=== PATIENT | female | born 1975 | race Caucasian/White ===

== ENCOUNTER → 2023-07-08 11:15 | Outpatient (BNV) | payer MEDICARE, MEDICAID, SELFPAY | PROVIDERS: Visit Provider Psychiatry & Neurology Psychiatry | DX: F25.1 Schizoaffective disorder, depressive type (principal) | CPT/HCPCS: 90792; 99213 ==

== ENCOUNTER 2023-07-15 11:30 | Outpatient (RCR) | payer MEDICARE, MEDICAID, SELFPAY ==
--- NOTE | 2023-07-05 10:05 | PC.NURSE ---
Jose Armando did not show up to the program this morning. I called and left her a message x2. I called her emergency contact lens assistant Bora Lopez and left him a message to call me back.
--- NOTE | 2023-07-05 10:39 | PC.NURSE ---
Unable to get a hold of Jose Armando or her emergency contact center specialist Bora Lopez. I called the [place] [employer] and requested a wellness check per [facility] protocol. I then cancelled the wellness check as Jose Armando called me back. She reports she was having transportation issues and could not make it to the program this morning. She plans on coming to the program on Saturday. No safety issues. [facility] staff are aware.
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
[2023-07-08 13:21] VITALS: BP 100/54; PULSE 96; TEMP 36.8
[2023-07-08 13:37] VITALS: BMI 33.6
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
[2023-07-08 14:48] LABS: Amphetamine Screen Urine Not Detected (Not Detect); Barbiturates, Urine Not Detected (Not Detect); Benzodiazepines Screen Urine Not Detected (Not Detect); Cannabinoid Screen Urine Not Detected (Not Detect); Cocaine Screen Urine Not Detected (Not Detect); Fentanyl, urine Not Detected (Not Detect); Opiate Screen Urine Not Detected (Not Detect); Phencyclidine Screen Urine Not Detected (Not Detect)
--- NOTE | 2023-07-11 09:29 | HO.PHP ---
I called and left a message for the client to call re did not come in today.
--- NOTE | 2023-07-11 15:49 | HO.PHP ---
Pt did not show up for groups today, 07/11/2023. Pt's number was called, by short story writer twice, both times no answer and voicemail-box is full. Pt's emergency contact was called, a voicemail was left for him or Ceciley to contact us and a number provided. Neither have replied yet.
--- NOTE | 2023-07-11 15:59 | HO.PHP ---
The clients case was reviewed and opened in treatment team
--- NOTE | 2023-07-15 11:11 | P.PNPSP_ITS ---
Subjective Subjective Date of Service: 07/15/23 Reason For Visit: bipolar,PTSD,anxiety,JULITO,AUD Healthcare Proxy: No Guardianship: No Medical Problems Affecting Mental Status: No Interim History: Reviewed documentation from evaluation on 07/08/2023. Sleep was very problematic. We increased Trileptal to 900 mg and added trazodone 50 mg. On Cymbalta for fibromyalgia and clonidine as needed for anxiety. Noted complex psychosocial circumstances. Had been sober for 7 months. Reviewed recent group notes Today reports overall things are going okay. Regarding trazodone has been taking a quarter of a tablet as she felt extremely groggy the next day. Reports this has been helpful in getting around 7 to 8 hours sleep. We will try an increased dose to 1/2 tablet i.e. 25 mg by the end of the week. Reports mood is getting a little bit better. Intermittent irritability. Motivation is still low however for things such as doing the laundry, cooking i.e. things she normally has no difficulty with. No side effects from higher dose of Trileptal. We also discussed significant changes i.e. he has just returned home 2 weeks ago after not being there for 6 months. Regarding current supports getting medications through [facility] primary care services. Has a therapist through [facility] in [place]. Treatment zayas we discussed getting to 25 mg of trazodone by the end of the week and following up next week. If mood remains low primarily with irritability and motivation may consider trying to titrate trazodone to a full pill i.e. 50 mg. We also discussed potentially getting psychiatry services through [facility] as part of discharge planning. Medication Compliance: Yes Side effects from medications: Yes (some grogginess) Attending Groups: Yes Review of Systems Acute medical concerns: No Medical Review of Systems: unchanged Review of Systems Review of Systems Yes all other systems are reviewed and are negative Mental Status Exam Mental Status Exam Narrative: In today's visit she is alert, oriented and pleasant. Normal speech. Good eye contact. Affect is appropriate and varied. No signs of psychosis. She denies any auditory or visual hallucinations. No delusions. She does have history of auditory and visual hallucinations which could be command in nature. She denies any current suicidal or homicidal ideations. Cognitively she is intact and judgment is intact Diagnostics Vital Signs (24Hr): BMI result Body Mass Index 33.6 Assessment & Plan Assessment & Plan (1) Schizoaffective disorder, depressive type: Status: Acute Code(s): F25.1 - Schizoaffective disorder, depressive type Assessment and Plan: Treatment zayas we discussed maintain trileptal 900 and cymbalta 80mg (fibromyalgia) and getting to 25 mg of trazodone by the end of the week and following up next week. If mood remains low primarily with irritability and mot ivation may consider trying to titrate trazodone to a full pill i.e. 50 mg. We also discussed potentially getting psychiatry services through [facility] as part of discharge planning. Patient educated on: medication risk/benefits and therapeutic strategies Informed Consent: understands Reason for contiued partial hosp. stay Substantial Risk for: med/psych decompensation Certification I certify that partial hospital treatment is medically necessary due to the symptoms and problems resulting from the patient's mental illness and the failure to treat the patient at the partial hospital level of care would likely result in the patient requiring inpatient psychiatric care which could not be prevented at a less intensive level of care. Total time managing care of this patient today __25__ minutes. Discharge Plan Discharge Attending provider: Abel Perez Medications: New oxcarbazepine [Trileptal] 300 mg tablet 900 mg PO BEDTIME 30 Days Qty: 90 0RF trazodone 100 mg tablet 100 mg PO BEDTIME Qty: 30 0RF No Action multivitamin Tablet 1 tab PO DAILY clonidine HCl 0.1 mg Tablet 0.1 mg PO BEDTIME pantoprazole [Protonix] 40 mg Tablet,Delayed Release (Dr/Ec) 40 mg PO BID folic acid 1 mg Tablet 1 mg PO DAILY ibuprofen [Motrin] 600 mg Tablet 600 mg PO TID PRN (Reason: Pain) albuterol sulfate 90 mcg/actuation HFA aerosol inhaler 2 puff INHALATION Q4H PRN (Reason: Shortness Of Breath) topiramate 100 mg Tablet 100 mg PO BID metformin 500 mg tablet extended release 24 hr 500 mg PO DAILY buspirone 15 mg Tablet 15 mg PO TID duloxetine 20 mg Capsule,Delayed Release(Dr/Ec) 20 mg PO DAILY duloxetine 60 mg Capsule,Delayed Release(Dr/Ec) 60 mg PO DAILY buprenorphine-naloxone [Suboxone] 8-2 mg Film 1 film BUCCAL TID Combivent Respimat 20-100 mcg/actuation mist 1 puff INHALATION QID Stand Alone Forms: Patient Portal Discharge page Telehealth Telehealth Location of provider rendering services: other ([place]) Location of patient: other ([facility]) Patient Identification confirmed using: Name, : Yes Telehealth method: video Patient verbally consented to treatment: Yes Minutes spent on Phone/Video with Pt.: 10
--- NOTE | 2023-07-16 09:43 | HO.PHP ---
I called Eri when she wasn't in this morning . she explained that she didn't have a ride in . She plans to be in tomorrow.
--- NOTE | 2023-07-17 11:10 | HO.PHP ---
Addendum entered by Nicole Wray [facility] 07/17/23 11:18: She has an outpatient therapist and is seeing her PCP on Thursday 07/19. I will call to make a referral for an outpatient psychiatrist at [facility] where she has her prescriber. Original Note: I called and spoke with Eri about her inability to attend due to transportation issues. She agreed to be discharged today as she feels that she is doing better and will call for an intake if she secures transportation and feels she needs treatment.
--- NOTE | 2023-07-17 14:18 | PC.NURSE ---
Jose Armando did not show up to the program this morning. I spoke to Jose Armando this morning and she stated she could not get a ride to the program. She stated she is awaiting PT1. PHP staff is aware. PHP staff Acacia Miller to f/u with patient.
== END 2023-07-17 23:59 | disposition home or self-care (01) ==
LOC: HO.PHPA 11:30
PROVIDERS: Psychiatry & Neurology Psychiatry; Visit Provider Psychiatry & Neurology Psychiatry
DX: F25.1 Schizoaffective disorder, depressive type (principal); F06.1 Catatonic disorder due to known physiological condition; F19.20 Other psychoactive substance dependence, uncomplicated; Z79.899 Other long term (current) drug therapy
CPT/HCPCS: 80307; 90791; 90853

== ENCOUNTER 2024-05-17 17:47 | Inpatient (IN) | payer OTHER, SELFPAY ==
--- NOTE | ~2024-05-17 | XR_ITS ---
EXAMINATION: XR CHEST CLINICAL INFORMATION: Cough, history of pneumonia COMPARISON: None available. TECHNIQUE: 2 views of the chest were obtained. FINDINGS: Lung volumes are symmetric. There are relatively streaky opacities at the left greater than right lung bases. No evidence of pneumothorax or pleural effusion. The cardiomediastinal contour is unremarkable. No acute osseous findings are seen. XR/XR chest 2V IMPRESSION: Relatively streaky bibasilar opacities, left greater than right. While appearance is suggestive of atelectasis, developing pneumonia at the left base cannot be excluded in the proper clinical setting.
[2024-05-17 18:02] VITALS: BP 114/68; PULSE 84; O2SAT 96
--- NOTE | 2024-05-17 18:29 | PC.NURSE ---
spoke with [facility] staff and informed them that we need a 21 form filled out and fax'd back to us for transport
[2024-05-17 18:34] VITALS: BP 120/65; PULSE 98; RESP 14; TEMP 36.9; O2SAT 93; BMI 31.9
--- NOTE | 2024-05-17 18:56 | ED_ITS ---
HPI - General Adult General Chief complaint: General Medical Stated complaint: YANELIS STARKS Time Seen by Provider: 05/17/24 18:04 Source: patient Mode of arrival: EMS Limitations: no limitations History of Present Illness ED Provider: sonia BAIRD narrative: Patient has schizoaffective disorder with history of COPD using inhaler comes here for increased cough for last 5 days was seen at [facility] 5 days ago diagnosed with pneumonia prescribed doxycycline patient is still coughing and wheezing no fever no chills saturating 93% on room air Related Data Home Medications ?Medication ?Instructions ?Recorded ?Confirmed albuterol sulfate 90 mcg/actuation 2 puff inhalation Q4H PRN 07/08/23 07/08/23 aerosol inhaler Shortness Of Breath buprenorphine 8 mg-naloxone 2 mg 1 film buccal TID 07/08/23 07/08/23 sublingual film (Suboxone) buspirone 15 mg tablet 15 mg PO TID 07/08/23 07/08/23 clonidine HCl 0.1 mg tablet 0.1 mg PO BEDTIME 07/08/23 07/08/23 duloxetine 20 mg capsule,delayed 20 mg PO DAILY 07/08/23 07/08/23 release duloxetine 60 mg capsule,delayed 60 mg PO DAILY 07/08/23 07/08/23 release folic acid 1 mg tablet 1 mg PO DAILY 07/08/23 07/08/23 ibuprofen 600 mg tablet 600 mg PO TID PRN Pain 07/08/23 07/08/23 ipratropium 20 mcg-albuterol 100 1 puff inhalation QID 07/08/23 07/08/23 mcg/actuation mist for inhalation (Combivent Respimat) metformin 500 mg tablet,extended 500 mg PO DAILY 07/08/23 07/08/23 release 24 hr multivitamin 1 tab PO DAILY 07/08/23 07/08/23 pantoprazole 40 mg tablet,delayed 40 mg PO BID 07/08/23 07/08/23 release (Protonix) topiramate 100 mg tablet 100 mg PO BID 07/08/23 07/08/23 Previous Rx's ?Medication ?Instructions ?Recorded oxcarbazepine 300 mg tablet 900 mg (3 x 300 mg) PO BEDTIME 30 07/08/23 (Trileptal) days #90 tabs trazodone 100 mg tablet 100 mg PO BEDTIME #30 tabs 07/08/23 Allergies Allergy/AdvReac Type Severity Reaction Status Date / Time Sulfa (Sulfonamide Allergy Severe Difficulty Verified 05/17/24 18:35 Antibiotics) Breathing Review of Systems 2 Review of Systems: Yes all other systems are reviewed and are negative [facility] Past Medical History Medical History (Updated 05/18/24 @ 01:24 by Jamil Zaldivar MD) Hepatitis C delivery delivered Bunion History of COVID-19 Pneumonia Hx of respiratory failure Sleep apnea Type II diabetes mellitus Thyroid nodule Fibromyalgia Ulcerative colitis COPD (chronic obstructive pulmonary disease) Surgical History Hx of cholecystectomy History of tubal ligation Social History Social History Household Members: Spouse and Children Household Members Other:: Bora Lopez, and son Gabe (10 y.o.) Alcohol intake: current Alcohol intake frequency: a few times a week Patient Tobacco Use Status: Former Tobacco user Smoked in Last 30 Days: Yes Use of substances other than those prescribed or required for medical reasons: Yes Substance Use Type: Crack/Cocaine Substance Use Frequency: Occasionally Last Used Substance: Days (ago) Advance Directives: No Advance Directives Information Provided: No Do you have a plan to hurt others: No Plan Physical Exam ED Vital Signs: Vital Signs - 24 hr 05/17/24 18:34 05/17/24 19:46 05/17/24 20:05 Temperature 98.4 F 98.1 F Pulse Rate 98 89 103 H Respiratory Rate 14 16 18 Blood Pressure 120/65 101/52 L Pulse Oximetry 93 94 Oxygen Delivery Method Room Air Room Air Oxygen Flow Rate 05/17/24 21:30 05/17/24 21:35 Temperature 98.4 F Pulse Rate 94 Respiratory Rate 18 Blood Pressure 108/64 Pulse Oximetry 84 L 93 Oxygen Delivery Method Room Air Nasal Cannula Oxygen Flow Rate 2 BMI result Body Mass Index 31.9 Appearance: Alert. Oriented X3. No acute distress. Eyes: No pallor or icterus ENT: Pharynx normal. Oral Mucosa moist Neck: Normal inspection. Neck supple. CVS: Normal heart rate and rhythm. Pulses normal. Respiratory: No respiratory distress. Equal air entry bilateral, bilateral wheezing occasional crackles Abdomen: Soft and nontender. Bowel sounds are present, no mass palpable, no CVA tenderness Skin: Skin warm and dry. Normal skin color. Normal skin turgor. Extremities: No lower extremity edema. No calf tenderness Neuro: Oriented X 3. No motor deficit. Medications Administered Discontinued Medications Generic Name Dose Route Start Last Admin Trade Name Freq PRN Reason Stop Dose Admin Benzonatate 200 mg 05/17/24 19:02 05/17/24 20:28 Benzonatate 100 Mg Capsule PO 05/17/24 19:03 200 mg ONCE ONE Administration Albuterol Sulfate 5 mg/ 0 mg 05/17/24 19:02 05/17/24 19:44 Albuterol/Ipratropium 3 ml INHALE 05/17/24 19:03 2.5 each ONCE ONE Administration Sodium Chloride 1,000 mls @ 999 mls/hr 05/17/24 21:45 05/17/24 22:15 Ns IV 05/17/24 22:45 999 mls/hr .Q1H1M ONE Administration Ceftriaxone Sodium 1 gm/ 50 mls @ 100 mls/hr 05/17/24 21:46 05/17/24 22:54 Sodium Chloride IV 05/17/24 22:15 Infused ONCE ONE Infusion Prednisone 60 mg 05/17/24 19:02 05/17/24 20:28 Prednisone 20 Mg Tablet PO 05/17/24 19:03 60 mg ONCE ONE Administration Medical Decision Making Medical Decision Making [facility] Narrative: Patient's COPD/asthma/questionable sleep apnea not on any nebulizer or CPAP machine comes here for increased cough and shortness of breath for last 5 days seen at [facility] started on doxycycline patient is still wheezing while asleep patient pulse ox dropped to 85% chest x-ray with basilar atelectasis questionable infiltrate will admit patient for further evaluation Differential Diagnosis Differential Diagnoses: The differential diagnosis associated with the presentation includes Pneumonia/mucus plugging/COPD/acute on chronic respiratory failure/sleep apnea/bronchitis Admission/Observation Consideration of admission/observation: Escalation of care including admission/observation considered Consult Healthcare Provider Management of the patient was discussed with: Hospitalist Lab Data [facility] Lab Attestation statement: I reviewed the patient's lab results. 05/17/24 22:01 05/17/24 22:01 Labs: Lab Results 06/23/24 06/23/24 06/23/24 Range/Units 22:01 22:02 22:09 WBC 7.3 (4.8-10.8) X10*3/uL RBC 3.85 L (4.20-5.50) X10*6/uL Hgb 11.6 L (12.0-16.0) g/dl Hct 32.7 L (37.0-47.0) % MCV 84.9 (80.0-98.0) fL MCH 30.1 (27.0-33.0) pg MCHC 35.5 H (31.0-35.0) g/dl RDW 12.5 (11.0-16.0) % Plt Count 218 (160-400) X10*3/uL MPV 9.0 L (9.4-12.3) fL Immature Gran % (Auto) 0.7 H (0.0-0.4) % Neut % (Auto) 69.3 (45-73) % Lymph % (Auto) 20.7 (20-40) % [place] % (Auto) 6.7 (2-11) % Eos % (Auto) 2.1 (0-4) % Baso % (Auto) 0.5 (0-2) % Lymph # (Auto) 1.5 (1.2-4.9) X10*3/uL [place] # (Auto) 0.5 (0.1-1.2) X10*3/uL Eos # (Auto) 0.2 (0.0-0.4) X10*3/uL Baso # (Auto) 0.0 (0.0-0.2) X10*3/uL Abs Immat Gran (auto) 0.05 H (0.00-0.03) X10*3/uL Absolute Neuts (auto) 5.1 (2.0-8.3) x10*3/uL Absolute Nucleated RBC 0.000 (0.0-0.012) X10*3/uL Nucleated RBC % (auto) 0.0 (0.0-0.2) /100WBC VBG pH 7.36 (7.32-7.43) VBG pCO2 58 mmHg VBG pO2 46 mmHg VBG HCO3 33 H (22-26) mmol/L VBG O2 Saturation 70.0 % VBG Base Excess 6.5 mmol/L Sodium 126 L (135-145) mmol/L Potassium 4.5 (3.3-5.1) mmol/L Chloride 87 L (96-108) mmol/L Carbon Dioxide 30 H (22-29) mmol/L Anion Gap 14 (12-20) BUN 13 (9-16) mg/dL Creatinine 0.74 (0.5-1.4) mg/dL Estim Creat Clear Calc 96.1 Estimated GFR > 60 Random Glucose 114 (60-115) mg/dL Lactic Acid 1.4 (0.5-2.0) mmol/L Calcium 9.2 (8.4-10.2) mg/dL Total Bilirubin 0.2 (0.0-1.0) mg/dL AST 11 (5-31) U/L ALT 8 (0-31) U/L Alkaline Phosphatase 75 (39-117) U/L Total Protein 6.2 L (6.5-8.0) g/dL Albumin 3.5 (3.5-5.0) g/dL COVID-19 (JUS) Negative (Negative) COVID-19 Clin Com See Note Independent Interpretation I performed an independent interpretation of an: Plain X-Ray Radiology Impression Discussion of test interpretation with radiology: I have reviewed the radiologist's reading. Discharge Plan Discharge Clinical Impression: Acute exacerbation of COPD with asthma, Acute and chronic respiratory failure ([id number]) Pneumonia Qualifiers: Pneumonia type: due to unspecified organism Laterality: left Lung location: l ower lobe of lung Qualified Code(s): J18.9 - Pneumonia, unspecified organism Patient Disposition: Admitted As Inpatient
--- NOTE | 2024-05-17 19:12 | MHC.EDTECH ---
This tech took over care/sitting for this patient at 1900,patient ambulated to the bathroom with a steady gait, The tech prior to my shift locked all belongings in the LAUNDR[facility] ROOM in the POD bottom shelf.
[2024-05-17] MEDS: Albuterol Sulfate 5 MG, Albuterol/Iprat 2.5/0.5MG 3 ML 3 ML INHALE (19:44)
[2024-05-17 19:46] VITALS: PULSE 89; RESP 16; O2SAT 95
[2024-05-17 20:05] VITALS: BP 101/52; PULSE 103; RESP 18; TEMP 36.7; O2SAT 94
[2024-05-17] MEDS: predniSONE 20 MG TABLET 60 MG PO (20:28)
[2024-05-17] MEDS: Benzonatate 100 MG CAPSULE 200 MG PO (20:28)
[2024-05-17 21:30] VITALS: O2SAT 84
[2024-05-17 21:35] VITALS: BP 108/64; PULSE 94; RESP 18; TEMP 36.9; O2SAT 93
--- NOTE | 2024-05-17 21:36 | MHC.EDTECH ---
Patient sats dropped to 84% on room air while asleep,patient was placed on 2L VIA NC,per providers request,patient is 93% at this time
--- NOTE | 2024-05-17 22:04 | PC.NURSE ---
Patient is alert and oriented x3, pleasant and cooperative, denies SI/HI at present. Patient is afebrile, placed on O2 at 2 LPM NC d/t desat to 85-86% on RA while sleeping. Patient has been maintaining O2 Sat 95-95% on supplemental O2. 20 G IV line established in R AC, labs drawn and sent to lab. Plan for admission d/t need for supplemental O2 and treatment with IV antibiotics.
[2024-05-17 22:06] LABS: MANUAL DIFF FLAG NO
[2024-05-17 22:10] LABS: Basophils Percent Auto 0.5 % (0-2); Eosinophils Absolute Auto 0.2 X10*3/uL (0.0-0.4); Eosinophils Percent Auto 2.1 % (0-4); Hematocrit 32.7 % (37.0-47.0); Hemoglobin 11.6 g/dl (12.0-16.0); Imm Gran Abs Auto 0.05 X10*3/uL (0.00-0.03); Imm Gran Pct Auto 0.7 % (0.0-0.4); Lymphocytes Absolute Auto 1.5 X10*3/uL (1.2-4.9); Lymphocytes Percent Auto 20.7 % (20-40); Mean Corpuscular HGB Conc 35.5 g/dl (31.0-35.0); Mean Corpuscular Hemoglobin 30.1 pg (27.0-33.0); Mean Corpuscular Volume 84.9 fL (80.0-98.0); Monocytes Absolute Auto 0.5 X10*3/uL (0.1-1.2); Monocytes Percent Auto 6.7 % (2-11); Neutrophils Absolute Auto 5.1 x10*3/uL (2.0-8.3); Neutrophils Percent Auto 69.3 % (45-73); Platelet Count 218 X10*3/uL (160-400); Red Blood Count 3.85 X10*6/uL (4.20-5.50); Red Cell Distribution Width 12.5 % (11.0-16.0); White Blood Count 7.3 X10*3/uL (4.8-10.8)
[2024-05-17 22:12] LABS: VBG Base Excess 6.5 mmol/L; VBG HCO3 33 mmol/L (22-26); VBG pCO2 58 mmHg; VBG pH 7.36 (7.32-7.43); VBG pO2 46 mmHg
--- NOTE | 2024-05-17 22:12 | MHC.EDTECH ---
labs,covid,and blood cultures drawn and sent to lab.
[2024-05-17] MEDS: cefTRIAXone sodium 1 GM in 0.9 % Sodium Chloride 50 ML IV (22:15)
[2024-05-17] MEDS: 0.9 % Sodium Chloride 1,000 ML 999 ML IV (22:15)
[2024-05-17 22:16] LABS: Venous Blood Gas Refer to POC result
[2024-05-17 22:21] LABS: COVID-19 Test Negative (Negative); IDNOW Serial# 08D9AD1C
[2024-05-17 22:23] LABS: Alanine Aminotransferase 8 U/L (0-31); Albumin Level 3.5 g/dL (3.5-5.0); Alkaline Phosphatase 75 U/L (39-117); Anion Gap 14 (12-20); Aspartate Amino Transferase 11 U/L (5-31); Bilirubin Total 0.2 mg/dL (0.0-1.0); Blood Urea Nitrogen 13 mg/dL (9-16); Calcium 9.2 mg/dL (8.4-10.2); Carbon Dioxide 30 mmol/L (22-29); Chloride 87 mmol/L (96-108); Creatinine Clr Calc Pharmacy 96.1; Estimated Glomerular Filt Rate > 60; Glucose Random 114 mg/dL (60-115); Potassium 4.5 mmol/L (3.3-5.1); Sodium 126 mmol/L (135-145); Total Protein 6.2 g/dL (6.5-8.0)
[2024-05-17 22:27] LABS: Lactic Acid 1.4 mmol/L (0.5-2.0)
--- NOTE | 2024-05-17 22:28 | MHC.EDTECH ---
Patient was given a chicken salad sandwich per request and a cup of alina axel
[2024-05-18] VITALS (12 sets, daily range): BP systolic 114–160; BP diastolic 67–84; PULSE 79–140; RESP 12–20; TEMP 36.1–36.8; O2SAT 93–99; BMI 32.4
--- NOTE | 2024-05-18 | ECG_ITS ---
Test Reason : rhythm change Blood Pressure : / mmHG Vent. Rate : 105 BPM Atrial Rate : 105 BPM P-R Int : 172 ms QRS Dur : 080 ms QT Int : 338 ms P-R-T Axes : 063 057 058 degrees QTc Int : 446 ms Sinus tachycardia Otherwise normal ECG No previous ECGs available Referred By: Afia Kothari Electronically Signed By:NYDIA DELEON MD
--- NOTE | 2024-05-18 00:13 | P.HPHOSP_ITS ---
History of Present Illness Date of Service: 05/18/24 Attending physician on admission: Angelo Tinajero Chief Complaint: Shortness of breath Jose Armando Ochoa is a 48 years old woman with past medical history significant for COPD -on home O2 (2L/min), ongoing tobacco smoking, type 2 diabetes mellitus on metformin and alcohol abuse was brought to the ED from [facility] via ambulance due to worsening shortness on breath, wheezing and cough. She was recently diagnosed with pneumonia and was treated for this at [facility] 5 days ago. Has been using doxycycline. She has been patient [facility] for SI, HI, AH and VH. Patient did not report any dizziness, headache, fevers chills. She did not report any acute gastrointestinal symptoms (she stated that she has chronic diarrhea because she has history of UC). Did not report any acute urinary symptoms. As mentioned before she has an ongoing tobacco smoker and cocaine user. Last use of alcohol was several days prior to admission to [facility]. In the ED, she was found to have stable vital signs. Her oxygen saturation was 84% on RA (but she uses home O2) and currently requiring 2 liters/minute supplemental oxygen which is her baseline. Blood workup showed no leukocytosis. Hemoglobin is 11.6 and platelets are normal. Venous blood gas shows no acute respiratory acidosis. Sodium is 126, CO2 slightly elevated at 30. There are no other significant electrolyte imbalances. Glucose is 114. Renal function and LFTs are normal. CXR showed relatively streaky bibasilar opacities left greater than right (pneumonia at the left base can not be excluded). ED tx: Albuterol/ipratropium 3 mL inhaled x1, prednisone 60 mg p.o., trazodone 20 mg p.o., NS 1 L bolus, ceftriaxone 1 g IV. Review of Systems 2 Review of Systems: All 12 systems were reviewed and normal except as noted in HPI. [facility] Medical History (Updated 05/18/24 @ 01:05 by Angelo Tinajero MD) Hepatitis C delivery delivered Bunion History of COVID-19 Pneumonia Hx of respiratory failure Sleep apnea Type II diabetes mellitus Thyroid nodule Fibromyalgia Ulcerative colitis COPD (chronic obstructive pulmonary disease) Surgical History Hx of cholecystectomy History of tubal ligation Social History Household Members: Spouse and Children Household Members Other:: Bora Lopez, and son Gabe (10 y.o.) Alcohol intake: current Alcohol intake frequency: a few times a week Patient Tobacco Use Status: Former Tobacco user Smoked in Last 30 Days: Yes Use of substances other than those prescribed or required for medical reasons: Yes Substance Use Type: Crack/Cocaine Substance Use Frequency: Occasionally Last Used Substance: Days (ago) Advance Directives: No Advance Directives Information Provided: No Do you have a plan to hurt others: No Plan Meds Allergies Allergy/AdvReac Type Severity Reaction Status Date / Time Sulfa (Sulfonamide Allergy Severe Difficulty Verified 05/17/24 18:35 Antibiotics) Breathing Active Medications: Current Medications Acetaminophen (Acetaminophen 325 Mg Tablet) 650 mg PO Q6H PRN PRN Reason: Pain, Mild (Pain Scale 1-3), fever or headache Albuterol Sulfate (Albuterol Sulfate 90 Mcg 8 Gm Inhaler) 4 puff INHALE RQ4H WHILE AWAKE [facility] Albuterol Sulfate (Albuterol Sulfate (0.083%) 2.5 Mg/3 Ml Vial.Neb) 2.5 mg INHALE Q2H PRN PRN Reason: Shortness of Breath/Wheezing Calcium Carbonate (Calcium Carbonate 750 Mg Tab.Chew) 750 mg PO Q4H PRN PRN Reason: Heartburn Enoxaparin Sodium (Enoxaparin Sodium 40 Mg/0.4 Ml Syringe) 40 mg SUBCUT Q24H [facility] Sodium Chloride (Ns) 1,000 mls @ 80 mls/hr IVCONT .[id number] DULCE Stop: 05/18/24 10:14 Ceftriaxone Sodium 1 gm/ (Sodium Chloride) 100 mls @ 200 mls/hr IV Q24H DULCE Azithromycin 500 mg/ Sodium (Chloride) 250 mls @ 125 mls/hr IV Q24H [facility] Magnesium Hydroxide (Milk Of Magnesia 30 Ml Oral.Susp) 30 ml PO DAILY PRN PRN Reason: Constipation Melatonin (Melatonin 3 Mg Tablet) 6 mg PO BEDTIME PRN PRN Reason: Insomnia Methylprednisolone Sodium Succinate (Methylprednisolone Sod Succ 40 Mg/Ml Vial) 40 mg IVPUSH BID [facility] Sodium Chloride (0.9 % Sodium Chloride Flush 3 Ml Syringe) 3 ml IVFLUSH QSHIFT [facility] Home Medications ?Medication ?Instructions ?Recorded ?Confirmed ?Last Taken ?Type albuterol sulfate 90 mcg/actuation 2 puff inhalation Q4H PRN 07/08/23 07/08/23 07/08/23 08:00 History aerosol inhaler Shortness Of Breath buprenorphine 8 mg-naloxone 2 mg 1 film buccal TID 07/08/23 07/08/23 07/08/23 08:00 History sublingual film (Suboxone) buspirone 15 mg tablet 15 mg PO TID 07/08/23 07/08/23 07/08/23 08:00 History clonidine HCl 0.1 mg tablet 0.1 mg PO BEDTIME 07/08/23 07/08/23 07/07/23 20:00 History duloxetine 20 mg capsule,delayed 20 mg PO DAILY 07/08/23 07/08/23 07/08/23 08:00 History release duloxetine 60 mg capsule,delayed 60 mg PO DAILY 07/08/23 07/08/23 07/08/23 08:00 History release folic acid 1 mg tablet 1 mg PO DAILY 07/08/23 07/08/23 07/08/23 08:00 History ibuprofen 600 mg tablet 600 mg PO TID PRN Pain 07/08/23 07/08/23 07/07/23 15:00 History ipratropium 20 mcg-albuterol 100 1 puff inhalation QID 07/08/23 07/08/23 07/08/23 08:00 History mcg/actuation mist for inhalation (Combivent Respimat) metformin 500 mg tablet,extended 500 mg PO DAILY 07/08/23 07/08/23 07/08/23 08:00 History release 24 hr multivitamin 1 tab PO DAILY 07/08/23 07/08/23 07/08/23 08:00 History pantoprazole 40 mg tablet,delayed 40 mg PO BID 07/08/23 07/08/23 07/08/23 08:00 History release (Protonix) topiramate 100 mg tablet 100 mg PO BID 07/08/23 07/08/23 07/08/23 08:00 History Physical Exam 2 Vital Signs and Narrative: Vital Signs: Last Vital Signs Temp 98.4 F 05/17/24 21:35 Pulse 94 05/17/24 21:35 Resp 18 05/17/24 21:35 BP 108/64 05/17/24 21:35 Pulse Ox 93 05/17/24 21:35 O2 Del Method Nasal Cannula 05/17/24 21:35 O2 Flow Rate 2 05/17/24 21:35 BMI result Body Mass Index 31.9 Const: Other: Constitutional - Awake and Alert, No apparent distress. Nasal cannula in place. HEENT - PERRL, EOMI. Normal sclerae. Heart - RRR, (+) murmur. Lungs - Normal lung expansion, Normal respiratory effort, No respiratory distress. Tachypnea. Bilateral rhonchi, scattered wheezing. No crackles. Abdomen - NT / ND; +BS; No rebound or guarding - No CVA tenderness Extremities - no calf tenderness bilaterally, no swelling Musculoskeletal - Normal inspection, normal ROM Skin - Warm/Dry Neurological - Alert & oriented x3. No focal weakness grossly noted. Normal speech. Psychological - Depressed affect Results Labs 05/17/24 22:01 05/17/24 22:01 Labs: Laboratory Results - last 24 hr 05/17/24 05/17/24 05/17/24 22:01 22:02 22:09 MCV 84.9 MCH 30.1 MCHC 35.5 H RDW 12.5 Plt Count 218 MPV 9.0 L Immature Gran % (Auto) 0.7 H Neut % (Auto) 69.3 Lymph % (Auto) 20.7 [place] % (Auto) 6.7 Eos % (Auto) 2.1 Baso % (Auto) 0.5 Lymph # (Auto) 1.5 [place] # (Auto) 0.5 Eos # (Auto) 0.2 Baso # (Auto) 0.0 Abs Immat Gran (auto) 0.05 H Absolute Neuts (auto) 5.1 Absolute Nucleated RBC 0.000 Nucleated RBC % (auto) 0.0 VBG pH 7.36 VBG pCO2 58 VBG pO2 46 VBG HCO3 33 H VBG O2 Saturation 70.0 VBG Base Excess 6.5 Anion Gap 14 Estim Creat Clear Calc 96.1 Estimated GFR > 60 Random Glucose 114 Lactic Acid 1.4 Calcium 9.2 Total Bilirubin 0.2 AST 11 ALT 8 Alkaline Phosphatase 75 Total Protein 6.2 L Albumin 3.5 COVID-19 (JUS) Negative COVID-19 Clin Com See Note Imaging Radiologist's Impressions: Impressions Chest X-Ray 05/17/24 19:27 IMPRESSION: Relatively streaky bibasilar opacities, left greater than right. While appearance is suggestive of atelectasis, developing pneumonia at the left base cannot be excluded in the proper clinical setting. Assessment and Plan (1) Acute exacerbation of COPD with asthma: Status: Acute (2) Pneumonia: Qualifiers: Pneumonia type: due to unspecified organism Laterality: left Lung location: lower lobe of lung Qualified Code(s): J18.9 - Pneumonia, unspecified organism Status: Acute Plan Jose Armando Ochoa is a 48 y/o woman admitted with: * Acute chronic obstructive pulmonary disease exacerbation with possible associated pneumonia. Admit to hospitalist service. Telemetry. Continuous pulse oximetry. Continue supplemental oxygen to keep O2 sats > 90%. Continue bronchodilator therapy and IV steroids. Continue empiric IV antibiotic therapy with ceftriaxone and azithromycin. * Hyponatremia. Check urine sodium and osmolality as well as serum osmolality. NS bolus given in ED. Continue to monitor sodium level. * Type 2 diabetes mellitus. Metformin on hold. Blood glucose monitoring before meals and bedtime. Insulin sliding scale. Diabetic diet. * Mood disorder. Continue home medications after med rec verification by pharmacy. * GERD. Continue Protonix. * Hx of UC. No acute symptoms. * History of alcohol abuse. No CIWA as needed (last drink was several days ago). No symptoms of withdrawal noted. Start treatment with thiamine, multivitamins and folic acid. * Tobacco dependence. Nicotine patch as needed. Tobacco cessation education. * Chronic anemia. Continue to monitor. DVT prophylaxis: Lovenox Code status: Full Patient will need hospitalization for at least 2 midnights for acute COPD exacerbation and possible pneumonia treatment with bronchodilator therapy, IV antibiotics and supplemental oxygen. She also will need close monitoring of Na+ level. Quality Stroke Does the patient have a stroke diagnosis?: No VTE Prior VTE?: No VTE Risk Level:: Medical - moderate - high VTE Device Contraindication: Treatment Not Indicated VTE Drug Contraindication: N/A - Med Ordered
[2024-05-18] MEDS: Azithromycin 500 MG in 0.9 % Sodium Chloride 250 ML 125 MG IV ×2 (01:27→23:32)
[2024-05-18] MEDS: Albuterol Sulfate 90 MCG 8 GM INHALER 4 PUFF INHALE ×5 (01:27→20:49)
[2024-05-18] MEDS: 0.9 % Sodium Chloride 1,000 ML 80 ML IVCONT (01:28)
[2024-05-18 02:03] LABS: Glucose, Whole Blood 133 mg/dL (60-115)
[2024-05-18 02:15] LABS: Sodium 124 mmol/L (135-145)
[2024-05-18] MEDS: Nicotine 7 MG PATCH.TD24 TRANSDERMA (02:16)
[2024-05-18] MEDS: Acetaminophen 325 MG TABLET 650 MG PO ×2 (02:17→14:00)
[2024-05-18 03:38] LABS: Osmolality, Serum 263 mosm/kg (281-305)
[2024-05-18 04:43] LABS: Basophils Percent Auto 0.3 % (0-2); Eosinophils Percent Auto 0.5 % (0-4); Hematocrit 32.6 % (37.0-47.0); Hemoglobin 11.4 g/dl (12.0-16.0); Imm Gran Abs Auto 0.03 X10*3/uL (0.00-0.03); Imm Gran Pct Auto 0.5 % (0.0-0.4); Lymphocytes Absolute Auto 0.5 X10*3/uL (1.2-4.9); Lymphocytes Percent Auto 6.8 % (20-40); MANUAL DIFF FLAG SCAN; Mean Corpuscular Hemoglobin 30.2 pg (27.0-33.0); Mean Corpuscular Volume 86.2 fL (80.0-98.0); Mean Platelet Volume 9.7 fL (9.4-12.3); Monocytes Absolute Auto 0.1 X10*3/uL (0.1-1.2); Monocytes Percent Auto 1.4 % (2-11); Neutrophils Percent Auto 90.5 % (45-73); Platelet Count 228 X10*3/uL (160-400); Red Blood Count 3.78 X10*6/uL (4.20-5.50); Red Cell Distribution Width 12.5 % (11.0-16.0); SCAN SMEAR FLAG 1; White Blood Count 6.6 X10*3/uL (4.8-10.8)
[2024-05-18 04:58] LABS: Anion Gap 17 (12-20); Blood Urea Nitrogen 13 mg/dL (9-16); Calcium 8.5 mg/dL (8.4-10.2); Carbon Dioxide 26 mmol/L (22-29); Chloride 87 mmol/L (96-108); Creatinine Clr Calc Pharmacy 100.1; Estimated Glomerular Filt Rate > 60; Glucose Random 159 mg/dL (60-115); Potassium 4.7 mmol/L (3.3-5.1); Sodium 125 mmol/L (135-145)
[2024-05-18 05:08] LABS: SLIDE REVIEW VERIFIED
[2024-05-18] MEDS: Nicotine 14 MG PATCH.TD24 TRANSDERMA (06:06)
[2024-05-18 07:08] LABS: Glucose, Whole Blood 143 mg/dL (60-115)
--- NOTE | 2024-05-18 08:02 | PM.EVENT ---
Event Note Date of Service: 05/18/24 Event Note: Jose Armando Ochoa is a 48 y/o woman admitted with resp failure secondary to pneumonia Acute chronic obstructive pulmonary disease exacerbation with possible associated pneumonia. Telemetry. Continuous pulse oximetry. Continue supplemental oxygen to keep O2 sats > 90%. bronchodilator therapy and IV steroids. Continue ceftriaxone and azithromycin. Hyponatremia. urine sodium pending, serum osmolality 263, urine osmolality 198 NS bolus given in ED. Continue to monitor sodium level. nephrology consultation Type 2 diabetes mellitus. Metformin on hold. Blood glucose monitoring before meals and bedtime. Insulin sliding scale. Diabetic diet. Mood disorder. Continue home medications after med rec verification by pharmacy. GERD. Continue Protonix. Hx of UC. No acute symptoms. History of alcohol abuse. No CIWA as needed (last drink was several days ago). No symptoms of withdrawal noted. Start treatment with thiamine, multivitamins and folic acid. Tobacco dependence. Nicotine patch as needed. Tobacco cessation education. Chronic anemia. Continue to monitor. DVT prophylaxis: Lovemelisa attending Dr. Cuellar Code status: Full Patient will need hospitalization for at least 2 midnights for acute COPD exacerbation and possible pneumonia treatment with bronchodilator therapy, IV antibiotics and supplemental oxygen. She also will need close monitoring of Na+ level. Time Spent With Patient Time: Total time managing care of this patient today ____ minutes.
[2024-05-18] MEDS: Thiamine HCL 100 MG TABLET PO (09:21)
[2024-05-18] MEDS: Multivitamin TABLET 1 TAB PO (09:21)
[2024-05-18] MEDS: Enoxaparin Sodium 40 MG/0.4 ML SYRINGE SUBCUT (09:21)
[2024-05-18] MEDS: methylPREDNISolone Sod Succ 40 MG/ML VIAL IVPUSH ×2 (09:21→21:37)
[2024-05-18] MEDS: Folic Acid 1 MG TABLET PO (09:21)
[2024-05-18 09:59] LABS: Osmolality Urine 198 mosm/kg (373-1093)
[2024-05-18 11:49] LABS: Glucose, Whole Blood 114 mg/dL (60-115)
[2024-05-18] MEDS: Topiramate 100 MG TABLET PO ×2 (12:38→21:37)
[2024-05-18] MEDS: Buprenorphine/Naloxone 8/2 mg FILM 1 FILM BUCCAL ×3 (12:40→21:37)
[2024-05-18] MEDS: Nicotine Polacrilex 2 MG GUM BUCCAL ×5 (12:40→23:52)
--- NOTE | 2024-05-18 12:41 | MHC.CM.PN ---
IMM 05/18/24 Female 48 DX COPD EXAC, Asthma PNA She lives with her spouse and family. She uses a cane prn. She states that she is independent with ADLs. She uses 2L O2 PRN/ Ru is he O2 provider. DARRELL Yan see ER note. [facility] community resource info. She is interested in [facility] Partial Hospitalization program. Patients spouse will provide transport home.
--- NOTE | 2024-05-18 12:56 | PHA.MEDREC ---
Pharmacy Consult ? Medication Reconciliation Pharmacy has completed the medication reconciliation. Spoke to Moriah at [facility] (4th floor capay [phone]) to confirm medication list. Verified with her twice that patient takes carbamazepine 300 mg daily. She also confirmed pt takes trileptal 900 mg at bedtime, pantoprazole 40 mg bid, suboxone 8/2 mg tid and duloxetine 80 mg daily. Patient is also taking doxycycline 100 mg bid.
--- NOTE | 2024-05-18 13:17 | P.CONNP_ITS ---
History of Present Illness Reason for Consult Consult date: 05/18/24 Chief Complaint Chief complaint: Acute COPD exacerbation History of Present Illness Narrative: 48 years old woman with past medical history significant for COPD -on home O2 (2L/min), ongoing tobacco smoking, type 2 diabetes mellitus on metformin and alcohol abuse was brought to the ED from [facility] via ambulance due to worsening shortness on breath, wheezing and cough. She was recently diagnosed with pneumonia and was treated for this at [facility] 5 days ago. Has been using doxycycline. She has been patient [facility] for SI, HI, AH and VH. Patient did not report any dizziness, headache, fevers chills. She did not report any acute gastrointestinal symptoms (she stated that she has chronic diarrhea because she has history of UC). Did not report any acute urinary symptoms. As mentioned before she has an ongoing tobacco smoker and cocaine user. Consulted for hyponatremia. Review of Systems Constitutional: Denies fever(s) and Denies weight loss Cardiovascular: Denies chest pain Respiratory: Denies cough and Denies hemoptysis Gastrointestinal: Denies abdominal pain, Denies diarrhea and Denies nausea Musculoskeletal: Denies back pain Denies focal weakness PMFSH Past Medical History Medical History (Updated 05/18/24 @ 13:18 by Michael Morris MD) Hepatitis C delivery delivered Bunion History of COVID-19 Pneumonia Hx of respiratory failure Sleep apnea Type II diabetes mellitus Thyroid nodule Fibromyalgia Ulcerative colitis COPD (chronic obstructive pulmonary disease) Surgical History Surgical History Hx of cholecystectomy History of tubal ligation Social History Social History Household Members: Spouse and Children Household Members Other:: Bora Lopez, and son Gabe (10 y.o.) Alcohol intake: current Alcohol intake frequency: a few times a week Patient Tobacco Use Status: Former Tobacco user Substance Use Type: Crack/Cocaine service: No Meds Allergies Allergy/AdvReac Type Severity Reaction Status Date / Time Sulfa (Sulfonamide Allergy Severe Difficulty Verified 05/17/24 18:35 Antibiotics) Breathing Active Medications: Current Medications Acetaminophen (Acetaminophen 325 Mg Tablet) 650 mg PO Q6H PRN PRN Reason: Pain, Mild (Pain Scale 1-3), fever or headache Last Admin: 05/18/24 02:17 Dose: 650 mg Albuterol Sulfate (Albuterol Sulfate 90 Mcg 8 Gm Inhaler) 4 puff INHALE RQ4H WHILE AWAKE [facility] Last Admin: 05/18/24 11:23 Dose: 4 puff Albuterol Sulfate (Albuterol Sulfate (0.083%) 2.5 Mg/3 Ml Vial.Neb) 2.5 mg INHALE Q2H PRN PRN Reason: Shortness of Breath/Wheezing Albuterol Sulfate (Albuterol Sulfate 90 Mcg 8 Gm Inhaler) 2 puff INHALE Q6H PRN PRN Reason: Shortness Of Breath Buprenorphine/Naloxone (Buprenorphine/Naloxone 8/2 Mg Film) 1 film BUCCAL TID [facility] Last Admin: 05/18/24 12:40 Dose: 1 film Buspirone HCl (Buspirone Hcl 5 Mg Tablet) 15 mg PO TID [facility] Calcium Carbonate (Calcium Carbonate 750 Mg Tab.Chew) 750 mg PO Q4H PRN PRN Reason: Heartburn Clonidine HCl (Clonidine Hcl 0.1 Mg Tablet) 0.1 mg PO BEDTIME [facility]; Protocol Cyclobenzaprine HCl (Cyclobenzaprine Hcl 5 Mg Tablet) 5 mg PO TID PRN PRN Reason: Muscle Spasm Duloxetine HCl (Duloxetine Hcl 20 Mg Capsule.Dr) 80 mg PO DAILY [facility] Enoxaparin Sodium (Enoxaparin Sodium 40 Mg/0.4 Ml Syringe) 40 mg SUBCUT Q24H [facility] Last Admin: 05/18/24 09:21 Dose: 40 mg Folic Acid (Folic Acid 1 Mg Tablet) 1 mg PO DAILY [facility] Last Admin: 05/18/24 09:21 Dose: 1 mg Glucose (Glucose Gel 15 Gm Gel..Gram.) 15 gm PO Q15M PRN; Protocol PRN Reason: per Hypoglycemia Standing Ord. Ceftriaxone Sodium 1 gm/ (Sodium Chloride) 100 mls @ 200 mls/hr IV Q24H [facility] Azithromycin 500 mg/ Sodium (Chloride) 250 mls @ 125 mls/hr IV 2200 [facility] Last Infusion: 05/18/24 03:38 Dose: Infused Dextrose (D10) 250 mls @ 750 mls/hr IV Q15M PRN; Protocol PRN Reason: per Hypoglycemia Standing Ord. Insulin Human Lispro (Insulin Lispro 100 Unit/Ml 3 Ml Vial) 0 unit SUBCUT QIDACHS [facility]; Protocol Last Admin: 05/18/24 11:51 Dose: Not Given Magnesium Hydroxide (Milk Of Magnesia 30 Ml Oral.Susp) 30 ml PO DAILY PRN PRN Reason: Constipation Melatonin (Melatonin 3 Mg Tablet) 6 mg PO BEDTIME PRN PRN Reason: Insomnia Melatonin (Melatonin 3 Mg Tablet) 9 mg PO BEDTIME [facility] Methylprednisolone Sodium Succinate (Methylprednisolone Sod Succ 40 Mg/Ml Vial) 40 mg IVPUSH BID [facility] Last Admin: 05/18/24 09:21 Dose: 40 mg Multivitamins/Vitamin C (Multivitamin Tablet) 1 tab PO DAILY [facility] Last Admin: 05/18/24 09:21 Dose: 1 tab Nicotine (Nicotine 14 Mg Patch.Td24) 14 mg TRANSDERMA DAILY [facility] Last Admin: 05/18/24 06:06 Dose: 14 mg Nicotine Polacrilex (Nicotine Polacrilex 2 Mg Gum) 2 mg BUCCAL Q2H PRN PRN Reason: withdrawal Last Admin: 05/18/24 12:40 Dose: 2 mg Non-Formulary Medication (Pantoprazole [Protonix]) 40 mg PO DAILY@30 [facility] Oxcarbazepine (Oxcarbazepine 300 Mg Tablet) 900 mg PO BEDTIME [facility] Sodium Chloride (0.9 % Sodium Chloride Flush 3 Ml Syringe) 3 ml IVFLUSH QSHIFT [facility] Last Admin: 05/18/24 09:24 Dose: Not Given Thiamine HCl (Thiamine Hcl 100 Mg Tablet) 100 mg PO DAILY [facility] Last Admin: 05/18/24 09:21 Dose: 100 mg Topiramate (Topiramate 100 Mg Tablet) 100 mg PO BID [facility] Last Admin: 05/18/24 12:38 Dose: 100 mg Trazodone HCl (Trazodone Hcl 100 Mg Tablet) 100 mg PO BEDTIME [facility] Home Medications ?Medication ?Instructions ?Recorded ?Confirmed ?Last Taken ?Type albuterol sulfate 90 mcg/actuation 2 puff inhalation Q6H PRN 07/08/23 05/18/24 07/08/23 08:00 History aerosol inhaler Shortness Of Breath buprenorphine 8 mg-naloxone 2 mg 1 film buccal TID 07/08/23 05/18/24 07/08/23 08:00 History sublingual film (Suboxone) buspirone 15 mg tablet 15 mg PO TID 08/05/18/24 07/08/23 08:00 History clonidine HCl 0.1 mg tablet 0.1 mg PO BEDTIME 07/08/23 05/18/24 07/07/23 20:00 History duloxetine 20 mg capsule,delayed 80 mg PO DAILY 07/08/23 05/18/24 07/08/23 08:00 History release folic acid 1 mg tablet 1 mg PO DAILY 07/08/23 05/18/24 07/08/23 08:00 History ipratropium 20 mcg-albuterol 100 1 puff inhalation Q4H PRN 07/08/23 05/18/24 07/08/23 08:00 History mcg/actuation mist for inhalation Shortness Of Breath Or Wheezing (Combivent Respimat) metformin 500 mg tablet,extended 500 mg PO DAILY 07/08/23 05/18/24 07/08/23 08:00 History release 24 hr multivitamin 1 tab PO DAILY 07/08/23 05/18/24 07/08/23 08:00 History pantoprazole 40 mg tablet,delayed 40 mg PO BID 07/08/23 05/18/24 07/08/23 08:00 History release (Protonix) topiramate 100 mg tablet 100 mg PO BID 07/08/23 05/18/24 07/08/23 08:00 History carbamazepine 200 mg tablet 300 mg PO DAILY 05/18/24 05/18/24 Unknown History cyclobenzaprine 5 mg tablet 5 mg PO TID PRN Muscle Spasm 05/18/24 05/18/24 Unknown History doxycycline hyclate 100 mg capsule 100 mg PO BID 05/18/24 05/18/24 Unknown History fluticasone 500 mcg-salmeterol 50 1 inh inhalation BID 05/18/24 05/18/24 Unknown History mcg/dose blistr powdr for inhalation (Advair Diskus) melatonin 5 mg tablet 10 mg PO BEDTIME insomnia 05/18/24 05/18/24 Unknown History Physical Exam Vital Signs: Last Vital Signs Temp 98.3 F 05/18/24 12:00 Pulse 90 05/18/24 12:00 Resp 16 05/18/24 12:00 BP 156/73 H 05/18/24 12:00 Pulse Ox 93 05/18/24 12:00 O2 Del Method Nasal Cannula 05/18/24 12:00 O2 Flow Rate 2 05/18/24 12:00 BMI result Body Mass Index 31.9 Awake. Comfortable. Neck is supple. Mucosa moist. Lungs bilateral scattered rhonchi. Heart S1-S2 heard no gallop. Abdomen soft. Extremities no edema. No involuntary movements. No myoclonus. Results Lab Results 05/18/24 04:05 05/18/24 21:45 Lab results: Chemistry 05/17/24 05/18/24 05/18/24 22:01 02:00 04:05 Sodium 126 L 124 L 125 L Potassium 4.5 4.7 Carbon Dioxide 30 H 26 BUN 13 13 Creatinine 0.74 0.71 Calcium 9.2 8.5 D Hematology 05/17/24 05/18/24 22:01 04:05 WBC 7.3 6.6 Hgb 11.6 L 11.4 L Plt Count 218 228 Urine Studies 05/18/24 08:55 Urine Osmolality 198 L Assessment and Plan (1) Hyponatremia: Status: Acute Plan 48-year-old man with a history of diabetes mellitus COPD and alcohol abuse with hyponatremia. Urine showed DM is pending Urine osmolality was relatively low. She has hypotonic hyponatremia. Dilute urine could be due to excessive free water/alcohol intake. However she is on medications including oxcarbazepine which could impair renal free water excretion contributing to hyponatremia. Goal is to correct serum sodium rate of 0.5-1 millimole per L/hr and not more than 10 mmoland seen a 24 hour. Restrict oral free water intake. Check serum sodium every 4 hours. Avoid rapid correction. If serum sodium does not improve more than 125 millimoles I will add urea powder 15 g p.o. b.i.d. for 4 doses to increase osmotic load. Procedures Date of Service Date of Service: 05/19/24
--- NOTE | 2024-05-18 13:22 | P.CDIM_ITS ---
PROVIDER RESPONSE TEXT: To clarify, the appropriate diagnosis supported by the clinical indicators: Acute on Chronic Respiratory failure with hypoxia QUERY TEXT: PHYSICIAN'S DOCUMENTATION REQUEST Date of Query: 05/18/2024 12:55 PM EDT Patient Name: Jose Armando Ochoa Admit Date: 05/18/2024 Dear Afia Kothari, A review of the medical record indicates additional documentation may be needed. Please review below and update the documentation accordingly. Respiratory failure was documented on 05/18/24. Clinical Indicators: admitted with resp failure secondary to pneumonia pulse oximetry 84% on room air 05/17/24 per H&P 05/17/24: on home O2 (2L/min) If possible, please further clarify the type and acuity of respiratory failure: Acute on Chronic Respiratory failure with hypoxia Acute Respiratory failure with hypoxia Chronic Respiratory failure with hypoxia Other (explain) Clinically unable to determine (explain) Thank you, Stephanie Beth RN Use of terms such as suspected, likely, concern for, or probable (associated with a specific diagnosi s that is being evaluated, monitored, or treated as if it exists) are acceptable and can be coded in the inpatient se tting, when documented at the time of discharge. Please use your independent medical judgment in providing your response. THIS QUERY IS PART OF THE PERMANENT MEDICAL RECORD
[2024-05-18] MEDS: DULoxetine HCl 20 MG CAPSULE.DR 80 MG PO (13:42)
[2024-05-18] MEDS: busPIRone HCl 5 MG TABLET 15 MG PO ×2 (14:00→21:36)
[2024-05-18] MEDS: LORazepam 2 MG/ML VIAL 0.5 MG IVPUSH (14:25)
[2024-05-18 15:04] LABS: Sodium 131 mmol/L (135-145)
--- NOTE | 2024-05-18 15:27 | PC.NURSE ---
~13:20 pt HR 120s-140. RN to pt room, pt was crying upset, talking to visitor about home situation. Tried to calm pt down, no cardiac s/s at this time. Therapeutic communication. Provider notified. HR to 110s - EKG ordered showing ST. Provider aware. Pt visitor left to help pt calm down. New PRN ativan ordered pt thankful and accepting for dose. At 1500 pt HT 120s again, RN to room on the phone with and upset stating she did feel her heart racing a bit- instructed to try to calm down as heart was racing again. Pt taking deep breaths seems to be calming a bit and HR low 100s at ths time.
[2024-05-18 16:10] LABS: Glucose, Whole Blood 121 mg/dL (60-115)
[2024-05-18] MEDS: 0.9 % Sodium Chloride Flush 3 ML SYRINGE IVFLUSH ×2 (16:23→23:33)
[2024-05-18] MEDS: Cyclobenzaprine HCl 5 MG TABLET PO (17:52)
[2024-05-18 18:22] LABS: Sodium 136 mmol/L (135-145)
[2024-05-18 21:17] LABS: Glucose, Whole Blood 98 mg/dL (60-115)
[2024-05-18] MEDS: OXcarbazepine 300 MG TABLET 900 MG PO (21:36)
[2024-05-18] MEDS: Melatonin 3 MG TABLET 9 MG PO (21:36)
[2024-05-18] MEDS: cloNIDine HCL 0.1 MG TABLET PO (21:37)
[2024-05-18] MEDS: traZODone HCL 100 MG TABLET PO (21:37)
[2024-05-18] MEDS: cefTRIAXone sodium 1 GM in 0.9 % Sodium Chloride 100 ML IV (21:38)
[2024-05-18 21:59] LABS: Sodium 138 mmol/L (135-145)
[2024-05-19] VITALS (12 sets, daily range): BP systolic 108–122; BP diastolic 56–73; PULSE 85–100; RESP 16–20; TEMP 36–36.7; O2SAT 86–98
[2024-05-19] MEDS: Nicotine Polacrilex 2 MG GUM BUCCAL ×4 (05:14→21:39)
[2024-05-19 07:28] LABS: Glucose, Whole Blood 105 mg/dL (60-115)
[2024-05-19] MEDS: Albuterol Sulfate 90 MCG 8 GM INHALER 4 PUFF INHALE ×4 (07:39→20:12)
--- NOTE | 2024-05-19 09:05 | P.PNIM_ITS ---
Subjective Subjective Date of Service: 05/19/24 Review of Systems Follow-up COPD Still having expiratory wheezing But overall feels better Physical Exam 2 Vital Signs: Vital Signs: Last Vital Signs Temp 97.1 F 05/19/24 08:00 Pulse 91 05/19/24 08:00 Resp 20 05/19/24 08:00 BP 111/61 05/19/24 08:00 Pulse Ox 97 05/19/24 08:00 O2 Del Method Nasal Cannula 05/19/24 08:00 O2 Flow Rate 2 05/19/24 08:00 BMI result Body Mass Index 32.4 Appearing in no acute distress lung sounds expiratory wheezes heart regular rate rhythm, clear S1, S2 positive bowel sounds, abdomen is soft, nontender neuro patient is alert x3, no focal deficits Objective Data Active Medications Acetaminophen (Acetaminophen 325 Mg Tablet) 650 mg PO Q6H PRN PRN Reason: Pain, Mild (Pain Scale 1-3), fever or headache Last Admin: 05/18/24 14:00 Dose: 650 mg Documented By: BONNY Albuterol Sulfate (Albuterol Sulfate 90 Mcg 8 Gm Inhaler) 4 puff INHALE RQ4H WHILE AWAKE [facility] Last Admin: 05/19/24 07:39 Dose: 4 puff Documented By: KEYLA Albuterol Sulfate (Albuterol Sulfate (0.083%) 2.5 Mg/3 Ml Vial.Neb) 2.5 mg INHALE Q2H PRN PRN Reason: Shortness of Breath/Wheezing Albuterol Sulfate (Albuterol Sulfate 90 Mcg 8 Gm Inhaler) 2 puff INHALE Q6H PRN PRN Reason: Shortness Of Breath Buprenorphine/Naloxone (Buprenorphine/Naloxone 8/2 Mg Film) 1 film BUCCAL TID [facility] Last Admin: 05/18/24 21:37 Dose: 1 film Documented By: KYREE Buspirone HCl (Buspirone Hcl 5 Mg Tablet) 15 mg PO TID [facility] Last Admin: 05/18/24 21:36 Dose: 15 mg Documented By: KYREE Calcium Carbonate (Calcium Carbonate 750 Mg Tab.Chew) 750 mg PO Q4H PRN PRN Reason: Heartburn Clonidine HCl (Clonidine Hcl 0.1 Mg Tablet) 0.1 mg PO BEDTIME [facility]; Protocol Last Admin: 05/18/24 21:37 Dose: 0.1 mg Documented By: KYREE Cyclobenzaprine HCl (Cyclobenzaprine Hcl 5 Mg Tablet) 5 mg PO TID PRN PRN Reason: Muscle Spasm Last Admin: 05/18/24 17:52 Dose: 5 mg Documented By: BONNY Duloxetine HCl (Duloxetine Hcl 20 Mg Capsule.Dr) 80 mg PO DAILY [facility] Last Admin: 05/18/24 13:42 Dose: 80 mg Documented By: BONNY Enoxaparin Sodium (Enoxaparin Sodium 40 Mg/0.4 Ml Syringe) 40 mg SUBCUT Q24H [facility] Last Admin: 05/18/24 09:21 Dose: 40 mg Documented By: BONNY Folic Acid (Folic Acid 1 Mg Tablet) 1 mg PO DAILY [facility] Last Admin: 05/18/24 09:21 Dose: 1 mg Documented By: BONNY Glucose (Glucose Gel 15 Gm Gel..Gram.) 15 gm PO Q15M PRN; Protocol PRN Reason: per Hypoglycemia Standing Ord. Ceftriaxone Sodium 1 gm/ (Sodium Chloride) 100 mls @ 200 mls/hr IV Q24H [facility] Last Infusion: 05/19/24 01:14 Dose: Infused Documented By: KYREE Azithromycin 500 mg/ Sodium (Chloride) 250 mls @ 125 mls/hr IV 2200 [facility] Last Infusion: 05/19/24 03:50 Dose: Infused Documented By: KYREE Dextrose (D10) 250 mls @ 750 mls/hr IV Q15M PRN; Protocol PRN Reason: per Hypoglycemia Standing Ord. Insulin Human Lispro (Insulin Lispro 100 Unit/Ml 3 Ml Vial) 0 unit SUBCUT QIDACHS [facility]; Protocol Last Admin: 05/19/24 08:10 Dose: Not Given Documented By: BONNY Non-Admin Reason: No Insulin Coverage Lorazepam (Lorazepam 2 Mg/Ml Vial) 0.5 mg IVPUSH Q6H PRN PRN Reason: Anxiety Last Admin: 05/18/24 14:25 Dose: 0.5 mg Documented By: BONNY Magnesium Hydroxide (Milk Of Magnesia 30 Ml Oral.Susp) 30 ml PO DAILY PRN PRN Reason: Constipation Melatonin (Melatonin 3 Mg Tablet) 6 mg PO BEDTIME PRN PRN Reason: Insomnia Melatonin (Melatonin 3 Mg Tablet) 9 mg PO BEDTIME [facility] Last Admin: 05/18/24 21:36 Dose: 9 mg Documented By: KYREE Methylprednisolone Sodium Succinate (Methylprednisolone Sod Succ 40 Mg/Ml Vial) 40 mg IVPUSH BID [facility] Last Admin: 05/18/24 21:37 Dose: 40 mg Documented By: KYREE Multivitamins/Vitamin C (Multivitamin Tablet) 1 tab PO DAILY [facility] Last Admin: 05/18/24 09:21 Dose: 1 tab Documented By: BONNY Nicotine (Nicotine 14 Mg Patch.Td24) 14 mg TRANSDERMA DAILY [facility] Last Admin: 05/18/24 06:06 Dose: 14 mg Documented By: CIRO Nicotine Polacrilex (Nicotine Polacrilex 2 Mg Gum) 2 mg BUCCAL Q2H PRN PRN Reason: withdrawal Last Admin: 05/19/24 05:14 Dose: 2 mg Documented By: KYREE Non-Formulary Medication (Pantoprazole [Protonix]) 40 mg PO DAILY@0630 [facility] Oxcarbazepine (Oxcarbazepine 300 Mg Tablet) 900 mg PO BEDTIME [facility] Last Admin: 05/18/24 21:36 Dose: 900 mg Documented By: KYREE Sodium Chloride (0.9 % Sodium Chloride Flush 3 Ml Syringe) 3 ml IVFLUSH QSHIFT [facility] Last Admin: 05/18/24 23:33 Dose: 3 ml Documented By: KYREE Thiamine HCl (Thiamine Hcl 100 Mg Tablet) 100 mg PO DAILY [facility] Last Admin: 05/18/24 09:21 Dose: 100 mg Documented By: BONNY Topiramate (Topiramate 100 Mg Tablet) 100 mg PO BID [facility] Last Admin: 05/18/24 21:37 Dose: 100 mg Documented By: KYREE Trazodone HCl (Trazodone Hcl 100 Mg Tablet) 100 mg PO BEDTIME [facility] Last Admin: 05/18/24 21:37 Dose: 100 mg Documented By: KYREE Labs 05/18/24 04:05 05/18/24 21:45 Labs: Laboratory Results - last 24 hr 05/18/24 05/18/24 05/18/24 08:55 11:09 16:07 POC Glucose 114 121 H Urine Osmolality 198 L Ur Random Sodium 53.0 05/18/24 05/19/24 21:14 07:21 POC Glucose 98 105 Urine Osmolality Ur Random Sodium Microbiology Microbiology Results: Microbiology 05/17/24 22:09 Blood Culture - Preliminary Blood - Venous No growth after 24 hours. 05/17/24 22:09 Blood Culture - Preliminary Blood - Venous No growth after 24 hours. Assessment and Plan (1) Hyponatremia: Status: Acute (2) Acute and chronic respiratory failure ([id number]): Status: Acute Plan Jose Armando Ochoa is a 48 y/o woman admitted with resp failure secondary to pneumonia Acute chronic obstructive pulmonary disease exacerbation with possible associated pneumonia. Continue supplemental oxygen to keep O2 sats > 90%. bronchodilator therapy and IV steroids. Continue ceftriaxone and azithromycin. Hypotonic hyponatremia. Resolved. urine sodium 53, serum osmolality 263, urine osmolality 198 NS bolus given in ED. Continue to monitor sodium level. Fluid restriction nephrology following Type 2 diabetes mellitus. Metformin on hold. Blood glucose monitoring before meals and bedtime. Insulin sliding scale. Diabetic diet. Mood disorder. Continue home medications Lorazepam for severe anxiety p.r.n. GERD. Continue Protonix. Hx of UC. No acute symptoms. History of alcohol abuse. No CIWA as needed (last drink was several days prior to admission). No symptoms of withdrawal noted. Start treatment with thiamine, multivitamins and folic acid. Tobacco dependence. Nicotine patch as needed. Tobacco cessation education. Chronic anemia. Continue to monitor. DVT prophylaxis: Loveannx attending Dr. Cuellar Code status: Full Disposition home when medically stable Continue hospital stay for acute COPD exacerbation and possible pneumonia treatment with bronchodilator therapy, IV antibiotics and supplemental oxygen. She also will need close monitoring of Na+ level. Quality Stroke Does the patient have a stroke diagnosis?: No VTE Prior VTE?: No VTE Risk Level:: Medical - moderate - high VTE Device Contraindication: Treatment Not Indicated VTE Drug Contraindication: N/A - Med Ordered
--- NOTE | 2024-05-19 09:25 | MHC.CM.PN ---
CM met with Patient at bedside and addressed IMM with her (original was given to Patient and a copy has been placed on the chart). Patient was recently @ [facility] for PNA and from there, she was dc'd to [facility] for Mental Health reasons. Patient states that she does not feel that she can go home(Lives with /HCP & 11 year old Son, who DCF has taken custody away from her) but also cannot return to [facility] on O2 (O2 at home was supplied by [facility] [place]). Patient will need a Care Team Consult to assist with disposition. 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
[2024-05-19] MEDS: methylPREDNISolone Sod Succ 40 MG/ML VIAL IVPUSH ×2 (09:32→21:40)
[2024-05-19] MEDS: Enoxaparin Sodium 40 MG/0.4 ML SYRINGE SUBCUT (09:32)
[2024-05-19] MEDS: Buprenorphine/Naloxone 8/2 mg FILM 1 FILM BUCCAL ×3 (09:32→21:39)
[2024-05-19] MEDS: Nicotine 14 MG PATCH.TD24 TRANSDERMA (09:32)
[2024-05-19] MEDS: Thiamine HCL 100 MG TABLET PO (09:33)
[2024-05-19] MEDS: busPIRone HCl 5 MG TABLET 15 MG PO ×3 (09:33→22:16)
[2024-05-19] MEDS: Folic Acid 1 MG TABLET PO (09:33)
[2024-05-19] MEDS: Topiramate 100 MG TABLET PO ×2 (09:33→21:38)
[2024-05-19] MEDS: DULoxetine HCl 20 MG CAPSULE.DR 80 MG PO (09:33)
[2024-05-19] MEDS: Multivitamin TABLET 1 TAB PO (09:33)
[2024-05-19] MEDS: carBAMazepine 200 MG TABLET 300 MG PO (10:34)
[2024-05-19] MEDS: 0.9 % Sodium Chloride Flush 3 ML SYRINGE IVFLUSH ×3 (10:36→21:38)
[2024-05-19] MEDS: LORazepam 2 MG/ML VIAL 0.5 MG IVPUSH ×2 (11:18→21:40)
[2024-05-19 11:29] LABS: Glucose, Whole Blood 129 mg/dL (60-115)
--- NOTE | 2024-05-19 14:51 | P.PNNP_ITS ---
Subjective Subjective Date of Service: 05/19/24 Interval history: Events noted Physical Exam 2 Vital Signs: Vital Signs: Last Vital Signs Temp 96.8 F 05/19/24 12:00 Pulse 100 05/19/24 12:00 Resp 18 05/19/24 12:00 BP 115/56 L 05/19/24 12:00 Pulse Ox 92 05/19/24 12:30 O2 Del Method Nasal Cannula 05/19/24 12:30 O2 Flow Rate 2 05/19/24 12:30 BMI result Body Mass Index 32.4 Const: Other: Constitutional - Awake and Alert, No apparent distress. Nasal cannula in place. HEENT - PERRL, EOMI. Normal sclerae. Heart - RRR, (+) murmur. Lungs - Normal lung expansion, Normal respiratory effort, No respiratory distress. Tachypnea. Bilateral rhonchi, scattered wheezing. No crackles. Abdomen - NT / ND; +BS; No rebound or guarding - No CVA tenderness Extremities - no calf tenderness bilaterally, no swelling Musculoskeletal - Normal inspection, normal ROM Skin - Warm/Dry Neurological - Alert & oriented x3. No focal weakness grossly noted. Normal speech. Psychological - Depressed affect Objective Data Labs 05/18/24 04:05 05/18/24 21:45 Labs: Laboratory Results - last 24 hr 05/18/24 05/18/24 05/18/24 08:55 14:35 16:07 Sodium 131 L POC Glucose 121 H Ur Random Sodium 53.0 05/18/24 05/18/24 05/18/24 18:00 21:14 21:45 Sodium 136 138 POC Glucose 98 Ur Random Sodium 05/19/24 05/19/24 07:21 11:13 Sodium POC Glucose 105 129 H Ur Random Sodium Microbiology Microbiology Results: Microbiology 05/17/24 22:09 Blood - Venous Blood Culture - Preliminary No growth after 24 hours. 05/17/24 22:09 Blood - Venous Blood Culture - Preliminary No growth after 24 hours. Procedures Date of Service Date of Service: 05/19/24 Assessment & Plan Assessment and plan (1) Hyponatremia: Status: Acute Plan 48-year-old man with a history of diabetes mellitus COPD and alcohol abuse with hyponatremia. Urine osmolality was relatively low. She has hypotonic hyponatremia. Dilute urine could be due to excessive free water/alcohol intake. However she is on medications including oxcarbazepine which could impair renal free water excretion contributing to hyponatremia. Serum sodium is normalizing. Rate of correction acceptable Restrict oral free water intake. Check serum sodium tomorrow Time Spent With Patient Time: Total time managing care of this patient today ____ minutes. Progress Note: Quality Stroke Does the patient have a stroke diagnosis?: No
[2024-05-19] MEDS: Omeprazole 20 MG CAPSULE.DR PO (15:23)
[2024-05-19 16:27] LABS: Glucose, Whole Blood 110 mg/dL (60-115)
[2024-05-19 20:37] LABS: Glucose, Whole Blood 121 mg/dL (60-115)
[2024-05-19] MEDS: cefTRIAXone sodium 1 GM in 0.9 % Sodium Chloride 100 ML IV (21:32)
[2024-05-19] MEDS: OXcarbazepine 300 MG TABLET 900 MG PO (21:38)
[2024-05-19] MEDS: Acetaminophen 325 MG TABLET 650 MG PO (21:38)
[2024-05-19] MEDS: risperiDONE 2 MG TABLET PO (21:39)
[2024-05-19] MEDS: Melatonin 3 MG TABLET 9 MG PO (21:39)
[2024-05-19] MEDS: cloNIDine HCL 0.1 MG TABLET PO (21:39)
[2024-05-19] MEDS: traZODone HCL 100 MG TABLET PO (21:39)
[2024-05-19] MEDS: Cyclobenzaprine HCl 5 MG TABLET PO (21:39)
[2024-05-19] MEDS: Calcium Carbonate 750 MG TAB.CHEW PO (22:16)
[2024-05-19] MEDS: Azithromycin 500 MG in 0.9 % Sodium Chloride 250 ML 125 MG IV (22:17)
[2024-05-20] VITALS (12 sets, daily range): BP systolic 99–126; BP diastolic 54–81; PULSE 74–106; RESP 16–22; TEMP 36–37.1; O2SAT 90–98
[2024-05-20] MEDS: Omeprazole 20 MG CAPSULE.DR PO ×2 (05:31→15:58)
[2024-05-20] MEDS: Cyclobenzaprine HCl 5 MG TABLET PO (05:34)
[2024-05-20] MEDS: Acetaminophen 325 MG TABLET 650 MG PO (05:34)
[2024-05-20 07:15] LABS: Anion Gap 14 (12-20); Blood Urea Nitrogen 22 mg/dL (9-16); Calcium 9.1 mg/dL (8.4-10.2); Carbon Dioxide 29 mmol/L (22-29); Chloride 97 mmol/L (96-108); Creatinine Clr Calc Pharmacy 98.3; Estimated Glomerular Filt Rate > 60; Glucose Random 110 mg/dL (60-115); Potassium 4.7 mmol/L (3.3-5.1); Sodium 135 mmol/L (135-145)
[2024-05-20 07:48] LABS: Glucose, Whole Blood 109 mg/dL (60-115)
[2024-05-20] MEDS: Albuterol Sulfate 90 MCG 8 GM INHALER 4 PUFF INHALE ×4 (07:48→19:49)
[2024-05-20] MEDS: Buprenorphine/Naloxone 8/2 mg FILM 1 FILM BUCCAL ×3 (08:07→20:38)
[2024-05-20] MEDS: carBAMazepine 200 MG TABLET 300 MG PO (08:07)
[2024-05-20] MEDS: Nicotine 14 MG PATCH.TD24 TRANSDERMA (08:07)
[2024-05-20] MEDS: busPIRone HCl 5 MG TABLET 15 MG PO (08:08)
[2024-05-20] MEDS: Enoxaparin Sodium 40 MG/0.4 ML SYRINGE SUBCUT (08:08)
[2024-05-20] MEDS: Topiramate 100 MG TABLET PO ×2 (08:08→20:38)
[2024-05-20] MEDS: methylPREDNISolone Sod Succ 40 MG/ML VIAL IVPUSH (08:08)
[2024-05-20] MEDS: Thiamine HCL 100 MG TABLET PO (08:08)
[2024-05-20] MEDS: risperiDONE 2 MG TABLET PO ×2 (08:09→20:38)
[2024-05-20] MEDS: Multivitamin TABLET 1 TAB PO (08:09)
[2024-05-20] MEDS: DULoxetine HCl 20 MG CAPSULE.DR 80 MG PO (08:09)
[2024-05-20] MEDS: Folic Acid 1 MG TABLET PO ×2 (08:09)
[2024-05-20] MEDS: 0.9 % Sodium Chloride Flush 3 ML SYRINGE IVFLUSH ×3 (08:12→20:39)
[2024-05-20] MEDS: Docusate Sodium 100 MG CAPSULE PO (10:34)
[2024-05-20] MEDS: guaiFENesin LA 600 MG TAB.ER.12H PO ×2 (10:34→20:38)
--- NOTE | 2024-05-20 10:37 | MHC.CM.PN ---
Per ROUNDS discussion, Patient is not yet medically cleared for dc (still SOB); Patient would benefit from a Care Team Consult to assist with disposition. CM will follow.
[2024-05-20 10:58] LABS: Glucose, Whole Blood 127 mg/dL (60-115)
[2024-05-20] MEDS: Nicotine Polacrilex 2 MG GUM BUCCAL ×3 (11:35→20:38)
--- NOTE | 2024-05-20 11:47 | HO.PM.IMPN ---
Subjective Subjective Date of Service: 05/20/24 Interval History: Seen and examined this morning Follow-up for COPD exacerbation/pneumonia Still reporting shortness of breath although on room air currently No significant cough Review of Systems Review of Systems: Yes all other systems are reviewed and are negative Constitutional Constitutional: Denies chills and Denies fever(s) Cardiovascular Cardiovascular: Denies chest pain, Denies palpitations and Reports dyspnea Respiratory Respiratory: Denies cough and Reports dyspnea Endocrine Endocrine: Denies palpitations Physical Exam Vital Signs: Vital Signs: Last Vital Signs Temp 96.8 F 05/20/24 11:13 Pulse 80 05/20/24 11:31 Resp 18 05/20/24 11:31 BP 104/57 L 05/20/24 11:13 Pulse Ox 92 05/20/24 11:13 O2 Del Method Room Air 05/20/24 11:13 O2 Flow Rate 1 05/20/24 04:00 BMI result Body Mass Index 32.4 Const: Other: Constitutional-cooperative, comfortable, no acute distress, awake, alert Oriented to person place and time Cardiovascular-regular rate and rhythm Pulmonary-coarse breath sounds bilaterally, no significant wheezing, no respiratory distress GI abdomen soft, nontender, nondistended Neuro-cranial nerves 2-12 are grossly intact no focal deficits Musculoskeletal able to move all 4 extremities spontaneously Objective Data Active Medications Acetaminophen (Acetaminophen 325 Mg Tablet) 650 mg PO Q6H PRN PRN Reason: Pain, Mild (Pain Scale 1-3), fever or headache Last Admin: 05/20/24 05:34 Dose: 650 mg Documented By: MATTHEW Albuterol Sulfate (Albuterol Sulfate 90 Mcg 8 Gm Inhaler) 4 puff INHALE RQ4H WHILE AWAKE [facility] Last Admin: 05/20/24 11:29 Dose: 4 puff Documented By: JAMES Albuterol Sulfate (Albuterol Sulfate (0.083%) 2.5 Mg/3 Ml Vial.Neb) 2.5 mg INHALE Q2H PRN PRN Reason: Shortness of Breath/Wheezing Albuterol Sulfate (Albuterol Sulfate 90 Mcg 8 Gm Inhaler) 2 puff INHALE Q6H PRN PRN Reason: Shortness Of Breath Bisacodyl (Bisacodyl 10 Mg Supp.Rect) 10 mg WI ONCE PRN PRN Reason: Constipation Buprenorphine/Naloxone (Buprenorphine/Naloxone /2 Mg Film) 1 film BUCCAL TID [facility] Last Admin: 05/20/24 08:07 Dose: 1 film Documented By: CLAUDETTE Buspirone HCl (Buspirone Hcl 5 Mg Tablet) 15 mg PO TID [facility] Last Admin: 05/20/24 08:08 Dose: 15 mg Documented By: CLAUDETTE Calcium Carbonate (Calcium Carbonate 750 Mg Tab.Chew) 750 mg PO Q4H PRN PRN Reason: Heartburn Last Admin: 05/19/24 22:16 Dose: 750 mg Documented By: MATTHEW Carbamazepine (Carbamazepine 200 Mg Tablet) 300 mg PO DAILY [facility] Last Admin: 05/20/24 08:07 Dose: 300 mg Documented By: CLAUDETTE Clonidine HCl (Clonidine Hcl 0.1 Mg Tablet) 0.1 mg PO BEDTIME [facility]; Protocol Last Admin: 05/19/24 21:39 Dose: 0.1 mg Documented By: MATTHEW Cyclobenzaprine HCl (Cyclobenzaprine Hcl 5 Mg Tablet) 5 mg PO TID PRN PRN Reason: Muscle Spasm Last Admin: 05/20/24 05:34 Dose: 5 mg Documented By: MATTHEW Docusate Sodium (Docusate Sodium 100 Mg Capsule) 100 mg PO DAILY [facility] Last Admin: 05/20/24 10:34 Dose: 100 mg Documented By: CLAUDETTE Duloxetine HCl (Duloxetine Hcl 20 Mg Capsule.Dr) 80 mg PO DAILY [facility] Last Admin: 05/20/24 08:09 Dose: 80 mg Documented By: CLAUDETTE Enoxaparin Sodium (Enoxaparin Sodium 40 Mg/0.4 Ml Syringe) 40 mg SUBCUT Q24H [facility] Last Admin: 05/20/24 08:08 Dose: 40 mg Documented By: CLAUDETTE Folic Acid (Folic Acid 1 Mg Tablet) 1 mg PO DAILY [facility] Last Admin: 05/20/24 08:09 Dose: 1 mg Documented By: CLAUDETTE Glucose (Glucose Gel 15 Gm Gel..Gram.) 15 gm PO Q15M PRN; Protocol PRN Reason: per Hypoglycemia Standing Ord. Guaifenesin (Guaifenesin La 600 Mg Tab.Er.12h) 600 mg PO BID [facility] Last Admin: 05/20/24 10:34 Dose: 600 mg Documented By: CLAUDETTE Ceftriaxone Sodium 1 gm/ (Sodium Chloride) 100 mls @ 200 mls/hr IV Q24H [facility] Last Infusion: 05/19/24 22:20 Dose: Infused Documented By: MATTHEW Azithromycin 500 mg/ Sodium (Chloride) 250 mls @ 125 mls/hr IV 2200 [facility] Last Infusion: 05/20/24 00:25 Dose: Infused Documented By: MATTHEW Dextrose (D10) 250 mls @ 750 mls/hr IV Q15M PRN; Protocol PRN Reason: per Hypoglycemia Standing Ord. Insulin Human Lispro (Insulin Lispro 100 Unit/Ml 3 Ml Vial) 0 unit SUBCUT QIDACHS [facility]; Protocol Last Admin: 05/20/24 07:26 Dose: Not Given Documented By: CLAUDETTE Non-Admin Reason: No Insulin Coverage Magnesium Hydroxide (Milk Of Magnesia 30 Ml Oral.Susp) 30 ml PO DAILY PRN PRN Reason: Constipation Melatonin (Melatonin 3 Mg Tablet) 6 mg PO BEDTIME PRN PRN Reason: Insomnia Melatonin (Melatonin 3 Mg Tablet) 9 mg PO BEDTIME [facility] Last Admin: 05/19/24 21:39 Dose: 9 mg Documented By: MATTHEW Methylprednisolone Sodium Succinate (Methylprednisolone Sod Succ 40 Mg/Ml Vial) 40 mg IVPUSH BID [facility] Last Admin: 05/20/24 08:08 Dose: 40 mg Documented By: CLAUDETTE Multivitamins/Vitamin C (Multivitamin Tablet) 1 tab PO DAILY [facility] Last Admin: 05/20/24 08:09 Dose: 1 tab Documented By: CLAUDETTE Nicotine (Nicotine 14 Mg Patch.Td24) 14 mg TRANSDERMA DAILY [facility] Last Admin: 05/20/24 08:07 Dose: 14 mg Documented By: CLAUDETTE Nicotine Polacrilex (Nicotine Polacrilex 2 Mg Gum) 2 mg BUCCAL Q2H PRN PRN Reason: withdrawal Last Admin: 05/20/24 11:35 Dose: 2 mg Documented By: CLAUDETTE Omeprazole (Omeprazole 20 Mg Capsule.) 20 mg PO BID@0630,1630 [facility] Last Admin: 05/20/24 05:31 Dose: 20 mg Documented By: MATTHEW Oxcarbazepine (Oxcarbazepine 300 Mg Tablet) 900 mg PO BEDTIME [facility] Last Admin: 05/19/24 21:38 Dose: 900 mg Documented By: MATTHEW Risperidone (Risperidone 2 Mg Tablet) 2 mg PO BID [facility] Last Admin: 05/20/24 08:09 Dose: 2 mg Documented By: CLAUDETTE Sodium Chloride (0.9 % Sodium Chloride Flush 3 Ml Syringe) 3 ml IVFLUSH QSHIFT [facility] Last Admin: 05/20/24 08:12 Dose: 3 ml Documented By: CLAUDETTE Thiamine HCl (Thiamine Hcl 100 Mg Tablet) 100 mg PO DAILY [facility] Last Admin: 05/20/24 08:08 Dose: 100 mg Documented By: CLAUDETTE Topiramate (Topiramate 100 Mg Tablet) 100 mg PO BID [facility] Last Admin: 05/20/24 08:08 Dose: 100 mg Documented By: CLAUDETTE Trazodone HCl (Trazodone Hcl 100 Mg Tablet) 100 mg PO BEDTIME [facility] Last Admin: 05/19/24 21:39 Dose: 100 mg Documented By: MATTHEW Labs 05/18/24 04:05 05/20/24 06:17 Labs: Laboratory Results - last 24 hr 05/19/24 05/19/24 05/20/24 16:13 20:34 06:17 Hold Purple Top SEE NOTE Anion Gap 14 Estim Creat Clear Calc 98.3 Estimated GFR > 60 POC Glucose 110 121 H Random Glucose 110 Calcium 9.1 D 05/20/24 05/20/24 07:02 10:48 Hold Purple Top Anion Gap Estim Creat Clear Calc Estimated GFR POC Glucose 109 127 H Random Glucose Calcium Microbiology Microbiology Results: Microbiology 05/17/24 22:09 Blood Culture - Preliminary Blood - Venous No growth after 48 hours. 05/17/24 22:09 Blood Culture - Preliminary Blood - Venous No growth after 48 hours. Assessment and Plan (1) Hyponatremia: Status: Acute (2) Acute and chronic respiratory failure ([id number]): Status: Acute (3) Pneumonia: Status: Acute (4) Acute exacerbation of COPD with asthma: Status: Acute Plan Jose Armando Ochoa is a 48 y/o woman admitted with resp failure secondary to pneumonia Acute chronic obstructive pulmonary disease exacerbation with possible associated pneumonia. Improving Continue supplemental oxygen to keep O2 sats > 90%. bronchodilator therapy and wean IV steroids. Continue ceftriaxone and azithromycin. Hypotonic hyponatremia. Resolved. urine sodium 53, serum osmolality 263, urine osmolality 198 NS bolus given in ED. Continue to monitor sodium level. Fluid restriction nephrology following Type 2 diabetes mellitus. Metformin on hold. Blood glucose monitoring before meals and bedtime. Insulin sliding scale. Diabetic diet. Mood disorder. Transferred from [facility]. Reported sedation this afternoon. On numerous psychiatric medications will hold sedating medications will check ABG - no co2 retention Will obtain psych consult for ?medication adjustment GERD. Continue Protonix. Hx of UC. No acute symptoms. History of alcohol abuse. No CIWA as needed (last drink was several days prior to admission). No symptoms of withdrawal noted. Start treatment with thiamine, multivitamins and folic acid. Tobacco dependence. Nicotine patch as needed. Tobacco cessation education. Chronic anemia. Continue to monitor. DVT prophylaxis: Lovenox Code status: Full Disposition home when medically stable Continue hospital stay for acute COPD exacerbation and possible pneumonia treatment with bronchodilator therapy, IV antibiotics and supplemental oxygen. She also will need close monitoring of Na+ level. Quality Stroke Does the patient have a stroke diagnosis?: No VTE Prior VTE?: No VTE Risk Level:: Medical - moderate - high VTE Device Contraindication: Treatment Not Indicated VTE Drug Contraindication: N/A - Med Ordered
[2024-05-20 12:06] LABS: ABG Base Excess 5.4 mmol/L; ABG HCO3 30 mmol/L (22-26); ABG pCO2 46 mmHg (32-45); ABG pH 7.42 (7.35-7.45); ABG pO2 77 mmHg (83-108)
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
[2024-05-20 15:42] LABS: ABG Refer to POC result
[2024-05-20 15:49] LABS: Glucose, Whole Blood 124 mg/dL (60-115)
[2024-05-20 19:58] LABS: Glucose, Whole Blood 120 mg/dL (60-115)
[2024-05-20] MEDS: Melatonin 3 MG TABLET PO (20:38)
[2024-05-20] MEDS: busPIRone HCl 10 MG TABLET PO (20:38)
[2024-05-20] MEDS: traZODone HCL 100 MG TABLET PO (20:38)
[2024-05-20] MEDS: OXcarbazepine 300 MG TABLET 900 MG PO (20:38)
[2024-05-20] MEDS: cefTRIAXone sodium 1 GM in 0.9 % Sodium Chloride 100 ML IV (20:39)
[2024-05-20] MEDS: Azithromycin 500 MG in 0.9 % Sodium Chloride 250 ML 125 MG IV (21:39)
[2024-05-21] VITALS (11 sets, daily range): BP systolic 99–126; BP diastolic 58–72; PULSE 70–109; RESP 16–22; TEMP 36.1–37.1; O2SAT 91–100
[2024-05-21] MEDS: Omeprazole 20 MG CAPSULE.DR PO ×2 (05:55→15:36)
--- NOTE | 2024-05-21 06:30 | PC.NURSE ---
Pt aox3, did not claim at this time to have audio and/or visual hallucinations. She is on 1L O2, expiratory wheezes BL. Pt is NSR on telemetry, she can become tachycardic w/activity. She is independent in her room w/a camera. Call puga within reach, pt refusing bed alarm. Safety maintained throughout shift.
[2024-05-21] MEDS: Acetaminophen 325 MG TABLET 650 MG PO (08:10)
[2024-05-21] MEDS: Enoxaparin Sodium 40 MG/0.4 ML SYRINGE SUBCUT (08:10)
[2024-05-21] MEDS: methylPREDNISolone Sod Succ 40 MG/ML VIAL IVPUSH (08:10)
[2024-05-21] MEDS: risperiDONE 2 MG TABLET PO ×2 (08:11→22:59)
[2024-05-21] MEDS: Topiramate 100 MG TABLET PO ×2 (08:11→22:59)
[2024-05-21] MEDS: Nicotine 14 MG PATCH.TD24 TRANSDERMA (08:11)
[2024-05-21] MEDS: carBAMazepine 200 MG TABLET 300 MG PO (08:12)
[2024-05-21] MEDS: Albuterol Sulfate 90 MCG 8 GM INHALER 4 PUFF INHALE ×2 (08:12→11:30)
[2024-05-21] MEDS: Thiamine HCL 100 MG TABLET PO (08:12)
[2024-05-21] MEDS: Multivitamin TABLET 1 TAB PO (08:12)
[2024-05-21] MEDS: 0.9 % Sodium Chloride Flush 3 ML SYRINGE IVFLUSH ×2 (08:12→15:36)
[2024-05-21] MEDS: DULoxetine HCl 20 MG CAPSULE.DR 100 MG PO (08:12)
[2024-05-21] MEDS: busPIRone HCl 10 MG TABLET PO ×3 (08:12→22:57)
[2024-05-21] MEDS: Docusate Sodium 100 MG CAPSULE PO (08:12)
[2024-05-21] MEDS: Folic Acid 1 MG TABLET PO (08:12)
[2024-05-21] MEDS: Buprenorphine/Naloxone 8/2 mg FILM 1 FILM BUCCAL ×3 (08:13→22:57)
[2024-05-21] MEDS: guaiFENesin LA 600 MG TAB.ER.12H PO ×2 (08:15→22:59)
[2024-05-21] MEDS: Nicotine Polacrilex 2 MG GUM BUCCAL ×5 (08:23→23:02)
[2024-05-21 08:56] LABS: Glucose, Whole Blood 91 mg/dL (60-115)
[2024-05-21 11:05] LABS: Glucose, Whole Blood 99 mg/dL (60-115)
--- NOTE | 2024-05-21 12:08 | MHC.CARE ---
CARE team met with patient and pt does not meet IPLOC at this time. Pt will be seen by recovery team and referred to case management for disposition.
--- NOTE | 2024-05-21 12:24 | MHC.CM.PN ---
Care Team has cleared Patient; she does not meet criteria for IPLOC. CM met with Patient at bedside;Recovery Team met with Patient and left her a list of resources. Patient contacted [facility](Intensive Outpatient Program)and her Intake appointment is 06/23/2024 @ 8AM.Patient states that she has no family/friends to assist her and she cannot return home with her Boyfriend/Rep Payee/Bora of 13 years and 11 year old Son per DCF.Per Patient, DCF says that Patient must stick to the safety plan and DCF wants weekly screening and weekly SA Counseling, both of which Patient states she could receive through [facility], where she obtains her Suboxone.per Patient, DCF is also concerned because Patient admits to a relapse (ETOH & Cocaine) a few weeks ago. CM has discussed this situation with Krystin, who awaits the status of Patient's O2 prescription; without O2, Patient states she could live in her car and/or would consider [facility]/detention in [place] ([phone]).CM will follow.
--- NOTE | 2024-05-21 14:16 | MHC.RECOVRN ---
Met with pt in 454 after pt cleared by CARE Team and expressed interest in [facility]. Pt was brought to the ED via ambulance from [facility] due to worseing SOB, wheezing, and cough. Upon evaluation, pt admitted for treatment of acute exacerbation of COPD with asthma and pneumonia. Pt sitting in bed, awake, alert, easily engages in conversation. Pt reports she had been in recovery x 1 year with a recurrence approx 6 months ago after leaving [facility] program. Pt reports prior to [facility] she had been using cocaine, $20-$40 daily, [place], as well as alcohol, approx 10 nips daily. Pt reports she receives Suboxone through [facility] in [place]. Pt reports she does well while in programs and would like to return. Pt also reports she has DCF involvement and is unable to return home. Educated pt on CSS and probability of waitlist. Pt would like to stay local with a referral to [facility] only. Educated pt on need to call daily to check for bed availability, pt verbalizes understanding. Pt reports she is able to stay with friend Moira while awaiting CSS bed. Pt provided with written resources, including contact information for [facility], as well as t/w contact information if needed. Pt denies questions or concerns for t/w. Provider and Krystal aErl APRN, aware. Referral sent to [facility].
--- NOTE | 2024-05-21 14:23 | HO.PM.IMPN ---
Subjective Subjective Date of Service: 05/21/24 Interval History: Seen and examined this morning follow-up for COPD exacerbation No overnight events Breathing improving, currently off oxygen Review of Systems Review of Systems: Yes all other systems are reviewed and are negative Constitutional Constitutional: Denies fever(s) Cardiovascular Cardiovascular: Denies chest pain, Denies palpitations and Denies dyspnea Respiratory Respiratory: Denies dyspnea Gastrointestinal Gastrointestinal: Denies abdominal pain Endocrine Endocrine: Denies palpitations Physical Exam Vital Signs: Vital Signs: Last Vital Signs Temp 97.6 F 05/21/24 11:36 Pulse 91 05/21/24 11:36 Resp 18 05/21/24 11:36 BP 121/71 05/21/24 11:36 Pulse Ox 91 L 05/21/24 11:36 O2 Del Method Room Air 05/21/24 11:36 O2 Flow Rate 2 05/21/24 04:00 BMI result Body Mass Index 32.4 Const: Other: Constitutional-cooperative, comfortable, no acute distress, awake, alert Oriented to person place and time Cardiovascular-regular rate and rhythm Pulmonary-coarse breath sounds bilaterally, no significant wheezing, no respiratory distress GI abdomen soft, nontender, nondistended Neuro-cranial nerves 2-12 are grossly intact no focal deficits Musculoskeletal able to move all 4 extremities spontaneously Objective Data Active Medications Acetaminophen (Acetaminophen 325 Mg Tablet) 650 mg PO Q6H PRN PRN Reason: Pain, Mild (Pain Scale 1-3), fever or headache Last Admin: 05/21/24 08:10 Dose: 650 mg Documented By: CLAUDETTE Albuterol Sulfate (Albuterol Sulfate 90 Mcg 8 Gm Inhaler) 4 puff INHALE RQ4H WHILE AWAKE [facility] Last Admin: 05/21/24 11:30 Dose: 4 puff Documented By: KEYLA Albuterol Sulfate (Albuterol Sulfate (0.083%) 2.5 Mg/3 Ml Vial.Neb) 2.5 mg INHALE Q2H PRN PRN Reason: Shortness of Breath/Wheezing Albuterol Sulfate (Albuterol Sulfate 90 Mcg 8 Gm Inhaler) 2 puff INHALE Q6H PRN PRN Reason: Shortness Of Breath Bisacodyl (Bisacodyl 10 Mg Supp.Rect) 10 mg [place] ONCE PRN PRN Reason: Constipation Buprenorphine/Naloxone (Buprenorphine/Naloxone 8/2 Mg Film) 1 film BUCCAL TID [facility] Last Admin: 05/21/24 08:13 Dose: 1 film Documented By: CLAUDETTE Buspirone HCl (Buspirone Hcl 10 Mg Tablet) 10 mg PO TID [facility] Last Admin: 05/21/24 08:12 Dose: 10 mg Documented By: CLAUDETTE Calcium Carbonate (Calcium Carbonate 750 Mg Tab.Chew) 750 mg PO Q4H PRN PRN Reason: Heartburn Last Admin: 05/19/24 22:16 Dose: 750 mg Documented By: MATTHEW Carbamazepine (Carbamazepine 200 Mg Tablet) 300 mg PO DAILY [facility] Last Admin: 05/21/24 08:12 Dose: 300 mg Documented By: CLAUDETTE Comments: [id number] Clonidine HCl (Clonidine Hcl 0.1 Mg Tablet) 0.1 mg PO BEDTIME [facility]; Protocol Last Admin: 05/19/24 21:39 Dose: 0.1 mg Documented By: MATTHEW Cyclobenzaprine HCl (Cyclobenzaprine Hcl 5 Mg Tablet) 5 mg PO TID PRN PRN Reason: Muscle Spasm Last Admin: 05/20/24 05:34 Dose: 5 mg Documented By: MATTHEW Docusate Sodium (Docusate Sodium 100 Mg Capsule) 100 mg PO DAILY [facility] Last Admin: 05/21/24 08:12 Dose: 100 mg Documented By: CLAUDETTE Duloxetine HCl (Duloxetine Hcl 20 Mg Capsule.Dr) 100 mg PO DAILY [facility] Last Admin: 05/21/24 08:12 Dose: 100 mg Documented By: CLAUDETTE Enoxaparin Sodium (Enoxaparin Sodium 40 Mg/0.4 Ml Syringe) 40 mg SUBCUT Q24H [facility] Last Admin: 05/21/24 08:10 Dose: 40 mg Documented By: CLAUDETTE Folic Acid (Folic Acid 1 Mg Tablet) 1 mg PO DAILY [facility] Last Admin: 05/21/24 08:12 Dose: 1 mg Documented By: CLAUDETTE Glucose (Glucose Gel 15 Gm Gel..Gram.) 15 gm PO Q15M PRN; Protocol PRN Reason: per Hypoglycemia Standing Ord. Guaifenesin (Guaifenesin La 600 Mg Tab.Er.12h) 600 mg PO BID [facility] Last Admin: 05/21/24 08:15 Dose: 600 mg Documented By: CLAUDETTE Ceftriaxone Sodium 1 gm/ (Sodium Chloride) 100 mls @ 200 mls/hr IV Q24H [facility] Last Infusion: 05/20/24 21:41 Dose: Infused Documented By: SHANICE Azithromycin 500 mg/ Sodium (Chloride) 250 mls @ 125 mls/hr IV 2200 [facility] Last Infusion: 05/20/24 23:41 Dose: Infused Documented By: MICHAEL Dextrose (D10) 250 mls @ 750 mls/hr IV Q15M PRN; Protocol PRN Reason: per Hypoglycemia Standing Ord. Insulin Human Lispro (Insulin Lispro 100 Unit/Ml 3 Ml Vial) 0 unit SUBCUT QIDACHS [facility]; Protocol Last Admin: 05/21/24 12:32 Dose: Not Given Documented By: CLAUDETTE Non-Admin Reason: No Insulin Coverage Magnesium Hydroxide (Milk Of Magnesia 30 Ml Oral.Susp) 30 ml PO DAILY PRN PRN Reason: Constipation Melatonin (Melatonin 3 Mg Tablet) 6 mg PO BEDTIME PRN PRN Reason: Insomnia Melatonin (Melatonin 3 Mg Tablet) 3 mg PO BEDTIME [facility] Last Admin: 05/20/24 20:38 Dose: 3 mg Documented By: SHANICE Methylprednisolone Sodium Succinate (Methylprednisolone Sod Succ 40 Mg/Ml Vial) 40 mg IVPUSH DAILY [facility] Last Admin: 05/21/24 08:10 Dose: 40 mg Documented By: CLAUDETTE Multivitamins/Vitamin C (Multivitamin Tablet) 1 tab PO DAILY [facility] Last Admin: 05/21/24 08:12 Dose: 1 tab Documented By: CLAUDETTE Nicotine (Nicotine 14 Mg Patch.Td24) 14 mg TRANSDERMA DAILY [facility] Last Admin: 05/21/24 08:11 Dose: 14 mg Documented By: CLAUDETTE Nicotine Polacrilex (Nicotine Polacrilex 2 Mg Gum) 2 mg BUCCAL Q2H PRN PRN Reason: withdrawal Last Admin: 05/21/24 11:17 Dose: 2 mg Documented By: CLAUDETTE Omeprazole (Omeprazole 20 Mg Capsule.) 20 mg PO BID@0630,1630 [facility] Last Admin: 05/21/24 05:55 Dose: 20 mg Documented By: MICHAEL Oxcarbazepine (Oxcarbazepine 300 Mg Tablet) 900 mg PO BEDTIME [facility] Last Admin: 05/20/24 20:38 Dose: 900 mg Documented By: SHANICE Risperidone (Risperidone 2 Mg Tablet) 2 mg PO BID [facility] Last Admin: 05/21/24 08:11 Dose: 2 mg Documented By: CLAUDETTE Sodium Chloride (0.9 % Sodium Chloride Flush 3 Ml Syringe) 3 ml IVFLUSH QSHIFT [facility] Last Admin: 05/21/24 08:12 Dose: 3 ml Documented By: CLAUDETTE Thiamine HCl (Thiamine Hcl 100 Mg Tablet) 100 mg PO DAILY [facility] Last Admin: 05/21/24 08:12 Dose: 100 mg Documented By: CLAUDETTE Topiramate (Topiramate 100 Mg Tablet) 100 mg PO BID [facility] Last Admin: 05/21/24 08:11 Dose: 100 mg Documented By: CLAUDETTE Trazodone HCl (Trazodone Hcl 100 Mg Tablet) 100 mg PO BEDTIME [facility] Last Admin: 05/20/24 20:38 Dose: 100 mg Documented By: SHANICE Labs 05/18/24 04:05 05/20/24 06:17 Labs: Laboratory Results - last 24 hr 05/20/24 05/20/24 05/21/24 15:44 19:55 07:01 POC Glucose 124 H 120 H 91 05/21/24 10:57 POC Glucose 99 Assessment and Plan (1) Schizoaffective disorder, bipolar type: Status: Acute (2) Acute and chronic respiratory failure ([id number]): Status: Acute (3) Acute exacerbation of COPD with asthma: Status: Acute Plan Jose Armando Ochoa is a 48 y/o woman admitted with resp failure secondary to pneumonia Acute chronic obstructive pulmonary disease exacerbation with possible associated pneumonia. Improving Continue supplemental oxygen to keep O2 sats > 90%. bronchodilator therapy and wean IV steroids. Continue ceftriaxone and azithromycin, satrted 05/18 Has home oxygen; reports 2L qhs and prn during the day but rx is for 1L continuous daily; patient also reports history of ALEKS but does not yet have CPAP machine Plan for inpatient overnight oximetry test and likely home oxygen evaluation in a.m. to determine oxygen needs upon discharge Hypotonic hyponatremia. Resolved. continue Fluid restriction nephrology following Type 2 diabetes mellitus. Metformin on hold. Blood glucose monitoring before meals and bedtime. Insulin sliding scale. Diabetic diet. Mood disorder. sedation improved. seen by psych and adjustments made to medications. seen by care team - does not qualify for inpatient LOC GERD. Continue Protonix. Hx of UC. No acute symptoms. History of alcohol abuse. No CIWA as needed (last drink was several days prior to admission). No symptoms of withdrawal noted. Start treatment with thiamine, multivitamins and folic acid. h/o substance abuse continue suboxone seen by addiction medicine, outpatient follow up in [facility] Tobacco dependence. Nicotine patch as needed. Tobacco cessation education. Chronic anemia. Continue to monitor. DVT prophylaxis: Lovenox Code status: Full Continue hospital stay for acute COPD exacerbation and possible pneumonia treatment with bronchodilator therapy, IV antibiotics and supplemental oxygen. She also will need close monitoring of Na+ level. Quality Stroke Does the patient have a stroke diagnosis?: No VTE Prior VTE?: No VTE Risk Level:: Medical - moderate - high VTE Device Contraindication: Treatment Not Indicated VTE Drug Contraindication: N/A - Med Ordered
--- NOTE | 2024-05-21 14:50 | MHC.CM.PN ---
CM questioned Patient again regarding a Friend/Moira that she may be able to stay with; Patient indicates that it was with Moira, at Moira's house, that she relapsed with a few weeks ago.Patient does not feel that staying with Moira is a safe plan. CM will follow. PA is aware.
[2024-05-21 15:08] LABS: Glucose, Whole Blood 139 mg/dL (60-115)
[2024-05-21] MEDS: Albuterol/Iprat 2.5/0.5MG 3 ML AMPUL.NEB INHALE (19:15)
[2024-05-21 20:48] LABS: Glucose, Whole Blood 116 mg/dL (60-115)
[2024-05-21] MEDS: Melatonin 3 MG TABLET PO (22:58)
[2024-05-21] MEDS: OXcarbazepine 300 MG TABLET 900 MG PO (22:58)
[2024-05-21] MEDS: cefTRIAXone sodium 1 GM in 0.9 % Sodium Chloride 100 ML IV (22:58)
[2024-05-21] MEDS: traZODone HCL 100 MG TABLET PO (22:59)
--- NOTE | 2024-05-21 23:32 | PC.RT ---
Pt placed on overnight pulse oximetry, pt on room air sats 94% HR 77 at this time.
[2024-05-22] VITALS (9 sets, daily range): BP systolic 96–118; BP diastolic 56–69; PULSE 84–112; RESP 16–20; TEMP 36–36.8; O2SAT 90–98
[2024-05-22] MEDS: Azithromycin 500 MG in 0.9 % Sodium Chloride 250 ML 125 MG IV ×2 (00:41→21:51)
[2024-05-22] MEDS: Omeprazole 20 MG CAPSULE.DR PO ×2 (03:55→15:45)
[2024-05-22] MEDS: Ibuprofen 600 MG TABLET PO (04:14)
[2024-05-22 07:21] LABS: Glucose, Whole Blood 81 mg/dL (60-115)
[2024-05-22] MEDS: Albuterol/Iprat 2.5/0.5MG 3 ML AMPUL.NEB INHALE ×3 (07:31→20:14)
[2024-05-22] MEDS: Thiamine HCL 100 MG TABLET PO (09:16)
[2024-05-22] MEDS: carBAMazepine 200 MG TABLET 300 MG PO (09:16)
[2024-05-22] MEDS: busPIRone HCl 10 MG TABLET PO ×3 (09:16→20:27)
[2024-05-22] MEDS: DULoxetine HCl 20 MG CAPSULE.DR 100 MG PO (09:16)
[2024-05-22] MEDS: Multivitamin TABLET 1 TAB PO (09:17)
[2024-05-22] MEDS: Docusate Sodium 100 MG CAPSULE PO (09:17)
[2024-05-22] MEDS: methylPREDNISolone Sod Succ 40 MG/ML VIAL IVPUSH (09:17)
[2024-05-22] MEDS: risperiDONE 2 MG TABLET PO ×2 (09:17→20:27)
[2024-05-22] MEDS: Buprenorphine/Naloxone 8/2 mg FILM 1 FILM BUCCAL ×3 (09:17→20:28)
[2024-05-22] MEDS: Folic Acid 1 MG TABLET PO (09:17)
[2024-05-22] MEDS: guaiFENesin LA 600 MG TAB.ER.12H PO ×2 (09:17→20:27)
[2024-05-22] MEDS: Enoxaparin Sodium 40 MG/0.4 ML SYRINGE SUBCUT (09:17)
[2024-05-22] MEDS: Nicotine 14 MG PATCH.TD24 TRANSDERMA (09:18)
[2024-05-22] MEDS: Topiramate 100 MG TABLET PO ×2 (09:18→20:27)
--- NOTE | 2024-05-22 09:23 | MHC.CM.PN ---
Per RT, Patient will need O2 @ night and a walk study will be done to determine if O2 will be needed during the day. Patient's O2 supplier/[employer] no longer accepts Patient's insurance ([employer]) so she will need a new vendor ([employer] vs [employer]). CM will follow.
[2024-05-22] MEDS: 0.9 % Sodium Chloride Flush 3 ML SYRINGE IVFLUSH ×2 (09:24→15:45)
[2024-05-22] MEDS: Nicotine Polacrilex 2 MG GUM BUCCAL ×4 (09:26→20:23)
--- NOTE | 2024-05-22 11:01 | MHC.CM.PN ---
Referrals have been faxed to [facility] @ [phone] and to [facility] @ [phone]. CM will follow.
[2024-05-22 11:09] LABS: Glucose, Whole Blood 119 mg/dL (60-115)
--- NOTE | 2024-05-22 14:39 | P.PNIM_ITS ---
Subjective Subjective Date of Service: 05/22/24 Interval History: Seen and examined this morning Follow-up for COPD exacerbation Breathing improving, no significant cough Review of Systems Review of Systems: Yes all other systems are reviewed and are negative Constitutional Constitutional: Denies chills and Denies fever(s) Cardiovascular Cardiovascular: Denies dyspnea Respiratory Respiratory: Denies dyspnea Gastrointestinal Gastrointestinal: Denies abdominal pain Physical Exam 2 Vital Signs: Vital Signs: Last Vital Signs Temp 97.8 F 05/22/24 11:32 Pulse 98 05/22/24 11:32 Resp 20 05/22/24 11:32 BP 114/61 05/22/24 11:32 Pulse Ox 96 05/22/24 11:32 O2 Del Method Room Air 05/22/24 11:32 O2 Flow Rate 2 05/21/24 04:00 BMI result Body Mass Index 32.4 Const: Other: Constitutional-cooperative, comfortable, no acute distress, awake, alert Oriented to person place and time Cardiovascular-regular rate and rhythm Pulmonary-coarse breath sounds bilaterally, no significant wheezing, no respiratory distress GI abdomen soft, nontender, nondistended Neuro-cranial nerves 2-12 are grossly intact no focal deficits Musculoskeletal able to move all 4 extremities spontaneously Objective Data Active Medications Acetaminophen (Acetaminophen 325 Mg Tablet) 650 mg PO Q6H PRN PRN Reason: Pain, Mild (Pain Scale 1-3), fever or headache Last Admin: 05/21/24 08:10 Dose: 650 mg Documented By: CLAUDETTE Albuterol Sulfate (Albuterol Sulfate (0.083%) 2.5 Mg/3 Ml Vial.Neb) 2.5 mg INHALE Q2H PRN PRN Reason: Shortness of Breath/Wheezing Albuterol Sulfate (Albuterol Sulfate 90 Mcg 8 Gm Inhaler) 2 puff INHALE Q6H PRN PRN Reason: Shortness Of Breath Albuterol/Ipratropium (Albuterol/Iprat 2.5/0.5mg 3 Ml Ampul.Neb) 3 ml INHALE RQ6H WHILE AWAKE [facility] Last Admin: 05/22/24 07:31 Dose: 3 ml Documented By: JAMES Bisacodyl (Bisacodyl 10 Mg Supp.Rect) 10 mg [place] ONCE PRN PRN Reason: Constipation Buprenorphine/Naloxone (Buprenorphine/Naloxone 8/2 Mg Film) 1 film BUCCAL TID [facility] Last Admin: 05/22/24 09:17 Dose: 1 film Documented By: MARJAN Buspirone HCl (Buspirone Hcl 10 Mg Tablet) 10 mg PO TID [facility] Last Admin: 05/22/24 09:16 Dose: 10 mg Documented By: MARJAN Calcium Carbonate (Calcium Carbonate 750 Mg Tab.Chew) 750 mg PO Q4H PRN PRN Reason: Heartburn Last Admin: 05/19/24 22:16 Dose: 750 mg Documented By: MATTHEW Carbamazepine (Carbamazepine 200 Mg Tablet) 300 mg PO DAILY [facility] Last Admin: 05/22/24 09:16 Dose: 300 mg Documented By: MARJAN Clonidine HCl (Clonidine Hcl 0.1 Mg Tablet) 0.1 mg PO BEDTIME [facility]; Protocol Last Admin: 05/19/24 21:39 Dose: 0.1 mg Documented By: MATTHEW Cyclobenzaprine HCl (Cyclobenzaprine Hcl 5 Mg Tablet) 5 mg PO TID PRN PRN Reason: Muscle Spasm Last Admin: 05/20/24 05:34 Dose: 5 mg Documented By: MATTHEW Docusate Sodium (Docusate Sodium 100 Mg Capsule) 100 mg PO DAILY [facility] Last Admin: 05/22/24 09:17 Dose: 100 mg Documented By: MARJAN Duloxetine HCl (Duloxetine Hcl 20 Mg Capsule.Dr) 100 mg PO DAILY [facility] Last Admin: 05/22/24 09:16 Dose: 100 mg Documented By: MARJAN Enoxaparin Sodium (Enoxaparin Sodium 40 Mg/0.4 Ml Syringe) 40 mg SUBCUT Q24H [facility] Last Admin: 05/22/24 09:17 Dose: 40 mg Documented By: MARJAN Folic Acid (Folic Acid 1 Mg Tablet) 1 mg PO DAILY [facility] Last Admin: 05/22/24 09:17 Dose: 1 mg Documented By: MARJAN Glucose (Glucose Gel 15 Gm Gel..Gram.) 15 gm PO Q15M PRN; Protocol PRN Reason: per Hypoglycemia Standing Ord. Guaifenesin (Guaifenesin La 600 Mg Tab.Er.12h) 600 mg PO BID [facility] Last Admin: 05/22/24 09:17 Dose: 600 mg Documented By: MARJAN Ceftriaxone Sodium 1 gm/ (Sodium Chloride) 100 mls @ 200 mls/hr IV Q24H [facility] Last Infusion: 05/22/24 00:44 Dose: Infused Documented By: JIMBO Azithromycin 500 mg/ Sodium (Chloride) 250 mls @ 125 mls/hr IV 2200 [facility] Last Infusion: 05/22/24 02:45 Dose: Infused Documented By: DAVI Dextrose (D10) 250 mls @ 750 mls/hr IV Q15M PRN; Protocol PRN Reason: per Hypoglycemia Standing Ord. Insulin Human Lispro (Insulin Lispro 100 Unit/Ml 3 Ml Vial) 0 unit SUBCUT QIDACHS [facility]; Protocol Last Admin: 05/22/24 11:27 Dose: Not Given Documented By: MARJAN Non-Admin Reason: No Insulin Coverage Magnesium Hydroxide (Milk Of Magnesia 30 Ml Oral.Susp) 30 ml PO DAILY PRN PRN Reason: Constipation Melatonin (Melatonin 3 Mg Tablet) 6 mg PO BEDTIME PRN PRN Reason: Insomnia Melatonin (Melatonin 3 Mg Tablet) 3 mg PO BEDTIME [facility] Last Admin: 05/21/24 22:58 Dose: 3 mg Documented By: JIMBO Methylprednisolone Sodium Succinate (Methylprednisolone Sod Succ 40 Mg/Ml Vial) 40 mg IVPUSH DAILY [facility] Last Admin: 05/22/24 09:17 Dose: 40 mg Documented By: MARJAN Multivitamins/Vitamin C (Multivitamin Tablet) 1 tab PO DAILY [facility] Last Admin: 05/22/24 09:17 Dose: 1 tab Documented By: MARJAN Nicotine (Nicotine 14 Mg Patch.Td24) 14 mg TRANSDERMA DAILY [facility] Last Admin: 05/22/24 09:18 Dose: 14 mg Documented By: MARJAN Nicotine Polacrilex (Nicotine Polacrilex 2 Mg Gum) 2 mg BUCCAL Q2H PRN PRN Reason: withdrawal Last Admin: 05/22/24 11:01 Dose: 2 mg Documented By: MARJAN Omeprazole (Omeprazole 20 Mg Capsule.) 20 mg PO BID@0630,1630 [facility] Last Admin: 05/22/24 03:55 Dose: 20 mg Documented By: DAVI Comments: Pt requested medication early Oxcarbazepine (Oxcarbazepine 300 Mg Tablet) 900 mg PO BEDTIME [facility] Last Admin: 05/21/24 22:58 Dose: 900 mg Documented By: JIMBO Risperidone (Risperidone 2 Mg Tablet) 2 mg PO BID [facility] Last Admin: 05/22/24 09:17 Dose: 2 mg Documented By: MARJAN Sodium Chloride (0.9 % Sodium Chloride Flush 3 Ml Syringe) 3 ml IVFLUSH QSHIFT [facility] Last Admin: 05/22/24 09:24 Dose: 3 ml Documented By: MARJAN Thiamine HCl (Thiamine Hcl 100 Mg Tablet) 100 mg PO DAILY [facility] Last Admin: 05/22/24 09:16 Dose: 100 mg Documented By: MARJAN Topiramate (Topiramate 100 Mg Tablet) 100 mg PO BID [facility] Last Admin: 05/22/24 09:18 Dose: 100 mg Documented By: MARJAN Trazodone HCl (Trazodone Hcl 100 Mg Tablet) 100 mg PO BEDTIME [facility] Last Admin: 05/21/24 22:59 Dose: 100 mg Documented By: JIMBO Labs 05/18/24 04:05 05/20/24 06:17 Labs: Laboratory Results - last 24 hr 05/21/24 05/21/24 05/22/24 15:03 20:10 07:12 POC Glucose 139 H 116 H 81 05/22/24 10:59 POC Glucose 119 H Assessment and Plan (1) Acute and chronic respiratory failure ([id number]): Status: Acute (2) Acute exacerbation of COPD with asthma: Status: Acute Plan Jose Armando Ochoa is a 48 y/o woman admitted with resp failure secondary to pneumonia Acute chronic obstructive pulmonary disease exacerbation with possible associated pneumonia. Improving Continue supplemental oxygen to keep O2 sats > 90%. bronchodilator therapy, transitioned to p.o. prednisone Continue ceftriaxone and azithromycin, started 05/18 Has home oxygen; reports 2L qhs and prn during the day but rx is for 1L continuous daily; patient also reports history of ALEKS but does not yet have CPAP machine inpatient overnight oximetry test -->qualifies for 2L at night; home o2 eval pending Hypotonic hyponatremia. Resolved. continue Fluid restriction nephrology following Type 2 diabetes mellitus. Metformin on hold. Blood glucose monitoring before meals and bedtime. Insulin sliding scale. Diabetic diet. Mood disorder. sedation improved. seen by psych and adjustments made to medications. seen by care team - does not qualify for inpatient LOC GERD. Continue Protonix. Hx of UC. No acute symptoms. History of alcohol abuse. No CIWA as needed (last drink was several days prior to admission). No symptoms of withdrawal noted. Start treatment with thiamine, multivitamins and folic acid. h/o substance abuse continue suboxone seen by addiction medicine, outpatient follow up in [facility] Tobacco dependence. Nicotine patch as needed. Tobacco cessation education. Chronic anemia. Continue to monitor. DVT prophylaxis: Lovenox Code status: Full Continue hospital stay for acute COPD exacerbation and possible pneumonia treatment with bronchodilator therapy, IV antibiotics and supplemental oxygen. She also will need close monitoring of Na+ level. Quality Stroke Does the patient have a stroke diagnosis?: No VTE Prior VTE?: No VTE Risk Level:: Medical - moderate - high VTE Device Contraindication: Treatment Not Indicated VTE Drug Contraindication: N/A - Med Ordered
[2024-05-22 16:06] LABS: Glucose, Whole Blood 150 mg/dL (60-115)
[2024-05-22 20:16] LABS: Glucose, Whole Blood 113 mg/dL (60-115)
[2024-05-22] MEDS: Melatonin 3 MG TABLET PO (20:27)
[2024-05-22] MEDS: traZODone HCL 100 MG TABLET PO (20:27)
[2024-05-22] MEDS: OXcarbazepine 300 MG TABLET 900 MG PO (20:27)
[2024-05-22] MEDS: cefTRIAXone sodium 1 GM in 0.9 % Sodium Chloride 100 ML IV (20:36)
[2024-05-23] VITALS (10 sets, daily range): BP systolic 104–135; BP diastolic 55–90; PULSE 75–100; RESP 16–19; TEMP 36.1–36.6; O2SAT 92–99
[2024-05-23] MEDS: Nicotine Polacrilex 2 MG GUM BUCCAL ×6 (03:09→20:52)
[2024-05-23] MEDS: Omeprazole 20 MG CAPSULE.DR PO ×2 (05:03→17:04)
[2024-05-23] MEDS: Albuterol/Iprat 2.5/0.5MG 3 ML AMPUL.NEB INHALE ×3 (07:47→19:41)
[2024-05-23 07:56] LABS: Glucose, Whole Blood 106 mg/dL (60-115)
[2024-05-23] MEDS: Nicotine 14 MG PATCH.TD24 TRANSDERMA (08:56)
[2024-05-23] MEDS: busPIRone HCl 10 MG TABLET PO ×3 (08:57→20:42)
[2024-05-23] MEDS: carBAMazepine 200 MG TABLET 300 MG PO (08:57)
[2024-05-23] MEDS: Docusate Sodium 100 MG CAPSULE PO (08:57)
[2024-05-23] MEDS: risperiDONE 2 MG TABLET PO (08:59)
[2024-05-23] MEDS: DULoxetine HCl 20 MG CAPSULE.DR 100 MG PO (08:59)
[2024-05-23] MEDS: predniSONE 20 MG TABLET 40 MG PO (08:59)
[2024-05-23] MEDS: Multivitamin TABLET 1 TAB PO (08:59)
[2024-05-23] MEDS: Thiamine HCL 100 MG TABLET PO (08:59)
[2024-05-23] MEDS: Buprenorphine/Naloxone 8/2 mg FILM 1 FILM BUCCAL ×3 (09:00→20:43)
[2024-05-23] MEDS: Enoxaparin Sodium 40 MG/0.4 ML SYRINGE SUBCUT (09:00)
[2024-05-23] MEDS: Topiramate 100 MG TABLET PO ×2 (09:00→20:43)
[2024-05-23] MEDS: Folic Acid 1 MG TABLET PO (09:00)
[2024-05-23] MEDS: guaiFENesin LA 600 MG TAB.ER.12H PO ×2 (09:00→20:43)
[2024-05-23] MEDS: 0.9 % Sodium Chloride Flush 3 ML SYRINGE IVFLUSH ×3 (09:06→20:43)
--- NOTE | 2024-05-23 11:36 | HO.PM.IMPN ---
Subjective Subjective Date of Service: 05/23/24 Interval History: Seen and examined this morning Follow-up for copd exacerbation/pneumonia Reported SI yesterday afternoon, re-evaluation by care team, now recommended for inpatient psychiatric admission No overnight events Breathing continues to improve Physical Exam Vital Signs: Vital Signs: Last Vital Signs Temp 97.1 F 05/23/24 08:00 Pulse 90 05/23/24 08:00 Resp 18 05/23/24 08:00 BP 104/60 05/23/24 08:00 Pulse Ox 92 05/23/24 08:00 O2 Del Method Room Air 05/23/24 08:00 O2 Flow Rate 2 05/21/24 04:00 BMI result Body Mass Index 32.4 Const: Other: Constitutional-cooperative, comfortable, no acute distress, awake, alert Oriented to person place and time Cardiovascular-regular rate and rhythm Pulmonary-coarse breath sounds bilaterally, no significant wheezing, no respiratory distress GI abdomen soft, nontender, nondistended Neuro-cranial nerves 2-12 are grossly intact no focal deficits Musculoskeletal able to move all 4 extremities spontaneously Resp: Other: expiratory rhonchi Effort & Inspection: normal respiratory effort, able to speak in complete sentences, no respiratory distress and no use of accessory muscles Cardio: Rate: regular rate Objective Data Active Medications Acetaminophen (Acetaminophen 325 Mg Tablet) 650 mg PO Q6H PRN PRN Reason: Pain, Mild (Pain Scale 1-3), fever or headache Last Admin: 05/21/24 08:10 Dose: 650 mg Documented By: CLUADETTE Albuterol Sulfate (Albuterol Sulfate (0.083%) 2.5 Mg/3 Ml Vial.Neb) 2.5 mg INHALE Q2H PRN PRN Reason: Shortness of Breath/Wheezing Albuterol Sulfate (Albuterol Sulfate 90 Mcg 8 Gm Inhaler) 2 puff INHALE Q6H PRN PRN Reason: Shortness Of Breath Albuterol/Ipratropium (Albuterol/Iprat 2.5/0.5mg 3 Ml Ampul.Neb) 3 ml INHALE RQ6H WHILE AWAKE [facility] Last Admin: 05/23/24 07:47 Dose: 3 ml Documented By: GUIDO Buprenorphine/Naloxone (Buprenorphine/Naloxone 8/2 Mg Film) 1 film BUCCAL TID [facility] Last Admin: 05/23/24 09:00 Dose: 1 film Documented By: MARJAN Buspirone HCl (Buspirone Hcl 10 Mg Tablet) 10 mg PO TID [facility] Last Admin: 05/23/24 08:57 Dose: 10 mg Documented By: MARJAN Calcium Carbonate (Calcium Carbonate 750 Mg Tab.Chew) 750 mg PO Q4H PRN PRN Reason: Heartburn Last Admin: 05/19/24 22:16 Dose: 750 mg Documented By: MATTHEW Carbamazepine (Carbamazepine 200 Mg Tablet) 300 mg PO DAILY [facility] Last Admin: 05/23/24 08:57 Dose: 300 mg Documented By: MARJAN Clonidine HCl (Clonidine Hcl 0.1 Mg Tablet) 0.1 mg PO BEDTIME [facility]; Protocol Last Admin: 05/19/24 21:39 Dose: 0.1 mg Documented By: MATTHEW Cyclobenzaprine HCl (Cyclobenzaprine Hcl 5 Mg Tablet) 5 mg PO TID PRN PRN Reason: Muscle Spasm Last Admin: 05/20/24 05:34 Dose: 5 mg Documented By: MATTHEW Docusate Sodium (Docusate Sodium 100 Mg Capsule) 100 mg PO DAILY [facility] Last Admin: 05/23/24 08:57 Dose: 100 mg Documented By: MARJAN Duloxetine HCl (Duloxetine Hcl 20 Mg Capsule.Dr) 100 mg PO DAILY [facility] Last Admin: 05/23/24 08:59 Dose: 100 mg Documented By: MARJAN Enoxaparin Sodium (Enoxaparin Sodium 40 Mg/0.4 Ml Syringe) 40 mg SUBCUT Q24H [facility] Last Admin: 05/23/24 09:00 Dose: 40 mg Documented By: MARJAN Folic Acid (Folic Acid 1 Mg Tablet) 1 mg PO DAILY [facility] Last Admin: 05/23/24 09:00 Dose: 1 mg Documented By: MARJAN Glucose (Glucose Gel 15 Gm Gel..Gram.) 15 gm PO Q15M PRN; Protocol PRN Reason: per Hypoglycemia Standing Ord. Guaifenesin (Guaifenesin La 600 Mg Tab.Er.12h) 600 mg PO BID [facility] Last Admin: 05/23/24 09:00 Dose: 600 mg Documented By: MARJAN Ceftriaxone Sodium 1 gm/ (Sodium Chloride) 100 mls @ 200 mls/hr IV Q24H [facility] Last Infusion: 05/22/24 21:06 Dose: Infused Documented By: DAVI Azithromycin 500 mg/ Sodium (Chloride) 250 mls @ 125 mls/hr IV 2200 [facility] Last Infusion: 05/23/24 00:00 Dose: Infused Documented By: DAVI Dextrose (D10) 250 mls @ 750 mls/hr IV Q15M PRN; Protocol PRN Reason: per Hypoglycemia Standing Ord. Insulin Human Lispro (Insulin Lispro 100 Unit/Ml 3 Ml Vial) 0 unit SUBCUT QIDACHS [facility]; Protocol Last Admin: 05/23/24 08:03 Dose: Not Given Documented By: MARJAN Non-Admin Reason: No Insulin Coverage Melatonin (Melatonin 3 Mg Tablet) 6 mg PO BEDTIME PRN PRN Reason: Insomnia Melatonin (Melatonin 3 Mg Tablet) 3 mg PO BEDTIME [facility] Last Admin: 05/22/24 20:27 Dose: 3 mg Documented By: DAVI Multivitamins/Vitamin C (Multivitamin Tablet) 1 tab PO DAILY [facility] Last Admin: 05/23/24 08:59 Dose: 1 tab Documented By: MARJAN Nicotine (Nicotine 14 Mg Patch.Td24) 14 mg TRANSDERMA DAILY [facility] Last Admin: 05/23/24 08:56 Dose: 14 mg Documented By: MARJAN Nicotine Polacrilex (Nicotine Polacrilex 2 Mg Gum) 2 mg BUCCAL Q2H PRN PRN Reason: withdrawal Last Admin: 05/23/24 09:00 Dose: 2 mg Documented By: MARJAN Omeprazole (Omeprazole 20 Mg Capsule.) 20 mg PO BID@0630,1630 [facility] Last Admin: 05/23/24 05:03 Dose: 20 mg Documented By: DAVI Oxcarbazepine (Oxcarbazepine 300 Mg Tablet) 900 mg PO BEDTIME [facility] Last Admin: 05/22/24 20:27 Dose: 900 mg Documented By: DAVI Polyethylene Glycol (Polyethylene Glycol 3350 17 Gm Powd.Pack) 17 gm PO DAILY [facility] Prednisone (Prednisone 20 Mg Tablet) 40 mg PO DAILY [facility] Last Admin: 05/23/24 08:59 Dose: 40 mg Documented By: MARJAN Risperidone (Risperidone 2 Mg Tablet) 2 mg PO BID [facility] Last Admin: 05/23/24 08:59 Dose: 2 mg Documented By: MARJAN Sodium Chloride (0.9 % Sodium Chloride Flush 3 Ml Syringe) 3 ml IVFLUSH QSHIFT [facility] Last Admin: 05/23/24 09:06 Dose: 3 ml Documented By: MARJAN Thiamine HCl (Thiamine Hcl 100 Mg Tablet) 100 mg PO DAILY [facility] Last Admin: 05/23/24 08:59 Dose: 100 mg Documented By: MARJAN Topiramate (Topiramate 100 Mg Tablet) 100 mg PO BID [facility] Last Admin: 05/23/24 09:00 Dose: 100 mg Documented By: MARJAN Trazodone HCl (Trazodone Hcl 100 Mg Tablet) 100 mg PO BEDTIME [facility] Last Admin: 05/22/24 20:27 Dose: 100 mg Documented By: DAVI Labs 05/18/24 04:05 05/20/24 06:17 Labs: Laboratory Results - last 24 hr 05/22/24 05/22/24 05/23/24 15:51 20:13 07:28 POC Glucose 150 H 113 106 Microbiology Microbiology Results: Microbiology 05/17/24 22:09 Blood Culture - Final Blood - Venous No growth after 5 days. 05/17/24 22:09 Blood Culture - Final Blood - Venous No growth after 5 days. Assessment and Plan (1) Schizoaffective disorder, bipolar type: Status: Acute (2) Hyponatremia: Status: Acute (3) Acute and chronic respiratory failure ([id number]): Status: Acute Plan Jose Armando Ochoa is a 48 y/o woman admitted with resp failure secondary to pneumonia Acute chronic obstructive pulmonary disease exacerbation with possible associated pneumonia. Improving Continue supplemental oxygen to keep O2 sats > 90%. bronchodilator therapy, transitioned to p.o. prednisone, likely for 5 days, end date 05/27 Continue ceftriaxone and azithromycin, started 05/18, end date 05/24 inpatient overnight oximetry test -->qualifies for 2L at night; home o2 eval --> does not qualify for oxygen with ambulation Has been stable on room air at rest Hypotonic hyponatremia. Resolved. was on 1000 ml fluid restriction, will increase to 1250 per patient request nephrology following Type 2 diabetes mellitus. Metformin on hold. Blood glucose monitoring before meals and bedtime. Insulin sliding scale. Diabetic diet. Mood disorder. sedation improved. seen by psych and adjustments made to medications. now with increased anxiety - dose of risperidone increased to 2.5 b.i.d. seen by care team - now qualifies for inpatient psychiatric level of care. Bed search ongoing GERD. Continue Protonix. Hx of UC. No acute symptoms. History of alcohol abuse. No CIWA as needed (last drink was several days prior to admission). No symptoms of withdrawal noted. Start treatment with thiamine, multivitamins and folic acid. h/o substance abuse continue suboxone seen by addiction medicine, outpatient follow up in [facility] after inpatient psych discharge Tobacco dependence. Nicotine patch as needed. Tobacco cessation education. Chronic anemia. Continue to monitor. DVT prophylaxis: Lovenox Code status: Full Disposition-bed search ongoing for inpatient psychiatric bed Quality Stroke Does the patient have a stroke diagnosis?: No VTE Prior VTE?: No VTE Risk Level:: Medical - moderate - high VTE Device Contraindication: Treatment Not Indicated VTE Drug Contraindication: N/A - Med Ordered
[2024-05-23] MEDS: polyethylene glycoL 3350 17 GM POWD.PACK PO (11:38)
[2024-05-23 11:43] LABS: Glucose, Whole Blood 112 mg/dL (60-115)
[2024-05-23] MEDS: risperiDONE 0.5 MG TABLET PO (12:16)
[2024-05-23 15:56] LABS: Glucose, Whole Blood 115 mg/dL (60-115)
--- NOTE | 2024-05-23 18:12 | MHC.CARE ---
Patient seen for mental status update today, she continues to need inpatient psychiatric treatment. Provider, AMI Interiano updated
[2024-05-23] MEDS: traZODone HCL 100 MG TABLET PO (20:42)
[2024-05-23] MEDS: Melatonin 3 MG TABLET PO (20:42)
[2024-05-23] MEDS: risperiDONE 0.5 MG TABLET 2.5 MG PO (20:42)
[2024-05-23] MEDS: OXcarbazepine 300 MG TABLET 900 MG PO (20:43)
[2024-05-23] MEDS: cefTRIAXone sodium 1 GM in 0.9 % Sodium Chloride 100 ML IV (20:43)
[2024-05-23 20:44] LABS: Glucose, Whole Blood 146 mg/dL (60-115)
[2024-05-23] MEDS: Acetaminophen 325 MG TABLET 650 MG PO (20:52)
[2024-05-23] MEDS: Azithromycin 500 MG in 0.9 % Sodium Chloride 250 ML 125 MG IV (22:45)
[2024-05-24] VITALS (8 sets, daily range): BP systolic 108–150; BP diastolic 60–88; PULSE 85–100; RESP 16–20; TEMP 36.1–36.7; O2SAT 94–941
[2024-05-24] MEDS: Nicotine Polacrilex 2 MG GUM BUCCAL ×8 (04:42→20:52)
[2024-05-24] MEDS: Omeprazole 20 MG CAPSULE.DR PO ×2 (06:26→15:49)
[2024-05-24] MEDS: Simethicone 80 MG TAB.CHEW PO (06:34)
[2024-05-24] MEDS: Acetaminophen 325 MG TABLET 650 MG PO (06:34)
[2024-05-24 07:31] LABS: Glucose, Whole Blood 99 mg/dL (60-115)
[2024-05-24] MEDS: Albuterol/Iprat 2.5/0.5MG 3 ML AMPUL.NEB INHALE ×3 (07:31→20:00)
[2024-05-24] MEDS: carBAMazepine 200 MG TABLET 300 MG PO (08:23)
[2024-05-24] MEDS: Folic Acid 1 MG TABLET PO (08:23)
[2024-05-24] MEDS: guaiFENesin LA 600 MG TAB.ER.12H PO ×2 (08:24→20:50)
[2024-05-24] MEDS: Docusate Sodium 100 MG CAPSULE PO (08:24)
[2024-05-24] MEDS: DULoxetine HCl 20 MG CAPSULE.DR 100 MG PO (08:24)
[2024-05-24] MEDS: risperiDONE 0.5 MG TABLET 2.5 MG PO ×2 (08:24→20:51)
[2024-05-24] MEDS: Thiamine HCL 100 MG TABLET PO (08:25)
[2024-05-24] MEDS: predniSONE 20 MG TABLET 40 MG PO (08:25)
[2024-05-24] MEDS: busPIRone HCl 10 MG TABLET PO ×3 (08:25→20:50)
[2024-05-24] MEDS: Multivitamin TABLET 1 TAB PO (08:25)
[2024-05-24] MEDS: Nicotine 14 MG PATCH.TD24 TRANSDERMA (08:25)
[2024-05-24] MEDS: Topiramate 100 MG TABLET PO ×2 (08:25→20:51)
[2024-05-24] MEDS: Enoxaparin Sodium 40 MG/0.4 ML SYRINGE SUBCUT (08:27)
[2024-05-24] MEDS: polyethylene glycoL 3350 17 GM POWD.PACK PO (08:27)
[2024-05-24] MEDS: 0.9 % Sodium Chloride Flush 3 ML SYRINGE IVFLUSH ×2 (08:27→15:49)
[2024-05-24] MEDS: Buprenorphine/Naloxone 8/2 mg FILM 1 FILM BUCCAL ×3 (08:27→20:51)
--- NOTE | 2024-05-24 10:31 | HO.PM.IMPN ---
Subjective Subjective Date of Service: 05/24/24 Physical Exam Vital Signs: Vital Signs: Last Vital Signs Temp 98.0 F 05/24/24 07:33 Pulse 85 05/24/24 07:33 Resp 20 05/24/24 07:33 BP 115/74 05/24/24 07:33 Pulse Ox 96 05/24/24 07:33 O2 Del Method Room Air 05/24/24 07:33 O2 Flow Rate 2 05/21/24 04:00 BMI result Body Mass Index 32.4 Objective Data Active Medications Acetaminophen (Acetaminophen 325 Mg Tablet) 650 mg PO Q6H PRN PRN Reason: Pain, Mild (Pain Scale 1-3), fever or headache Last Admin: 05/24/24 06:34 Dose: 650 mg Documented By: MICHAEL Albuterol Sulfate (Albuterol Sulfate (0.083%) 2.5 Mg/3 Ml Vial.Neb) 2.5 mg INHALE Q2H PRN PRN Reason: Shortness of Breath/Wheezing Albuterol Sulfate (Albuterol Sulfate 90 Mcg 8 Gm Inhaler) 2 puff INHALE Q6H PRN PRN Reason: Shortness Of Breath Albuterol/Ipratropium (Albuterol/Iprat 2.5/0.5mg 3 Ml Ampul.Neb) 3 ml INHALE RQ6H WHILE AWAKE [facility] Last Admin: 05/24/24 07:31 Dose: 3 ml Documented By: GUIDO Buprenorphine/Naloxone (Buprenorphine/Naloxone 8/2 Mg Film) 1 film BUCCAL TID [facility] Last Admin: 05/24/24 08:27 Dose: 1 film Documented By: MARJAN Buspirone HCl (Buspirone Hcl 10 Mg Tablet) 10 mg PO TID [facility] Last Admin: 05/24/24 08:25 Dose: 10 mg Documented By: MARJAN Calcium Carbonate (Calcium Carbonate 750 Mg Tab.Chew) 750 mg PO Q4H PRN PRN Reason: Heartburn Last Admin: 05/19/24 22:16 Dose: 750 mg Documented By: MATTHEW Carbamazepine (Carbamazepine 200 Mg Tablet) 300 mg PO DAILY [facility] Last Admin: 05/24/24 08:23 Dose: 300 mg Documented By: MARJAN Clonidine HCl (Clonidine Hcl 0.1 Mg Tablet) 0.1 mg PO BEDTIME [facility]; Protocol Last Admin: 05/19/24 21:39 Dose: 0.1 mg Documented By: MATTHEW Cyclobenzaprine HCl (Cyclobenzaprine Hcl 5 Mg Tablet) 5 mg PO TID PRN PRN Reason: Muscle Spasm Last Admin: 05/20/24 05:34 Dose: 5 mg Documented By: MATTHEW Docusate Sodium (Docusate Sodium 100 Mg Capsule) 100 mg PO DAILY [facility] Last Admin: 05/24/24 08:24 Dose: 100 mg Documented By: MARJAN Duloxetine HCl (Duloxetine Hcl 20 Mg Capsule.Dr) 100 mg PO DAILY [facility] Last Admin: 05/24/24 08:24 Dose: 100 mg Documented By: MARJAN Enoxaparin Sodium (Enoxaparin Sodium 40 Mg/0.4 Ml Syringe) 40 mg SUBCUT Q24H [facility] Last Admin: 05/24/24 08:27 Dose: 40 mg Documented By: MARJAN Folic Acid (Folic Acid 1 Mg Tablet) 1 mg PO DAILY [facility] Last Admin: 05/24/24 08:23 Dose: 1 mg Documented By: MARJAN Glucose (Glucose Gel 15 Gm Gel..Gram.) 15 gm PO Q15M PRN; Protocol PRN Reason: per Hypoglycemia Standing Ord. Guaifenesin (Guaifenesin La 600 Mg Tab.Er.12h) 600 mg PO BID [facility] Last Admin: 05/24/24 08:24 Dose: 600 mg Documented By: MARJAN Ceftriaxone Sodium 1 gm/ (Sodium Chloride) 100 mls @ 200 mls/hr IV Q24H [facility] Last Infusion: 05/23/24 22:48 Dose: Infused Documented By: MICHAEL Azithromycin 500 mg/ Sodium (Chloride) 250 mls @ 125 mls/hr IV 2200 [facility] Last Infusion: 05/24/24 01:06 Dose: Infused Documented By: MICHAEL Dextrose (D10) 250 mls @ 750 mls/hr IV Q15M PRN; Protocol PRN Reason: per Hypoglycemia Standing Ord. Insulin Human Lispro (Insulin Lispro 100 Unit/Ml 3 Ml Vial) 0 unit SUBCUT QIDACHS [facility]; Protocol Last Admin: 05/24/24 07:58 Dose: Not Given Documented By: MARJAN Non-Admin Reason: No Insulin Coverage Melatonin (Melatonin 3 Mg Tablet) 6 mg PO BEDTIME PRN PRN Reason: Insomnia Melatonin (Melatonin 3 Mg Tablet) 3 mg PO BEDTIME [facility] Last Admin: 05/23/24 20:42 Dose: 3 mg Documented By: MICHAEL Multivitamins/Vitamin C (Multivitamin Tablet) 1 tab PO DAILY [facility] Last Admin: 05/24/24 08:25 Dose: 1 tab Documented By: MARJAN Nicotine (Nicotine 14 Mg Patch.Td24) 14 mg TRANSDERMA DAILY [facility] Last Admin: 05/24/24 08:25 Dose: 14 mg Documented By: MARJAN Nicotine Polacrilex (Nicotine Polacrilex 2 Mg Gum) 2 mg BUCCAL Q2H PRN PRN Reason: withdrawal Last Admin: 05/24/24 08:25 Dose: 2 mg Documented By: MARJAN Omeprazole (Omeprazole 20 Mg Capsule.Dr) 20 mg PO BID@0630,1630 [facility] Last Admin: 05/24/24 06:26 Dose: 20 mg Documented By: MICHAEL Oxcarbazepine (Oxcarbazepine 300 Mg Tablet) 900 mg PO BEDTIME [facility] Last Admin: 05/23/24 20:43 Dose: 900 mg Documented By: MICHAEL Polyethylene Glycol (Polyethylene Glycol 3350 17 Gm Powd.Pack) 17 gm PO DAILY [facility] Last Admin: 05/24/24 08:27 Dose: 17 gm Documented By: MARJAN Prednisone (Prednisone 20 Mg Tablet) 40 mg PO DAILY [facility] Last Admin: 05/24/24 08:25 Dose: 40 mg Documented By: MARJAN Risperidone (Risperidone 0.5 Mg Tablet) 2.5 mg PO BID [facility] Last Admin: 05/24/24 08:24 Dose: 2.5 mg Documented By: MARJAN Simethicone (Simethicone 80 Mg Tab.Chew) 80 mg PO QIDWMHS PRN PRN Reason: flatulence Last Admin: 05/24/24 06:34 Dose: 80 mg Documented By: MICHAEL Sodium Chloride (0.9 % Sodium Chloride Flush 3 Ml Syringe) 3 ml IVFLUSH QSHIFT [facility] Last Admin: 05/24/24 08:27 Dose: 3 ml Documented By: MARJAN Thiamine HCl (Thiamine Hcl 100 Mg Tablet) 100 mg PO DAILY [facility] Last Admin: 05/24/24 08:25 Dose: 100 mg Documented By: RIOSCCHARLI Topiramate (Topiramate 100 Mg Tablet) 100 mg PO BID [facility] Last Admin: 05/24/24 08:25 Dose: 100 mg Documented By: MARJAN Trazodone HCl (Trazodone Hcl 100 Mg Tablet) 100 mg PO BEDTIME [facility] Last Admin: 05/23/24 20:42 Dose: 100 mg Documented By: MICHAEL Labs 05/18/24 04:05 05/20/24 06:17 Labs: Laboratory Results - last 24 hr 05/23/24 05/23/24 05/23/24 11:22 15:14 20:35 POC Glucose 112 115 146 H 05/24/24 07:01 POC Glucose 99 Assessment and Plan (1) Schizoaffective disorder, bipolar type: Status: Acute (2) Hyponatremia: Status: Acute (3) Acute and chronic respiratory failure ([id number]): Status: Acute Plan 48 y/o woman admitted with resp failure secondary to pneumonia Acute on COPD exacerbation with possible associated pneumonia. Improved supplementalO2 to keep O2 sats > 90%. Bronchodilators, Prednisone for total of 5 days of steroid, end date 05/27 Continue ceftriaxone and azithromycin, started 05/18, end date 05/24.. inpatient overnight oximetry test -->qualifies for 2L at night; home o2 eval --> does not qualify for oxygen with ambulation Has been stable on room air at rest Hypotonic hyponatremia. Resolved. was on 1000 ml fluid restriction, will increase to 1250 per patient request nephrology following Type 2 diabetes mellitus. Metformin on hold. Blood glucose monitoring before meals and bedtime. Insulin sliding scale. Diabetic diet. Mood disorder, depression with SI--inpatient Psych recommended. continue Tegretol, trileptal, trazadone, clonidine, Psych to adust meds as needed GERD Continue Protonix. Hx of UC. No acute symptoms. History of alcohol abuse. No CIWA as needed (last drink was several days prior to admission). No symptoms of withdrawal noted. Start treatment with thiamine, multivitamins and folic acid. h/o substance abuse continue suboxone seen by addiction medicine, outpatient follow up in [facility] after inpatient psych discharge Tobacco dependence. Nicotine patch as needed. Tobacco cessation education. Chronic anemia. Continue to monitor. DVT prophylaxis: Lovenox Code status: Full Disposition-bed search ongoing for inpatient psychiatric bed Quality Stroke Does the patient have a stroke diagnosis?: No VTE Prior VTE?: No VTE Risk Level:: Medical - moderate - high VTE Device Contraindication: Treatment Not Indicated VTE Drug Contraindication: N/A - Med Ordered
[2024-05-24 11:06] LABS: Glucose, Whole Blood 127 mg/dL (60-115)
[2024-05-24 15:43] LABS: Glucose, Whole Blood 159 mg/dL (60-115)
[2024-05-24] MEDS: Insulin Lispro 100 UNIT/ML 3 ML VIAL SUBCUT (15:49)
[2024-05-24 20:08] LABS: Glucose, Whole Blood 100 mg/dL (60-115)
[2024-05-24] MEDS: Azithromycin 500 MG in 0.9 % Sodium Chloride 250 ML 125 MG IV (20:47)
[2024-05-24] MEDS: OXcarbazepine 300 MG TABLET 900 MG PO (20:50)
[2024-05-24] MEDS: traZODone HCL 100 MG TABLET PO (20:51)
[2024-05-24] MEDS: Melatonin 3 MG TABLET PO (20:51)
[2024-05-24] MEDS: cefTRIAXone sodium 1 GM in 0.9 % Sodium Chloride 100 ML IV (20:56)
[2024-05-25] VITALS (9 sets, daily range): BP systolic 109–133; BP diastolic 67–84; PULSE 85–98; RESP 16–20; TEMP 36.2–36.7; O2SAT 93–97
[2024-05-25] MEDS: 0.9 % Sodium Chloride Flush 3 ML SYRINGE IVFLUSH (00:31)
[2024-05-25] MEDS: Nicotine Polacrilex 2 MG GUM BUCCAL ×7 (00:32→20:55)
[2024-05-25] MEDS: Calcium Carbonate 750 MG TAB.CHEW PO ×2 (00:32→20:54)
[2024-05-25] MEDS: Omeprazole 20 MG CAPSULE.DR PO ×2 (05:27→15:45)
--- NOTE | 2024-05-25 06:46 | PC.NURSE ---
Assumed care of patient at 23:15. Patient is calm and cooperative, nicotine gum q2h prn per pt request. Pt continues with 1:1 sitter as pt continues to endorse SI, though denies plan for this song writer. In-room camera also remains in place. VSS on RA. Denies sob. Breathing is even and unlabored without distress. IV present on assuming care was discontinued per pt request due to stated pain at site; when RN attempted to replace later in shift patient deferred for sleep. Pt educated with visual (cup) on fluid restriction 1800ml/day. Safety measures continue. Please see shift assessment for full details. Handoff report given 06:45.
[2024-05-25] MEDS: Albuterol/Iprat 2.5/0.5MG 3 ML AMPUL.NEB INHALE ×3 (07:18→19:36)
[2024-05-25 07:28] LABS: Glucose, Whole Blood 83 mg/dL (60-115)
[2024-05-25] MEDS: polyethylene glycoL 3350 17 GM POWD.PACK PO (08:04)
[2024-05-25] MEDS: Enoxaparin Sodium 40 MG/0.4 ML SYRINGE SUBCUT (08:04)
[2024-05-25] MEDS: DULoxetine HCl 20 MG CAPSULE.DR 100 MG PO (08:04)
[2024-05-25] MEDS: predniSONE 20 MG TABLET 40 MG PO (08:05)
[2024-05-25] MEDS: guaiFENesin LA 600 MG TAB.ER.12H PO ×2 (08:05→20:54)
[2024-05-25] MEDS: Folic Acid 1 MG TABLET PO (08:05)
[2024-05-25] MEDS: Docusate Sodium 100 MG CAPSULE PO (08:05)
[2024-05-25] MEDS: carBAMazepine 200 MG TABLET 300 MG PO (08:06)
[2024-05-25] MEDS: Buprenorphine/Naloxone 8/2 mg FILM 1 FILM BUCCAL ×3 (08:06→20:55)
[2024-05-25] MEDS: Nicotine 14 MG PATCH.TD24 TRANSDERMA (08:06)
[2024-05-25] MEDS: Multivitamin TABLET 1 TAB PO (08:06)
[2024-05-25] MEDS: Thiamine HCL 100 MG TABLET PO (08:06)
[2024-05-25] MEDS: Topiramate 100 MG TABLET PO ×2 (08:06→20:55)
[2024-05-25] MEDS: busPIRone HCl 10 MG TABLET PO ×3 (08:06→20:54)
[2024-05-25] MEDS: risperiDONE 0.5 MG TABLET 2.5 MG PO ×2 (08:06→20:54)
--- NOTE | 2024-05-25 10:40 | MHC.CM.PN ---
Care Team is now recommending [facility]; CM will follow.
[2024-05-25 11:40] LABS: Glucose, Whole Blood 140 mg/dL (60-115)
--- NOTE | 2024-05-25 11:55 | P.PNIM_ITS ---
Subjective Subjective Date of Service: 05/25/24 Physical Exam 2 Vital Signs: Vital Signs: Last Vital Signs Temp 97.5 F 05/25/24 11:43 Pulse 98 05/25/24 11:43 Resp 20 05/25/24 11:43 BP 109/73 05/25/24 11:43 Pulse Ox 94 05/25/24 11:43 O2 Del Method Room Air 05/25/24 11:43 O2 Flow Rate 2 05/21/24 04:00 BMI result Body Mass Index 32.4 Objective Data Active Medications Acetaminophen (Acetaminophen 325 Mg Tablet) 650 mg PO Q6H PRN PRN Reason: Pain, Mild (Pain Scale 1-3), fever or headache Last Admin: 05/24/24 06:34 Dose: 650 mg Documented By: MICHAEL Albuterol Sulfate (Albuterol Sulfate (0.083%) 2.5 Mg/3 Ml Vial.Neb) 2.5 mg INHALE Q2H PRN PRN Reason: Shortness of Breath/Wheezing Albuterol Sulfate (Albuterol Sulfate 90 Mcg 8 Gm Inhaler) 2 puff INHALE Q6H PRN PRN Reason: Shortness Of Breath Albuterol/Ipratropium (Albuterol/Iprat 2.5/0.5mg 3 Ml Ampul.Neb) 3 ml INHALE RQ6H WHILE AWAKE [facility] Last Admin: 05/25/24 07:18 Dose: 3 ml Documented By: SYLVIE Buprenorphine/Naloxone (Buprenorphine/Naloxone 8/2 Mg Film) 1 film BUCCAL TID [facility] Last Admin: 05/25/24 08:06 Dose: 1 film Documented By: SYLVIE Buspirone HCl (Buspirone Hcl 10 Mg Tablet) 10 mg PO TID [facility] Last Admin: 05/25/24 08:06 Dose: 10 mg Documented By: SYLVIE Calcium Carbonate (Calcium Carbonate 750 Mg Tab.Chew) 750 mg PO Q4H PRN PRN Reason: Heartburn Last Admin: 05/25/24 00:32 Dose: 750 mg Documented By: CLAUDY Carbamazepine (Carbamazepine 200 Mg Tablet) 300 mg PO DAILY [facility] Last Admin: 05/25/24 08:06 Dose: 300 mg Documented By: SYLVIE Clonidine HCl (Clonidine Hcl 0.1 Mg Tablet) 0.1 mg PO BEDTIME [facility]; Protocol Last Admin: 05/19/24 21:39 Dose: 0.1 mg Documented By: MATTHEW Cyclobenzaprine HCl (Cyclobenzaprine Hcl 5 Mg Tablet) 5 mg PO TID PRN PRN Reason: Muscle Spasm Last Admin: 05/20/24 05:34 Dose: 5 mg Documented By: MATTHEW Docusate Sodium (Docusate Sodium 100 Mg Capsule) 100 mg PO DAILY [facility] Last Admin: 05/25/24 08:05 Dose: 100 mg Documented By: SYLVIE Duloxetine HCl (Duloxetine Hcl 20 Mg Capsule.Dr) 100 mg PO DAILY [facility] Last Admin: 05/25/24 08:04 Dose: 100 mg Documented By: SYLVIE Enoxaparin Sodium (Enoxaparin Sodium 40 Mg/0.4 Ml Syringe) 40 mg SUBCUT Q24H [facility] Last Admin: 05/25/24 08:04 Dose: 40 mg Documented By: SYLVIE Folic Acid (Folic Acid 1 Mg Tablet) 1 mg PO DAILY [facility] Last Admin: 05/25/24 08:05 Dose: 1 mg Documented By: SYLVIE Glucose (Glucose Gel 15 Gm Gel..Gram.) 15 gm PO Q15M PRN; Protocol PRN Reason: per Hypoglycemia Standing Ord. Guaifenesin (Guaifenesin La 600 Mg Tab.Er.12h) 600 mg PO BID [facility] Last Admin: 05/25/24 08:05 Dose: 600 mg Documented By: SYLVIE Ceftriaxone Sodium 1 gm/ (Sodium Chloride) 100 mls @ 200 mls/hr IV Q24H [facility] Last Infusion: 05/24/24 22:04 Dose: Infused Documented By: MARJAN Azithromycin 500 mg/ Sodium (Chloride) 250 mls @ 125 mls/hr IV 2200 [facility] Last Infusion: 05/24/24 22:47 Dose: Infused Documented By: CLAUDY Dextrose (D10) 250 mls @ 750 mls/hr IV Q15M PRN; Protocol PRN Reason: per Hypoglycemia Standing Ord. Insulin Human Lispro (Insulin Lispro 100 Unit/Ml 3 Ml Vial) 0 unit SUBCUT QIDACHS [facility]; Protocol Last Admin: 05/25/24 11:32 Dose: Not Given Documented By: SYLVIE Non-Admin Reason: No Insulin Coverage Melatonin (Melatonin 3 Mg Tablet) 6 mg PO BEDTIME PRN PRN Reason: Insomnia Melatonin (Melatonin 3 Mg Tablet) 3 mg PO BEDTIME [facility] Last Admin: 05/24/24 20:51 Dose: 3 mg Documented By: MARJAN Multivitamins/Vitamin C (Multivitamin Tablet) 1 tab PO DAILY [facility] Last Admin: 05/25/24 08:06 Dose: 1 tab Documented By: SYLVIE Nicotine (Nicotine 14 Mg Patch.Td24) 14 mg TRANSDERMA DAILY [facility] Last Admin: 05/25/24 08:06 Dose: 14 mg Documented By: SYLVIE Nicotine Polacrilex (Nicotine Polacrilex 2 Mg Gum) 2 mg BUCCAL Q2H PRN PRN Reason: withdrawal Last Admin: 05/25/24 08:05 Dose: 2 mg Documented By: SYLVIE Omeprazole (Omeprazole 20 Mg Capsule.Dr) 20 mg PO BID@0630,1630 [facility] Last Admin: 05/25/24 05:27 Dose: 20 mg Documented By: CLAUDY Oxcarbazepine (Oxcarbazepine 300 Mg Tablet) 900 mg PO BEDTIME [facility] Last Admin: 05/24/24 20:50 Dose: 900 mg Documented By: MARJAN Polyethylene Glycol (Polyethylene Glycol 3350 17 Gm Powd.Pack) 17 gm PO DAILY [facility] Last Admin: 05/25/24 08:04 Dose: 17 gm Documented By: SYLVIE Prednisone (Prednisone 20 Mg Tablet) 40 mg PO DAILY [facility] Last Admin: 05/25/24 08:05 Dose: 40 mg Documented By: SYLVIE Risperidone (Risperidone 0.5 Mg Tablet) 2.5 mg PO BID [facility] Last Admin: 05/25/24 08:06 Dose: 2.5 mg Documented By: SYLVIE Simethicone (Simethicone 80 Mg Tab.Chew) 80 mg PO QIDWMHS PRN PRN Reason: flatulence Last Admin: 05/24/24 06:34 Dose: 80 mg Documented By: MICHAEL Sodium Chloride (0.9 % Sodium Chloride Flush 3 Ml Syringe) 3 ml IVFLUSH QSHIFT [facility] Last Admin: 05/25/24 08:13 Dose: Not Given Documented By: SYLVIE Non-Admin Reason: No Access Thiamine HCl (Thiamine Hcl 100 Mg Tablet) 100 mg PO DAILY [facility] Last Admin: 05/25/24 08:06 Dose: 100 mg Documented By: SYLVIE Topiramate (Topiramate 100 Mg Tablet) 100 mg PO BID [facility] Last Admin: 05/25/24 08:06 Dose: 100 mg Documented By: SYLVIE Trazodone HCl (Trazodone Hcl 100 Mg Tablet) 100 mg PO BEDTIME [facility] Last Admin: 05/24/24 20:51 Dose: 100 mg Documented By: FISHSCEL Labs 05/18/24 04:05 05/20/24 06:17 Labs: Laboratory Results - last 24 hr 05/24/24 05/24/24 05/25/24 15:13 19:58 07:13 POC Glucose 159 H 100 83 05/25/24 11:32 POC Glucose 140 H Assessment and Plan (1) Schizoaffective disorder, bipolar type: Status: Acute (2) Hyponatremia: Status: Acute (3) Acute and chronic respiratory failure ([id number]): Status: Acute Plan 48 y/o woman admitted with resp failure secondary to pneumonia Acute COPD exacerbation with possible associated pneumonia. Improved Off O2, on room air Bronchodilators, Prednisone for total of 5 days of steroid, end date 05/27 Continue ceftriaxone and azithromycin, started 05/18, end date 05/24.. inpatient overnight oximetry test -->qualifies for 2L at night; home o2 eval --> does not qualify for oxygen with ambulation Has been stable on room air at rest Hypotonic hyponatremia. Resolved. was on 1000 ml fluid restriction, will increase to 1800 nephrology following Type 2 diabetes mellitus. restart metformin 500 mg daily Mood disorder, depression with SI--inpatient Psych recommended. continue Tegretol, trileptal, trazadone, clonidine, Psych to adust meds as needed GERD Continue Protonix. Hx of UC. No acute symptoms. History of alcohol abuse. No CIWA as needed (last drink was several days prior to admission). No symptoms of withdrawal noted. Start treatment with thiamine, multivitamins and folic acid. h/o substance abuse continue suboxone seen by addiction medicine, outpatient follow up in [facility] after inpatient psych discharge Tobacco dependence. Nicotine patch as needed. Tobacco cessation education. Chronic anemia. Continue to monitor. DVT prophylaxis: Lovenox Code status: Full Disposition-bed search ongoing for inpatient psychiatric bed Quality Stroke Does the patient have a stroke diagnosis?: No VTE Prior VTE?: No VTE Risk Level:: Medical - moderate - high VTE Device Contraindication: Treatment Not Indicated VTE Drug Contraindication: N/A - Med Ordered
[2024-05-25] MEDS: metFORMIN HCl 500 MG TABLET PO (12:11)
[2024-05-25] MEDS: Simethicone 80 MG TAB.CHEW PO (15:47)
[2024-05-25 16:34] LABS: Glucose, Whole Blood 130 mg/dL (60-115)
--- NOTE | 2024-05-25 18:43 | MHC.CARE ---
Provided updated clinical to [facility]. Needs to be provided every 24 hours.
[2024-05-25] MEDS: traZODone HCL 100 MG TABLET PO (20:54)
[2024-05-25] MEDS: OXcarbazepine 300 MG TABLET 900 MG PO (20:54)
[2024-05-25] MEDS: Melatonin 3 MG TABLET PO (20:55)
[2024-05-25] MEDS: bisacodyL 5 MG TABLET.DR PO (20:55)
[2024-05-25 21:17] LABS: Glucose, Whole Blood 108 mg/dL (60-115)
[2024-05-26] VITALS (9 sets, daily range): BP systolic 107–162; BP diastolic 56–86; PULSE 86–100; RESP 16–20; TEMP 36–36.6; O2SAT 92–98
[2024-05-26] MEDS: Nicotine Polacrilex 2 MG GUM BUCCAL ×7 (01:07→22:15)
[2024-05-26] MEDS: Omeprazole 20 MG CAPSULE.DR PO ×2 (06:12→15:17)
[2024-05-26 07:09] LABS: Glucose, Whole Blood 85 mg/dL (60-115)
[2024-05-26] MEDS: Albuterol/Iprat 2.5/0.5MG 3 ML AMPUL.NEB INHALE ×3 (07:35→19:43)
[2024-05-26] MEDS: DULoxetine HCl 20 MG CAPSULE.DR 100 MG PO (08:05)
[2024-05-26] MEDS: Folic Acid 1 MG TABLET PO (08:05)
[2024-05-26] MEDS: Buprenorphine/Naloxone 8/2 mg FILM 1 FILM BUCCAL ×3 (08:05→20:07)
[2024-05-26] MEDS: Docusate Sodium 100 MG CAPSULE PO (08:06)
[2024-05-26] MEDS: Multivitamin TABLET 1 TAB PO (08:06)
[2024-05-26] MEDS: busPIRone HCl 10 MG TABLET PO ×3 (08:06→20:04)
[2024-05-26] MEDS: carBAMazepine 200 MG TABLET 300 MG PO (08:06)
[2024-05-26] MEDS: risperiDONE 0.5 MG TABLET 2.5 MG PO ×2 (08:06→20:03)
[2024-05-26] MEDS: guaiFENesin LA 600 MG TAB.ER.12H PO ×2 (08:06→20:05)
[2024-05-26] MEDS: predniSONE 20 MG TABLET 40 MG PO (08:06)
[2024-05-26] MEDS: metFORMIN HCl 500 MG TABLET PO (08:06)
[2024-05-26] MEDS: Thiamine HCL 100 MG TABLET PO (08:06)
[2024-05-26] MEDS: Topiramate 100 MG TABLET PO ×2 (08:06→20:07)
[2024-05-26] MEDS: polyethylene glycoL 3350 17 GM POWD.PACK PO (08:06)
[2024-05-26] MEDS: Nicotine 14 MG PATCH.TD24 TRANSDERMA (08:07)
[2024-05-26] MEDS: Enoxaparin Sodium 40 MG/0.4 ML SYRINGE SUBCUT (08:09)
[2024-05-26 08:36] LABS: Anion Gap 13 (12-20); Blood Urea Nitrogen 13 mg/dL (9-16); Calcium 8.7 mg/dL (8.4-10.2); Carbon Dioxide 25 mmol/L (22-29); Chloride 90 mmol/L (96-108); Creatinine Clr Calc Pharmacy 110.3; Estimated Glomerular Filt Rate > 60; Glucose Random 96 mg/dL (60-115); Potassium 3.7 mmol/L (3.3-5.1); Sodium 124 mmol/L (135-145)
--- NOTE | 2024-05-26 09:37 | HO.PM.IMPN ---
Subjective Subjective Date of Service: 05/26/24 Interval History: Still endorsing SI sodium trending down to 124 no symptoms Physical Exam Vital Signs: Vital Signs: Last Vital Signs Temp 97.0 F 05/26/24 07:26 Pulse 90 05/26/24 07:36 Resp 18 05/26/24 07:36 BP 107/56 L 05/26/24 07:26 Pulse Ox 94 05/26/24 07:26 O2 Del Method Room Air 05/26/24 07:26 O2 Flow Rate 2 05/21/24 04:00 BMI result Body Mass Index 32.4 General: AO X 3, no acute distress Resp: CTA bilateral CVS: S1,S2,RRR GI: +BS, NT, no distention Skin: No rash Neuro: motor grossly intact Psych: appropriate affect Objective Data Active Medications Acetaminophen (Acetaminophen 325 Mg Tablet) 650 mg PO Q6H PRN PRN Reason: Pain, Mild (Pain Scale 1-3), fever or headache Last Admin: 05/24/24 06:34 Dose: 650 mg Documented By: MICHAEL Albuterol Sulfate (Albuterol Sulfate (0.083%) 2.5 Mg/3 Ml Vial.Neb) 2.5 mg INHALE Q2H PRN PRN Reason: Shortness of Breath/Wheezing Albuterol Sulfate (Albuterol Sulfate 90 Mcg 8 Gm Inhaler) 2 puff INHALE Q6H PRN PRN Reason: Shortness Of Breath Albuterol/Ipratropium (Albuterol/Iprat 2.5/0.5mg 3 Ml Ampul.Neb) 3 ml INHALE RQ6H WHILE AWAKE [facility] Last Admin: 05/26/24 07:35 Dose: 3 ml Documented By: JAMES Buprenorphine/Naloxone (Buprenorphine/Naloxone 8/2 Mg Film) 1 film BUCCAL TID [facility] Last Admin: 05/26/24 08:05 Dose: 1 film Documented By: RAYMOND Buspirone HCl (Buspirone Hcl 10 Mg Tablet) 10 mg PO TID [facility] Last Admin: 05/26/24 08:06 Dose: 10 mg Documented By: RAYMOND Calcium Carbonate (Calcium Carbonate 750 Mg Tab.Chew) 750 mg PO Q4H PRN PRN Reason: Heartburn Last Admin: 05/25/24 20:54 Dose: 750 mg Documented By: SHANICE Carbamazepine (Carbamazepine 200 Mg Tablet) 300 mg PO DAILY [facility] Last Admin: 05/26/24 08:06 Dose: 300 mg Documented By: RAYMOND Clonidine HCl (Clonidine Hcl 0.1 Mg Tablet) 0.1 mg PO BEDTIME [facility]; Protocol Last Admin: 05/19/24 21:39 Dose: 0.1 mg Documented By: MATTHEW Cyclobenzaprine HCl (Cyclobenzaprine Hcl 5 Mg Tablet) 5 mg PO TID PRN PRN Reason: Muscle Spasm Last Admin: 05/20/24 05:34 Dose: 5 mg Documented By: MATTHEW Docusate Sodium (Docusate Sodium 100 Mg Capsule) 100 mg PO DAILY [facility] Last Admin: 05/26/24 08:06 Dose: 100 mg Documented By: RAYMOND Duloxetine HCl (Duloxetine Hcl 20 Mg Capsule.Dr) 100 mg PO DAILY [facility] Last Admin: 05/26/24 08:05 Dose: 100 mg Documented By: RAYMOND Enoxaparin Sodium (Enoxaparin Sodium 40 Mg/0.4 Ml Syringe) 40 mg SUBCUT Q24H [facility] Last Admin: 05/26/24 08:09 Dose: 40 mg Documented By: RAYMOND Folic Acid (Folic Acid 1 Mg Tablet) 1 mg PO DAILY [facility] Last Admin: 05/26/24 08:05 Dose: 1 mg Documented By: RAYMOND Glucose (Glucose Gel 15 Gm Gel..Gram.) 15 gm PO Q15M PRN; Protocol PRN Reason: per Hypoglycemia Standing Ord. Guaifenesin (Guaifenesin La 600 Mg Tab.Er.12h) 600 mg PO BID [facility] Last Admin: 05/26/24 08:06 Dose: 600 mg Documented By: RAYMOND Dextrose (D10) 250 mls @ 750 mls/hr IV Q15M PRN; Protocol PRN Reason: per Hypoglycemia Standing Ord. Insulin Human Lispro (Insulin Lispro 100 Unit/Ml 3 Ml Vial) 0 unit SUBCUT QIDACHS [facility]; Protocol Last Admin: 05/26/24 07:55 Dose: Not Given Documented By: RAYMOND Non-Admin Reason: No Insulin Coverage Melatonin (Melatonin 3 Mg Tablet) 6 mg PO BEDTIME PRN PRN Reason: Insomnia Melatonin (Melatonin 3 Mg Tablet) 3 mg PO BEDTIME [facility] Last Admin: 05/25/24 20:55 Dose: 3 mg Documented By: SHANICE Metformin HCl (Metformin Hcl 500 Mg Tablet) 500 mg PO DAILY [facility] Last Admin: 05/26/24 08:06 Dose: 500 mg Documented By: RAYMOND Multivitamins/Vitamin C (Multivitamin Tablet) 1 tab PO DAILY [facility] Last Admin: 05/26/24 08:06 Dose: 1 tab Documented By: RAYMOND Nicotine (Nicotine 14 Mg Patch.Td24) 14 mg TRANSDERMA DAILY [facility] Last Admin: 05/26/24 08:07 Dose: 14 mg Documented By: RAYMOND Nicotine Polacrilex (Nicotine Polacrilex 2 Mg Gum) 2 mg BUCCAL Q2H PRN PRN Reason: withdrawal Last Admin: 05/26/24 08:12 Dose: 2 mg Documented By: RAYMOND Omeprazole (Omeprazole 20 Mg Capsule.Dr) 20 mg PO BID@0630,1630 [facility] Last Admin: 05/26/24 06:12 Dose: 20 mg Documented By: SHANICE Oxcarbazepine (Oxcarbazepine 300 Mg Tablet) 900 mg PO BEDTIME [facility] Last Admin: 05/25/24 20:54 Dose: 900 mg Documented By: SHANICE Polyethylene Glycol (Polyethylene Glycol 3350 17 Gm Powd.Pack) 17 gm PO DAILY [facility] Last Admin: 05/26/24 08:06 Dose: 17 gm Documented By: RAYMOND Prednisone (Prednisone 20 Mg Tablet) 40 mg PO DAILY [facility] Last Admin: 05/26/24 08:06 Dose: 40 mg Documented By: RAYMOND Risperidone (Risperidone 0.5 Mg Tablet) 2.5 mg PO BID [facility] Last Admin: 05/26/24 08:06 Dose: 2.5 mg Documented By: RAYMOND Simethicone (Simethicone 80 Mg Tab.Chew) 80 mg PO QIDWMHS PRN PRN Reason: flatulence Last Admin: 05/25/24 15:47 Dose: 80 mg Documented By: SYLVIE Sodium Chloride (0.9 % Sodium Chloride Flush 3 Ml Syringe) 3 ml IVFLUSH QSHIFT [facility] Last Admin: 05/26/24 07:55 Dose: Not Given Documented By: RAYMOND Non-Admin Reason: No Access Thiamine HCl (Thiamine Hcl 100 Mg Tablet) 100 mg PO DAILY [facility] Last Admin: 05/26/24 08:06 Dose: 100 mg Documented By: RAYMOND Topiramate (Topiramate 100 Mg Tablet) 100 mg PO BID [facility] Last Admin: 05/26/24 08:06 Dose: 100 mg Documented By: RAYMOND Trazodone HCl (Trazodone Hcl 100 Mg Tablet) 100 mg PO BEDTIME [facility] Last Admin: 05/25/24 20:54 Dose: 100 mg Documented By: GAVINANGB Labs 05/18/24 04:05 05/26/24 08:16 Labs: Laboratory Results - last 24 hr 05/25/24 05/25/24 05/25/24 11:32 16:27 21:01 Anion Gap Estim Creat Clear Calc Estimated GFR POC Glucose 140 H 130 H 108 Random Glucose Calcium 05/26/24 05/26/24 07:05 08:16 Anion Gap 13 Estim Creat Clear Calc 110.3 Estimated GFR > 60 POC Glucose 85 Random Glucose 96 Calcium 8.7 Assessment and Plan (1) Schizoaffective disorder, bipolar type: Status: Acute (2) Hyponatremia: Status: Acute (3) Acute and chronic respiratory failure ([id number]): Status: Acute Plan 48 y/o woman admitted with resp failure secondary to pneumonia Acute COPD exacerbation with possible associated pneumonia. resolved. On room air Bronchodilators, Prednisone for total of 5 days of steroid, end date 05/27 Continue ceftriaxone and azithromycin, started 05/18, end date 05/24.. Overnight oximetry test -->qualifies for 2L at night; home o2 eval --> does not qualify for oxygen with ambulation HypOtonic hyponatremia, sodium down again to 124.. reinstate fluid restriction and monitor sodium Type 2 diabetes mellitus. continue metformin 500 mg daily Mood disorder, depression with SI--inpatient Psych recommended. continue Tegretol, trileptal, trazadone, clonidine, Psych to adust meds as needed GERD Continue Protonix. Hx of UC. No acute symptoms. History of alcohol abuse. No CIWA as needed (last drink was several days prior to admission). No symptoms of withdrawal noted. Start treatment with thiamine, multivitamins and folic acid. h/o substance abuse continue suboxone seen by addiction medicine, outpatient follow up in [facility] after inpatient psych discharge Tobacco dependence. Nicotine patch as needed. Tobacco cessation education. Chronic anemia. Continue to monitor. DVT prophylaxis: Lovenox Code status: Full Disposition-bed search ongoing for inpatient psychiatric bed Quality Stroke Does the patient have a stroke diagnosis?: No VTE Prior VTE?: No VTE Risk Level:: Medical - moderate - high VTE Device Contraindication: Treatment Not Indicated VTE Drug Contraindication: N/A - Med Ordered
[2024-05-26 11:30] LABS: Glucose, Whole Blood 139 mg/dL (60-115)
--- NOTE | 2024-05-26 11:53 | P.EN_ITS ---
Documented by User: Nanda Wright, SHERRY 05/26/24 13:12 Event Note Date of Service: 05/26/24 Event Note: Met with Jose Armando who reports less sedation with med changes but anger that Lorazepam and Flexeril were taken away as these are two helpful agents in her regime. Reports depressive sx are up and down and anxiety is the same. Discussed teams report of hyponatremia and possible medication etiologies. Pt reports she feels physically OK and verbalizes understanding of low sodium, effects and that Trileptal and Tegretol may be contributing to this. Reports by history that she has trialed Valproate with significant weight gain, [place] with strange behaviors, inability to drive , Lamictal with no adverse effect. Discussed possibly a Lamictal/Vraylar combination and she will consider these. MSE: alert, oriented, speech is clear, logical. Mood depressed, affect flat. Reports visions, spirits are still a problem for her. These are not known to her but are present. She denies SI,HI at this time. She is interested in a psychiatric admission when medically cleared to improve symptom control. Plan: Lorazepam prn Pt has Flexeril ordered prn DC Tegretol Decrease Trileptal to 450 mg HS Lamictal 25 mg HS Time Spent With Patient Time: Total time managing care of this patient today ____ minutes. Documented by User: Meir Light MD 06/16/24 10:14 Event Note Date of Service: 06/16/24
[2024-05-26 14:05] LABS: Anion Gap 13 (12-20); Carbon Dioxide 23 mmol/L (22-29); Chloride 90 mmol/L (96-108); Potassium 4.3 mmol/L (3.3-5.1); Sodium 122 mmol/L (135-145)
[2024-05-26] MEDS: Acetaminophen 325 MG TABLET 650 MG PO (15:17)
[2024-05-26 16:00] LABS: Glucose, Whole Blood 128 mg/dL (60-115)
[2024-05-26] MEDS: Urea 15 GM POWDER 30 GM PO (16:24)
[2024-05-26] MEDS: Melatonin 3 MG TABLET PO (20:04)
[2024-05-26] MEDS: lamoTRIgine 25 MG TABLET PO (20:06)
[2024-05-26] MEDS: Ondansetron ODT 4 MG TAB.RAPDIS TRANSLINGU (20:07)
[2024-05-26 20:56] LABS: Glucose, Whole Blood 140 mg/dL (60-115)
[2024-05-26] MEDS: traZODone HCL 100 MG TABLET PO (22:15)
[2024-05-27] VITALS (9 sets, daily range): BP systolic 103–133; BP diastolic 60–76; PULSE 87–113; RESP 16–20; TEMP 36.3–37.4; O2SAT 92–96
[2024-05-27] MEDS: Nicotine Polacrilex 2 MG GUM BUCCAL ×8 (02:31→22:30)
[2024-05-27] MEDS: LORazepam 0.5 MG TABLET PO ×2 (02:36→14:43)
[2024-05-27] MEDS: Acetaminophen 325 MG TABLET 650 MG PO (02:36)
[2024-05-27] MEDS: Omeprazole 20 MG CAPSULE.DR PO ×2 (06:16→15:43)
[2024-05-27 07:33] LABS: Glucose, Whole Blood 134 mg/dL (60-115)
[2024-05-27] MEDS: Albuterol/Iprat 2.5/0.5MG 3 ML AMPUL.NEB INHALE ×3 (07:35→19:30)
[2024-05-27 07:48] LABS: Anion Gap 12 (12-20); Blood Urea Nitrogen 22 mg/dL (9-16); Calcium 9.1 mg/dL (8.4-10.2); Carbon Dioxide 29 mmol/L (22-29); Chloride 94 mmol/L (96-108); Creatinine Clr Calc Pharmacy 98.3; Estimated Glomerular Filt Rate > 60; Glucose Random 122 mg/dL (60-115); Potassium 3.6 mmol/L (3.3-5.1); Sodium 131 mmol/L (135-145)
[2024-05-27] MEDS: Nicotine 14 MG PATCH.TD24 TRANSDERMA (09:05)
[2024-05-27] MEDS: busPIRone HCl 10 MG TABLET PO ×3 (09:07→20:30)
[2024-05-27] MEDS: Buprenorphine/Naloxone 8/2 mg FILM 1 FILM BUCCAL ×3 (09:07→20:30)
[2024-05-27] MEDS: Docusate Sodium 100 MG CAPSULE PO (09:08)
[2024-05-27] MEDS: polyethylene glycoL 3350 17 GM POWD.PACK PO (09:09)
[2024-05-27] MEDS: guaiFENesin LA 600 MG TAB.ER.12H PO ×2 (09:09→20:30)
[2024-05-27] MEDS: Multivitamin TABLET 1 TAB PO (09:09)
[2024-05-27] MEDS: metFORMIN HCl 500 MG TABLET PO (09:09)
[2024-05-27] MEDS: Folic Acid 1 MG TABLET PO (09:09)
[2024-05-27] MEDS: Thiamine HCL 100 MG TABLET PO (09:10)
[2024-05-27] MEDS: risperiDONE 0.5 MG TABLET 2.5 MG PO ×2 (09:10→20:30)
[2024-05-27] MEDS: predniSONE 20 MG TABLET 40 MG PO (09:11)
[2024-05-27] MEDS: Topiramate 100 MG TABLET PO ×2 (09:12→20:30)
--- NOTE | 2024-05-27 10:27 | MHC.CM.PN ---
Per ROUNDS discussion, NA is better and Patient may be ready for dc soon. On 05/23/2024 Care Team approved [facility](? need for another Care Team Consult prior to dc). CM will follow.
[2024-05-27 11:11] LABS: Glucose, Whole Blood 132 mg/dL (60-115)
--- NOTE | 2024-05-27 12:23 | P.PNNP_ITS ---
Subjective Subjective Date of Service: 05/27/24 Interval history: Still endorsing SI sodium trending down to 124 no symptoms Physical Exam 2 Vital Signs: Vital Signs: Last Vital Signs Temp 97.5 F 05/27/24 11:56 Pulse 100 05/27/24 11:56 Resp 20 05/27/24 11:56 BP 109/63 05/27/24 11:56 Pulse Ox 94 05/27/24 11:56 O2 Del Method Room Air 05/27/24 11:56 O2 Flow Rate 2 05/21/24 04:00 BMI result Body Mass Index 32.4 Const: Other: Constitutional - Awake and Alert, No apparent distress. Nasal cannula in place. HEENT - PERRL, EOMI. Normal sclerae. Heart - RRR, (+) murmur. Lungs - Normal lung expansion, Normal respiratory effort, No respiratory distress. Tachypnea. Bilateral rhonchi, scattered wheezing. No crackles. Abdomen - NT / ND; +BS; No rebound or guarding - No CVA tenderness Extremities - no calf tenderness bilaterally, no swelling Musculoskeletal - Normal inspection, normal ROM Skin - Warm/Dry Neurological - Alert & oriented x3. No focal weakness grossly noted. Normal speech. Psychological - Depressed affect Objective Data Labs 05/18/24 04:05 05/27/24 16:35 Labs: Laboratory Results - last 24 hr 05/26/24 05/26/24 05/26/24 13:24 15:40 20:49 Hold Purple Top Hold Blue Top Sodium 122 L Potassium 4.3 Chloride 90 L Carbon Dioxide 23 Anion Gap 13 BUN Creatinine Estim Creat Clear Calc Estimated GFR POC Glucose 128 H 140 H Random Glucose Calcium 05/27/24 05/27/24 05/27/24 06:38 07:07 10:54 Hold Purple Top SEE NOTE Hold Blue Top SEE NOTE Sodium 131 L Potassium 3.6 Chloride 94 L Carbon Dioxide 29 Anion Gap 12 BUN 22 H Creatinine 0.73 Estim Creat Clear Calc 98.3 Estimated GFR > 60 POC Glucose 134 H 132 H Random Glucose 122 H Calcium 9.1 Microbiology Microbiology Results: Microbiology 05/17/24 22:09 Blood - Venous Blood Culture - Final No growth after 5 days. 05/17/24 22:09 Blood - Venous Blood Culture - Final No growth after 5 days. Procedures Date of Service Date of Service: 05/28/24 Assessment & Plan Assessment and plan (1) Hyponatremia: Status: Acute Plan 48-year-old man with a history of diabetes mellitus COPD and alcohol abuse with hyponatremia. Sodium normalized and decreased again Second episode is due to medications- Duloxetene is he most likely inciting agent Consider holding this medication UREA powder 1-2 doses Goal Na> 130 Restrict PO water intake Time Spent With Patient Time: Total time managing care of this patient today ____ minutes. Progress Note: Quality Stroke Does the patient have a stroke diagnosis?: No
[2024-05-27 16:26] LABS: Glucose, Whole Blood 146 mg/dL (60-115)
[2024-05-27 16:54] LABS: Anion Gap 14 (12-20); Carbon Dioxide 27 mmol/L (22-29); Chloride 99 mmol/L (96-108); Potassium 4.2 mmol/L (3.3-5.1); Sodium 136 mmol/L (135-145)
--- NOTE | 2024-05-27 17:30 | P.DS_ITS ---
DS: Providers Provider Date of Service: 05/27/24 Date of admission: 05/18/24 00:04 Primary care physician: Karen Macedo APRN Consults: 05/18/24 08:04 Consult to Nephrology Routine Consulting Provider: [facility] Reason for consultation: hyponatremia 05/20/24 11:46 Consult to Psychiatry Routine Consulting Provider: Psych Covering Reason for consultation: med adjustment; sedation Has provider been notified: No 05/21/24 09:12 Consult to Care Team Routine Comment: [facility]; medically clear 05/21/24 11:29 Addiction Medicine Routine Consulting Provider: Addiction Covering Reason for consultation: substance use; from [facility], recent relapse Has provider been notified: No 05/22/24 16:18 Consult to Care Team Routine Comment: Reason for consultation: SI; medically clear 05/22/24 16:24 Consult for Sitter Routine Reason for consultation: SI, safety Has provider been notified: No 05/25/24 15:44 Consult to Psychiatry Routine Consulting Provider: Psych Covering Reason for consultation: deperssioin 05/26/24 14:21 Consult to Nephrology Routine Consulting Provider: [facility] Reason for consultation: Hyponatremia 05/27/24 11:48 Consult to Care Team Routine Comment: Reason for consultation: Medically clear for dicharge DS: Diagnosis Discharge Diagnosis (1) Hyponatremia: Status: Acute DS: Summary Hospital Course Hospital Course: admission hpi Chief Complaint: Shortness of breath Jose Armando Ochoa is a 48 years old woman with past medical history significant for COPD -on home O2 (2L/min), ongoing tobacco smoking, type 2 diabetes mellitus on metformin and alcohol abuse was brought to the ED from [facility] via ambulance due to worsening shortness on breath, wheezing and cough. She was recently diagnosed with pneumonia and was treated for this at [facility] 5 days ago. Has been using doxycycline. She has been patient [facility] for SI, HI, AH and VH. Patient did not report any dizziness, headache, fevers chills. She did not report any acute gastrointestinal symptoms (she stated that she has chronic diarrhea because she has history of UC). Did not report any acute urinary symptoms. As mentioned before she has an ongoing tobacco smoker and cocaine user. Last use of alcohol was several days prior to admission to [facility]. In the ED, she was found to have stable vital signs. Her oxygen saturation was 84% on RA (but she uses home O2) and currently requiring 2 liters/minute supplemental oxygen which is her baseline. Blood workup showed no leukocytosis. Hemoglobin is 11.6 and platelets are normal. Venous blood gas shows no acute respiratory acidosis. Sodium is 126, CO2 slightly elevated at 30. There are no other significant electrolyte imbalances. Glucose is 114. Renal function and LFTs are normal. CXR showed relatively streaky bibasilar opacities left greater than right (pneumonia at the left base can not be excluded). ED tx: Albuterol/ipratropium 3 mL inhaled x1, prednisone 60 mg p.o., trazodone 20 mg p.o., NS 1 L bolus, ceftriaxone 1 g IV. Hospital course: This 48-year-old woman presented from [facility] treatment facility with complaints of shortness of breath, wheezing, and cough. Workup revealed an acute exacerbation of COPD complicated by pneumonia. She completed a 7-day course of Ceftriaxone and Azithromycin for pneumonia. COPD was managed with bronchodilators and steroids?initially IV Solu-Medrol, later switched to oral Prednisone, completing a 5-day course. Her symptoms have resolved, and she now breathes comfortably without oxygen, except 2 liters while sleeping. She also presented with hypotonic hyponatremia, initially with sodium levels at 126, attributed to medications and excessive water intake. Treatment included water restriction, which initially improved her sodium to 136, but subsequently dropped to 122-124 five days later. This was attributed to medications such as Trileptal (now stopped), Duloxetine (on hold), and Tegretol (also stopped). A dose of 30 grams of urea powder along with fluid restriction corrected her sodium level within 24 hours. Other medical history includes type 2 diabetes mellitus, for which she continues metformin 500 mg daily. She has a mood disorder with depression and suicidal ideation (SI), recommended for inpatient psychiatric care. Her current medications include Clonidine 0.1 mg at bedtime, Topamax 100 mg twice daily, Trazodone 100 mg at bedtime, Buspar 10 mg three times daily, Risperidone 2.5 mg twice daily, and Lamictal 25 mg at bedtime, ativan 0. 5 mg tid PRN, Clonidine 0.1 mg at bed time. Duloxetine is on hold and may be restarted at a lower dose. Trileptal and Tegretol have been discontinued. Due to persistent SI and self-harm ideation, she will be admitted for inpatient psychiatric treatment and further medication adjustments. GERD Continue Protonix. Hx of UC. -No acute symptoms. History of alcohol abuse. Was on CIWA and didn't show symptoms of withdrawal h/o substance abuse continue suboxone seen by addiction medicine, outpatient follow up in [facility] after inpatient psych discharge Tobacco dependence. Nicotine patch as needed. Tobacco cessation education. Chronic anemia. Continue to monitor. To inpatient Psych at [facility] Time Attestation Discharge Coordination Time (in mins): 40 Quality: Safe Use of Opioids Does Pt have an Active Cancer Diagnosis on the Problem List?: No Quality: Stroke Does the patient have a stroke diagnosis?: No Physical Exam Vital Signs: Vital Signs: Last Vital Signs Temp 99.4 F 05/27/24 15:05 Pulse 113 H 05/27/24 15:21 Resp 17 05/27/24 15:21 BP 133/71 05/27/24 15:05 Pulse Ox 93 05/27/24 15:05 O2 Del Method Room Air 05/27/24 15:05 O2 Flow Rate 2 05/21/24 04:00 BMI result Body Mass Index 32.4 General: AO X 3, no acute distress Resp: CTA bilateral CVS: S1,S2,RRR GI: +BS, NT, no distention Skin: No rash Neuro: motor grossly intact Psych: appropriate affect DS: Data Data Completed and Pending Labs on day of discharge: Laboratory Results - last 24 hr 05/26/24 05/27/24 05/27/24 20:49 06:38 07:07 Hold Purple Top SEE NOTE Hold Blue Top SEE NOTE Sodium 131 L Potassium 3.6 Chloride 94 L Carbon Dioxide 29 Anion Gap 12 BUN 22 H Creatinine 0.73 Estim Creat Clear Calc 98.3 Estimated GFR > 60 POC Glucose 140 H 134 H Random Glucose 122 H Calcium 9.1 05/27/24 05/27/24 05/27/24 10:54 16:20 16:35 Hold Purple Top Hold Blue Top Sodium 136 Potassium 4.2 Chloride 99 Carbon Dioxide 27 Anion Gap 14 BUN Creatinine Estim Creat Clear Calc Estimated GFR POC Glucose 132 H 146 H Random Glucose Calcium Discharge Plan Discharge Anticipated Discharge Date/Time: 05/27/24 17:24 Patient Disposition: Xfer Psychiatric Hosp Discharge Diagnosis: COPD exacerbation, Pneumonia and Hyponatremia Referrals: Karen Macedo APRN [Primary Care Provider] - 1 Week Discharge Medications: New lorazepam 0.5 mg Tablet 0.5 mg PO Q8H PRN (Reason: Anxiety) Qty: 20 0RF buspirone 10 mg Tablet 10 mg PO TID Qty: 90 0RF risperidone 0.5 mg Tablet 2.5 mg PO BID Qty: 60 0RF Continued trazodone 100 mg tablet 100 mg PO BEDTIME Qty: 30 0RF multivitamin Tablet 1 tab PO DAILY clonidine HCl 0.1 mg Tablet 0.1 mg PO BEDTIME pantoprazole [Protonix] 40 mg Tablet,Delayed Release (Dr/Ec) 40 mg PO BID folic acid 1 mg Tablet 1 mg PO DAILY albuterol sulfate 90 mcg/actuation HFA aerosol inhaler 2 puff INHALATION Q6H PRN (Reason: Shortness Of Breath) topiramate 100 mg Tablet 100 mg PO BID metformin 500 mg tablet extended release 24 hr 500 mg PO DAILY duloxetine 20 mg Capsule,Delayed Release(Dr/Ec) 80 mg PO DAILY buprenorphine-naloxone [Suboxone] 8-2 mg Film 1 film BUCCAL TID Combivent Respimat 20-100 mcg/actuation mist 1 puff INHALATION Q4H PRN (Reason: Shortness Of Breath Or Wheezing) cyclobenzaprine 5 mg tablet 5 mg PO TID PRN (Reason: Muscle Spasm) melatonin 5 mg tablet 10 mg PO BEDTIME fluticasone propion-salmeterol [Advair Diskus] 500-50 mcg/dose Blister With Device 1 inh INHALATION BID Discontinued oxcarbazepine [Trileptal] 300 mg tablet 900 mg PO BEDTIME 30 Days Qty: 90 0RF buspirone 15 mg Tablet 15 mg PO TID doxycycline hyclate 100 mg Capsule 100 mg PO BID Rx Instructions: End date 05-23-24 carbamazepine 200 mg Tablet 300 mg PO DAILY risperidone 2 mg Tablet 2 mg PO BID Discharge Orders: Discharge Order (Routine); Ordered 05/27/24 Ordered By: Daryl Cuellar Diet: Diabetic diet Activity on Discharge: As tolerated Stand Alone Forms: Patient Portal Discharge page Print Language: Iranian
[2024-05-27] MEDS: lamoTRIgine 25 MG TABLET PO (20:30)
[2024-05-27] MEDS: Melatonin 3 MG TABLET PO (20:30)
[2024-05-27 20:41] LABS: Glucose, Whole Blood 133 mg/dL (60-115)
== END 2024-05-27 22:09 | DRG 190 ==
LOC: HO.ED 19:16 → HO.EDOVER 05-18 00:12 → HO.IMC 05-18 07:36
PROVIDERS: Nurse Practitioner Acute Care; Physician Assistant Medical; Admitting Provider Internal Medicine; Emergency Provider Internal Medicine; PCP Registered Nurse; Visit Provider Internal Medicine
DX: J44.0 Chronic obstructive pulmonary disease with (acute) lower respiratory infection (principal); J18.9 Pneumonia, unspecified organism; J96.21 Acute and chronic respiratory failure with hypoxia; E87.1 Hypo-osmolality and hyponatremia; R45.851 Suicidal ideations; F11.20 Opioid dependence, uncomplicated; K51.90 Ulcerative colitis, unspecified, without complications; J44.1 Chronic obstructive pulmonary disease with (acute) exacerbation; E11.9 Type 2 diabetes mellitus without complications; K21.9 Gastro-esophageal reflux disease without esophagitis; F10.10 Alcohol abuse, uncomplicated; D64.9 Anemia, unspecified; F17.210 Nicotine dependence, cigarettes, uncomplicated; Z71.6 Tobacco abuse counseling; Z20.822 Contact with and (suspected) exposure to COVID-19; Z99.81 Dependence on supplemental oxygen; Z79.51 Long term (current) use of inhaled steroids; Z79.84 Long term (current) use of oral hypoglycemic drugs; Z79.899 Other long term (current) drug therapy
CPT/HCPCS: 36415; 36600; 71046; 80048; 80051; 80053; 82803; 82947; 83605; 83930; 83935; 84295; 84300; 85025; 87040; 87635; 93005; 94640; 99285; J0456; J0696; J1650; J2060; J2919; S9485

== ENCOUNTER 2024-05-18 00:04 | Outpatient (BNV) | payer OTHER, SELFPAY | END 2024-05-18 13:47 | PROVIDERS: Admitting Provider Internal Medicine; Emergency Provider Internal Medicine; PCP Registered Nurse; Visit Provider Internal Medicine Cardiovascular Disease | DX: R07.9 Chest pain, unspecified (principal) | CPT/HCPCS: 93010 ==

== ENCOUNTER → 2024-05-18 00:04 | Outpatient (BNV) | payer OTHER, SELFPAY | PROVIDERS: Admitting Provider Internal Medicine; Emergency Provider Internal Medicine; PCP Registered Nurse; Visit Provider Clinical Nurse Specialist Psychiatric/Mental Health, Adult | DX: F25.0 Schizoaffective disorder, bipolar type (principal) | CPT/HCPCS: 99222; 99499 ==

== ENCOUNTER → 2024-05-18 00:04 | Outpatient (BNV) | payer OTHER, SELFPAY | PROVIDERS: Admitting Provider Internal Medicine; Emergency Provider Internal Medicine; PCP Registered Nurse; Visit Provider Internal Medicine Hypertension Specialist | DX: E87.1 Hypo-osmolality and hyponatremia (principal) | CPT/HCPCS: 99223; 99232 ==

== ENCOUNTER → 2024-05-18 00:04 | Outpatient (BNV) | payer MEDICARE, MEDICAID, SELFPAY | PROVIDERS: Admitting Provider Internal Medicine; Emergency Provider Internal Medicine; PCP Registered Nurse; Visit Provider Internal Medicine | DX: J96.20 Acute and chronic respiratory failure, unspecified whether with hypoxia or hypercapnia (principal); E87.1 Hypo-osmolality and hyponatremia; F25.0 Schizoaffective disorder, bipolar type | CPT/HCPCS: 99223; 99232; 99239; 99499 ==

== ENCOUNTER 2024-05-27 22:19 | Inpatient (IN) | payer OTHER, SELFPAY ==
[2024-05-27] MEDS: traZODone HCL 100 MG TABLET PO (23:28)
[2024-05-27 23:43] VITALS: BP 126/75; PULSE 97; RESP 16; TEMP 36.7; O2SAT 96
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
[2024-05-28 01:25] VITALS: BMI 31.8
[2024-05-28] MEDS: Cyclobenzaprine HCl 5 MG TABLET PO ×2 (01:45→16:46)
[2024-05-28] MEDS: Omeprazole 20 MG CAPSULE.DR PO ×2 (05:18→18:14)
[2024-05-28] MEDS: Nicotine Polacrilex Lozenge 2 MG LOZENGE BUCCAL ×7 (05:18→21:07)
[2024-05-28] MEDS: hydrOXYzine HCL 25 MG TABLET PO (05:19)
[2024-05-28] MEDS: Acetaminophen 325 MG TABLET 650 MG PO (05:19)
[2024-05-28 07:55] VITALS: BP 137/84; PULSE 95; RESP 16; TEMP 36.8; O2SAT 95
[2024-05-28 08:53] LABS: Cholesterol 199 mg/dL (<200); Creatinine Clr Calc Pharmacy 98.2; Estimated Glomerular Filt Rate > 60; HDL Cholesterol 80 mg/dL (>40); LDL Cholesterol Calculated 102 mg/dL (<100); Magnesium 2.2 mg/dL (1.6-2.6); Triglycerides 89 mg/dL (<150)
[2024-05-28 09:00] LABS: Estimated Average Glucose 114 mg/dL; Hemoglobin A1c % 5.6 % (<6.0)
[2024-05-28] MEDS: Buprenorphine/Naloxone 8/2 mg FILM 1 FILM SUBLINGUAL ×3 (09:00→20:42)
[2024-05-28] MEDS: Thiamine HCL 100 MG TABLET PO (09:01)
[2024-05-28] MEDS: Folic Acid 1 MG TABLET PO (09:01)
[2024-05-28] MEDS: risperiDONE 1 MG TABLET 2.5 MG PO (09:01)
[2024-05-28] MEDS: metFORMIN HCl ER 500 MG TAB.ER.24H PO (09:01)
[2024-05-28] MEDS: DULoxetine HCl 20 MG CAPSULE.DR PO (09:01)
[2024-05-28] MEDS: Multivitamin TABLET 1 TAB PO (09:01)
[2024-05-28] MEDS: busPIRone HCl 10 MG TABLET PO ×3 (09:01→20:43)
[2024-05-28] MEDS: Topiramate 100 MG TABLET PO ×2 (09:01→20:43)
[2024-05-28] MEDS: polyethylene glycoL 3350 17 GM POWD.PACK PO (09:02)
[2024-05-28 09:10] LABS: Free T4 (Free Thyroxine) 0.83 ng/dL (0.71-1.85); Thyroid Stimulating Hormone 1.64 uIU/mL (0.32-4.0)
[2024-05-28 09:16] LABS: Folate 7.4 ng/mL (> or = 4.0); Vitamin B12 590 pg/mL (200-900)
[2024-05-28] MEDS: Nicotine 14 MG PATCH.TD24 TRANSDERMA (09:39)
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
[2024-05-28] MEDS: Cariprazine HCl 1.5 MG CAPSULE PO (14:01)
[2024-05-28] MEDS: Albuterol Sulfate 90 MCG 8 GM INHALER 2 PUFF INHALE ×2 (14:12→19:23)
[2024-05-28] MEDS: cloNIDine HCL 0.1 MG TABLET PO ×2 (15:21→20:43)
[2024-05-28] MEDS: LORazepam 0.5 MG TABLET PO (18:41)
[2024-05-28 20:00] VITALS: BP 150/83; PULSE 117; RESP 90; TEMP 36.9; O2SAT 94
[2024-05-28 20:15] LABS: Glucose, Whole Blood 140 mg/dL (60-115)
[2024-05-28] MEDS: QUEtiapine Fumarate 50 MG TABLET PO (20:43)
[2024-05-28] MEDS: Melatonin 3 MG TABLET 9 MG PO (20:43)
[2024-05-28] MEDS: lamoTRIgine 25 MG TABLET PO (20:43)
[2024-05-29] MEDS: Omeprazole 20 MG CAPSULE.DR PO ×2 (06:21→18:20)
[2024-05-29] MEDS: Nicotine Polacrilex Lozenge 2 MG LOZENGE BUCCAL ×8 (06:49→23:48)
[2024-05-29] MEDS: Acetaminophen 325 MG TABLET 650 MG PO ×3 (06:49→22:46)
[2024-05-29] MEDS: Fluticasone/Vilanterol 200/25 BLST.W.DEV 1 PUFF INHALE (07:51)
[2024-05-29] MEDS: Albuterol Sulfate 90 MCG 8 GM INHALER 2 PUFF INHALE ×3 (07:51→22:46)
[2024-05-29 07:58] LABS: Glucose, Whole Blood 139 mg/dL (60-115)
[2024-05-29 08:00] VITALS: BP 126/67; PULSE 95; RESP 18; TEMP 37; O2SAT 96
[2024-05-29] MEDS: cloNIDine HCL 0.1 MG TABLET PO ×3 (08:40→20:52)
[2024-05-29] MEDS: Folic Acid 1 MG TABLET PO (08:40)
[2024-05-29] MEDS: Multivitamin TABLET 1 TAB PO (08:40)
[2024-05-29] MEDS: Cariprazine HCl 3 MG CAPSULE PO (08:40)
[2024-05-29] MEDS: busPIRone HCl 10 MG TABLET PO (08:40)
[2024-05-29] MEDS: metFORMIN HCl ER 500 MG TAB.ER.24H PO (08:40)
[2024-05-29] MEDS: Buprenorphine/Naloxone 8/2 mg FILM 1 FILM SUBLINGUAL ×3 (08:40→20:52)
[2024-05-29] MEDS: DULoxetine HCl 20 MG CAPSULE.DR PO (08:40)
[2024-05-29] MEDS: Topiramate 100 MG TABLET PO ×2 (08:40→20:52)
[2024-05-29] MEDS: Thiamine HCL 100 MG TABLET PO (08:41)
[2024-05-29] MEDS: Nicotine 14 MG PATCH.TD24 TRANSDERMA (09:15)
--- NOTE | 2024-05-29 09:49 | MHC.RECOVRN ---
Received Addiction Medicine consult for meets addiction criteria during admission. T/w had met with pt on 05/21 while admitted to med floor. [facility] referral had been placed at that time. Please reach out if further support is needed.
[2024-05-29] MEDS: guaiFENesin LA 600 MG TAB.ER.12H PO (10:41)
[2024-05-29] MEDS: DULoxetine HCl 20 MG CAPSULE.DR 40 MG PO ×2 (10:41→15:14)
[2024-05-29] MEDS: LORazepam 0.5 MG TABLET PO (11:13)
--- NOTE | 2024-05-29 13:35 | P.PNPSI_ITS ---
Subjective Subjective Date of Service: 05/29/24 Reason For Visit: schizoaffective D/O-Bipolar Type ETOH Cocaine Use Interim History: Met with patient; discussed with team depressed but no AH; no SI. slept with Seroquel 50mg tolerating Vraylar having a hard time with noise level on the unit, feeling overly stimulated, which she says is chronic since childhood. She often walks around with ear plugs in the community. already set herself up with IOP this May here at [facility]. talked about her sobriety and addictions recovery specialist who has already visited her in the hospital can't go back home until she can demonstrate clear urine drug screens for some amount of time. Knows she may need to go to a alf; discussed going to a CSS. Mental Status Exam Mental Status Exam Narrative: Pt is alert and oriented; behavior is cooperative, calm; patient is not in distress; dressed in hospital attire with unkempt hair;; mood is described as depressed but a little better and affect a little brighter, though still downcast and intermittently tearful; eye contact appropriate; Speech is normal rate, volume, prosody; not pressured; some psychomotor retardation present; thought process is organized and goal directed; Thought content is on treatment, overcoming issues; otherwise pertinent to relevant topics; no expressed paranoid ideations; no SI; no HI; intermittent AVH remains present; Patients insight and judgment impaired but improving. Diagnostics Vital Signs (24Hr): Vital Signs - 24 hr 05/28/24 20:00 05/29/24 08:00 Temperature 98.4 F 98.6 F Pulse Rate 117 H 95 Respiratory Rate 90 H 18 Blood Pressure 150/83 H 126/67 Pulse Oximetry 94 96 Oxygen Delivery Method Room Air Room Air BMI result Body Mass Index 31.8 Labs 05/28/24 07:56 Labs: Laboratory Results - last 48 hr 05/28/24 05/28/24 05/28/24 07:54 07:56 20:12 Creatinine 0.75 Estim Creat Clear Calc 98.2 Estimated GFR > 60 POC Glucose 140 H Estimat Average Glucose 114 Hemoglobin A1c % 5.6 Magnesium 2.2 Triglycerides 89 Cholesterol 199 LDL Cholesterol, Calc 102 H HDL Cholesterol 80 Vitamin B12 590 Folate 7.4 TSH 1.64 Free T4 0.83 05/29/24 07:49 Creatinine Estim Creat Clear Calc Estimated GFR POC Glucose 139 H Estimat Average Glucose Hemoglobin A1c % Magnesium Triglycerides Cholesterol LDL Cholesterol, Calc HDL Cholesterol Vitamin B12 Folate TSH Free T4 Medications Medications Current Medications Acetaminophen (Acetaminophen 325 Mg Tablet) 650 mg PO Q6H PRN PRN Reason: Headache/Pain Mild Scale (1-3) Last Admin: 05/29/24 06:49 Dose: 650 mg Al Hydroxide/Mg Hydroxide (Magnesium Hydrox/Alum Hydrox 30 Ml Oral.Susp) 30 ml PO Q6H PRN PRN Reason: Heartburn/Nausea Albuterol Sulfate (Albuterol Sulfate 90 Mcg 8 Gm Inhaler) 2 puff INHALE RQ6H PRN PRN Reason: Shortness of Breath Last Admin: 05/29/24 07:51 Dose: 2 puff Albuterol/Ipratropium (Albuterol/Iprat 2.5/0.5mg 3 Ml Ampul.Neb) 3 ml INHALE Q4H PRN PRN Reason: wheeze, sob Buprenorphine/Naloxone (Buprenorphine/Naloxone 8/2 Mg Film) 1 film SUBLINGUAL TID [facility] Last Admin: 05/29/24 08:40 Dose: 1 film Buspirone HCl (Buspirone Hcl 10 Mg Tablet) 10 mg PO TID [facility] Last Admin: 05/29/24 08:40 Dose: 10 mg Calcium Carbonate (Calcium Carbonate 750 Mg Tab.Chew) 750 mg PO Q4H PRN PRN Reason: Indigestion Cariprazine (Cariprazine Hcl 3 Mg Capsule) 3 mg PO DAILY [facility] Last Admin: 05/29/24 08:40 Dose: 3 mg Clonidine HCl (Clonidine Hcl 0.1 Mg Tablet) 0.1 mg PO TID [facility]; Protocol Last Admin: 05/29/24 08:40 Dose: 0.1 mg Cyclobenzaprine HCl (Cyclobenzaprine Hcl 5 Mg Tablet) 5 mg PO TID PRN PRN Reason: Muscle Spasm Last Admin: 05/28/24 16:46 Dose: 5 mg Docusate Sodium (Docusate Sodium 100 Mg Capsule) 100 mg PO BEDTIME PRN PRN Reason: Constipation Duloxetine HCl (Duloxetine Hcl 60 Mg Capsule.Dr) 60 mg PO DAILY [facility] Fluticasone/Vilanterol (Fluticasone/Vilanterol 200/25 Blst.W.Dev) 1 puff INHALE RDAILY [facility] Last Admin: 05/29/24 07:51 Dose: 1 puff Folic Acid (Folic Acid 1 Mg Tablet) 1 mg PO DAILY [facility] Last Admin: 05/29/24 08:40 Dose: 1 mg Guaifenesin (Guaifenesin La 600 Mg Tab.Er.12h) 600 mg PO BID PRN PRN Reason: congestion Last Admin: 05/29/24 10:41 Dose: 600 mg Hydroxyzine HCl (Hydroxyzine Hcl 25 Mg Tablet) 25 mg PO Q6H PRN PRN Reason: Anxiety Last Admin: 05/28/24 05:19 Dose: 25 mg Lamotrigine (Lamotrigine 25 Mg Tablet) 25 mg PO BEDTIME [facility] Last Admin: 05/28/24 20:43 Dose: 25 mg Lorazepam (Lorazepam 0.5 Mg Tablet) 0.5 mg PO BID PRN PRN Reason: Anxiety Last Admin: 05/29/24 11:13 Dose: 0.5 mg Magnesium Hydroxide (Milk Of Magnesia 30 Ml Oral.Susp) 30 ml PO DAILY PRN PRN Reason: Constipation Melatonin (Melatonin 3 Mg Tablet) 9 mg PO BEDTIME [facility] Last Admin: 05/28/24 20:43 Dose: 9 mg Metformin HCl (Metformin Hcl Er 500 Mg Tab.Er.24h) 500 mg PO DAILY [facility] Last Admin: 05/29/24 08:40 Dose: 500 mg Multivitamins/Vitamin C (Multivitamin Tablet) 1 tab PO DAILY [facility] Last Admin: 05/29/24 08:40 Dose: 1 tab Nicotine (Nicotine 14 Mg Patch.Td24) 14 mg TRANSDERMA DAILY PRN PRN Reason: nicotine craving Last Admin: 05/29/24 09:15 Dose: 14 mg Nicotine Polacrilex (Nicotine Polacrilex Lozenge 2 Mg Lozenge) 2 mg BUCCAL Q2H PRN PRN Reason: Nicotine Cravings Last Admin: 05/29/24 11:13 Dose: 2 mg Omeprazole (Omeprazole 20 Mg Capsule.Dr) 20 mg PO BID@0630,1830 [facility] Last Admin: 05/29/24 06:21 Dose: 20 mg Ondansetron HCl (Ondansetron Odt 4 Mg Tab.Rapdis) 4 mg TRANSLINGU Q6H PRN PRN Reason: Nausea Polyethylene Glycol (Polyethylene Glycol 3350 17 Gm Powd.Pack) 17 gm PO DAILY [facility] Last Admin: 05/29/24 08:41 Dose: Not Given Quetiapine Fumarate (Quetiapine Fumarate 50 Mg Tablet) 50 mg PO BEDTIME [facility] Last Admin: 05/28/24 20:43 Dose: 50 mg Simethicone (Simethicone 80 Mg Tab.Chew) 80 mg PO QIDWMHS PRN PRN Reason: gas relief Thiamine HCl (Thiamine Hcl 100 Mg Tablet) 100 mg PO DAILY [facility] Last Admin: 05/29/24 08:41 Dose: 100 mg Topiramate (Topiramate 100 Mg Tablet) 100 mg PO BID [facility] Last Admin: 05/29/24 08:40 Dose: 100 mg Trazodone HCl (Trazodone Hcl 100 Mg Tablet) 100 mg PO BEDTIME [facility] Last Admin: 05/28/24 20:49 Dose: Not Given Allergies Allergies Allergy/AdvReac Type Severity Reaction Status Date / Time Sulfa (Sulfonamide Allergy Severe Difficulty Verified 05/17/24 18:35 Antibiotics) Breathing Assessment & Plan Assessment & Plan (1) Schizoaffective disorder, bipolar type: Status: Acute Code(s): F25.0 - Schizoaffective disorder, bipolar type Plan Patient is a 48-year-old female with history of schizoaffective disorder, bipolar type, PTSD, cocaine use disorder who presents as a transfer from [facility] to [facility] floor for treatment of COPD exacerbation with pneumonia, stabilized and now transferred back to psychiatric floor for continuing depression with AVH and SI. Patient reports that despite remaining on on home medications of Trileptal, Topamax, Cymbalta she has remained very depressed, crying every day for months; she says she went for 5 months without showering because she was depressed, had fallen off attending to ADLs but also because she had paranoid delusion that perhaps there was a ghost portal in the shower. She reports that auditory hallucinations of someone saying her name, someone saying hi continue; she also sometimes feels she sees spirits or people in the room. Because of the depression patient who was sober for year, relapsed on cocaine for about 2 months which only worsened depression still and patient felt ashamed, angry at herself and hopelessness set in; she became suicidal and self presented for psychiatric care. Patient reports history of manic episodes that can last about a week, last 1 3 months ago, during which time she will clean nonstop, not sleep at all, scrubbing the cortes, baking excessively, talking excessively with a lot of energy, becoming hypersexual, spending excessive money on things she does not need, sometimes not able to pay rent money... Family thinks she has relapsed on cocaine even though she is sober. Afterwards patient crashes into worse depression. Patient reports continued SI and continued AVH; no self-harming behavior for year; history of trauma and PTSD symptoms. Says drinks very little alcohol. Formulation/clinical reason: Patient presents with what sounds like schizoaffective disorder, worsened by cocaine abuse and PTSD. She reports continued AH even when not depressed however less intense. Patient was recently discontinued on Trileptal due to hyponatremia and was started on Risperdal 2 mg b.i.d. while at [facility]. Patient reports continued AVH despite this. While though she seemed to find Seroquel helpful it made her tired and caused weight gain and after review of risks/side effects of other options, antipsychotics, patient agrees to trial of Vraylar since it is less sedating and less risk of weight gain; considered [facility] course: 7/ little better and SI fully resolved; affect brighter; no AH thus far and tolerating Vraylar; Discussed sobriety and pt making significant efforts to set up after care to help herself stay sober. Plan: CV Q 15 minute checks 02 at nighttime Increase to home dose of Cymbalta 100mg for fibromyalgia (pt says on 100mg but can't find script for this) Continue Topamax 100 mg b.i.d. for cocaine cravings Discontinue Risperdal; since continued AVH on it seroquel 50mg qhs for insomnia (Dc'd trazodone since not helpful and pt does not want) Continue Vraylar 3 mg daily; Seroquel remain an option however causes tiredness and wt gain Patient educated on: diagnosis, medication risk/benefits, substance abuse, therapeutic strategies and medical condition Informed Consent: understands Reason for continued inpatient stay Substantial Risk for: rapid decompensation Time Spent With Patient Time: Total time managing care of this patient today ____ minutes.
[2024-05-29 15:12] VITALS: BP 108/73; PULSE 105; RESP 18; TEMP 37.1; O2SAT 95
[2024-05-29] MEDS: Simethicone 80 MG TAB.CHEW PO (18:20)
[2024-05-29] MEDS: Calcium Carbonate 750 MG TAB.CHEW PO (18:20)
[2024-05-29 19:51] VITALS: BP 127/71; PULSE 96; TEMP 36.4; O2SAT 96
[2024-05-29] MEDS: Melatonin 3 MG TABLET 9 MG PO (20:52)
[2024-05-29] MEDS: lamoTRIgine 25 MG TABLET PO (20:52)
[2024-05-29] MEDS: QUEtiapine Fumarate 50 MG TABLET PO (20:52)
[2024-05-30] MEDS: Albuterol Sulfate 90 MCG 8 GM INHALER 2 PUFF INHALE ×2 (02:18→09:40)
[2024-05-30] MEDS: Cyclobenzaprine HCl 5 MG TABLET PO ×2 (02:18→16:26)
[2024-05-30] MEDS: Nicotine Polacrilex Lozenge 2 MG LOZENGE BUCCAL ×9 (02:19→22:56)
[2024-05-30] MEDS: guaiFENesin LA 600 MG TAB.ER.12H PO (02:19)
[2024-05-30] MEDS: Omeprazole 20 MG CAPSULE.DR PO ×2 (06:03→20:50)
--- NOTE | 2024-05-30 08:11 | P.PNPSI_ITS ---
Subjective Subjective Date of Service: 05/30/24 Reason For Visit: schizoaffective D/O-Bipolar Type ETOH Cocaine Use Interim History: Met with patient. Discussed with nursing. Overall finding single room quieter, less overwhelming and less overstimulated. Still experiencing hallucinations and visual and auditory in nature. Wants Seroquel increased as was on 800 mg in the past. Aware also on Vraylar and showed specifications writer medication print outs and has a clear understanding of regimen. Sleep also poor. Otherwise feels her mood is okay. Feeling supported by staff. No SI. Medication Compliance: Yes Side effects from medications: No Attending Groups: Intermittent Review of Systems Acute medical concerns: No Review of Systems Review of Systems Unremarkable Mental Status Exam Mental Status Exam Narrative: pleasant. Engaged. Fair self-care. Organized. Is depressed. No SI. No HI. Auditory and visual hallucinations. No delusions. Insight and judgment fair Diagnostics Vital Signs (24Hr): Vital Signs - 24 hr 05/29/24 15:12 05/29/24 19:51 Temperature 98.7 F 97.5 F Pulse Rate 105 H 96 Respiratory Rate 18 Blood Pressure 108/73 127/71 Pulse Oximetry 95 96 Oxygen Delivery Method Room Air Room Air BMI result Body Mass Index 31.8 Labs 05/28/24 07:56 Labs: Laboratory Results - last 48 hr 05/28/24 05/28/24 05/28/24 07:54 07:56 20:12 Creatinine 0.75 Estim Creat Clear Calc 98.2 Estimated GFR > 60 POC Glucose 140 H Estimat Average Glucose 114 Hemoglobin A1c % 5.6 Magnesium 2.2 Triglycerides 89 Cholesterol 199 LDL Cholesterol, Calc 102 H HDL Cholesterol 80 Vitamin B12 590 Folate 7.4 TSH 1.64 Free T4 0.83 05/29/24 07:49 Creatinine Estim Creat Clear Calc Estimated GFR POC Glucose 139 H Estimat Average Glucose Hemoglobin A1c % Magnesium Triglycerides Cholesterol LDL Cholesterol, Calc HDL Cholesterol Vitamin B12 Folate TSH Free T4 Medications Medications Current Medications Acetaminophen (Acetaminophen 325 Mg Tablet) 650 mg PO Q6H PRN PRN Reason: Headache/Pain Mild Scale (1-3) Last Admin: 05/29/24 22:46 Dose: 650 mg Al Hydroxide/Mg Hydroxide (Magnesium Hydrox/Alum Hydrox 30 Ml Oral.Susp) 30 ml PO Q6H PRN PRN Reason: Heartburn/Nausea Albuterol Sulfate (Albuterol Sulfate 90 Mcg 8 Gm Inhaler) 2 puff INHALE RQ6H PRN PRN Reason: Shortness of Breath Last Admin: 05/30/24 02:18 Dose: 2 puff Albuterol/Ipratropium (Albuterol/Iprat 2.5/0.5mg 3 Ml Ampul.Neb) 3 ml INHALE Q4H PRN PRN Reason: wheeze, sob Buprenorphine/Naloxone (Buprenorphine/Naloxone 8/2 Mg Film) 1 film SUBLINGUAL TID [facility] Last Admin: 05/29/24 20:52 Dose: 1 film Calcium Carbonate (Calcium Carbonate 750 Mg Tab.Chew) 750 mg PO Q4H PRN PRN Reason: Indigestion Last Admin: 05/29/24 18:20 Dose: 750 mg Cariprazine (Cariprazine Hcl 3 Mg Capsule) 3 mg PO DAILY [facility] Last Admin: 05/29/24 08:40 Dose: 3 mg Clonidine HCl (Clonidine Hcl 0.1 Mg Tablet) 0.1 mg PO TID [facility]; Protocol Last Admin: 05/29/24 20:52 Dose: 0.1 mg Cyclobenzaprine HCl (Cyclobenzaprine Hcl 5 Mg Tablet) 5 mg PO TID PRN PRN Reason: Muscle Spasm Last Admin: 05/30/24 02:18 Dose: 5 mg Docusate Sodium (Docusate Sodium 100 Mg Capsule) 100 mg PO BEDTIME PRN PRN Reason: Constipation Duloxetine HCl (Duloxetine Hcl 60 Mg Capsule.Dr) 60 mg PO DAILY [facility] Duloxetine HCl (Duloxetine Hcl 20 Mg Capsule.Dr) 40 mg PO DAILY [facility] Fluticasone/Vilanterol (Fluticasone/Vilanterol 200/25 Blst.W.Dev) 1 puff INHALE RDAILY [facility] Last Admin: 05/29/24 07:51 Dose: 1 puff Folic Acid (Folic Acid 1 Mg Tablet) 1 mg PO DAILY [facility] Last Admin: 05/29/24 08:40 Dose: 1 mg Guaifenesin (Guaifenesin La 600 Mg Tab.Er.12h) 600 mg PO BID PRN PRN Reason: congestion Last Admin: 05/30/24 02:19 Dose: 600 mg Hydroxyzine HCl (Hydroxyzine Hcl 25 Mg Tablet) 25 mg PO Q6H PRN PRN Reason: Anxiety Last Admin: 05/28/24 05:19 Dose: 25 mg Lamotrigine (Lamotrigine 25 Mg Tablet) 25 mg PO BEDTIME [facility] Last Admin: 05/29/24 20:52 Dose: 25 mg Lorazepam (Lorazepam 0.5 Mg Tablet) 0.5 mg PO BID PRN PRN Reason: Anxiety Last Admin: 05/29/24 11:13 Dose: 0.5 mg Magnesium Hydroxide (Milk Of Magnesia 30 Ml Oral.Susp) 30 ml PO DAILY PRN PRN Reason: Constipation Melatonin (Melatonin 3 Mg Tablet) 9 mg PO BEDTIME [facility] Last Admin: 05/29/24 20:52 Dose: 9 mg Metformin HCl (Metformin Hcl Er 500 Mg Tab.Er.24h) 500 mg PO DAILY [facility] Last Admin: 05/29/24 08:40 Dose: 500 mg Multivitamins/Vitamin C (Multivitamin Tablet) 1 tab PO DAILY [facility] Last Admin: 05/29/24 08:40 Dose: 1 tab Nicotine (Nicotine 14 Mg Patch.Td24) 14 mg TRANSDERMA DAILY PRN PRN Reason: nicotine craving Last Admin: 05/29/24 09:15 Dose: 14 mg Nicotine Polacrilex (Nicotine Polacrilex Lozenge 2 Mg Lozenge) 2 mg BUCCAL Q2H PRN PRN Reason: Nicotine Cravings Last Admin: 05/30/24 06:04 Dose: 2 mg Omeprazole (Omeprazole 20 Mg Capsule.Dr) 20 mg PO BID@0630,1830 [facility] Last Admin: 05/30/24 06:03 Dose: 20 mg Ondansetron HCl (Ondansetron Odt 4 Mg Tab.Rapdis) 4 mg TRANSLINGU Q6H PRN PRN Reason: Nausea Polyethylene Glycol (Polyethylene Glycol 3350 17 Gm Powd.Pack) 17 gm PO DAILY [facility] Last Admin: 05/29/24 08:41 Dose: Not Given Quetiapine Fumarate (Quetiapine Fumarate 50 Mg Tablet) 50 mg PO BEDTIME [facility] Last Admin: 05/29/24 20:52 Dose: 50 mg Simethicone (Simethicone 80 Mg Tab.Chew) 80 mg PO QIDWMHS PRN PRN Reason: gas relief Last Admin: 05/29/24 18:20 Dose: 80 mg Thiamine HCl (Thiamine Hcl 100 Mg Tablet) 100 mg PO DAILY [facility] Last Admin: 05/29/24 08:41 Dose: 100 mg Topiramate (Topiramate 100 Mg Tablet) 100 mg PO BID [facility] Last Admin: 05/29/24 20:52 Dose: 100 mg Allergies Allergies Allergy/AdvReac Type Severity Reaction Status Date / Time Sulfa (Sulfonamide Allergy Severe Difficulty Verified 05/17/24 18:35 Antibiotics) Breathing Assessment & Plan Assessment & Plan (1) Schizoaffective disorder, bipolar type: Status: Acute Code(s): F25.0 - Schizoaffective disorder, bipolar type Plan Patient is a 48-year-old female with history of schizoaffective disorder, bipolar type, PTSD, cocaine use disorder who presents as a transfer from [facility] to [facility] for treatment of COPD exacerbation with pneumonia, stabilized and now transferred back to psychiatric floor for continuing depression with AVH and SI. Patient reports that despite remaining on on home medications of Trileptal, Topamax, Cymbalta she has remained very depressed, crying every day for months; she says she went for 5 months without showering because she was depressed, had fallen off attending to ADLs but also because she had paranoid delusion that perhaps there was a ghost portal in the shower. She reports that auditory hallucinations of someone saying her name, someone saying hi continue; she also sometimes feels she sees spirits or people in the room. Because of the depression patient who was sober for year, relapsed on cocaine for about 2 months which only worsened depression still and patient felt ashamed, angry at herself and hopelessness set in; she became suicidal and self presented for psychiatric care. Patient reports history of manic episodes that can last about a week, last 1 3 months ago, during which time she will clean nonstop, not sleep at all, scrubbing the cortes, baking excessively, talking excessively with a lot of energy, becoming hypersexual, spending excessive money on things she does not need, sometimes not able to pay rent money... Family thinks she has relapsed on cocaine even though she is sober. Afterwards patient crashes into worse depression. Patient reports continued SI and continued AVH; no self-harming behavior for year; history of trauma and PTSD symptoms. Says drinks very little alcohol. Formulation/clinical reason: Patient presents with what sounds like schizoaffective disorder, worsened by cocaine abuse and PTSD. She reports continued AH even when not depressed however less intense. Patient was recently discontinued on Trileptal due to hyponatremia and was started on Risperdal 2 mg b.i.d. while at [facility]. Patient reports continued AVH despite this. While though she seemed to find Seroquel helpful it made her tired and caused weight gain and after review of risks/side effects of other options, antipsychotics, patient agrees to trial of Vraylar since it is less sedating and less risk of weight gain; considered [facility] course: Plan: CV Q 15 minute checks Continue Cymbalta 60mg for fibromyalgia (pt says on 100mg but can't find script for this) Continue Topamax 100 mg b.i.d. for cocaine cravings Discontinue Risperdal; since continued AVH on it Will start Vraylar 3 mg daily; Seroquel remain an option however 05/30/2024: Will increase Seroquel to 150 mg for sleep and psychosis, as per patient preference Reason for continued inpatient stay Substantial Risk for: inability to function Time Spent With Patient Time: Total time managing care of this patient today ____ minutes.
[2024-05-30 08:35] LABS: Glucose, Whole Blood 140 mg/dL (60-115)
[2024-05-30] MEDS: Thiamine HCL 100 MG TABLET PO (08:37)
[2024-05-30] MEDS: Topiramate 100 MG TABLET PO ×2 (08:37→20:50)
[2024-05-30] MEDS: Fluticasone/Vilanterol 200/25 BLST.W.DEV 1 PUFF INHALE (08:37)
[2024-05-30] MEDS: metFORMIN HCl ER 500 MG TAB.ER.24H PO (08:37)
[2024-05-30 08:38] VITALS: BP 132/60
[2024-05-30] MEDS: Cariprazine HCl 3 MG CAPSULE PO (08:38)
[2024-05-30] MEDS: cloNIDine HCL 0.1 MG TABLET PO ×3 (08:38→20:51)
[2024-05-30] MEDS: DULoxetine HCl 20 MG CAPSULE.DR 40 MG PO (08:38)
[2024-05-30] MEDS: Folic Acid 1 MG TABLET PO (08:38)
[2024-05-30] MEDS: DULoxetine HCl 60 MG CAPSULE.DR PO (08:38)
[2024-05-30] MEDS: Multivitamin TABLET 1 TAB PO (08:38)
[2024-05-30] MEDS: polyethylene glycoL 3350 17 GM POWD.PACK PO (08:39)
[2024-05-30] MEDS: Nicotine 14 MG PATCH.TD24 TRANSDERMA (09:40)
[2024-05-30] MEDS: Buprenorphine/Naloxone 8/2 mg FILM 1 FILM SUBLINGUAL ×3 (09:41→20:51)
[2024-05-30] MEDS: Acetaminophen 325 MG TABLET 650 MG PO (09:41)
[2024-05-30] MEDS: LORazepam 0.5 MG TABLET PO (13:38)
[2024-05-30 14:37] VITALS: BP 119/72
[2024-05-30 20:00] VITALS: BP 132/77; PULSE 107; RESP 16; TEMP 36.4; O2SAT 94
[2024-05-30] MEDS: lamoTRIgine 25 MG TABLET PO (20:50)
[2024-05-30] MEDS: QUEtiapine Fumarate 50 MG TABLET 150 MG PO (20:50)
[2024-05-30] MEDS: Melatonin 3 MG TABLET 9 MG PO (20:51)
[2024-05-30 21:07] LABS: Glucose, Whole Blood 110 mg/dL (60-115)
[2024-05-31] MEDS: Nicotine Polacrilex Lozenge 2 MG LOZENGE BUCCAL ×10 (01:29→23:20)
[2024-05-31] MEDS: LORazepam 0.5 MG TABLET PO ×2 (01:30→17:02)
[2024-05-31] MEDS: Omeprazole 20 MG CAPSULE.DR PO ×2 (06:28→18:13)
[2024-05-31 08:16] VITALS: BP 131/71; PULSE 87; RESP 16; TEMP 36.9; O2SAT 94
[2024-05-31 08:39] LABS: Glucose, Whole Blood 94 mg/dL (60-115)
[2024-05-31] MEDS: polyethylene glycoL 3350 17 GM POWD.PACK PO (08:48)
[2024-05-31] MEDS: DULoxetine HCl 60 MG CAPSULE.DR PO (08:48)
[2024-05-31] MEDS: Fluticasone/Vilanterol 200/25 BLST.W.DEV 1 PUFF INHALE (08:48)
[2024-05-31] MEDS: Multivitamin TABLET 1 TAB PO (08:48)
[2024-05-31] MEDS: Cariprazine HCl 3 MG CAPSULE PO (08:48)
[2024-05-31 08:49] VITALS: BP 131/71
[2024-05-31] MEDS: Folic Acid 1 MG TABLET PO (08:49)
[2024-05-31] MEDS: DULoxetine HCl 20 MG CAPSULE.DR 40 MG PO (08:49)
[2024-05-31] MEDS: cloNIDine HCL 0.1 MG TABLET PO ×3 (08:49→20:32)
[2024-05-31] MEDS: Thiamine HCL 100 MG TABLET PO (08:49)
[2024-05-31] MEDS: metFORMIN HCl ER 500 MG TAB.ER.24H PO (08:50)
[2024-05-31] MEDS: Topiramate 100 MG TABLET PO ×2 (08:50→20:35)
[2024-05-31] MEDS: Buprenorphine/Naloxone 8/2 mg FILM 1 FILM SUBLINGUAL ×3 (08:50→20:32)
[2024-05-31] MEDS: Nicotine 14 MG PATCH.TD24 TRANSDERMA (09:18)
--- NOTE | 2024-05-31 10:54 | P.PNPSI_ITS ---
Subjective Subjective Date of Service: 05/31/24 Reason For Visit: schizoaffective D/O-Bipolar Type ETOH Cocaine Use Interim History: Met with patient. Discussed with nursing. Still experiencing hallucinations and visual and auditory in nature and sleep porr with seroquel 150mg (still wants Seroquel increased as was on 800 mg in the past). Otherwise feels her mood is okay. Feeling supported by staff. No SI. Medication Compliance: Yes Side effects from medications: No Attending Groups: Intermittent Review of Systems Acute medical concerns: No Review of Systems Review of Systems Unremarkable Mental Status Exam Mental Status Exam Narrative: pleasant. Engaged. Fair self-care. Organized. Is depressed. No SI. No HI. Auditory and visual hallucinations. No delusions. Insight and judgment fair Diagnostics Vital Signs (24Hr): Vital Signs - 24 hr 05/30/24 14:37 05/30/24 20:00 05/31/24 08:49 Temperature 97.6 F Pulse Rate 107 H Respiratory Rate 16 Blood Pressure 119/72 132/77 131/71 Pulse Oximetry 94 Oxygen Delivery Method Room Air BMI result Body Mass Index 31.8 Labs 05/28/24 07:56 Labs: Laboratory Results - last 48 hr 05/30/24 05/30/24 05/31/24 08:30 20:57 08:34 POC Glucose 140 H 110 94 Medications Medications Current Medications Acetaminophen (Acetaminophen 325 Mg Tablet) 650 mg PO Q6H PRN PRN Reason: Headache/Pain Mild Scale (1-3) Last Admin: 05/30/24 09:41 Dose: 650 mg Al Hydroxide/Mg Hydroxide (Magnesium Hydrox/Alum Hydrox 30 Ml Oral.Susp) 30 ml PO Q6H PRN PRN Reason: Heartburn/Nausea Albuterol Sulfate (Albuterol Sulfate 90 Mcg 8 Gm Inhaler) 2 puff INHALE RQ6H PRN PRN Reason: Shortness of Breath Last Admin: 05/30/24 09:40 Dose: 2 puff Albuterol/Ipratropium (Albuterol/Iprat 2.5/0.5mg 3 Ml Ampul.Neb) 3 ml INHALE Q4H PRN PRN Reason: wheeze, sob Buprenorphine/Naloxone (Buprenorphine/Naloxone 8/2 Mg Film) 1 film SUBLINGUAL TID [place] Last Admin: 05/31/24 08:50 Dose: 1 film Calcium Carbonate (Calcium Carbonate 750 Mg Tab.Chew) 750 mg PO Q4H PRN PRN Reason: Indigestion Last Admin: 05/29/24 18:20 Dose: 750 mg Cariprazine (Cariprazine Hcl 3 Mg Capsule) 3 mg PO DAILY ON LICENSE OF [facility] Last Admin: 05/31/24 08:48 Dose: 3 mg Clonidine HCl (Clonidine Hcl 0.1 Mg Tablet) 0.1 mg PO TID ON LICENSE OF [facility]; Protocol Last Admin: 05/31/24 08:49 Dose: 0.1 mg Cyclobenzaprine HCl (Cyclobenzaprine Hcl 5 Mg Tablet) 5 mg PO TID PRN PRN Reason: Muscle Spasm Last Admin: 05/30/24 16:26 Dose: 5 mg Docusate Sodium (Docusate Sodium 100 Mg Capsule) 100 mg PO BEDTIME PRN PRN Reason: Constipation Duloxetine HCl (Duloxetine Hcl 60 Mg Capsule.Dr) 60 mg PO DAILY ON LICENSE OF [facility] Last Admin: 05/31/24 08:48 Dose: 60 mg Duloxetine HCl (Duloxetine Hcl 20 Mg Capsule.Dr) 40 mg PO DAILY ON LICENSE OF [facility] Last Admin: 05/31/24 08:49 Dose: 40 mg Fluticasone/Vilanterol (Fluticasone/Vilanterol 200/25 Blst.W.Dev) 1 puff INHALE RDAILY ON LICENSE OF [facility] Last Admin: 05/31/24 08:48 Dose: 1 puff Folic Acid (Folic Acid 1 Mg Tablet) 1 mg PO DAILY ON LICENSE OF [facility] Last Admin: 05/31/24 08:49 Dose: 1 mg Guaifenesin (Guaifenesin La 600 Mg Tab.Er.12h) 600 mg PO BID PRN PRN Reason: congestion Last Admin: 05/30/24 02:19 Dose: 600 mg Hydroxyzine HCl (Hydroxyzine Hcl 25 Mg Tablet) 25 mg PO Q6H PRN PRN Reason: Anxiety Last Admin: 05/28/24 05:19 Dose: 25 mg Ibuprofen (Ibuprofen 600 Mg Tablet) 600 mg PO Q6H PRN PRN Reason: moderate pain Lamotrigine (Lamotrigine 25 Mg Tablet) 25 mg PO BEDTIME ON LICENSE OF [facility] Last Admin: 05/30/24 20:50 Dose: 25 mg Lorazepam (Lorazepam 0.5 Mg Tablet) 0.5 mg PO BID PRN PRN Reason: Anxiety Last Admin: 05/31/24 01:30 Dose: 0.5 mg Magnesium Hydroxide (Milk Of Magnesia 30 Ml Oral.Susp) 30 ml PO DAILY PRN PRN Reason: Constipation Melatonin (Melatonin 3 Mg Tablet) 9 mg PO BEDTIME ON LICENSE OF [facility] Last Admin: 05/30/24 20:51 Dose: 9 mg Metformin HCl (Metformin Hcl Er 500 Mg Tab.Er.24h) 500 mg PO DAILY ON LICENSE OF [facility] Last Admin: 05/31/24 08:50 Dose: 500 mg Multivitamins/Vitamin C (Multivitamin Tablet) 1 tab PO DAILY ON LICENSE OF [facility] Last Admin: 05/31/24 08:48 Dose: 1 tab Nicotine (Nicotine 14 Mg Patch.Td24) 14 mg TRANSDERMA DAILY PRN PRN Reason: nicotine craving Last Admin: 05/31/24 09:18 Dose: 14 mg Nicotine Polacrilex (Nicotine Polacrilex Lozenge 2 Mg Lozenge) 2 mg BUCCAL Q2H PRN PRN Reason: Nicotine Cravings Last Admin: 05/31/24 10:08 Dose: 2 mg Omeprazole (Omeprazole 20 Mg Capsule.Dr) 20 mg PO BID@0630,1830 ON LICENSE OF [facility] Last Admin: 05/31/24 06:28 Dose: 20 mg Ondansetron HCl (Ondansetron Odt 4 Mg Tab.Rapdis) 4 mg TRANSLINGU Q6H PRN PRN Reason: Nausea Polyethylene Glycol (Polyethylene Glycol 3350 17 Gm Powd.Pack) 17 gm PO DAILY ON LICENSE OF [facility] Last Admin: 05/31/24 08:48 Dose: 17 gm Quetiapine Fumarate (Quetiapine Fumarate 50 Mg Tablet) 150 mg PO BEDTIME ON LICENSE OF [facility] Last Admin: 05/30/24 20:50 Dose: 150 mg Simethicone (Simethicone 80 Mg Tab.Chew) 80 mg PO QIDWMHS PRN PRN Reason: gas relief Last Admin: 05/29/24 18:20 Dose: 80 mg Thiamine HCl (Thiamine Hcl 100 Mg Tablet) 100 mg PO DAILY ON LICENSE OF [facility] Last Admin: 05/31/24 08:49 Dose: 100 mg Topiramate (Topiramate 100 Mg Tablet) 100 mg PO BID ON LICENSE OF [facility] Last Admin: 05/31/24 08:50 Dose: 100 mg Allergies Allergies Allergy/AdvReac Type Severity Reaction Status Date / Time Sulfa (Sulfonamide Allergy Severe Difficulty Verified 05/17/24 18:35 Antibiotics) Breathing Assessment & Plan Assessment & Plan (1) Schizoaffective disorder, bipolar type: Status: Acute Code(s): F25.0 - Schizoaffective disorder, bipolar type Plan Patient is a 48-year-old female with history of schizoaffective disorder, bipolar type, PTSD, cocaine use disorder who presents as a transfer from [facility] to [facility] for treatment of COPD exacerbation with pneumonia, stabilized and now transferred back to psychiatric floor for continuing depression with AVH and SI. Patient reports that despite remaining on on home medications of Trileptal, Topamax, Cymbalta she has remained very depressed, crying every day for months; she says she went for 5 months without showering because she was depressed, had fallen off attending to ADLs but also because she had paranoid delusion that perhaps there was a ghost portal in the shower. She reports that auditory hallucinations of someone saying her name, someone saying hi continue; she also sometimes feels she sees spirits or people in the room. Because of the depression patient who was sober for year, relapsed on cocaine for about 2 months which only worsened depression still and patient felt ashamed, angry at herself and hopelessness set in; she became suicidal and self presented for psychiatric care. Patient reports history of manic episodes that can last about a week, last 1 3 months ago, during which time she will clean nonstop, not sleep at all, scrubbing the cortes, baking excessively, talking excessively with a lot of energy, becoming hypersexual, spending excessive money on things she does not need, sometimes not able to pay rent money... Family thinks she has relapsed on cocaine even though she is sober. Afterwards patient crashes into worse depression. Patient reports continued SI and continued AVH; no self-harming behavior for year; history of trauma and PTSD symptoms. Says drinks very little alcohol. Formulation/clinical reason: Patient presents with what sounds like schizoaffective disorder, worsened by cocaine abuse and PTSD. She reports continued AH even when not depressed however less intense. Patient was recently discontinued on Trileptal due to hyponatremia and was started on Risperdal 2 mg b.i.d. while at [facility]. Patient reports continued AVH despite this. While though she seemed to find Seroquel helpful it made her tired and caused weight gain and after review of risks/side effects of other options, antipsychotics, patient agrees to trial of Vraylar since it is less sedating and less risk of weight gain; considered [facility] course: Plan: CV Q 15 minute checks Continue Cymbalta 60mg for fibromyalgia (pt says on 100mg but can't find script for this) Continue Topamax 100 mg b.i.d. for cocaine cravings Discontinue Risperdal; since continued AVH on it Will start Vraylar 3 mg daily; Seroquel remain an option however 05/30/2024: Will increase Seroquel to 150 mg for sleep and psychosis, as per patient preference 05/31/2024: Increase Seroquel to 250 mg Reason for continued inpatient stay Substantial Risk for: inability to function Time Spent With Patient Time: Total time managing care of this patient today ____ minutes.
[2024-05-31 14:52] VITALS: BP 129/62
[2024-05-31 17:18] LABS: Glucose, Whole Blood 120 mg/dL (60-115)
[2024-05-31] MEDS: hydrOXYzine HCL 25 MG TABLET PO (18:13)
[2024-05-31 20:00] VITALS: BP 137/81; PULSE 97; RESP 18; TEMP 37; O2SAT 93
[2024-05-31] MEDS: Melatonin 3 MG TABLET 9 MG PO (20:32)
[2024-05-31] MEDS: QUEtiapine Fumarate 50 MG TABLET 250 MG PO (20:33)
[2024-05-31] MEDS: lamoTRIgine 25 MG TABLET PO (20:33)
[2024-05-31] MEDS: Ondansetron ODT 4 MG TAB.RAPDIS TRANSLINGU (21:19)
[2024-05-31] MEDS: Simethicone 80 MG TAB.CHEW PO (21:19)
--- NOTE | 2024-05-31 21:24 | PC.NURSE ---
pt approached RN at this time stating she was extremely nauseous Pt appeared pale, denies any actiev vomiting, chills, diarrhea, or stomach pain. 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 PRN medications provided. Pt denies significant anxiety at this time.
[2024-06-01] MEDS: Cyclobenzaprine HCl 5 MG TABLET PO ×2 (02:29→21:40)
[2024-06-01] MEDS: Nicotine Polacrilex Lozenge 2 MG LOZENGE BUCCAL ×8 (05:19→20:39)
[2024-06-01] MEDS: Omeprazole 20 MG CAPSULE.DR PO (06:02)
[2024-06-01 08:00] VITALS: BP 118/71; PULSE 88; RESP 16; TEMP 36.3; O2SAT 93
[2024-06-01] MEDS: Cariprazine HCl 3 MG CAPSULE PO (08:06)
[2024-06-01] MEDS: Multivitamin TABLET 1 TAB PO (08:06)
[2024-06-01] MEDS: Folic Acid 1 MG TABLET PO (08:06)
[2024-06-01] MEDS: Topiramate 100 MG TABLET PO ×2 (08:06→21:10)
[2024-06-01 08:07] VITALS: BP 118/71
[2024-06-01] MEDS: polyethylene glycoL 3350 17 GM POWD.PACK PO (08:07)
[2024-06-01] MEDS: Thiamine HCL 100 MG TABLET PO (08:07)
[2024-06-01] MEDS: DULoxetine HCl 60 MG CAPSULE.DR PO (08:07)
[2024-06-01] MEDS: cloNIDine HCL 0.1 MG TABLET PO ×3 (08:07→21:09)
[2024-06-01] MEDS: Buprenorphine/Naloxone 8/2 mg FILM 1 FILM SUBLINGUAL ×3 (08:07→21:09)
[2024-06-01] MEDS: metFORMIN HCl ER 500 MG TAB.ER.24H PO (08:07)
[2024-06-01 08:34] LABS: Glucose, Whole Blood 135 mg/dL (60-115)
[2024-06-01] MEDS: Nicotine 14 MG PATCH.TD24 TRANSDERMA (09:21)
[2024-06-01] MEDS: Ondansetron ODT 4 MG TAB.RAPDIS TRANSLINGU (09:21)
[2024-06-01] MEDS: Fluticasone/Vilanterol 200/25 BLST.W.DEV 1 PUFF INHALE (09:22)
--- NOTE | 2024-06-01 09:40 | P.PNPSI_ITS ---
Subjective Subjective Date of Service: 06/01/24 Reason For Visit: schizoaffective D/O-Bipolar Type ETOH Cocaine Use Interim History: met with pt; discussed with team less depressed and noticed she laughed more; some AH but more in background; Says still quite anxious but unit aquity contributory. discussed meds and since improving, wants to stay at current Vraylar dose. Asked about ADHD meds and discussed risks/side-effects of adderall and she wants to try (reviewed ADHD hx) though knows unlikely to get on dc. Asks about PPI and Famotadine. Mental Status Exam Mental Status Exam Narrative: Pt is alert and oriented; behavior is cooperative, calm; patient is not in distress; dressed in hospital attire with adeuqate grooming; mood is described as a little better and affect brighter; eye contact appropriate; Speech is normal rate, volume, prosody; not pressured; no psychomotor retardation present; thought process is organized and goal directed; Thought content is on treatment, overcoming issues; otherwise pertinent to relevant topics; no expressed paranoid ideations; no SI; no HI; some AH; Patients insight and judgment fair. Diagnostics Vital Signs (24Hr): Vital Signs - 24 hr 05/31/24 14:52 05/31/24 20:00 06/01/24 08:00 Temperature 98.6 F 97.3 F Pulse Rate 97 88 Respiratory Rate 18 16 Blood Pressure 129/62 137/81 118/71 Pulse Oximetry 93 93 Oxygen Delivery Method Room Air Room Air 06/01/24 08:07 Temperature Pulse Rate Respiratory Rate Blood Pressure 118/71 Pulse Oximetry Oxygen Delivery Method BMI result Body Mass Index 31.8 Labs 06/04/24 09:32 Labs: Laboratory Results - last 48 hr 05/30/24 05/31/24 05/31/24 20:57 08:34 17:12 POC Glucose 110 94 120 H 06/01/24 08:27 POC Glucose 135 H Medications Medications Current Medications Acetaminophen (Acetaminophen 325 Mg Tablet) 650 mg PO Q6H PRN PRN Reason: Headache/Pain Mild Scale (1-3) Last Admin: 05/30/24 09:41 Dose: 650 mg Al Hydroxide/Mg Hydroxide (Magnesium Hydrox/Alum Hydrox 30 Ml Oral.Susp) 30 ml PO Q6H PRN PRN Reason: Heartburn/Nausea Albuterol Sulfate (Albuterol Sulfate 90 Mcg 8 Gm Inhaler) 2 puff INHALE RQ6H PRN PRN Reason: Shortness of Breath Last Admin: 05/30/24 09:40 Dose: 2 puff Albuterol/Ipratropium (Albuterol/Iprat 2.5/0.5mg 3 Ml Ampul.Neb) 3 ml INHALE Q4H PRN PRN Reason: wheeze, sob Buprenorphine/Naloxone (Buprenorphine/Naloxone 8/2 Mg Film) 1 film SUBLINGUAL TID [facility] Last Admin: 06/01/24 08:07 Dose: 1 film Calcium Carbonate (Calcium Carbonate 750 Mg Tab.Chew) 750 mg PO Q4H PRN PRN Reason: Indigestion Last Admin: 05/29/24 18:20 Dose: 750 mg Cariprazine (Cariprazine Hcl 3 Mg Capsule) 3 mg PO DAILY [facility] Last Admin: 06/01/24 08:06 Dose: 3 mg Clonidine HCl (Clonidine Hcl 0.1 Mg Tablet) 0.1 mg PO TID [facility]; Protocol Last Admin: 06/01/24 08:07 Dose: 0.1 mg Cyclobenzaprine HCl (Cyclobenzaprine Hcl 5 Mg Tablet) 5 mg PO TID PRN PRN Reason: Muscle Spasm Last Admin: 06/01/24 02:29 Dose: 5 mg Docusate Sodium (Docusate Sodium 100 Mg Capsule) 100 mg PO BEDTIME PRN PRN Reason: Constipation Duloxetine HCl (Duloxetine Hcl 60 Mg Capsule.) 60 mg PO DAILY [facility] Last Admin: 06/01/24 08:07 Dose: 60 mg Duloxetine HCl (Duloxetine Hcl 20 Mg Capsule.) 40 mg PO DAILY [facility] Last Admin: 05/31/24 08:49 Dose: 40 mg Fluticasone/Vilanterol (Fluticasone/Vilanterol 200/25 Blst.W.Dev) 1 puff INHALE RDAILY [facility] Last Admin: 06/01/24 09:22 Dose: 1 puff Folic Acid (Folic Acid 1 Mg Tablet) 1 mg PO DAILY [facility] Last Admin: 06/01/24 08:06 Dose: 1 mg Guaifenesin (Guaifenesin La 600 Mg Tab.Er.12h) 600 mg PO BID PRN PRN Reason: congestion Last Admin: 05/30/24 02:19 Dose: 600 mg Hydroxyzine HCl (Hydroxyzine Hcl 25 Mg Tablet) 25 mg PO Q6H PRN PRN Reason: Anxiety Last Admin: 05/31/24 18:13 Dose: 25 mg Ibuprofen (Ibuprofen 600 Mg Tablet) 600 mg PO Q6H PRN PRN Reason: Pain, Moderate(Pain Scale 4-6) Lamotrigine (Lamotrigine 25 Mg Tablet) 25 mg PO BEDTIME [facility] Last Admin: 05/31/24 20:33 Dose: 25 mg Lorazepam (Lorazepam 0.5 Mg Tablet) 0.5 mg PO BID PRN PRN Reason: Anxiety Last Admin: 05/31/24 17:02 Dose: 0.5 mg Magnesium Hydroxide (Milk Of Magnesia 30 Ml Oral.Susp) 30 ml PO DAILY PRN PRN Reason: Constipation Melatonin (Melatonin 3 Mg Tablet) 9 mg PO BEDTIME [facility] Last Admin: 05/31/24 20:32 Dose: 9 mg Metformin HCl (Metformin Hcl Er 500 Mg Tab.Er.24h) 500 mg PO DAILY [facility] Last Admin: 06/01/24 08:07 Dose: 500 mg Multivitamins/Vitamin C (Multivitamin Tablet) 1 tab PO DAILY [facility] Last Admin: 06/01/24 08:06 Dose: 1 tab Nicotine (Nicotine 14 Mg Patch.Td24) 14 mg TRANSDERMA DAILY PRN PRN Reason: nicotine craving Last Admin: 06/01/24 09:21 Dose: 14 mg Nicotine Polacrilex (Nicotine Polacrilex Lozenge 2 Mg Lozenge) 2 mg BUCCAL Q2H PRN PRN Reason: Nicotine Cravings Last Admin: 06/01/24 09:20 Dose: 2 mg Omeprazole (Omeprazole 20 Mg Capsule.Dr) 20 mg PO BID@0630,1830 [facility] Last Admin: 06/01/24 06:02 Dose: 20 mg Ondansetron HCl (Ondansetron Odt 4 Mg Tab.Rapdis) 4 mg TRANSLINGU Q6H PRN PRN Reason: Nausea Last Admin: 06/01/24 09:21 Dose: 4 mg Polyethylene Glycol (Polyethylene Glycol 3350 17 Gm Powd.Pack) 17 gm PO DAILY [facility] Last Admin: 06/01/24 08:07 Dose: 17 gm Quetiapine Fumarate (Quetiapine Fumarate 50 Mg Tablet) 250 mg PO BEDTIME [facility] Last Admin: 05/31/24 20:33 Dose: 250 mg Simethicone (Simethicone 80 Mg Tab.Chew) 80 mg PO QIDWMHS PRN PRN Reason: gas relief Last Admin: 05/31/24 21:19 Dose: 80 mg Thiamine HCl (Thiamine Hcl 100 Mg Tablet) 100 mg PO DAILY [facility] Last Admin: 06/01/24 08:07 Dose: 100 mg Topiramate (Topiramate 100 Mg Tablet) 100 mg PO BID [facility] Last Admin: 06/01/24 08:06 Dose: 100 mg Allergies Allergies Allergy/AdvReac Type Severity Reaction Status Date / Time Sulfa (Sulfonamide Allergy Severe Difficulty Verified 05/17/24 18:35 Antibiotics) Breathing Assessment & Plan Assessment & Plan (1) Schizoaffective disorder, bipolar type: Status: Acute Code(s): F25.0 - Schizoaffective disorder, bipolar type Plan Patient is a 48-year-old female with history of schizoaffective disorder, bipolar type, PTSD, cocaine use disorder who presents as a transfer from [facility] to [facility] for treatment of COPD exacerbation with pneumonia, stabilized and now transferred back to psychiatric floor for continuing depression with AVH and . Patient reports that despite remaining on on home medications of Trileptal, Topamax, Cymbalta she has remained very depressed, crying every day for months; she says she went for 5 months without showering because she was depressed, had fallen off attending to ADLs but also because she had paranoid delusion that perhaps there was a ghost portal in the shower. She reports that auditory hallucinations of someone saying her name, someone saying hi continue; she also sometimes feels she sees spirits or people in the room. Because of the depression patient who was sober for year, relapsed on cocaine for about 2 months which only worsened depression still and patient felt ashamed, angry at herself and hopelessness set in; she became suicidal and self presented for psychiatric care. Patient reports history of manic episodes that can last about a week, last 1 3 months ago, during which time she will clean nonstop, not sleep at all, scrubbing the cortes, baking excessively, talking excessively with a lot of energy, becoming hypersexual, spending excessive money on things she does not need, sometimes not able to pay rent money... Family thinks she has relapsed on cocaine even though she is sober. Afterwards patient crashes into worse depression. Patient reports continued SI and continued AVH; no self-harming behavior for year; history of trauma and PTSD symptoms. Says drinks very little alcohol. Formulation/clinical reason: Patient presents with what sounds like schizoaffective disorder, worsened by cocaine abuse and PTSD. She reports continued AH even when not depressed however less intense. Patient was recently discontinued on Trileptal due to hyponatremia and was started on Risperdal 2 mg b.i.d. while at [facility]. Patient reports continued AVH despite this. While though she seemed to find Seroquel helpful it made her tired and caused weight gain and after review of risks/side effects of other options, antipsychotics, patient agrees to trial of Vraylar since it is less sedating and less risk of weight gain; considered [facility] course: depressed; started on Vraylar 05/30/2024: Will increase Seroquel to 150 mg for sleep and psychosis, as per patient preference 05/31/2024: Increase Seroquel to 250 mg 7 mood a little better; some background AH; still insomnia and asks to increase seroquel to 300mg. Discussed program. -working on PA with insurance -hopefully Vralyar will prove effective; may needs some seroquel but less with vraylar; reviewed risks/side-effects of antipschotic and increased risk if on 2 Plan: CV Q 15 minute checks Continue Cymbalta 60mg for fibromyalgia (pt says on 100mg but can't find script for this) Continue Topamax 100 mg b.i.d. for cocaine cravings Discontinue Risperdal; since continued AVH on it Continue Vraylar 3 mg daily; Increase Seroquel to 300mg qhs for insomnia (used to be on 800mg) other failed med trials include: Risperdal Abilifiy Burien Trileptal Patient educated on: diagnosis, medication risk/benefits, substance abuse and therapeutic strategies Informed Consent: understands Reason for continued inpatient stay Substantial Risk for: rapid decompensation Time Spent With Patient Time: Total time managing care of this patient today ____ minutes.
[2024-06-01] MEDS: DULoxetine HCl 20 MG CAPSULE.DR 40 MG PO (10:53)
[2024-06-01] MEDS: LORazepam 0.5 MG TABLET PO ×2 (13:12→17:32)
[2024-06-01] MEDS: Famotidine 20 MG TABLET PO ×2 (14:44→21:10)
[2024-06-01 14:45] VITALS: BP 112/61
[2024-06-01 17:28] LABS: Glucose, Whole Blood 127 mg/dL (60-115)
[2024-06-01] MEDS: Albuterol Sulfate 90 MCG 8 GM INHALER 2 PUFF INHALE ×2 (17:31→20:35)
[2024-06-01 20:00] VITALS: BP 131/76; PULSE 96; RESP 16; TEMP 36.3; O2SAT 92
[2024-06-01 21:09] VITALS: BP 131/76
[2024-06-01] MEDS: QUEtiapine Fumarate 300 MG TABLET PO (21:09)
[2024-06-01] MEDS: lamoTRIgine 25 MG TABLET PO (21:10)
[2024-06-01] MEDS: Melatonin 3 MG TABLET 9 MG PO (21:10)
[2024-06-01 21:36] LABS: Glucose, Whole Blood 131 mg/dL (60-115)
[2024-06-01] MEDS: Acetaminophen 325 MG TABLET 650 MG PO (21:39)
[2024-06-02] MEDS: Nicotine Polacrilex Lozenge 2 MG LOZENGE BUCCAL ×8 (01:20→23:38)
[2024-06-02 08:00] VITALS: BP 108/68; PULSE 86; RESP 16; TEMP 36.3; O2SAT 94
[2024-06-02 08:35] LABS: Glucose, Whole Blood 121 mg/dL (60-115)
[2024-06-02] MEDS: Buprenorphine/Naloxone 8/2 mg FILM 1 FILM SUBLINGUAL ×3 (09:15→20:24)
[2024-06-02] MEDS: metFORMIN HCl ER 500 MG TAB.ER.24H PO (09:16)
[2024-06-02] MEDS: Multivitamin TABLET 1 TAB PO (09:16)
[2024-06-02] MEDS: Famotidine 20 MG TABLET PO ×2 (09:16→20:52)
[2024-06-02] MEDS: Thiamine HCL 100 MG TABLET PO (09:16)
[2024-06-02] MEDS: Topiramate 100 MG TABLET PO ×2 (09:16→20:52)
[2024-06-02] MEDS: DULoxetine HCl 20 MG CAPSULE.DR 40 MG PO (09:17)
[2024-06-02] MEDS: Folic Acid 1 MG TABLET PO (09:18)
[2024-06-02] MEDS: Cariprazine HCl 3 MG CAPSULE PO (09:19)
[2024-06-02] MEDS: DULoxetine HCl 60 MG CAPSULE.DR PO (09:20)
[2024-06-02] MEDS: Nicotine 14 MG PATCH.TD24 TRANSDERMA (09:20)
[2024-06-02] MEDS: polyethylene glycoL 3350 17 GM POWD.PACK PO (09:21)
[2024-06-02] MEDS: Cyclobenzaprine HCl 5 MG TABLET PO ×2 (10:54→17:55)
[2024-06-02] MEDS: Ibuprofen 600 MG TABLET PO ×2 (11:03→17:56)
[2024-06-02] MEDS: Fluticasone/Vilanterol 200/25 BLST.W.DEV 1 PUFF INHALE (11:16)
[2024-06-02 12:37] LABS: Glucose, Whole Blood 121 mg/dL (60-115)
[2024-06-02] MEDS: LORazepam 0.5 MG TABLET PO (13:59)
[2024-06-02 14:42] VITALS: BP 128/82
[2024-06-02] MEDS: cloNIDine HCL 0.1 MG TABLET PO ×2 (14:42→20:52)
[2024-06-02] MEDS: Albuterol Sulfate 90 MCG 8 GM INHALER 2 PUFF INHALE (16:06)
[2024-06-02] MEDS: hydrOXYzine HCL 25 MG TABLET PO (16:14)
[2024-06-02] MEDS: guaiFENesin LA 600 MG TAB.ER.12H PO (18:33)
--- NOTE | 2024-06-02 18:52 | HO.PSYCHPN ---
Subjective Subjective Date of Service: 06/02/24 Reason For Visit: schizoaffective D/O-Bipolar Type ETOH Cocaine Use Interim History: met with patient; discussed with team mood better and no AH. still anxious but less so as aquity on unit dies down. Had sleep walking incident; says has had before; discussed falling asleep at various times which she says is chronic. Cannot fully ascertain if narcolepsy. On this topic further screened for adhd and pt was on stimulant medication in grade school and high school. Adderall 5mg helped a little. Mental Status Exam Mental Status Exam Narrative: Pt is alert and oriented; behavior is cooperative, calm; patient is not in distress; dressed in hospital attire with adeuqate grooming; mood is described as better and affect brighter; eye contact appropriate; Speech is normal rate, volume, prosody; not pressured; no psychomotor retardation present; thought process is organized and goal directed; Thought content is on treatment, overcoming issues; otherwise pertinent to relevant topics; no expressed paranoid ideations; no SI; no HI; no AVH; Patients insight and judgment fair. Diagnostics Vital Signs (24Hr): Vital Signs - 24 hr 06/01/24 20:00 06/01/24 21:09 06/02/24 08:00 Temperature 97.3 F 97.3 F Pulse Rate 96 86 Respiratory Rate 16 16 Blood Pressure 131/76 131/76 108/68 Pulse Oximetry 92 94 Oxygen Delivery Method Room Air Room Air 06/02/24 14:42 Temperature Pulse Rate Respiratory Rate Blood Pressure 128/82 Pulse Oximetry Oxygen Delivery Method BMI result Body Mass Index 31.8 Labs 06/04/24 09:32 Labs: Laboratory Results - last 48 hr 06/01/24 06/01/24 06/01/24 08:27 17:22 21:28 POC Glucose 135 H 127 H 131 H 06/02/24 06/02/24 08:30 12:30 POC Glucose 121 H 121 H Medications Medications Current Medications Acetaminophen (Acetaminophen 325 Mg Tablet) 650 mg PO Q6H PRN PRN Reason: Headache/Pain Mild Scale (1-3) Last Admin: 06/01/24 21:39 Dose: 650 mg Al Hydroxide/Mg Hydroxide (Magnesium Hydrox/Alum Hydrox 30 Ml Oral.Susp) 30 ml PO Q6H PRN PRN Reason: Heartburn/Nausea Albuterol Sulfate (Albuterol Sulfate 90 Mcg 8 Gm Inhaler) 2 puff INHALE RQ6H PRN PRN Reason: Shortness of Breath Last Admin: 06/02/24 16:06 Dose: 2 puff Albuterol/Ipratropium (Albuterol/Iprat 2.5/0.5mg 3 Ml Ampul.Neb) 3 ml INHALE Q4H PRN PRN Reason: wheeze, sob Amphetamine/Dextroamphetamine (Dextroamphetamine/Amphetamine Xr 5 Mg Cap.Er.24h) 5 mg PO DAILY [facility] Buprenorphine/Naloxone (Buprenorphine/Naloxone 8/2 Mg Film) 1 film SUBLINGUAL TID [facility] Last Admin: 06/02/24 14:42 Dose: 1 film Calcium Carbonate (Calcium Carbonate 750 Mg Tab.Chew) 750 mg PO Q4H PRN PRN Reason: Indigestion Last Admin: 05/29/24 18:20 Dose: 750 mg Cariprazine (Cariprazine Hcl 3 Mg Capsule) 3 mg PO DAILY [facility] Last Admin: 06/02/24 09:19 Dose: 3 mg Clonidine HCl (Clonidine Hcl 0.1 Mg Tablet) 0.1 mg PO TID [facility]; Protocol Last Admin: 06/02/24 14:42 Dose: 0.1 mg Cyclobenzaprine HCl (Cyclobenzaprine Hcl 5 Mg Tablet) 5 mg PO TID PRN PRN Reason: Muscle Spasm Last Admin: 06/02/24 17:55 Dose: 5 mg Docusate Sodium (Docusate Sodium 100 Mg Capsule) 100 mg PO BEDTIME PRN PRN Reason: Constipation Duloxetine HCl (Duloxetine Hcl 60 Mg Capsule.) 60 mg PO DAILY [facility] Last Admin: 06/02/24 09:20 Dose: 60 mg Duloxetine HCl (Duloxetine Hcl 20 Mg Capsule.Dr) 40 mg PO DAILY [facility] Last Admin: 06/02/24 09:17 Dose: 40 mg Famotidine (Famotidine 20 Mg Tablet) 20 mg PO BID [facility] Last Admin: 06/02/24 09:16 Dose: 20 mg Fluticasone/Vilanterol (Fluticasone/Vilanterol 200/25 Blst.W.Dev) 1 puff INHALE RDAILY [facility] Last Admin: 06/02/24 11:16 Dose: 1 puff Folic Acid (Folic Acid 1 Mg Tablet) 1 mg PO DAILY [facility] Last Admin: 06/02/24 09:18 Dose: 1 mg Guaifenesin (Guaifenesin La 600 Mg Tab.Er.12h) 600 mg PO BID PRN PRN Reason: congestion Last Admin: 06/02/24 18:33 Dose: 600 mg Hydroxyzine HCl (Hydroxyzine Hcl 25 Mg Tablet) 25 mg PO Q6H PRN PRN Reason: Anxiety Last Admin: 06/02/24 16:14 Dose: 25 mg Ibuprofen (Ibuprofen 600 Mg Tablet) 600 mg PO Q6H PRN PRN Reason: Pain, Moderate(Pain Scale 4-6) Last Admin: 06/02/24 17:56 Dose: 600 mg Lamotrigine (Lamotrigine 25 Mg Tablet) 25 mg PO BEDTIME [facility] Last Admin: 06/01/24 21:10 Dose: 25 mg Lorazepam (Lorazepam 0.5 Mg Tablet) 0.25 mg PO BID PRN PRN Reason: Anxiety Magnesium Hydroxide (Milk Of Magnesia 30 Ml Oral.Susp) 30 ml PO DAILY PRN PRN Reason: Constipation Melatonin (Melatonin 3 Mg Tablet) 9 mg PO BEDTIME [facility] Last Admin: 06/01/24 21:10 Dose: 9 mg Metformin HCl (Metformin Hcl Er 500 Mg Tab.Er.24h) 500 mg PO DAILY [facility] Last Admin: 06/02/24 09:16 Dose: 500 mg Multivitamins/Vitamin C (Multivitamin Tablet) 1 tab PO DAILY [facility] Last Admin: 06/02/24 09:16 Dose: 1 tab Nicotine (Nicotine 14 Mg Patch.Td24) 14 mg TRANSDERMA DAILY PRN PRN Reason: nicotine craving Last Admin: 06/02/24 09:20 Dose: 14 mg Nicotine Polacrilex (Nicotine Polacrilex Lozenge 2 Mg Lozenge) 2 mg BUCCAL Q2H PRN PRN Reason: Nicotine Cravings Last Admin: 06/02/24 18:34 Dose: 2 mg Ondansetron HCl (Ondansetron Odt 4 Mg Tab.Rapdis) 4 mg TRANSLINGU Q6H PRN PRN Reason: Nausea Last Admin: 06/01/24 09:21 Dose: 4 mg Polyethylene Glycol (Polyethylene Glycol 3350 17 Gm Powd.Pack) 17 gm PO DAILY [facility] Last Admin: 06/02/24 09:21 Dose: 17 gm Quetiapine Fumarate (Quetiapine Fumarate 300 Mg Tablet) 300 mg PO BEDTIME [facility] Last Admin: 06/01/24 21:09 Dose: 300 mg Quetiapine Fumarate (Quetiapine Fumarate 25 Mg Tablet) 12.5 mg PO TID PRN PRN Reason: moderate anxiety Simethicone (Simethicone 80 Mg Tab.Chew) 80 mg PO QIDWMHS PRN PRN Reason: gas relief Last Admin: 05/31/24 21:19 Dose: 80 mg Thiamine HCl (Thiamine Hcl 100 Mg Tablet) 100 mg PO DAILY [facility] Last Admin: 06/02/24 09:16 Dose: 100 mg Topiramate (Topiramate 100 Mg Tablet) 100 mg PO BID [facility] Last Admin: 06/02/24 09:16 Dose: 100 mg Allergies Allergies Allergy/AdvReac Type Severity Reaction Status Date / Time Sulfa (Sulfonamide Allergy Severe Difficulty Verified 05/17/24 18:35 Antibiotics) Breathing Assessment & Plan Assessment & Plan (1) Schizoaffective disorder, bipolar type: Status: Acute Code(s): F25.0 - Schizoaffective disorder, bipolar type Plan Patient is a 48-year-old female with history of schizoaffective disorder, bipolar type, PTSD, cocaine use disorder who presents as a transfer from [facility] to [facility] floor for treatment of COPD exacerbation with pneumonia, stabilized and now transferred back to psychiatric floor for continuing depression with AVH and SI. Patient reports that despite remaining on on home medications of Trileptal, Topamax, Cymbalta she has remained very depressed, crying every day for months; she says she went for 5 months without showering because she was depressed, had fallen off attending to ADLs but also because she had paranoid delusion that perhaps there was a ghost portal in the shower. She reports that auditory hallucinations of someone saying her name, someone saying hi continue; she also sometimes feels she sees spirits or people in the room. Because of the depression patient who was sober for year, relapsed on cocaine for about 2 months which only worsened depression still and patient felt ashamed, angry at herself and hopelessness set in; she became suicidal and self presented for psychiatric care. Patient reports history of manic episodes that can last about a week, last 1 3 months ago, during which time she will clean nonstop, not sleep at all, scrubbing the cortes, baking excessively, talking excessively with a lot of energy, becoming hypersexual, spending excessive money on things she does not need, sometimes not able to pay rent money... Family thinks she has relapsed on cocaine even though she is sober. Afterwards patient crashes into worse depression. Patient reports continued SI and continued AVH; no self-harming behavior for year; history of trauma and PTSD symptoms. Says drinks very little alcohol. Formulation/clinical reason: Patient presents with what sounds like schizoaffective disorder, worsened by cocaine abuse and PTSD. She reports continued AH even when not depressed however less intense. Patient was recently discontinued on Trileptal due to hyponatremia and was started on Risperdal 2 mg b.i.d. while at [facility]. Patient reports continued AVH despite this. While though she seemed to find Seroquel helpful it made her tired and caused weight gain and after review of risks/side effects of other options, antipsychotics, patient agrees to trial of Vraylar since it is less sedating and less risk of weight gain; considered [facility] course: depressed; started on Vraylar 05/30/2024: Will increase Seroquel to 150 mg for sleep and psychosis, as per patient preference 05/31/2024: Increase Seroquel to 250 mg 06/01 mood a little better; some background AH; still insomnia and asks to increase seroquel to 300mg. Discussed program. -working on PA with insurance -hopefully Vralyar will prove effective; may needs some seroquel but less with vraylar; reviewed risks/side-effects of antipschotic and increased risk if on 2 06/02 mood better and no AH. still anxious but less so as aquity on unit dies down. Had sleep walking incident; says has had before; discussed falling asleep at various times which she says is chronic. Cannot fully ascertain if narcolepsy. On this topic further screened for adhd and pt was on stimulant medication in grade school and high school. Adderall 5mg helped a little. Plan: CV Q 15 minute checks increase adderall xl to 10mg (both for ADD and daytime sleeping spells-which may also be due to ALEKS) Continue Cymbalta 60mg for fibromyalgia (pt says on 100mg but can't find script for this) Continue Topamax 100 mg b.i.d. for cocaine cravings Discontinue Risperdal; since continued AVH on it Continue Vraylar 3 mg daily; continue Seroquel to 300mg qhs for insomnia (used to be on 800mg) other failed med trials include: Risperdal Abilifiy [place] Trileptal Patient educated on: diagnosis, medication risk/benefits, substance abuse and therapeutic strategies Informed Consent: understands Reason for continued inpatient stay Substantial Risk for: stable for discharge and med/psych decompensation Time Spent With Patient Time: Total time managing care of this patient today ____ minutes.
[2024-06-02 20:00] VITALS: BP 121/67; PULSE 91; RESP 16; TEMP 36.4; O2SAT 94
[2024-06-02 20:30] LABS: Glucose, Whole Blood 126 mg/dL (60-115)
[2024-06-02] MEDS: lamoTRIgine 25 MG TABLET PO (20:52)
[2024-06-02] MEDS: QUEtiapine Fumarate 300 MG TABLET PO (20:52)
[2024-06-02] MEDS: Melatonin 3 MG TABLET 9 MG PO (20:52)
[2024-06-03] MEDS: Nicotine Polacrilex Lozenge 2 MG LOZENGE BUCCAL ×6 (05:05→21:04)
[2024-06-03] MEDS: Ibuprofen 600 MG TABLET PO ×3 (05:18→20:47)
--- NOTE | 2024-06-03 05:37 | PC.NURSE ---
AT APPROXIMATELY 0525, PT REPORTED AN UNWITNESSED FALL IN HER BATHROOM PRIOR TO BEDTIME LAST NIGHT. SHE REQUESTED IBUPROFEN FOR SORE LEFT LEG. PT STATED THAT SHE FELL ASLEEP ON THE TOILET AND FELL OFF. SHE WAS UNAWARE OF IF SHE HIT HER HEAD OR NOT. PT IS ALERT AND ORIENTEDX4.
[2024-06-03 08:00] VITALS: BP 128/76; PULSE 84; RESP 18; TEMP 36.4; O2SAT 95
[2024-06-03] MEDS: Fluticasone/Vilanterol 200/25 BLST.W.DEV 1 PUFF INHALE (08:15)
[2024-06-03] MEDS: Buprenorphine/Naloxone 8/2 mg FILM 1 FILM SUBLINGUAL ×3 (08:16→20:55)
[2024-06-03] MEDS: polyethylene glycoL 3350 17 GM POWD.PACK PO (08:16)
[2024-06-03] MEDS: DULoxetine HCl 20 MG CAPSULE.DR 40 MG PO (08:16)
[2024-06-03] MEDS: cloNIDine HCL 0.1 MG TABLET PO ×3 (08:17→20:50)
[2024-06-03] MEDS: Cariprazine HCl 3 MG CAPSULE PO (08:17)
[2024-06-03] MEDS: Topiramate 100 MG TABLET PO ×2 (08:17→20:50)
[2024-06-03] MEDS: Folic Acid 1 MG TABLET PO (08:17)
[2024-06-03] MEDS: DULoxetine HCl 60 MG CAPSULE.DR PO (08:17)
[2024-06-03] MEDS: Famotidine 20 MG TABLET PO ×2 (08:17→20:49)
[2024-06-03] MEDS: Thiamine HCL 100 MG TABLET PO (08:17)
[2024-06-03] MEDS: Multivitamin TABLET 1 TAB PO (08:17)
[2024-06-03] MEDS: metFORMIN HCl ER 500 MG TAB.ER.24H PO (08:17)
[2024-06-03] MEDS: Dextroamphetamine/Amphetamine XR 5 MG CAP.ER.24H PO (08:17)
[2024-06-03 08:32] LABS: Glucose, Whole Blood 120 mg/dL (60-115)
[2024-06-03] MEDS: Albuterol Sulfate 90 MCG 8 GM INHALER 2 PUFF INHALE ×2 (09:47→19:09)
[2024-06-03 14:16] VITALS: BP 116/69; PULSE 101; O2SAT 98
[2024-06-03] MEDS: Cyclobenzaprine HCl 5 MG TABLET PO (14:18)
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
[2024-06-03] MEDS: Omeprazole 20 MG CAPSULE.DR PO (17:35)
[2024-06-03] MEDS: QUEtiapine Fumarate 25 MG TABLET 12.5 MG PO (18:47)
[2024-06-03 20:00] VITALS: BP 100/59; PULSE 94; TEMP 36.8; O2SAT 98
[2024-06-03] MEDS: Melatonin 3 MG TABLET 9 MG PO (20:49)
[2024-06-03] MEDS: lamoTRIgine 25 MG TABLET PO (20:49)
[2024-06-03 20:50] VITALS: BP 107/62
[2024-06-03] MEDS: QUEtiapine Fumarate 300 MG TABLET PO (20:50)
[2024-06-03 22:27] LABS: Glucose, Whole Blood 119 mg/dL (60-115)
[2024-06-04] MEDS: Cyclobenzaprine HCl 5 MG TABLET PO (02:25)
[2024-06-04] MEDS: Nicotine Polacrilex Lozenge 2 MG LOZENGE BUCCAL ×9 (02:28→22:42)
[2024-06-04 07:00] VITALS: BMI 34.7
[2024-06-04 08:23] VITALS: BP 109/64; PULSE 81; RESP 16; TEMP 36.9; O2SAT 98
[2024-06-04] MEDS: DULoxetine HCl 60 MG CAPSULE.DR PO (09:08)
[2024-06-04] MEDS: DULoxetine HCl 20 MG CAPSULE.DR 40 MG PO (09:08)
[2024-06-04] MEDS: metFORMIN HCl ER 500 MG TAB.ER.24H PO (09:09)
[2024-06-04] MEDS: Omeprazole 20 MG CAPSULE.DR PO (09:09)
[2024-06-04] MEDS: Topiramate 100 MG TABLET PO ×2 (09:09→21:14)
[2024-06-04] MEDS: Cariprazine HCl 3 MG CAPSULE PO (09:09)
[2024-06-04] MEDS: Dextroamphetamine/Amphetamine XR 5 MG CAP.ER.24H 10 MG PO (09:09)
[2024-06-04 09:10] VITALS: BP 121/62
[2024-06-04] MEDS: Buprenorphine/Naloxone 8/2 mg FILM 1 FILM SUBLINGUAL ×3 (09:10→21:20)
[2024-06-04] MEDS: Folic Acid 1 MG TABLET PO (09:10)
[2024-06-04] MEDS: Nicotine 14 MG PATCH.TD24 TRANSDERMA (09:10)
[2024-06-04] MEDS: cloNIDine HCL 0.1 MG TABLET PO ×3 (09:10→21:19)
[2024-06-04] MEDS: Fluticasone/Vilanterol 200/25 BLST.W.DEV 1 PUFF INHALE (09:11)
[2024-06-04] MEDS: Multivitamin TABLET 1 TAB PO (09:11)
[2024-06-04] MEDS: polyethylene glycoL 3350 17 GM POWD.PACK PO (09:11)
[2024-06-04] MEDS: Thiamine HCL 100 MG TABLET PO (09:13)
[2024-06-04] MEDS: Famotidine 20 MG TABLET PO ×2 (09:13→21:14)
[2024-06-04 10:11] LABS: Creatinine Clr Calc Pharmacy 94.4; Estimated Glomerular Filt Rate > 60
[2024-06-04] MEDS: LORazepam 0.5 MG TABLET 0.25 MG PO (11:30)
[2024-06-04] MEDS: hydrOXYzine HCL 25 MG TABLET PO (11:31)
[2024-06-04] MEDS: Simethicone 80 MG TAB.CHEW PO (12:58)
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
[2024-06-04 16:05] VITALS: BP 137/72
[2024-06-04 20:00] VITALS: BP 149/73; PULSE 99; TEMP 36.2
[2024-06-04] MEDS: Melatonin 3 MG TABLET 9 MG PO (21:12)
[2024-06-04] MEDS: Ibuprofen 600 MG TABLET PO (21:13)
[2024-06-04] MEDS: QUEtiapine Fumarate 300 MG TABLET PO (21:15)
[2024-06-04] MEDS: lamoTRIgine 25 MG TABLET PO (21:15)
[2024-06-04] MEDS: Docusate Sodium 100 MG CAPSULE PO (21:16)
[2024-06-04 21:19] VITALS: BP 126/72
[2024-06-04 22:02] LABS: Glucose, Whole Blood 117 mg/dL (60-115)
[2024-06-05] MEDS: Cyclobenzaprine HCl 5 MG TABLET PO (01:26)
[2024-06-05] MEDS: Nicotine Polacrilex Lozenge 2 MG LOZENGE BUCCAL ×5 (01:26→12:31)
[2024-06-05] MEDS: hydrOXYzine HCL 25 MG TABLET PO (01:27)
[2024-06-05] MEDS: Omeprazole 20 MG CAPSULE.DR PO (07:12)
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
[2024-06-05 08:16] VITALS: BP 99/60; PULSE 98; RESP 16; TEMP 36.4; O2SAT 98
[2024-06-05] MEDS: Famotidine 20 MG TABLET PO (08:43)
[2024-06-05] MEDS: metFORMIN HCl ER 500 MG TAB.ER.24H PO (08:43)
[2024-06-05] MEDS: Folic Acid 1 MG TABLET PO (08:43)
[2024-06-05] MEDS: Cariprazine HCl 3 MG CAPSULE PO (08:43)
[2024-06-05] MEDS: Topiramate 100 MG TABLET PO (08:43)
[2024-06-05] MEDS: Dextroamphetamine/Amphetamine XR 5 MG CAP.ER.24H 10 MG PO (08:43)
[2024-06-05] MEDS: Multivitamin TABLET 1 TAB PO (08:44)
[2024-06-05] MEDS: polyethylene glycoL 3350 17 GM POWD.PACK PO (08:44)
[2024-06-05] MEDS: Nicotine 14 MG PATCH.TD24 TRANSDERMA (08:44)
[2024-06-05] MEDS: Buprenorphine/Naloxone 8/2 mg FILM 1 FILM SUBLINGUAL (08:44)
[2024-06-05 08:46] VITALS: BP 99/62
[2024-06-05] MEDS: DULoxetine HCl 20 MG CAPSULE.DR 40 MG PO (08:46)
[2024-06-05] MEDS: cloNIDine HCL 0.1 MG TABLET PO (08:46)
[2024-06-05] MEDS: DULoxetine HCl 60 MG CAPSULE.DR PO (08:46)
[2024-06-05 09:02] LABS: Glucose, Whole Blood 86 mg/dL (60-115)
[2024-06-05] MEDS: Fluticasone/Vilanterol 200/25 BLST.W.DEV 1 PUFF INHALE (11:56)
[2024-06-05] MEDS: Albuterol Sulfate 90 MCG 8 GM INHALER 2 PUFF INHALE (11:56)
== END 2024-06-05 13:23 | disposition home or self-care (01) | DRG 885 ==
PROVIDERS: Admitting Provider Clinical Nurse Specialist Psychiatric/Mental Health, Adult; Visit Provider Psychiatry & Neurology Psychiatry
DX: F25.0 Schizoaffective disorder, bipolar type (principal); F11.20 Opioid dependence, uncomplicated; F43.10 Post-traumatic stress disorder, unspecified; J44.9 Chronic obstructive pulmonary disease, unspecified; E11.9 Type 2 diabetes mellitus without complications; Z79.51 Long term (current) use of inhaled steroids; Z79.84 Long term (current) use of oral hypoglycemic drugs; Z79.899 Other long term (current) drug therapy
CPT/HCPCS: 36415; 80061; 82565; 82607; 82746; 82947; 83036; 83735; 84439; 84443

== ENCOUNTER → 2024-05-27 22:19 | Outpatient (BNV) | payer OTHER, SELFPAY | PROVIDERS: Admitting Provider Clinical Nurse Specialist Psychiatric/Mental Health, Adult; Visit Provider Psychiatry & Neurology Psychiatry | DX: F25.0 Schizoaffective disorder, bipolar type (principal) | CPT/HCPCS: 90792; 99231; 99232; 99238 ==

== ENCOUNTER 2024-06-26 14:01 | Outpatient (REF) | payer OTHER, SELFPAY ==
[2024-06-26 14:21] LABS: Amphetamine Screen Urine POSITIVE (Not Detect); Barbiturates, Urine Not Detected (Not Detect); Benzodiazepines Screen Urine Not Detected (Not Detect); Buprenorphine Scr Positive (Not Detect); Cannabinoid Screen Urine Not Detected (Not Detect); Cocaine Screen Urine Not Detected (Not Detect); Fentanyl, urine Not Detected (Not Detect); Methadone Screen, Urine Not Detected (Not Detect); Opiate Screen Urine Not Detected (Not Detect); Oxycodone Screen Urine Not Detected (Not Detect); Phencyclidine Screen Urine Not Detected (Not Detect)
== END 2024-06-26 14:02 | disposition home or self-care (01) ==
LOC: HO.LNP 14:01
PROVIDERS: Visit Provider Psychiatry & Neurology Psychiatry
DX: F25.0 Schizoaffective disorder, bipolar type (principal); F14.20 Cocaine dependence, uncomplicated; F11.20 Opioid dependence, uncomplicated
CPT/HCPCS: 80307

== ENCOUNTER → 2024-06-27 11:45 | Outpatient (BNV) | payer OTHER, SELFPAY | PROVIDERS: Visit Provider Psychiatry & Neurology Psychiatry | DX: F19.20 Other psychoactive substance dependence, uncomplicated (principal); F90.8 Attention-deficit hyperactivity disorder, other type; F25.0 Schizoaffective disorder, bipolar type | CPT/HCPCS: 90792; 99213; 99499 ==

== ENCOUNTER 2024-07-07 11:45 | Outpatient (RCR) | payer OTHER, SELFPAY ==
[2024-06-24 13:13] VITALS: BMI 345.3
[2024-06-24 13:15] VITALS: BP 94/66; PULSE 104; TEMP 36.8
--- NOTE | 2024-06-24 14:38 | PC.ADMIT ---
Patient is a 48 year old female who was referred to [facility] on the recommendation of DCF. Per Integrative Assessment patient was living in a residential substance abuse treatment facility in [facility] for a year and after moving back home with 11 year old son and for 2 weeks she relapsed on Cocaine and drank alcohol. She went to [facility] after the relapse however needed to be transferred and medically admitted to [facility] for treatment of Pneumonia. After medical admission she was subsequently hospitalized at [facility] inpatient behavioral health unit for treatment of depression with SI. Patient was admitted from 05/27-06/05/24. Patient reportedly has an open case with DCF and has been involved with DCF for the past 6 years. Patient reportedly has difficulty maintaining sobriety in the community. In order to go back to her home with her son she needs to sustain sobriety for the next 6-9 months. Patient has a history of opiate use disorder. Reports being sober for the past 10 years and is on MAT with Suboxone. Patient reports last use of cocaine and alcohol was over a month ago. Patient stated she was using almost everyday for 2 months after being sober for a year. Denied any current use or sxs of withdrawal. Patient is currently living at a respite called [facility] in [place]. Stated she has been living there for the past 2 weeks and has to find a place to live after a month. Stated she does not know where she is going to live after that which is a source of stress. Patient is alert and oriented x4. Calm and cooperative. Thoughts are clear and logical. She presented with depressed mood and anxious affect. Denied SI, Denied HI. Wants to work on sobriety and getting custody of her son back. Reports she is struggling with depression with much anxiety. She was given a copy of her safety plan if needed. Reports having some cravings. Medications reconciled with patient. I spoke to Respite staff [facility] who will be faxing over Jose Armando's current medication list. Patient reports she is taking medications as prescribed.
--- NOTE | 2024-06-25 15:48 | HO.PHP ---
Pt's case has been opened and reviewed in treatment team.
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
--- NOTE | 2024-07-02 09:33 | PC.NURSE ---
Patient called out sick to the program today. She stated she was vomiting last night, has a slight fever, and a headache. [facility] staff is aware.
--- NOTE | 2024-07-03 11:55 | P.PNPSP_ITS ---
Subjective Subjective Date of Service: 07/03/24 Reason For Visit: bipolar,schizophrenia Interim History: Reports living at the [facility] now, moved out of respite. She reports recently being ill with nausea and vomiting which has been going around . . She has been low on her medications as her outpatient provider has still not received her refills, even though she says she saw per provider fill them the Seroquel 300 mg tabs along with the 20 mg ADderall XRs on the computer during their appointment on . She has been splitting her Seroquel 300 mg tablets in 150 mg. She has been sleeping okay . She has been taking the 10 mg Adderall XR caps that I sent last week, which she appreciates. Says it works for a little bit . She reports mood as stressed and difficulty staying organized, anxiety persists, but denies any depression or SI. Denies any illicit substance use, denies any cravings on topiramate and buprenorphine. Medication Compliance: Yes Side effects from medications: No Attending Groups: Yes Review of Systems Acute medical concerns: No Mental Status Exam Mental Status Exam Narrative: Alert, oriented, in no acute distress. Calm, cooperative, engaged. No psychomotor agitation or neurovegetative retardation. Eye contact maintained. Mo od anxious, affect variable, mood congruent. Speech normal. Thought process linear, coherent. Thought content related to stressors, denies any hopelessness or SI. Denies any aggressive ideation or HI. No paranoia or delusional content elicited. No evidence of psychosis. Insight and judgment - fair but adequate. Diagnostics Vital Signs (24Hr): BMI result Body Mass Index 345.3 Assessment & Plan Assessment & Plan (1) Polysubstance dependence on agonist therapy: Status: Acute Code(s): F19.20 - Other psychoactive substance dependence, uncomplicated (2) Other specified attention deficit hyperactivity disorder (ADHD): Status: Acute Code(s): F90.8 - Attention-deficit hyperactivity disorder, other type (3) Schizoaffective disorder, bipolar type: Status: Acute Code(s): F25.0 - Schizoaffective disorder, bipolar type Plan continue Vraylar 3 mg qd continue Seroquel at 300 mg qhs continue Seroquel 12.5 mg TID (underutilized) continue Lamictal 100 mg qd continue duloxetine 100 mg/day with 60 mg qd in AM and 40 mg in PM will order Adderall XR at 15 mg qam (per patient),(or can disregardif provider fills 20 mg caps) continue Suboxone 8-2 mg TID continue topiramate 100 mg BID continue hydroxyzine 25 mg q6hr PRN continue clonidine 0.1 mg TID continue metformin 500 mg qd continue regular medications: melatonin 9 mg qhs PRN, famotidine 20 mg BID, docusate 100 mg qhs, cyclobenzaprine 5 mg TID prn Routine lab work ordered EKG, routine for baseline QTc for medication considerations UDS as indicated MassPat reviewed Continue to monitor as per protocol Patient educated on: diagnosis, medication risk/benefits and substance abuse Informed Consent: understands Reason for contiued partial hosp. stay Substantial Risk for: med/psych decompensation Certification I certify that partial hospital treatment is medically necessary due to the symptoms and problems resulting from the patient's mental illness and the failure to treat the patient at the partial hospital level of care would likely result in the patient requiring inpatient psychiatric care which could not be prevented at a less intensive level of care. Total time managing care of this patient today _30___ minutes. Discharge Plan Discharge Attending provider: Ruthann Rogers Additional Instructions: PCP appointment [facility]. on July 21 2024 at 12:00. F/u with 2 abdominal hernias and referral for GI doctor as patient currently does not have one. Medications: New dextroamphetamine-amphetamine 15 mg capsule,extended release 24hr 15 mg PO QAM Qty: 14 0RF Rx Instructions: Partial Fill upon patient request. Continued melatonin 3 mg Tablet 9 mg PO BEDTIME PRN (Reason: Insomnia) quetiapine 25 mg Tablet 12.5 mg PO TID PRN (Reason: moderate anxiety) Qty: 60 0RF quetiapine 200 mg Tablet 200 mg PO BEDTIME Qty: 30 0RF topiramate 100 mg Tablet 100 mg PO BID 30 Days Qty: 60 0RF docusate sodium 100 mg Capsule 100 mg PO BEDTIME 30 Days Qty: 30 1RF famotidine 20 mg Tablet 20 mg PO BID 30 Days Qty: 60 1RF ondansetron 4 mg Tablet,Disintegrating 4 mg translingual Q6H PRN (Reason: Nausea) 30 Days Qty: 30 1RF polyethylene glycol 3350 17 gram Powder In Packet 17 g PO DAILY 30 Days Qty: 30 1RF simethicone [Gas Relief (simethicone)] 80 mg Tablet,Chewable 80 mg PO QIDWMHS PRN (Reason: gas relief) 30 Days Qty: 90 1RF guaifenesin [Mucinex] 600 mg Tablet Extended Release 12hr 600 mg PO BID PRN (Reason: congestion) 30 Days Qty: 60 1RF multivitamin [Daily-Jesusita] Tablet 1 tab PO DAILY 30 Days Qty: 30 1RF metformin 500 mg tablet extended release 24 hr 500 mg PO DAILY 30 Days Qty: 30 1RF Discontinued dextroamphetamine-amphetamine [Adderall] 20 mg Tablet 20 mg PO DAILY lamotrigine 25 mg Tablet See Rx Instructions .ROUTE .COMPLEX Qty: 34 0RF Rx Instructions: take 1 tab daily for 6 days and then take 1 tab BID for 14 days; then get script for 100mg No Action acetaminophen 325 mg tablet 650 mg PO Q8H PRN (Reason: Headache/Pain Mild Scale (1-3)) nicotine (polacrilex) 2 mg Gum 2 mg BUCCAL Q2H Vraylar 3 mg capsule 3 mg PO DAILY 30 Days Qty: 30 1RF albuterol sulfate 90 mcg/actuation HFA aerosol inhaler 2 puff INHALATION Q6H PRN (Reason: Shortness Of Breath) 30 Days Qty: 8.5 1RF cyclobenzaprine 5 mg tablet 5 mg PO TID PRN (Reason: Muscle Spasm) 30 Days Qty: 90 1RF ipratropium-albuterol 0.5 mg-3 mg(2.5 mg base)/3 mL Solution For Nebulization 3 ml inhalation Q4H PRN (Reason: wheeze, sob) 30 Days Qty: 90 1RF clonidine HCl 0.1 mg Tablet 0.1 mg PO TID 30 Days Qty: 90 1RF Protocol: Hold for SBP< HOLD for SBP < : 90 duloxetine 20 mg Capsule,Delayed Release(Dr/Ec) 40 mg PO DAILY 30 Days Qty: 60 1RF duloxetine 60 mg Capsule,Delayed Release(Dr/Ec) 60 mg PO DAILY 30 Days Qty: 30 1RF hydroxyzine HCl 25 mg Tablet 25 mg PO Q6H PRN (Reason: Anxiety) 30 Days Qty: 60 1RF ibuprofen 600 mg Tablet 600 mg PO Q6H PRN (Reason: Pain, Moderate(Pain Scale 4-6)) Qty: 0 0RF buprenorphine-naloxone [Suboxone] 8-2 mg Film 1 film BUCCAL TID 30 Days Qty: 30 0RF Combivent Respimat 20-100 mcg/actuation mist 1 puff INHALATION QID PRN (Reason: Shortness Of Breath Or Wheezing) 30 Days Qty: 4 1RF lamotrigine [Lamictal] 100 mg tablet 100 mg PO DAILY 30 Days Qty: 30 1RF Rx Instructions: START 06/25/24 Stand Alone Forms: Patient Portal Discharge page Print Language: Tongan
--- NOTE | 2024-07-03 15:37 | HO.PHP ---
[facility] staff member faxed a referral to [facility] for med managment, OP therapy, and substance use support. [facility] staff member is awaiting a phone call back with scheduled appointment dates and times.
--- NOTE | 2024-07-06 15:38 | HO.PHP ---
Jose Armando's OP therapy intake appointment is scheduled for July 10, 2024 at 9:30 AM via telehealth with Gabriela Payton. Jose Armando has a med provider appointment scheduled for July 22, 2024 at 9 AM with Nita Toure in person at [address] [place] [address] [place] [address].
--- NOTE | 2024-07-07 12:00 | HO.PHPPROGNO ---
Subjective Subjective Date of Service: 07/07/24 Reason For Visit: bipolar,schizophrenia Interim History: Patient seen for follow-up, anticipating discharge at the end of program today.? Patient presents with upper respiratory symptoms and mild SOB, and was wearing a mask today. In no acute distress and easily able to speak in full sentances. She denies having a fever or chills and says she insists she is not sick, says she is experiencing an exacerbation of her asthma/COPD since yesterday. Yea I feel lowsy...I see a lung specialist . She reports she is doing well on her medications, she has had been sleeping well, mood is stable, denies any anxiety. She says she is getting a new doctor Nita Toure and has an appointment on 07/22 at 9am. Says the provider at the [facility] never got back to her so she asked [facility] staff to help her with a referral. Reports no acute issues or concerns. Medication compliant, medications well-tolerated. Denies any adverse effects.? Mood is stable.? Denies any hopelessness or SI. Denies thoughts of harming self or others at this time. Denies any aggressive ideation or HI. Denies any paranoia or AH or VH. Sleep, appetite, energy stable. Medication Compliance: Yes Side effects from medications: No Attending Groups: Yes Review of Systems Acute medical concerns: No Mental Status Exam Mental Status Exam Narrative: Calm, cooperative. Mood stable, affect appropriate. Speech normal. Thought process linear, coherent, more goal-directed. Thought content related to stressors, future-oriented, denies any hopelessness or SI.?Denies HI, AH, VH. No paranoia or delusional content elicited. Insight and judgment fair-good. Diagnostics Vital Signs (24Hr): BMI result Body Mass Index 345.3 Assessment & Plan Assessment & Plan (1) Polysubstance dependence on agonist therapy: Status: Acute Code(s): F19.20 - Other psychoactive substance dependence, uncomplicated (2) Other specified attention deficit hyperactivity disorder (ADHD): Status: Acute Code(s): F90.8 - Attention-deficit hyperactivity disorder, other type (3) Schizoaffective disorder, bipolar type: Status: Acute Code(s): F25.0 - Schizoaffective disorder, bipolar type Plan Discharge from [facility] continue regular medications: Vraylar 3 mg qd Seroquel 200 mg qhs Seroquel 12.5 mg TID (underutilized) Lamictal 100 mg qd duloxetine 100 mg/day with 60 mg qd in AM and 40 mg in PM Adderall XR 15 mg qam topiramate 100 mg BID hydroxyzine 25 mg q6hr PRN clonidine 0.1 mg TID metformin 500 mg qd melatonin 9 mg qhs PRN famotidine 20 mg BID docusate 100 mg qhs cyclobenzaprine 5 mg TID prn Refills sent to pharmacy Will defer further medication management to outpatient provider *Safety plan reviewed *Discharge diagnoses, treatment course, discharge plan have been reviewed with patient (including medication regime, medication management, potential side effects) as well as treatment rationale were also revisited *Discharge paperwork signed and given to patient, copy sent for scanning to chart Patient educated on: diagnosis, medication risk/benefits and substance abuse Informed Consent: understands Reason for contiued partial hosp. stay Substantial Risk for: stable for discharge Certification I certify that partial hospital treatment is medically necessary due to the symptoms and problems resulting from the patient's mental illness and the failure to treat the patient at the partial hospital level of care would likely result in the patient requiring inpatient psychiatric care which could not be prevented at a less intensive level of care. Total time managing care of this patient today __30__ minutes. Discharge Plan Discharge Attending provider: Ruthann Rogers Additional Instructions: PCP appointment [facility]. on July 21 2024 at 12:00. F/u with 2 abdominal hernias and referral for GI doctor as patient currently does not have one. Medications: New dextroamphetamine-amphetamine 15 mg capsule,extended release 24hr 15 mg PO QAM Qty: 14 0RF Rx Instructions: Partial Fill upon patient request. melatonin 10 mg capsule 10 mg PO BEDTIME PRN (Reason: sleep) Qty: 30 0RF Continued acetaminophen 325 mg tablet 650 mg PO Q8H PRN (Reason: Headache/Pain Mild Scale (1-3)) melatonin 3 mg Tablet 9 mg PO BEDTIME PRN (Reason: Insomnia) nicotine (polacrilex) 2 mg Gum 2 mg BUCCAL Q2H quetiapine 25 mg Tablet 12.5 mg PO TID PRN (Reason: moderate anxiety) Qty: 60 0RF quetiapine 200 mg Tablet 200 mg PO BEDTIME Qty: 30 0RF multivitamin [Daily-Jesusita] Tablet 1 tab PO DAILY 30 Days Qty: 30 0RF clonidine HCl 0.1 mg Tablet 0.1 mg PO TID 15 Days Qty: 45 0RF Protocol: Hold for SBP< HOLD for SBP < : 90 famotidine 20 mg Tablet 20 mg PO BID 30 Days Qty: 60 0RF docusate sodium 100 mg Capsule 100 mg PO BEDTIME 30 Days Qty: 30 0RF hydroxyzine HCl 25 mg Tablet 25 mg PO Q6H PRN (Reason: Anxiety) 15 Days Qty: 60 1RF albuterol sulfate 90 mcg/actuation HFA aerosol inhaler 2 puff INHALATION Q6H PRN (Reason: Shortness Of Breath) 30 Days Qty: 8.5 0RF topiramate 100 mg Tablet 100 mg PO BID 15 Days Qty: 30 0RF metformin 500 mg tablet extended release 24 hr 500 mg PO DAILY 30 Days Qty: 30 0RF lamotrigine [Lamictal] 100 mg tablet 100 mg PO DAILY 30 Days Qty: 30 0RF Rx Instructions: START 06/25/24 cyclobenzaprine 5 mg tablet 5 mg PO TID PRN (Reason: Muscle Spasm) Qty: 30 0RF duloxetine 20 mg Capsule,Delayed Release(Dr/Ec) 40 mg PO DAILY 30 Days Qty: 60 0RF duloxetine 60 mg Capsule,Delayed Release(Dr/Ec) 60 mg PO DAILY 30 Days Qty: 30 0RF guaifenesin [Mucinex] 600 mg Tablet Extended Release 12hr 600 mg PO BID PRN (Reason: congestion) 30 Days Qty: 60 0RF Combivent Respimat 20-100 mcg/actuation mist 1 puff INHALATION QID PRN (Reason: Shortness Of Breath Or Wheezing) 30 Days Qty: 4 0RF Vraylar 3 mg capsule 3 mg PO DAILY 30 Days Qty: 30 0RF ipratropium-albuterol 0.5 mg-3 mg(2.5 mg base)/3 mL Solution For Nebulization 3 ml inhalation Q4H PRN (Reason: wheeze, sob) 30 Days Qty: 90 1RF ibuprofen 600 mg Tablet 600 mg PO Q6H PRN (Reason: Pain, Moderate(Pain Scale 4-6)) Qty: 0 0RF ondansetron 4 mg Tablet,Disintegrating 4 mg translingual Q6H PRN (Reason: Nausea) 30 Days Qty: 30 1RF polyethylene glycol 3350 17 gram Powder In Packet 17 g PO DAILY 30 Days Qty: 30 1RF simethicone [Gas Relief (simethicone)] 80 mg Tablet,Chewable 80 mg PO QIDWMHS PRN (Reason: gas relief) 30 Days Qty: 90 1RF buprenorphine-naloxone [Suboxone] 8-2 mg Film 1 film BUCCAL TID 30 Days Qty: 30 0RF Discontinued dextroamphetamine-amphetamine [Adderall] 20 mg Tablet 20 mg PO DAILY lamotrigine 25 mg Tablet See Rx Instructions .ROUTE .COMPLEX Qty: 34 0RF Rx Instructions: take 1 tab daily for 6 days and then take 1 tab BID for 14 days; then get script for 100mg Stand Alone Forms: Patient Portal Discharge page Patient Education: Post Traumatic Stress Disorder (DC) Print Language: Mauritian
--- NOTE | 2024-07-20 14:59 | PM.EVENT ---
Event Note Date of Service: 07/20/24 Event Note: Patient requesting refill on her ADderall XR 15 mg which she ran out of prior to next appointment. MassPat reviewed, script was efaxed to pharmacy. Time Spent With Patient Time: Total time managing care of this patient today ____ minutes.
== END 2024-07-07 23:59 | disposition home or self-care (01) ==
LOC: HO.PHPA 11:45
PROVIDERS: Visit Provider Psychiatry & Neurology Psychiatry
DX: F25.0 Schizoaffective disorder, bipolar type (principal); F19.20 Other psychoactive substance dependence, uncomplicated; F90.8 Attention-deficit hyperactivity disorder, other type; Z79.899 Other long term (current) drug therapy
CPT/HCPCS: 90791; 90853

== ENCOUNTER 2024-08-03 16:10 | Emergency (ER) | payer OTHER, SELFPAY | END 2024-08-03 18:37 | disposition left against medical advice (07) | PROVIDERS: Emergency Provider Emergency Medicine | DX: R11.10 Vomiting, unspecified (principal) ==

== ENCOUNTER 2024-08-05 10:49 | Outpatient (AMB) | payer OTHER, SELFPAY ==
--- NOTE | 2024-08-05 10:53 | AM.OFFWIN_ITS ---
Intake Vital Signs 08/05/24 10:55 08/05/24 11:16 Height 5 ft 3 in Weight 225 lb BMI 39.9 BP 122/80 Blood Pressure Location Rt brachial Position Sitting Pulse 126 H 122 H Pulse Source Pulse Oximeter Temp 98.9 F Temp Source Oral Pulse Oximetry (%) 93 93 Oxygen Delivery Method Room Air Room Air Intake Visit Reasons: [employer] cough, sinus Intake Note: Patient here for cough, vomiting and coming out of nose, fatigue, SOB which has been present for about 1 week Patient Tobacco Use Status: Current everyday Tobacco user Allergies Sulfa (Sulfonamide Antibiotics) Allergy (Severe, Verified 08/05/24 10:57) Difficulty Breathing Do you need a note to return to daycare/school/sports/work: No HPI HPI Comments History of Present Illness Details Patient is a 48-year-old female with a past medical history of COPD complaining of 1 week of subjective fevers, chills, productive cough, feeling short of breath and fatigue. She states she did not test for COVID. She states she lives in a recovery home with many other people and is 2 months sober. She states she has been using all of her prescribed COPD inhalers and her DuoNeb nebulizer 3 times a day without much relief in her symptoms. She states that she is very prone to getting pneumonia. [facility] Medical History (Updated 08/05/24 @ 11:19 by Darlin Razo PA-C) History of seizure Abdominal hernia Ulcerative colitis Black lung disease Hepatitis C delivery delivered Bunion History of COVID-19 Pneumonia Hx of respiratory failure Sleep apnea Type II diabetes mellitus Thyroid nodule Fibromyalgia COPD (chronic obstructive pulmonary disease) Surgical History Hx of cholecystectomy History of tubal ligation Social History Household Members: Other Household Members Other:: Pt currently residing at the [facility] Housing: Homeless Housing Other:: CURRENTLY NOT ALLOWED IN HOME DUE TO DCF Do you presently have visiting nurse or other home services: No Alcohol intake: current Alcohol intake frequency: a few times a week Patient Tobacco Use Status: Current everyday Tobacco user Tobacco use type: Cigarette Cigarettes Per Day: 6 e-Cigarette/Vaping Use: Never Used Second Hand Smoke Exposure: No Substance Use Type: Crack/Cocaine service: No Sexual orientation: Straight/Heterosexual Review of Systems Const All systems reviewed & are unremarkable except as noted in HPI and below Physical Exam Vital Signs: Last Vital Signs Temp 98.9 F 08/05/24 10:55 Pulse 126 H 08/05/24 10:55 BP 122/80 08/05/24 10:55 Pulse Ox 93 08/05/24 10:55 Oxygen Delivery Method Room Air 08/05/24 10:55 BMI result Body Mass Index 39.9 Const General: cooperative, healthy appearing, comfortable and no acute distress Orientation/consciousness: patient oriented x3 Limitations: no limitations HEENT Head: Yes normal to inspection Ears: hearing grossly normal bilaterally, external ears normal and TM's normal bilaterally General nose exam: Normal external nose present, Normal nares present and No nasal discharge present Face and sinus: Yes normal facial exam and Yes sinuses nontender Mouth: Normal oral and palatal mucosa present and moist mucous membranes Throat: Yes tonsils normal, Yes uvula midline and Yes posterior oropharynx abnormal (Erythema) Eyes General: appearance normal, both eyes and all related structures Neck Neck: Yes normal visual inspection Resp Effort & Inspection: normal respiratory effort, able to speak in complete sentences, Actively coughing, no respiratory distress, not tachypneic, no tripod positioning and no use of accessory muscles Auscultation: rhonchi throughout, wheezes scattered wheezes and throughout, diminished lung sounds and bronchovesicular breath sounds Cardio Rate: regular rate Rhythm: regular rhythm Heart sounds: normal S1 and S2 Skin General skin exam: no rashes or lesions noted Neuro General: patient oriented x3 Extrem General: Yes normal to inspection and Yes no clubbing, cyanosis or edema Assessment & Plan Assessment & Plan (1) COPD exacerbation: Code(s): J44.1 - Chronic obstructive pulmonary disease with (acute) exacerbation Plan: Likely pneumonia, getting chest x-ray to verify but we will give patient pred nisone burst, Z-Sundeep and Augmentin. As her heart rate is 120, likely secondary to her fever and chills but did recommend she increase her fluid intake and monitor her heart rate. Recommended if she is not feeling better after starting the medications or she feels acutely short of breath, she should go to the emergency department for further workup. I explained to use a very low threshold on calling 911. Qtc 446 in May 2024, will prescribe short course Z-Sundeep Plan See above Orders: Orders SARS-CoV2/FLU/RSV Today J06.9 - Acute upper respiratory infection, unspecified Coding Level of Care Code New Pt Level 4 (89790) Diagnoses COPD exacerbation J44.1
[2024-08-05 10:55] VITALS: BP 122/80; PULSE 126; TEMP 37.2; O2SAT 93; BMI 39.9
[2024-08-05 11:16] VITALS: PULSE 122; O2SAT 93
== END 2024-08-05 11:24 | disposition home or self-care (01) ==
PROVIDERS: Visit Provider Physician Assistant
DX: J44.1 Chronic obstructive pulmonary disease with (acute) exacerbation (principal)
CPT/HCPCS: 99204

== ENCOUNTER 2024-08-05 11:02 | Outpatient (REF) | payer OTHER, SELFPAY ==
[2024-08-05 15:07] LABS: Influenza A PCR NEGATIVE (Negative); Influenza B PCR NEGATIVE (Negative); Resp Syncy Virus RNA Qual PCR NEGATIVE (Negative); SARS COV2 PCR INHOUSE NEGATIVE (Negative)
== END 2024-08-05 11:03 | disposition home or self-care (01) ==
LOC: HO.LAB 11:02
PROVIDERS: Visit Provider Physician Assistant
DX: Z13.89 Encounter for screening for other disorder (principal)
CPT/HCPCS: 0241U

== ENCOUNTER 2024-08-05 11:34 | Outpatient (REF) | payer OTHER, SELFPAY ==
--- NOTE | ~2024-08-05 | XR_ITS ---
EXAMINATION: CHEST 2 VIEWS CLINICAL INFORMATION: Cough, unspecified COMPARISON: Chest x-ray 05/17/2024. TECHNIQUE: 2 views of the chest. FINDINGS: Devices: None. Mediastinum: Cardiomediastinal silhouette within normal limits. Pulmonary vascularity is normal. Lungs: Normal expansion. Streaky airspace opacities, left greater than right, seen on the prior examination have resolved. There is no evidence of acute pneumonia. Chronic airway wall thickening appears similar. Pleura: No pleural effusion or pneumothorax. Bones: No acute or suspicious osseus abnormalities. Upper Abdomen: Unremarkable. XR/XR chest 2V IMPRESSION: Chronic airway wall thickening consistent with airways disease. Correlate clinically. No focal pneumonia. Electronically signed by: Cory Shaver MD 08/05/2024 12:59 PM EDT
== END 2024-08-05 11:35 | disposition home or self-care (01) ==
LOC: HO.HMGCX 11:34
PROVIDERS: Visit Provider Physician Assistant
DX: R05.9 Cough, unspecified (principal)
CPT/HCPCS: 0241U; 71046

== ENCOUNTER 2024-09-15 11:12 | Inpatient (IN) | payer OTHER, SELFPAY ==
[2024-09-15] VITALS (12 sets, daily range): BP systolic 102–134; BP diastolic 57–82; PULSE 99–112; RESP 12–22; TEMP 36.7–36.9; O2SAT 2–95; BMI 42.8; BMI 43.1
--- NOTE | ~2024-09-15 | XR_ITS ---
EXAMINATION: XR CHEST CLINICAL INFORMATION: Shortness of breath COMPARISON: Right chest radiograph 08/05/2024 TECHNIQUE: Frontal view of the chest was obtained. FINDINGS: Lungs clear. Poor inspiratory effort. Study limited by AP portable technique. Heart and pulmonary vessels normal. No pleural effusion. XR/XR chest 1V IMPRESSION: No active disease given upright portable AP technique. Electronically signed by: Silvestre Frances MD 09/15/2024 01:20 PM EDT
--- NOTE | 2024-09-15 11:28 | ECG_ITS ---
Test Reason : DYSPNEA Blood Pressure : / mmHG Vent. Rate : 103 BPM Atrial Rate : 103 BPM P-R Int : 152 ms QRS Dur : 078 ms QT Int : 346 ms P-R-T Axes : 060 069 039 degrees QTc Int : 453 ms Sinus tachycardia Otherwise normal ECG When compared with ECG of 18-MAY-2024 13:47, No significant change was found Referred By: Generic ED Physician Electronically Signed By:Cyrus Landa
[2024-09-15 11:49] LABS: VBG HCO3 33 mmol/L (22-26); VBG pCO2 65 mmHg; VBG pO2 53 mmHg
[2024-09-15 11:51] LABS: MANUAL DIFF FLAG NO
[2024-09-15 11:53] LABS: Basophils Percent Auto 0.5 % (0-2); Eosinophils Absolute Auto 0.6 X10*3/uL (0.0-0.4); Eosinophils Percent Auto 8.8 % (0-4); Hematocrit 39.7 % (37.0-47.0); Hemoglobin 12.7 g/dl (12.0-16.0); Imm Gran Abs Auto 0.03 X10*3/uL (0.00-0.03); Imm Gran Pct Auto 0.5 % (0.0-0.4); Lymphocytes Absolute Auto 1.7 X10*3/uL (1.2-4.9); Lymphocytes Percent Auto 26.9 % (20-40); Mean Corpuscular Hemoglobin 28.2 pg (27.0-33.0); Mean Corpuscular Volume 88.2 fL (80.0-98.0); Mean Platelet Volume 9.9 fL (9.4-12.3); Monocytes Absolute Auto 0.5 X10*3/uL (0.1-1.2); Monocytes Percent Auto 7.1 % (2-11); Neutrophils Absolute Auto 3.6 x10*3/uL (2.0-8.3); Neutrophils Percent Auto 56.2 % (45-73); Platelet Count 164 X10*3/uL (160-400); Red Cell Distribution Width 13.6 % (11.0-16.0); White Blood Count 6.5 X10*3/uL (4.8-10.8)
[2024-09-15 11:54] LABS: Venous Blood Gas Refer to POC result
[2024-09-15 12:06] LABS: IDNOW Serial# 08D9AD1C; Strep A Nucleic Acid Positive (Negative)
[2024-09-15 12:22] LABS: B Type Natriuretic Peptide < 10 pg/mL (<100)
[2024-09-15 12:24] LABS: Alanine Aminotransferase 18 U/L (0-31); Albumin Level 3.7 g/dL (3.5-5.0); Alkaline Phosphatase 84 U/L (39-117); Anion Gap 9 (12-20); Aspartate Amino Transferase 24 U/L (5-31); Bilirubin Total 0.2 mg/dL (0.0-1.0); Blood Urea Nitrogen 10 mg/dL (9-16); Calcium 8.9 mg/dL (8.4-10.2); Carbon Dioxide 34 mmol/L (22-29); Chloride 105 mmol/L (96-108); Creatinine Clr Calc Pharmacy 100.8; Estimated Glomerular Filt Rate > 60; Glucose Random 130 mg/dL (60-115); Sodium 144 mmol/L (135-145); Total Protein 6.1 g/dL (6.5-8.0)
--- NOTE | 2024-09-15 12:27 | ED.GENADULT ---
HPI - General Adult General Chief complaint: Dyspnea Stated complaint: SOB 90% RA,100% S/P DUO,PED EDEMA,FROM DR OFFICE Time Seen by Provider: 09/15/24 12:27 History of Present Illness ED Provider: Moo BAIRD narrative: The patient is a 49-year-old female with a history of COPD and also a history of opioid use disorder. She is on Suboxone. She is currently living in a recovery home/sober house in [place]. She has been living there for 3 months and she hopes to ultimately returned to her family who lives in [place]. The patient went to her Suboxone Clinic today. Staff at the clinic were concerned that the patient seemed drowsy and dyspneic, particularly with exertion. The patient says that she has been feeling somewhat confused lately. She says that for the last 2 days she has had significant swelling of both legs. She has never had leg swelling like this before she says. She says that if she walks at all she feels very short of breath. She says that she has home oxygen that she uses on an as-needed basis. However her device is too small for her to use when she is moving around. She does not think she has had a fever. She last use injectable drugs several years ago. She does not think she has ever had any kind of endocarditis. Related Data Home Medications ?Medication ?Instructions ?Recorded ?Confirmed acetaminophen 325 mg tablet 650 mg PO Q6H PRN Headache/Pain 06/25/24 09/15/24 Mild Scale (1-3) nicotine (polacrilex) 2 mg gum 2 mg buccal Q2H PRN Nicotine 06/25/24 09/15/24 Cravings albuterol sulfate 90 mcg/actuation 2 puff inhalation Q4H PRN 09/15/24 09/15/24 aerosol inhaler Shortness Of Breath budesonide 160 mcg-glycopyr 9 2 inh inhalation DAILY@0709/15/24 09/15/24 mcg-formot 4.8 mcg/actuation HFA inhaler (Breztri Aerosphere) buprenorphine 8 mg-naloxone 2 mg 1 film buccal TID@0730,1400,199909/15/24 09/15/24 sublingual film (Suboxone) cariprazine 3 mg capsule (Vraylar) 3 mg PO BEDTIME@199909/15/24 09/15/24 cholecalciferol (vitamin D3) 50 50 mcg PO DAILY@72909/15/24 09/15/24 mcg (2,000 unit) capsule clonidine HCl 0.1 mg tablet 0.1 mg PO TID@729,1399,199909/15/24 09/15/24 cyclobenzaprine 5 mg tablet 5 mg PO TID@729,1399,1999 PRN 09/15/24 09/15/24 Muscle Spasm dextroamphetamine-amphetamine 10 1 tab PO DAILY@139909/15/24 09/15/24 mg tablet dextroamphetamine-amphetamine ER 1 cap PO DAILY@72909/15/24 09/15/24 20 mg 24hr capsule,extend release duloxetine 20 mg capsule,delayed 40 mg PO DAILY@72909/15/24 09/15/24 release duloxetine 60 mg capsule,delayed 60 mg PO DAILY@72909/15/24 09/15/24 release famotidine 20 mg tablet 20 mg PO BID@09/15/24 09/15/24 fluticasone propionate 50 2 spray intranasal DAILY PRN 09/15/24 09/15/24 mcg/actuation nasal Allergies spray,suspension folic acid 1 mg tablet 1 mg PO DAILY@72909/15/24 09/15/24 lamotrigine 100 mg tablet 100 mg PO DAILY@72909/15/24 09/15/24 (Lamictal) lorazepam 1 mg tablet 1 mg PO DAILY PRN Anxiety 09/15/24 09/15/24 metformin 500 mg tablet,extended 500 mg PO DAILY@72909/15/24 09/15/24 release 24 hr multivitamin (Daily-Jesusita tablet) 1 tab PO DAILY@72909/15/24 09/15/24 nicotine 14 mg/24 hr daily 1 patch transdermal DAILY 09/15/24 09/15/24 transdermal patch pantoprazole 40 mg tablet,delayed 40 mg PO DAILY@62909/15/24 09/15/24 release topiramate 100 mg tablet 100 mg PO BID@09/15/24 09/15/24 Previous Rx's ?Medication ?Instructions ?Recorded ibuprofen 600 mg tablet 600 mg PO Q6H PRN Pain, 06/05/24 Moderate(Pain Scale 4-6) #0 tabs ipratropium 0.5 mg-albuterol 3 mg 3 ml inhalation Q4H PRN wheeze, 06/05/24 (2.5 mg base)/3 mL nebulization sob 30 days #90 mL soln ondansetron 4 mg disintegrating 4 mg translingual Q6H PRN Nausea 06/05/24 tablet 30 days #30 tabs simethicone 80 mg chewable tablet 80 mg PO QIDWMHS PRN gas relief 30 06/05/24 (Gas Relief (simethicone)) days #90 tabs guaifenesin 600 mg tablet, 600 mg PO BID PRN congestion 30 07/07/24 extended release 12 hr (Mucinex) days #60 tabs hydroxyzine HCl 25 mg tablet 25 mg PO Q6H PRN Anxiety 15 days 07/07/24 #60 tabs ipratropium 20 mcg-albuterol 100 1 puff inhalation QID PRN 07/07/24 mcg/actuation mist for inhalation Shortness Of Breath Or Wheezing 30 (Combivent Respimat) days #4 grams melatonin 10 mg capsule 10 mg PO BEDTIME PRN sleep #30 caps 07/07/24 Allergies Allergy/AdvReac Type Severity Reaction Status Date / Time Sulfa (Sulfonamide Allergy Severe Difficulty Verified 09/15/24 11:24 Antibiotics) Breathing Review of Systems Review of Systems: Yes all other systems are reviewed and are negative [facility] Past Medical History Medical History (Updated 09/15/24 @ 16:29 by Jose Angel Dave MD) History of seizure Abdominal hernia Ulcerative colitis Black lung disease Hepatitis C delivery delivered Bunion History of COVID-19 Pneumonia Hx of respiratory failure Sleep apnea Type II diabetes mellitus Thyroid nodule Fibromyalgia COPD (chronic obstructive pulmonary disease) Surgical History Hx of cholecystectomy History of tubal ligation Social History Social History Household Members: None Household Members Other:: Pt currently residing at the [facility] Housing: Other Housing Other:: Half way house Do you presently have visiting nurse or other home services: No Alcohol intake: current Alcohol intake frequency: a few times a week Patient Tobacco Use Status: Never used Tobacco Tobacco use type: Cigarette Cigarettes Per Day: 6 e-Cigarette/Vaping Use: Never Used Second Hand Smoke Exposure: No Substance Use Type: Crack/Cocaine service: No Sexual orientation: Straight/Heterosexual Physical Exam ED Vital Signs: Vital Signs - 24 hr 09/15/24 11:22 09/15/24 13:36 09/15/24 14:00 Temperature 98.1 F 98.2 F Pulse Rate 108 H 101 H 105 H Respiratory Rate 14 18 13 Blood Pressure 102/62 119/66 Pulse Oximetry 93 95 Oxygen Delivery Method Room Air Nasal Cannula Oxygen Flow Rate 2.5 09/15/24 14:59 09/15/24 15:13 09/15/24 15:37 Temperature Pulse Rate 99 Respiratory Rate 12 21 H Blood Pressure Pulse Oximetry 87 L 84 L Oxygen Delivery Method Room Air Room Air Oxygen Flow Rate 09/15/24 15:49 09/15/24 16:00 Temperature Pulse Rate 100 101 H Respiratory Rate 21 H 12 Blood Pressure 104/57 L Pulse Oximetry 2 L Oxygen Delivery Method Nasal Cannula Oxygen Flow Rate 91 BMI result Body Mass Index 42.8 Const Other: The patient is a very chronically ill-appearing 49-year-old. She has a BMI of 43. She was sitting up on the stretcher slumped forward with her chin sitting on her chest and she seemed to be asleep. She was easily aroused to a fairly good mental status. She was oriented when she was awoke in an aroused. No gross increased work of breathing. HENMT Other: Mucous membranes are moist. The posterior pharynx was unremarkable. Eyes General: appearance normal, both eyes and all related structures Neck Other: No cervical adenopathy. Neck is supple. No JVD. Resp Other: Bilateral rhonchi and wheezes. No obvious increased work of breathing. Cardio Rate: tachycardic Rhythm: regular rhythm Heart sounds: S1 normal heart sound present and S2 normal heart sound present GI Other: Abdomen is soft and nontender Skin Other: Skin is pale and dry. The skin of the lower portion of the lower legs and feet showed some signs of what I believe is dependent rubor. Neuro Other: The patient seemed sleepy but was easily aroused to a fairly good mental status. When aroused she seemed reasonably well oriented and coherent. Cranial nerves are grossly intact. She moves her extremities symmetrically and has no focal findings. Extrem Other: The patient has bilateral edema of both lower extremities with some dependent rubor present in the lower portions of the lower legs and feet. Medications Administered Generic Name Dose Route Start Last Admin Trade Name Freq PRN Reason Stop Dose Admin Acetazolamide 250 mg 09/15/24 16:10 09/15/24 21:33 Acetazolamide Sodium 500 Mg Vial IVPUSH 250 mg BID DULCE Administration Enoxaparin Sodium 40 mg 09/15/24 16:15 09/15/24 18:30 Enoxaparin Sodium 40 Mg/0.4 Ml Syringe SUBCUT 40 mg Q24H DULCE Administration Sodium Chloride 3 ml 09/16/24 00:00 09/15/24 21:33 0.9 % Sodium Chloride Flush 3 Ml Syringe IVFLUSH 3 ml QSHIFT DULCE Administration Discontinued Medications Generic Name Dose Route Start Last Admin Trade Name Freq PRN Reason Stop Dose Admin Amoxicillin 500 mg 09/15/24 15:19 09/15/24 16:24 Amoxicillin 500 Mg Capsule PO 09/15/24 15:20 500 mg ONCE ONE Administration Buprenorphine/Naloxone 1 tab 09/15/24 21:25 09/15/24 21:54 Buprenorphine/Naloxone 8/2 Mg Tab.Subl SUBLINGUAL 09/15/24 21:26 1 tab ONCE ONE Administration Albuterol Sulfate 2.5 mg/ 0 mg 09/15/24 12:50 09/15/24 13:36 Albuterol/Ipratropium 3 ml INHALE 09/15/24 12:51 1 dose ONCE ONE Administration Albuterol Sulfate 5 mg/ 0 mg 09/15/24 15:41 09/15/24 15:48 Albuterol/Ipratropium 3 ml INHALE 09/15/24 15:42 1 each ONCE ONE Administration Furosemide 40 mg 09/15/24 16:02 09/15/24 18:30 Furosemide 40 Mg/4 Ml Vial IVPUSH 09/15/24 16:03 40 mg ONCE ONE Administration Protocol Methylprednisolone Sodium Succinate 80 mg 09/15/24 13:37 09/15/24 14:59 Methylprednisolone Sod Succ 125 Mg/2 Ml Vial IVPUSH 09/15/24 13:38 80 mg ONCE ONE Administration Medical Decision Making Medical Decision Making MDM Narrative: The patient is a 49-year-old female with a history of significant chronic lung disease. She has home oxygen that she is not able to use when she is moving around because her device is too heavy. She also has a history of substance use disorder. She was apparently well enough to drive herself to an appointment at a Suboxone clinic today. At the Suboxone Clinic they thought she looks quite unwell and called an ambulance and she was brought here. Here she seems sleepy but not encephalopathic. Her venous blood gas showed a pCO2 of 65 and a pH of 7.30 Patient denies having had fevers lately. She does not have an elevated white count or elevated CRP. She has rhonchorous and wheezy breath sounds. I think she has an exacerbation of her COPD but I do not think there is a significant infectious component. She was treated with bronchodilator updraft treatments and steroids. A D-dimer was sent given her bilateral lower extremity edema. Her D-dimer was undetectable. I think this is sufficiently rules out a DVT or PE. Given the patient's fatigue and her desaturation on room air when not engaged in conversation (she would seemingly fall asleep with her chin tucked on her chest and her oxygen saturations would fall to the mid 80s) I felt the patient should be admitted to the hospital for further pulmonary care. I consulted the hospitalist and the patient was admitted to the hospitalist service. Lab Data 09/15/24 11:39 09/15/24 11:39 Labs: Lab Results 09/15/24 09/15/24 09/15/24 Range/Units 11:39 11:44 13:01 WBC 6.5 (4.8-10.8) X10*3/uL RBC 4.50 (4.20-5.50) X10*6/uL Hgb 12.7 (12.0-16.0) g/dl Hct 39.7 D (37.0-47.0) % MCV 88.2 (80.0-98.0) fL MCH 28.2 (27.0-33.0) pg MCHC 32.0 (31.0-35.0) g/dl RDW 13.6 (11.0-16.0) % Plt Count 164 D (160-400) X10*3/uL MPV 9.9 (9.4-12.3) fL Immature Gran % (Auto) 0.5 H (0.0-0.4) % Neut % (Auto) 56.2 (45-73) % Lymph % (Auto) 26.9 (20-40) % [place] % (Auto) 7.1 (2-11) % Eos % (Auto) 8.8 H (0-4) % Baso % (Auto) 0.5 (0-2) % Lymph # (Auto) 1.7 (1.2-4.9) X10*3/uL [place] # (Auto) 0.5 (0.1-1.2) X10*3/uL Eos # (Auto) 0.6 H (0.0-0.4) X10*3/uL Baso # (Auto) 0.0 (0.0-0.2) X10*3/uL Abs Immat Gran (auto) 0.03 (0.00-0.03) X10*3/uL Absolute Neuts (auto) 3.6 (2.0-8.3) x10*3/uL Absolute Nucleated RBC 0.000 (0.0-0.012) X10*3/uL Nucleated RBC % (auto) 0.0 (0.0-0.2) /100WBC D-Dimer High Sensitivty < 150 NG/ML VBG pH 7.30 L (7.32-7.43) VBG pCO2 65 mmHg VBG pO2 53 mmHg VBG HCO3 33 H (22-26) mmol/L VBG O2 Saturation 81.0 % VBG Base Excess 5.0 mmol/L Sodium 144 (135-145) mmol/L Potassium 4.0 (3.3-5.1) mmol/L Chloride 105 (96-108) mmol/L Carbon Dioxide 34 H (22-29) mmol/L Anion Gap 9 L (12-20) BUN 10 (9-16) mg/dL Creatinine 0.82 (0.5-1.4) mg/dL Estim Creat Clear Calc 100.8 Estimated GFR > 60 Random Glucose 130 H (60-115) mg/dL Estimat Average Glucose mg/dL Hemoglobin A1c % (<6.0) % Calcium 8.9 (8.4-10.2) mg/dL Total Bilirubin 0.2 (0.0-1.0) mg/dL AST 24 (5-31) U/L ALT 18 (0-31) U/L Alkaline Phosphatase 84 (39-117) U/L Total Creatine Kinase 146 H (26-140) U/L Troponin I High Sens < 2.7 (<3.5-17.0) ng/L C-Reactive Protein 0.50 (< or = 0.50) mg/dL B-Natriuretic Peptide < 10 (<100) pg/mL Total Protein 6.1 L (6.5-8.0) g/dL Albumin 3.7 (3.5-5.0) g/dL TSH (0.32-4.0) uIU/mL Beta HCG, Quant < 2 mIU/mL Influenza Type A (PCR) NEGATIVE (Negative) Influenza Type B (PCR) NEGATIVE (Negative) RSV RNA Qual (PCR) NEGATIVE (Negative) SARS-CoV-2 RNA (RT-PCR) NEGATIVE (Negative) S. pyogenes GrpA SANA Positive A (Negative) 09/15/24 Range/Units 15:45 WBC (4.8-10.8) X10*3/uL RBC (4.20-5.50) X10*6/uL Hgb (12.0-16.0) g/dl Hct (37.0-47.0) % MCV (80.0-98.0) fL MCH (27.0-33.0) pg MCHC (31.0-35.0) g/dl RDW (11.0-16.0) % Plt Count (160-400) X10*3/uL MPV (9.4-12.3) fL Immature Gran % (Auto) (0.0-0.4) % Neut % (Auto) (45-73) % Lymph % (Auto) (20-40) % [place] % (Auto) (2-11) % Eos % (Auto) (0-4) % Baso % (Auto) (0-2) % Lymph # (Auto) (1.2-4.9) X10*3/uL [place] # (Auto) (0.1-1.2) X10*3/uL Eos # (Auto) (0.0-0.4) X10*3/uL Baso # (Auto) (0.0-0.2) X10*3/uL Abs Immat Gran (auto) (0.00-0.03) X10*3/uL Absolute Neuts (auto) (2.0-8.3) x10*3/uL Absolute Nucleated RBC (0.0-0.012) X10*3/uL Nucleated RBC % (auto) (0.0-0.2) /100WBC D-Dimer High Sensitivty NG/ML VBG pH (7.32-7.43) VBG pCO2 mmHg VBG pO2 mmHg VBG HCO3 (22-26) mmol/L VBG O2 Saturation % VBG Base Excess mmol/L Sodium (135-145) mmol/L Potassium (3.3-5.1) mmol/L Chloride (96-108) mmol/L Carbon Dioxide (22-29) mmol/L Anion Gap (12-20) BUN (9-16) mg/dL Creatinine (0.5-1.4) mg/dL Estim Creat Clear Calc Estimated GFR Random Glucose (60-115) mg/dL Estimat Average Glucose 123 mg/dL Hemoglobin A1c % 5.9 (<6.0) % Calcium (8.4-10.2) mg/dL Total Bilirubin (0.0-1.0) mg/dL AST (5-31) U/L ALT (0-31) U/L Alkaline Phosphatase (39-117) U/L Total Creatine Kinase (26-140) U/L Troponin I High Sens (<3.5-17.0) ng/L C-Reactive Protein (< or = 0.50) mg/dL B-Natriuretic Peptide (<100) pg/mL Total Protein (6.5-8.0) g/dL Albumin 3.7 (3.5-5.0) g/dL TSH 0.91 (0.32-4.0) uIU/mL Beta HCG, Quant mIU/mL Influenza Type A (PCR) (Negative) Influenza Type B (PCR) (Negative) RSV RNA Qual (PCR) (Negative) SARS-CoV-2 RNA (RT-PCR) (Negative) S. pyogenes GrpA SANA (Negative) Independent Interpretation I performed an independent interpretation of an: EKG Interpretation: EKG at 12:01 shows sinus tachycardia at 103 beats per minute. It is an otherwise normal EKG. No change from previous. Critical Care Time Critical Care Time Critical Care Time: Yes Total Critical Care Time: 35 Attestation: The patient was critically ill with a high probability of imminent or life-threatening deterioration. ?I spent greater than 30 minutes of discontinuous time evaluating the patient, delivering critical care at the bedside, discussing evaluating data with consultants. ?Critical care time does not include time spent performing separately billable procedures or teaching. ?Time spent performing critical care with 35 minutes. Discharge Plan Discharge Clinical Impression: Acute exacerbation of chronic obstructive pulmonary disease (COPD), Bilateral leg edema Patient Disposition: Admitted As Inpatient Interventions: Admission Worksheet (ED) Last Done: 09/15/24 19:38 Discharge Date/Time: 09/15/24 20:41
[2024-09-15 12:30] LABS: Troponin-I High Sensitivity < 2.7 ng/L (<3.5-17.0)
[2024-09-15 12:31] LABS: HCG Quantitative < 2 mIU/mL
[2024-09-15 12:34] LABS: Influenza A PCR NEGATIVE (Negative); Influenza B PCR NEGATIVE (Negative); Resp Syncy Virus RNA Qual PCR NEGATIVE (Negative); SARS COV2 PCR INHOUSE NEGATIVE (Negative)
[2024-09-15 13:21] LABS: D Dimer High Sensitivity < 150 NG/ML
[2024-09-15] MEDS: Albuterol Sulfate 2.5 MG, Albuterol/Iprat 2.5/0.5MG 3 ML 3 ML INHALE (13:36)
--- NOTE | 2024-09-15 14:56 | P.HPHOSP_ITS ---
History of Present Illness Date of Service: 09/15/24 Attending physician on admission: Ashwini Lewis Chief Complaint: SOB, LE edema Patient is a 49-year-old female with a past medical history significant for COPD on O2 at home p.r.n., ALEKS, substance use on Suboxone, fibromyalgia, and prediabetes who reported to the emergency department today due to worsening shortness of breath and dyspnea with exertion as well as bilateral lower extremity edema x2 days. She reports a productive cough with yellow sputum and subjective fevers at home, none measured. She reported that she was also feeling confused lately. She has had the fever, cough, and body aches reportedly for weeks with worsening dyspnea. No sore throat but has been exposed to somebody recently with strep throat. She is also having sharp generalized abdominal pains rating them a 7/10 with movement. She denies diarrhea, constipation, hematochezia, nausea or vomiting. She does have ulcerative colitis reports no medications for this as well as acid reflux and has been taking famotidine without improvement. Review of Systems 2 Constitutional: Constitutional: Reports body ache(s), Reports chills, Reports fever(s) and Denies headache(s) Eyes: Eyes: Denies change in vision ENT: Denies headache(s), Denies nasal congestion and Denies nasal discharge Cardiovascular: Cardiovascular: Denies chest pain, Denies rapid heart rate, Reports pedal edema, Denies lightheadedness and Reports dyspnea Respiratory: Respiratory: Reports cough and Reports dyspnea Gastrointestinal: Gastrointestinal: Denies melena, Denies hematochezia, Denies constipation, Denies diarrhea, Denies nausea and Denies vomiting Genitourinary: Genitourinary: Denies dysuria Musculoskeletal: Musculoskeletal: Reports myalgias Integumentary/Breasts: Skin/Breast: Denies rash Neurologic: Reports confusion and Denies headache(s) Psychiatric: Psychiatric: Reports confusion [facility] Medical History (Updated 09/15/24 @ 15:57 by Ree Padilla PA-C) History of seizure Abdominal hernia Ulcerative colitis Black lung disease Hepatitis C delivery delivered Bunion History of COVID-19 Pneumonia Hx of respiratory failure Sleep apnea Type II diabetes mellitus Thyroid nodule Fibromyalgia COPD (chronic obstructive pulmonary disease) Functional capacity: independent ambulation Surgical History Hx of cholecystectomy History of tubal ligation Social History Household Members: Other Household Members Other:: Pt currently residing at the [facility] Housing: Homeless Housing Other:: CURRENTLY NOT ALLOWED IN HOME DUE TO DCF Do you presently have visiting nurse or other home services: No Alcohol intake: current Alcohol intake frequency: a few times a week Patient Tobacco Use Status: Current everyday Tobacco user Tobacco use type: Cigarette Cigarettes Per Day: 6 Smoked in Last 30 Days: Yes e-Cigarette/Vaping Use: Never Used Second Hand Smoke Exposure: No Use of substances other than those prescribed or required for medical reasons: No Substance Use Type: Crack/Cocaine Advance Directives: No Advance Directives Information Provided: Yes Do you have a plan to hurt others: No Plan Patient : No service: No Sexual orientation: Straight/Heterosexual Meds Allergies Allergy/AdvReac Type Severity Reaction Status Date / Time Sulfa (Sulfonamide Allergy Severe Difficulty Verified 09/15/24 11:24 Antibiotics) Breathing Home Medications ?Medication ?Instructions ?Recorded ?Confirmed ?Last Taken ?Type acetaminophen 325 mg tablet 650 mg PO Q8H PRN Headache/Pain 06/25/24 06/25/24 Unknown History Mild Scale (1-3) melatonin 3 mg tablet 9 mg PO BEDTIME PRN Insomnia 06/25/24 06/25/24 Unknown History nicotine (polacrilex) 2 mg gum 2 mg buccal Q2H 06/25/24 06/25/24 Unknown History dextroamphetamine-amphetamine ER 20 mg PO QAM 08/05/24 Unknown History 15 mg 24hr capsule,extend release budesonide 160 mcg-glycopyr 9 inh inhalation 09/15/24 Unknown History mcg-formot 4.8 mcg/actuation HFA inhaler (Breztri Aerosphere) cholecalciferol (vitamin D3) 50 50 mcg PO DAILY 09/15/24 Unknown History mcg (2,000 unit) capsule fluticasone propionate 50 spray intranasal 09/15/24 Unknown History mcg/actuation nasal spray,suspension lorazepam 1 mg tablet 1 mg PO DAILY PRN Anxiety 09/15/24 Unknown History pantoprazole 40 mg tablet,delayed 40 mg PO DAILY 09/15/24 09/15/24 Unknown History release Physical Exam 2 Vital Signs and Narrative: Vital Signs: Last Vital Signs Temp 98.2 F 09/15/24 14:00 Pulse 105 H 09/15/24 14:00 Resp 13 09/15/24 14:00 BP 119/66 09/15/24 14:00 Pulse Ox 95 09/15/24 14:00 O2 Del Method Nasal Cannula 09/15/24 14:00 O2 Flow Rate 2.5 09/15/24 14:00 BMI result Body Mass Index 42.8 General: AOx3, no acute distress, somnolent although arousable throughout conversation Resp: rhonchi bilaterally CVS: S1, S2, RRR GI: +BS, no distention, tender throughout Skin: Warm, dry Extremities: bilateral LE edema, non-pitting Psych: Appropriate affect Const: General: confusion Orientation/consciousness: confusion Neuro: General: confusion Results Labs 09/15/24 11:39 09/15/24 11:39 Labs: Laboratory Results - last 24 hr 09/15/24 09/15/24 09/15/24 11:39 11:44 13:01 MCV 88.2 MCH 28.2 MCHC 32.0 RDW 13.6 Plt Count 164 D MPV 9.9 Immature Gran % (Auto) 0.5 H Neut % (Auto) 56.2 Lymph % (Auto) 26.9 [place] % (Auto) 7.1 Eos % (Auto) 8.8 H Baso % (Auto) 0.5 Lymph # (Auto) 1.7 [place] # (Auto) 0.5 Eos # (Auto) 0.6 H Baso # (Auto) 0.0 Abs Immat Gran (auto) 0.03 Absolute Neuts (auto) 3.6 Absolute Nucleated RBC 0.000 Nucleated RBC % (auto) 0.0 D-Dimer High Sensitivty < 150 VBG pH 7.30 L VBG pCO2 65 VBG pO2 53 VBG HCO3 33 H VBG O2 Saturation 81.0 VBG Base Excess 5.0 Anion Gap 9 L Estim Creat Clear Calc 100.8 Estimated GFR > 60 Random Glucose 130 H Calcium 8.9 Total Bilirubin 0.2 AST 24 ALT 18 Alkaline Phosphatase 84 Total Creatine Kinase 146 H Troponin I High Sens < 2.7 C-Reactive Protein 0.50 B-Natriuretic Peptide < 10 Total Protein 6.1 L Albumin 3.7 Beta HCG, Quant < 2 Influenza Type A (PCR) NEGATIVE Influenza Type B (PCR) NEGATIVE RSV RNA Qual (PCR) NEGATIVE SARS-CoV-2 RNA (RT-PCR) NEGATIVE S. pyogenes GrpA SANA Positive A Imaging Radiologist's Impressions: Impressions Chest X-Ray 09/15/24 11:28 IMPRESSION: No active disease given upright portable AP technique. Electronically signed by: Silvestre Frances MD 09/15/2024 01:20 PM EDT RP Assessment and Plan (1) COPD exacerbation: Status: Acute (2) Leg edema: Status: Acute (3) Acute and chronic respiratory failure with hypercapnia: Status: Acute (4) Morbid obesity: Status: Acute Plan Patient is a 49-year-old female with a past medical history significant for COPD on O2 at home p.r.n., substance use on Suboxone, fibromyalgia, and prediabetes who reported to the emergency department today due to worsening shortness of breath and dyspnea with exertion as well as bilateral lower extremity edema x2 days. tested for strep as many others in her correction have strep currently. she denies sore throat. Acute on chronic hypercapnic respiratory failure - BiPAP in ED - pt improved - pulmonary consult - lasix 40mg IV x1 now and add acetazolamine 250mg BID - outpt sleep study - minimize sedatives, will hold cyclobenzaprine, clonidine, duloxetine hydroxyzine, quetiapine, vraylar and topiramate COPD exacerbation - likely although no formal dx of COPD, no sepsis, tachycardia likely due to albuterol - No leukocytosis - CXR negative - COVID/flu/RSV negative - trops and EKG negative - respiratory panel - continue duonebs Q4H PRN - monitor CBC Bilateral LE edema - non-pitting - BNP normal - LFTs and Cr normal - check ammonia and TSH - elevate legs - monitor BMP Group A strep + - test done due to roommates with strep throat - hold abx as pt is asx JULITO - continue suboxone pre-diabetes - POCs - hold metformin - check A1C morbid obesity full code VTE prophy: lovenox and pneumoboots Pt with possible COPD exacerbation complicated by acute on chronic hypercapnic respiratory failure requiring BiPAP in ED, will need admission for IV diuretics, breathing treatments as needed and monitoring for at least 2 midnights stay. Quality Stroke Does the patient have a stroke diagnosis?: No VTE Prior VTE?: No VTE Risk Level:: Medical - moderate - high VTE Device Contraindication: N/A - Device Ordered VTE Drug Contraindication: N/A - Med Ordered
[2024-09-15] MEDS: methylPREDNISolone Sod Succ 125 MG/2 ML VIAL 80 MG IVPUSH (14:59)
[2024-09-15] MEDS: Albuterol Sulfate 5 MG, Albuterol/Iprat 2.5/0.5MG 3 ML 3 ML INHALE (15:48)
[2024-09-15 16:04] LABS: Albumin Level 3.7 g/dL (3.5-5.0)
[2024-09-15 16:10] LABS: Estimated Average Glucose 123 mg/dL; Hemoglobin A1C 133.1188 umol/L; Hemoglobin A1c % 5.9 % (<6.0); Total Hemoglobin (HGBA1C) 3278.7328 umol/L
[2024-09-15 16:18] LABS: Ammonia 48 umol/L (13-55)
[2024-09-15] MEDS: Amoxicillin 500 MG CAPSULE PO (16:24)
--- NOTE | 2024-09-15 16:24 | PM.CNPUL ---
History of Present Illness History of Present Illness Consult date: 09/15/24 Chief complaint: acute on chronic resp failure, COPD exacerbation Narrative: 49-year-old lady, active 30 pack-year smoker with underlying ALEKS/obesity hypoventilation syndrome, possible COPD recently discharged on supplemental oxygen, also substance abuse on Suboxone being admitted for worsening dyspnea and lower extremity edema for several days. On initial ER evaluation patient with acute on chronic hypercapnia likely related to iatrogenic hyperoxia. Also noted to be positive strep antigen Patient started on systemic glucocorticoids and admitted to telemetry connor. She was briefly placed on BiPAP, but has been titrated off. Review of Systems Constitutional: Constitutional: Denies daytime sleepiness, Denies excessive sweating, Denies fatigue, Denies fever(s), Denies lethargy, Denies malaise, Denies night sweats, Denies snoring and Denies weight loss Eyes: Eyes: Denies blurry vision and Denies itchy eyes ENT: Denies nasal congestion, Denies post nasal drip, Denies sinus pain, Denies sinus pressure and Denies other ( Thrush) Cardiovascular: Cardiovascular: Denies chest pain, Reports pedal edema, Reports dyspnea, Reports dyspnea on exertion, Reports orthopnea and Denies paroxysmal nocturnal dyspnea Respiratory: Respiratory: Denies cough, Denies hemoptysis, Denies excessive phlegm production, Reports dyspnea, Reports dyspnea on exertion, Denies snoring and Denies wheezing Gastrointestinal: Gastrointestinal: Denies abdominal pain and Denies heartburn Musculoskeletal: Musculoskeletal: Denies myalgias, Denies arthralgias and Denies joint swelling Integumentary/Breasts: Skin/Breast: Denies rash Neurologic: Denies memory loss and Denies seizure-like activity Psychiatric: Psychiatric: Denies abnormal sleep pattern, Denies anxiety and Denies memory loss Endocrine: Endocrine: Denies excessive sweating, Denies fatigue and Denies heat intolerance Hematologic/Lymphatic: Hematologic/Lymphatic: Denies easy bruising Allergic/Immunologic: Allergic/Immunologic: Denies itchy eyes, Denies seasonal rhinorrhea and Denies wheezing PMFSH Past Medical History Medical History (Updated 09/15/24 @ 16:29 by Jose Angel Dave MD) History of seizure Abdominal hernia Ulcerative colitis Black lung disease Hepatitis C delivery delivered Bunion History of COVID-19 Pneumonia Hx of respiratory failure Sleep apnea Type II diabetes mellitus Thyroid nodule Fibromyalgia COPD (chronic obstructive pulmonary disease) Surgical History Surgical History Hx of cholecystectomy History of tubal ligation Social History Social History Household Members: Other Household Members Other:: Pt currently residing at the [facility] Housing: Homeless Housing Other:: CURRENTLY NOT ALLOWED IN HOME DUE TO DCF Do you presently have visiting nurse or other home services: No Alcohol intake: current Alcohol intake frequency: a few times a week Patient Tobacco Use Status: Current everyday Tobacco user Tobacco use type: Cigarette Cigarettes Per Day: 6 Smoked in Last 30 Days: Yes e-Cigarette/Vaping Use: Never Used Second Hand Smoke Exposure: No Use of substances other than those prescribed or required for medical reasons: No Substance Use Type: Crack/Cocaine Advance Directives: No Advance Directives Information Provided: Yes Do you have a plan to hurt others: No Plan Patient : No service: No Sexual orientation: Straight/Heterosexual Meds Allergies Allergy/AdvReac Type Severity Reaction Status Date / Time Sulfa (Sulfonamide Allergy Severe Difficulty Verified 09/15/24 11:24 Antibiotics) Breathing Active Medications: Current Medications Acetaminophen (Acetaminophen 325 Mg Tablet) 650 mg PO Q6H PRN PRN Reason: Pain, Mild (Pain Scale 1-3), fever or headache Acetazolamide (Acetazolamide Sodium 500 Mg Vial) 250 mg IVPUSH BID DULCE Albuterol/Ipratropium (Albuterol/Iprat 2.5/0.5mg 3 Ml Ampul.Neb) 3 ml INHALE Q4H PRN PRN Reason: Shortness of Breath/Wheezing Calcium Carbonate (Calcium Carbonate 750 Mg Tab.Chew) 750 mg PO Q4H PRN PRN Reason: Heartburn Enoxaparin Sodium (Enoxaparin Sodium 40 Mg/0.4 Ml Syringe) 40 mg SUBCUT Q24H DULCE Magnesium Hydroxide (Milk Of Magnesia 30 Ml Oral.Susp) 30 ml PO DAILY PRN PRN Reason: Constipation Melatonin (Melatonin 3 Mg Tablet) 6 mg PO BEDTIME PRN PRN Reason: Insomnia Ondansetron HCl (Ondansetron Hcl 4 Mg/2 Ml Vial) 4 mg IVPUSH Q8H PRN PRN Reason: Nausea and Vomiting Sodium Chloride (0.9 % Sodium Chloride Flush 3 Ml Syringe) 3 ml IVFLUSH QSHIFT [facility] Home Medications ?Medication ?Instructions ?Recorded ?Confirmed ?Last Taken ?Type acetaminophen 325 mg tablet 650 mg PO Q8H PRN Headache/Pain 06/25/24 06/25/24 Unknown History Mild Scale (1-3) melatonin 3 mg tablet 9 mg PO BEDTIME PRN Insomnia 06/25/24 06/25/24 Unknown History nicotine (polacrilex) 2 mg gum 2 mg buccal Q2H 06/25/24 06/25/24 Unknown History dextroamphetamine-amphetamine ER 20 mg PO QAM 08/05/24 Unknown History 15 mg 24hr capsule,extend release budesonide 160 mcg-glycopyr 9 inh inhalation 09/15/24 Unknown History mcg-formot 4.8 mcg/actuation HFA inhaler (Breztri Aerosphere) cholecalciferol (vitamin D3) 50 50 mcg PO DAILY 09/15/24 Unknown History mcg (2,000 unit) capsule fluticasone propionate 50 spray intranasal 09/15/24 Unknown History mcg/actuation nasal spray,suspension lorazepam 1 mg tablet 1 mg PO DAILY PRN Anxiety 09/15/24 Unknown History pantoprazole 40 mg tablet,delayed 40 mg PO DAILY 09/15/24 09/15/24 Unknown History release Physical Exam Vital Signs: Vital Signs: Last Vital Signs Temp 98.2 F 09/15/24 14:00 Pulse 101 H 09/15/24 16:00 Resp 12 09/15/24 16:00 BP 104/57 L 09/15/24 16:00 Pulse Ox 2 L 09/15/24 16:00 O2 Del Method Nasal Cannula 09/15/24 16:00 O2 Flow Rate 91 09/15/24 16:00 BMI result Body Mass Index 42.8 Const: General: no acute distress and alert Nutritional Appearance: obese Orientation/consciousness: Other orientation findings ( oriented) HEENT: Head: Yes atraumatic Eyes: General: appearance normal, both eyes and all related structures Sclerae: sclerae normal EOM: EOMs intact bilaterally Neck: Neck: Yes supple Lymphatic: no lymphadenopathy noted Resp: Effort & Inspection: normal respiratory effort and no use of accessory muscles Auscultation: crackles (Bibasilar) Cardio: Rate: tachycardic Rhythm: regular rhythm Heart sounds: no gallops, no murmurs and no rubs Skin: General skin exam: other ( warm) Extrem: General: No clubbing, No cyanosis and No edema Results Laboratory Findings 09/15/24 11:39 09/15/24 11:39 Abnormal lab findings: Abnormal Labs 09/15/24 09/15/24 11:39 11:44 Immature Gran % (Auto) 0.5 H Eos % (Auto) 8.8 H Eos # (Auto) 0.6 H VBG pH 7.30 L VBG HCO3 33 H Carbon Dioxide 34 H Anion Gap 9 L Random Glucose 130 H Total Creatine Kinase 146 H Total Protein 6.1 L S. pyogenes GrpA SANA Positive A Assessment and Plan (1) Acute and chronic respiratory failure with hypercapnia: Status: Acute (2) Morbid obesity: Status: Acute (3) Bilateral leg edema: Status: Acute (4) Obesity hypoventilation syndrome: Status: Acute Plan Impression: 49-year-old lady with underlying ALEKS/ohs, COPD, substance abuse being admitted with dyspnea and work extremity edema, also noted to be positive for streptococcal antigen. Briefly requiring BiPAP support, now titrated off. Appears to iatrogenic hyperoxia related acute hypercapnia. Recommendations: Empiric ceftriaxone. Diuresis with furosemide and acetazolamide. Check 2D echocardiogram. Patient is CO2 retainer, thus target O2 saturation goal of 88%. No evidence of COPD exacerbation, thus would not consider systemic glucocorticoids at this time. Procedures Date of Service Date of Service: 09/15/24
[2024-09-15 16:25] LABS: TSH reflex Free T4 0.91 uIU/mL (0.32-4.0)
--- NOTE | 2024-09-15 16:26 | PC.NURSE ---
Patient medicated per MD orders with Amoxicillin PO. Carol Funez, RN (primary RN) aware. Pt insisted that 1 bed rail be lowered because I feel claustrophobic . Pt remains in bed, resting, semi-zhao's.
--- NOTE | 2024-09-15 17:45 | PHA.MEDREC ---
Addendum entered by Morteza Arcos [facility] 09/15/24 17:59: Med rec reviewed Original Note: Pharmacy Consult ? Medication Reconciliation Pharmacy has completed the medication reconciliation. Confirmed medications with patient after list from [facility] was not up to date with claims. Patient was a little out of it but was able to confirm them. She confirmed her Suboxone dosing 8-2mg tabs 1 film three times a day. She takes her Vraylar 3mg tabs at bedtime. She stated to me that she takes her Adderall 20mg in the morning and 10mg at 2pm and took her 20mg dose today but was not able to take the 10mg dose at 2pm. She confirmed her Clonidine 0.1mg tab stating she takes 1 tab three times a day. She confirmed she is still taking Lorazepam 1mg tabs once a day at bedtime as needed for Anxiety. She stopped the Quetiapine 25mg tab and 200mg tab recently due to her finding out it makes her sleep walk at night. She confirmed she takes her Folic acid 1mg tab once daily. She also confirmed she takes a Nicotine patch once daily and confirmed the dosing was 14mg and she is also taking nicotine gum as needed. She states she takes her medications at a strict timing daily and takes them at 0730 for daily medications, 1400 for the afternoon doses and 2000 at bedtime.
[2024-09-15] MEDS: Enoxaparin Sodium 40 MG/0.4 ML SYRINGE SUBCUT (18:30)
[2024-09-15] MEDS: Furosemide 40 MG/4 ML VIAL IVPUSH (18:30)
[2024-09-15] MEDS: acetaZOLAMIDE sodium 500 MG VIAL 250 MG IVPUSH ×2 (19:04→21:33)
[2024-09-15 19:13] LABS: Appearance Urine Clear; Color Urine Yellow; Glucose Urine UA Negative (Negative); Leukocyte Esterase Urine Negative (Negative); Nitrite Urine Negative (Negative); Specific Gravity - Urine <= 1.005 (1.005-1.025); UMIC TRIGGER UACC YES; Urine Blood Small (1+) (Negative); Urine Ketones Negative (Negative); Urine Protein Negative (Neg-Trace)
[2024-09-15 19:24] LABS: Bacteria Urine None Seen (None Seen); Hyaline Casts Urine 0-2 /LPF (0-2); Squamous Epithelial Cell Urine 0-2 /HPF (0-2); WBC Urine 0-5 /HPF (0-5)
[2024-09-15 19:28] LABS: Amphetamine Screen Urine Not Detected (Not Detect); Barbiturates, Urine Not Detected (Not Detect); Benzodiazepines Screen Urine Not Detected (Not Detect); Buprenorphine Scr Positive (Not Detect); Cannabinoid Screen Urine Not Detected (Not Detect); Cocaine Screen Urine Not Detected (Not Detect); Fentanyl, urine Not Detected (Not Detect); Methadone Screen, Urine Not Detected (Not Detect); Opiate Screen Urine Not Detected (Not Detect); Oxycodone Screen Urine Not Detected (Not Detect); Phencyclidine Screen Urine Not Detected (Not Detect)
[2024-09-15] MEDS: 0.9 % Sodium Chloride Flush 3 ML SYRINGE IVFLUSH (21:33)
[2024-09-15] MEDS: Buprenorphine/Naloxone 8/2 mg TAB.SUBL 1 TAB SUBLINGUAL (21:54)
[2024-09-15] MEDS: Nicotine Polacrilex Lozenge 2 MG LOZENGE BUCCAL (22:23)
[2024-09-15] MEDS: Nicotine 14 MG PATCH.TD24 TRANSDERMA (22:24)
[2024-09-16] VITALS (9 sets, daily range): BP systolic 112–128; BP diastolic 63–83; PULSE 95–107; RESP 17–18; TEMP 36.1–37.3; O2SAT 92–95
[2024-09-16] MEDS: Nicotine Polacrilex Lozenge 2 MG LOZENGE BUCCAL ×8 (01:17→22:47)
[2024-09-16] MEDS: LORazepam 1 MG TABLET PO ×2 (01:28→22:47)
--- NOTE | 2024-09-16 04:24 | PC.NURSE ---
Pt arrived from ED on stretcher, able to ambulate to bed. She is AOx4, able to make needs known. Pt states she has been sober for the last 3 months and currently resides in a half way house - [facility]. Pt asked this RN to call [facility] to let them known she has been admitted to the hospital. Pt gave RN a card w/4 phone numbers on it. This RN called each number multiple times but no one picked up. Let pt know no one picked up. Will pass onto next shift. Pt able to ambulate to bathroom independently. She has been educated on safety precautions and agreed to ring if she felt dizzy, had SOB or cp when she was getting up or ambulating. Call puga within reach, frequent checks.
[2024-09-16] MEDS: Acetaminophen 325 MG TABLET 650 MG PO ×2 (05:06→12:01)
[2024-09-16 06:35] LABS: MANUAL DIFF FLAG NO
--- NOTE | 2024-09-16 07:00 | CA_ITS ---
Transthoracic Echocardiogram Patient (Last, First, Middle): Jose Armando Ochoa R Gender: Female Date of : 1975 Age: 49 Procedure Date: 09/16/2024 Procedure Type: Transthoracic Echocardiogram Location: [facility] [place] [facility] [place] Height: 160.02 cm Weight: 110.22 kg BSA: 2.10 m2 Heart Rate: bpm BP: 120 / 71 mmHg Soil Chemist: Referring MD: Ashwini Lewis MD Symptoms: right heart failure Study Quality: Adequate ECG Rhythm: Sinus Conclusions: - Normal left ventricular size and systolic function. There is mildly increased left ventricular wall thickness. The visually estimated ejection fraction is between 60-65%. There is no evidence of regional wall motion abnormalities. Diastolic function is normal for age. - Normal right ventricular cavity size and systolic function. - The left atrium is mildly dilated. - Moderately elevated right atrial pressure. Findings Left Ventricle Normal left ventricular size and systolic function. There is mildly increased left ventricular wall thickness. The visually estimated ejection fraction is between 60-65%. There is no evidence of regional wall motion abnormalities. Diastolic function is normal for age. Right Ventricle Normal right ventricular cavity size and systolic function. Atria The left atrium is mildly dilated. Aortic Valve The aortic valve was not well visualized. There is no aortic valve stenosis. There is no aortic valve regurgitation. Mitral Valve The mitral valve appears normal. There is no mitral valve regurgitation. There is no mitral valve stenosis. Pulmonic Valve The pulmonic valve is likely normal. Tricuspid Valve Normal tricuspid valve structure. There is no tricuspid valve regurgitation. Moderately elevated right atrial pressure. There is no evidence of pulmonary hypertension. Great Vessels All visible segments of the aorta are normal in size. Venous The inferior vena cava is normal in size and collapses greater than 50% with inspiration. Pericardium/Pleural There is no evidence of pericardial effusion. Prior Study Comparison No prior study available for comparison. Measurements 2D Linear Measurements IVSd: 0.91 0.6-0.9/0.6-1.0 cm LVIDd: 4.40 3.9-5.3/4.2-5.9 cm LVIDd Index: 2.10 2.4-3.2/2.2-3.1 cm/m2 LVIDs: 2.72 2.0-3.6 cm LVPWd: 1.03 0.7-1.1 cm Ao Root: 3.10 2.1-3.5 cm LA Diam: 3.80 2.7-3.8/3.0-4.0 cm LAIDs Index: 1.81 1.5-2.3 cm/m2 LV Mass: 175.94 67-162/88-224 g LV Mass Index: 83.78 43-95/49-115 g/m2 LVOT Diam: 2.20 3.0+(-)1.3 cm Mitral Valve MV Pk E: 0.76 MV PK A: 1.12 MV Decel Time: 92.00 E/A: 0.70 E'Lateral: 14.80 E'Medial: 8.92 E/E' Med: 8.60 E/E' Lat: 5.20 PHT: 27.00 MVA PHT: 8.15 Decel Sarpy: 8.30 Aortic Valve AoV Pk Kristopher: 2.00 AoV Mn Kristopher: 1.40 AoV VTI: 0.42 AoV Pk Grad: 16.00 Aov Mn Grad: 9.00 SANDRA Cont.VTI: 2.21 LVOT LVOT Pk Kristopher: 1.15 LVOT Mn Kristopher: 0.82 LVOT VTI: 0.25 LVOT Pk Grad: 5.00 LVOT Mn Grad: 4.00 LVOT Diam: 2.20 LVOT Area: 3.80 Diastolic Function MV Pk E: 0.76 MV Pk A: 1.12 E/A: 0.70 E'Medial: 8.92 E/E' Med: 8.60 E' Laterial: 14.80 E/E' Lat: 5.20 Right Ventricle TAPSE (mm): 31.00 TVS' Kristopher: 11.00 Tricuspid Valve TR Pk Kristopher: 2.44 TR Pk Grad: 24.00 RA Press: 8.00 RVSP: 32.00 Great Vessels Aorta Ao Root-2D: 3.10 2.0-3.7 cm Ao Asc: 2.90 2.1-3.4 cm Pulmonary Valve PV Pk Kristopher: 1.26 Peak PV Grad: 6.00 Updated in Other Vendor System with Status of Final Cyrus Landa MD electronically signed on 09/17/2024 1:57:07 PM with status of Final
[2024-09-16 07:02] LABS: Anion Gap 11 (12-20); Blood Urea Nitrogen 14 mg/dL (9-16); Carbon Dioxide 31 mmol/L (22-29); Chloride 104 mmol/L (96-108); Creatinine Clr Calc Pharmacy 103.7; Estimated Glomerular Filt Rate > 60; Glucose Random 149 mg/dL (60-115); Potassium 4.1 mmol/L (3.3-5.1); Sodium 142 mmol/L (135-145)
[2024-09-16 07:03] LABS: Basophils Percent Auto 0.2 % (0-2); Eosinophils Percent Auto 0.5 % (0-4); Hematocrit 39.7 % (37.0-47.0); Hemoglobin 12.5 g/dl (12.0-16.0); Imm Gran Abs Auto 0.07 X10*3/uL (0.00-0.03); Imm Gran Pct Auto 0.8 % (0.0-0.4); Lymphocytes Absolute Auto 1.3 X10*3/uL (1.2-4.9); Lymphocytes Percent Auto 14.8 % (20-40); Mean Corpuscular HGB Conc 31.5 g/dl (31.0-35.0); Mean Corpuscular Hemoglobin 28.1 pg (27.0-33.0); Mean Corpuscular Volume 89.2 fL (80.0-98.0); Mean Platelet Volume 10.7 fL (9.4-12.3); Monocytes Absolute Auto 0.5 X10*3/uL (0.1-1.2); Monocytes Percent Auto 5.6 % (2-11); Neutrophils Absolute Auto 6.6 x10*3/uL (2.0-8.3); Neutrophils Percent Auto 78.1 % (45-73); Platelet Count 188 X10*3/uL (160-400); Red Blood Count 4.45 X10*6/uL (4.20-5.50); Red Cell Distribution Width 13.6 % (11.0-16.0); White Blood Count 8.5 X10*3/uL (4.8-10.8)
[2024-09-16 07:43] LABS: Venous Blood Gas Refer to POC result
[2024-09-16 07:43] LABS: VBG Base Excess 5.2 mmol/L; VBG HCO3 33 mmol/L (22-26); VBG pCO2 65 mmHg; VBG pH 7.31 (7.32-7.43); VBG pO2 38 mmHg
[2024-09-16] MEDS: Dextroamphetamine/Amphetamine XR 10 MG CAP.ER.24H 20 MG PO (09:18)
[2024-09-16] MEDS: Nicotine 14 MG PATCH.TD24 TRANSDERMA (09:19)
[2024-09-16] MEDS: DULoxetine HCl 60 MG CAPSULE.DR PO (09:19)
[2024-09-16] MEDS: Folic Acid 1 MG TABLET PO (09:19)
[2024-09-16] MEDS: Multivitamin TABLET 1 TAB PO (09:19)
[2024-09-16] MEDS: lamoTRIgine 100 MG TABLET PO (09:19)
[2024-09-16] MEDS: Cholecalciferol (Vitamin D3) 25 MCG TABLET 50 MCG PO (09:19)
[2024-09-16] MEDS: 0.9 % Sodium Chloride Flush 3 ML SYRINGE IVFLUSH ×2 (09:20→15:39)
[2024-09-16] MEDS: acetaZOLAMIDE sodium 500 MG VIAL 250 MG IVPUSH ×2 (09:20→19:57)
[2024-09-16] MEDS: Buprenorphine/Naloxone 8/2 mg FILM 1 FILM BUCCAL ×3 (09:30→19:56)
[2024-09-16] MEDS: cloNIDine HCL 0.1 MG TABLET PO ×3 (09:30→19:56)
[2024-09-16] MEDS: Famotidine 20 MG TABLET PO ×2 (09:30→19:57)
[2024-09-16] MEDS: Topiramate 100 MG TABLET PO ×2 (09:33→19:57)
[2024-09-16 11:32] LABS: Adenovirus PCR Not Detected (Not Detect.); Bordetella parapertussis PCR Not Detected (Not Detect.); Bordetella pertussis PCR Not Detected (Not Detect.); Chlamydia pneumoniae PCR Not Detected (Not Detect.); Coronavirus 229E PCR Not Detected (Not Detect.); Coronavirus HKU1 PCR Not Detected (Not Detect.); Coronavirus NL63 PCR Not Detected (Not Detect.); Coronavirus OC43 PCR Not Detected (Not Detect.); Human metapneumovirus PCR Not Detected (Not Detect.); Influenza A PCR Not Detected (Not Detect.); Influenza B PCR Not Detected (Not Detect.); Mycoplasma pneumoniae PCR Not Detected (Not Detect.); Parainfluenza 1 PCR Not Detected (Not Detect.); Parainfluenza 2 PCR Not Detected (Not Detect.); Parainfluenza 3 PCR Not Detected (Not Detect.); Parainfluenza 4 PCR Not Detected (Not Detect.); RSV PCR Not Detected (Not Detect.); Rhino/Enterovirus PCR Detected (Not Detect.)
[2024-09-16 11:58] LABS: SARS-CoV-2 PCR Not Detected (Not Detect.)
[2024-09-16] MEDS: predniSONE 20 MG TABLET 40 MG PO (13:16)
[2024-09-16] MEDS: Amphetamine Mixed Salts 10 MG TABLET PO (13:16)
--- NOTE | 2024-09-16 14:08 | P.PNIM_ITS ---
Subjective Subjective Date of Service: 09/16/24 Interval History: wheezing; tested positive for rhinovirus; no sore throat Review of Systems Review of Systems: Yes all other systems are reviewed and are negative Physical Exam 2 Vital Signs: Vital Signs: Last Vital Signs Temp 99.1 F 09/16/24 12:00 Pulse 106 H 09/16/24 12:00 Resp 17 09/16/24 12:00 BP 126/66 09/16/24 13:21 Pulse Ox 93 09/16/24 12:00 O2 Del Method Nasal Cannula 09/16/24 12:00 O2 Flow Rate 2 09/16/24 12:00 BMI result Body Mass Index 43.1 Gen: in no acute distress HEENT: sclera anicteric, moist mucus membranes Neck: supple Lungs: clear to auscultation bilaterally Heart: diffuse inspiratory rhonchi + expiratory wheezes Abd: soft, non-tender, non-distended, obese Ext: bilateral 1+ leg edema Skin: warm/well-perfused Neuro: alert and oriented x3, no focal findings Psych: appropriate affect Objective Data Active Medications Acetaminophen (Acetaminophen 325 Mg Tablet) 650 mg PO Q6H PRN PRN Reason: Pain, Mild (Pain Scale 1-3), fever or headache Last Admin: 09/16/24 12:01 Dose: 650 mg Documented By: MACIEL Acetazolamide (Acetazolamide Sodium 500 Mg Vial) 250 mg IVPUSH BID [facility] Last Admin: 09/16/24 09:20 Dose: 250 mg Documented By: MACIEL Albuterol Sulfate (Albuterol Sulfate 90 Mcg 8 Gm Inhaler) 2 puff INHALE Q4H PRN PRN Reason: Shortness Of Breath Albuterol/Ipratropium (Albuterol/Iprat 2.5/0.5mg 3 Ml Ampul.Neb) 3 ml INHALE Q4H PRN PRN Reason: Shortness of Breath/Wheezing Amphetamine/Dextroamphetamine (Amphetamine Mixed Salts 10 Mg Tablet) 10 mg PO DAILY@1400 [facility] Last Admin: 09/16/24 13:16 Dose: 10 mg Documented By: MACIEL Amphetamine/Dextroamphetamine (Dextroamphetamine/Amphetamine Xr 10 Mg Cap.Er.24h) 20 mg PO DAILY@0730 [facility] Last Admin: 09/16/24 09:18 Dose: 20 mg Documented By: MACIEL Buprenorphine/Naloxone (Buprenorphine/Naloxone 8/2 Mg Film) 1 film BUCCAL TID@729, [facility] Last Admin: 09/16/24 13:21 Dose: 1 film Documented By: MACIEL Calcium Carbonate (Calcium Carbonate 750 Mg Tab.Chew) 750 mg PO Q4H PRN PRN Reason: Heartburn Cariprazine (Cariprazine Hcl 3 Mg Capsule) 3 mg PO BEDTIME@1999 [facility] Clonidine HCl (Clonidine Hcl 0.1 Mg Tablet) 0.1 mg PO TID@729, [facility]; Protocol Last Admin: 09/16/24 13:21 Dose: 0.1 mg Documented By: MACIEL Duloxetine HCl (Duloxetine Hcl 60 Mg Capsule.Dr) 60 mg PO DAILY@729 [facility] Last Admin: 09/16/24 09:19 Dose: 60 mg Documented By: MACIEL Enoxaparin Sodium (Enoxaparin Sodium 40 Mg/0.4 Ml Syringe) 40 mg SUBCUT Q24H [facility] Last Admin: 09/15/24 18:30 Dose: 40 mg Documented By: KEVON Famotidine (Famotidine 20 Mg Tablet) 20 mg PO BID@ [facility] Last Admin: 09/16/24 09:30 Dose: 20 mg Documented By: MACIEL Folic Acid (Folic Acid 1 Mg Tablet) 1 mg PO DAILY@729 [facility] Last Admin: 09/16/24 09:19 Dose: 1 mg Documented By: MACIEL Guaifenesin (Guaifenesin La 600 Mg Tab.Er.12h) 600 mg PO BID PRN PRN Reason: congestion Ibuprofen (Ibuprofen 600 Mg Tablet) 600 mg PO Q6H PRN PRN Reason: Pain, Moderate(Pain Scale 4-6) Lamotrigine (Lamotrigine 100 Mg Tablet) 100 mg PO DAILY@729 [facility] Last Admin: 09/16/24 09:19 Dose: 100 mg Documented By: MACIEL Magnesium Hydroxide (Milk Of Magnesia 30 Ml Oral.Susp) 30 ml PO DAILY PRN PRN Reason: Constipation Melatonin (Melatonin 3 Mg Tablet) 6 mg PO BEDTIME PRN PRN Reason: Insomnia Multivitamins/Vitamin C (Multivitamin Tablet) 1 tab PO DAILY@729 [facility] Last Admin: 09/16/24 09:19 Dose: 1 tab Documented By: MACIEL Nicotine (Nicotine 14 Mg Patch.Td24) 14 mg TRANSDERMA DAILY [facility] Last Admin: 09/16/24 09:47 Dose: Not Given Documented By: AIDA Non-Admin Reason: Duplicate Order Nicotine Polacrilex (Nicotine Polacrilex Lozenge 2 Mg Lozenge) 2 mg BUCCAL Q2H PRN PRN Reason: Nicotine Cravings Last Admin: 09/16/24 12:01 Dose: 2 mg Documented By: MACIEL Nicotine Polacrilex (Nicotine Polacrilex 2 Mg Gum) 2 mg BUCCAL Q2H PRN PRN Reason: Nicotine Cravings Omeprazole (Omeprazole 20 Mg Capsule.Dr) 20 mg PO DAILY@629 [facility] Ondansetron HCl (Ondansetron Hcl 4 Mg/2 Ml Vial) 4 mg IVPUSH Q8H PRN PRN Reason: Nausea and Vomiting Prednisone (Prednisone 20 Mg Tablet) 40 mg PO DAILY [facility] Last Admin: 09/16/24 13:16 Dose: 40 mg Documented By: MACIEL Simethicone (Simethicone 80 Mg Tab.Chew) 80 mg PO QIDWMHS PRN PRN Reason: gas relief Sodium Chloride (0.9 % Sodium Chloride Flush 3 Ml Syringe) 3 ml IVFLUSH QSHIFT [facility] Last Admin: 09/16/24 09:20 Dose: 3 ml Documented By: MACIEL Topiramate (Topiramate 100 Mg Tablet) 100 mg PO BID@ [facility] Last Admin: 09/16/24 09:33 Dose: 100 mg Documented By: MACIEL Vitamin D (Cholecalciferol (Vitamin D3) 25 Mcg Tablet) 50 mcg PO DAILY@729 [facility] Last Admin: 09/16/24 09:19 Dose: 50 mcg Documented By: MACIEL Labs 09/16/24 06:10 09/16/24 06:10 Labs: Laboratory Results - last 24 hr 09/15/24 09/15/24 09/15/24 15:45 16:06 19:07 MCV MCH MCHC RDW Plt Count MPV Immature Gran % (Auto) Neut % (Auto) Lymph % (Auto) [place] % (Auto) Eos % (Auto) Baso % (Auto) Lymph # (Auto) [place] # (Auto) Eos # (Auto) Baso # (Auto) Abs Immat Gran (auto) Absolute Neuts (auto) Absolute Nucleated RBC Nucleated RBC % (auto) VBG pH VBG pCO2 VBG pO2 VBG HCO3 VBG O2 Saturation VBG Base Excess Anion Gap Estim Creat Clear Calc Estimated GFR Random Glucose Estimat Average Glucose 123 Hemoglobin A1c % 5.9 Calcium Ammonia 48 Albumin 3.7 TSH 0.91 Urine Color Yellow Urine Appearance Clear Urine pH 6.0 Ur Specific Robinson <= 1.005 Urine Protein Negative Urine Glucose (UA) Negative Urine Ketones Negative Urine Blood Small (1+) H Urine Nitrite Negative Ur Leukocyte Esterase Negative Urine RBC 3-5 H Urine WBC 0-5 Ur Squamous Epith Cells 0-2 Urine Bacteria None Seen Hyaline Casts 0-2 Urine Opiates Screen Not Detected Ur Buprenorphine Scrn Positive H Ur Oxycodone Screen Not Detected Urine Methadone Screen Not Detected Urine Fentanyl Screen Not Detected Ur Barbiturates Screen Not Detected Ur Phencyclidine Scrn Not Detected Ur Amphetamines Screen Not Detected U Benzodiazepines Scrn Not Detected Urine Cocaine Screen Not Detected U Marijuana (THC) Screen Not Detected Respiratory Panel Wall See Note Adenovirus (Rapid PCR) Not Detected B.pert (TEM-PCR) Not Detected B.parapertussis DNA PCR Not Detected C. pneumoniae DNA (PCR) Not Detected Coronavirus OC43 (PCR) Not Detected Coronavirus HKU1 (PCR) Not Detected Coronavirus 229E (PCR) Not Detected Coronavirus NL63 (PCR) Not Detected Human Metapneumovir PCR Not Detected Influenza A (RT-PCR) Not Detected Influenza B (RT-PCR) Not Detected M. pneumoniae (PCR) Not Detected Parainfluenza 1 (PCR) Not Detected Parainfluenza 2 (PCR) Not Detected Parainfluenza 3 (PCR) Not Detected Parainfluenza 4 (PCR) Not Detected RSV (PCR) Not Detected Entero/Rhino (PCR) Detected A SARS-CoV-2 RNA (RT-PCR) Not Detected 09/16/24 09/16/24 06:10 07:38 MCV 89.2 MCH 28.1 MCHC 31.5 RDW 13.6 Plt Count 188 MPV 10.7 Immature Gran % (Auto) 0.8 H Neut % (Auto) 78.1 H Lymph % (Auto) 14.8 L [place] % (Auto) 5.6 Eos % (Auto) 0.5 Baso % (Auto) 0.2 Lymph # (Auto) 1.3 [place] # (Auto) 0.5 Eos # (Auto) 0.0 Baso # (Auto) 0.0 Abs Immat Gran (auto) 0.07 H Absolute Neuts (auto) 6.6 Absolute Nucleated RBC 0.000 Nucleated RBC % (auto) 0.0 VBG pH 7.31 L VBG pCO2 65 VBG pO2 38 VBG HCO3 33 H VBG O2 Saturation 56.0 VBG Base Excess 5.2 Anion Gap 11 L Estim Creat Clear Calc 103.7 Estimated GFR > 60 Random Glucose 149 H Estimat Average Glucose Hemoglobin A1c % Calcium 9.0 Ammonia Albumin TSH Urine Color Urine Appearance Urine pH Ur Specific [place] Urine Protein Urine Glucose (UA) Urine Ketones Urine Blood Urine Nitrite Ur Leukocyte Esterase Urine RBC Urine WBC Ur Squamous Epith Cells Urine Bacteria Hyaline Casts Urine Opiates Screen Ur Buprenorphine Scrn Ur Oxycodone Screen Urine Methadone Screen Urine Fentanyl Screen Ur Barbiturates Screen Ur Phencyclidine Scrn Ur Amphetamines Screen U Benzodiazepines Scrn Urine Cocaine Screen U Marijuana (THC) Screen Respiratory Panel Wall Adenovirus (Rapid PCR) B.pert (TEM-PCR) B.parapertussis DNA PCR C. pneumoniae DNA (PCR) Coronavirus OC43 (PCR) Coronavirus HKU1 (PCR) Coronavirus 229E (PCR) Coronavirus NL63 (PCR) Human Metapneumovir PCR Influenza A (RT-PCR) Influenza B (RT-PCR) M. pneumoniae (PCR) Parainfluenza 1 (PCR) Parainfluenza 2 (PCR) Parainfluenza 3 (PCR) Parainfluenza 4 (PCR) RSV (PCR) Entero/Rhino (PCR) SARS-CoV-2 RNA (RT-PCR) Assessment and Plan (1) COPD (chronic obstructive pulmonary disease): Status: Acute Plan d2 for 49yo F with COPD on home O2, substance abuse on Suboxone, fibromyalgia, prediabetes presenting with dyspnea + edema, found to have enterovirus/rhinovirus; briefly on BiPAP in ED acute/chronic hypercapenic respiratory failure - Pulm consulted, continue acetazolamide, outpt sleep study COPD exacerbation due to rhinovirus - prednisone, nebs - positive for Strep A but no symptoms of sore throat [tested because of multiple positive contacts] leg edema - BNP normal, TTE pending fibromyalgia mood disorder - Psych consult re: multiple sedating medications [on cyclobenzaprine, clonidine, duloxetine, hydroxyzine, quetiapine, cariprazine, topiramate] morbid obesity - diet/exercise counseling substance abuse disorder - continue Suboxone VTE prophylaxis - enoxaparin dispo - eventual return to intermediate In my clinical judgment, the patient requires continued inpatient hospitalization for the following reasons: COPD Quality Stroke Does the patient have a stroke diagnosis?: No VTE Prior VTE?: No VTE Risk Level:: Medical - moderate - high VTE Device Contraindication: N/A - Device Ordered VTE Drug Contraindication: N/A - Med Ordered
[2024-09-16] MEDS: Enoxaparin Sodium 40 MG/0.4 ML SYRINGE SUBCUT (15:39)
--- NOTE | 2024-09-16 15:43 | MHC.CM.PN ---
Addendum entered by Shey Price 09/16/24 16:17: Patients dtr will provide transport home. Original Note: IMM 09/16/24 Patient is currently living @ the [facility]. She is on Suboxone. She states that she has been clean for 3 months. She was @ her Suboxone program [facility], in [place]. Her Museum Archivist Bree notices Face + LE edema. She was sent to the ER. DX CHF. She lives with her in [place].She is independent with all functional mobility. Her PCP is Azalia Owens [facility]. Her Psychiatrist is Dr [email or web address]. A new HCP has been documented. A copy has been scanned into EMR. Patient also received copies. The Patient uses [facility] 2-3L. She is a [facility] patient. [facility] will need to be contacted prior to DC. She has not been set up with [facility]. She is almost out of O2 at home. She was not aware that [facility] has changed oxygen preferred provider to [facility]. DP return to [facility]. She may need assist with transportation at discharge.
[2024-09-16] MEDS: Cariprazine HCl 3 MG CAPSULE PO (19:56)
[2024-09-16] MEDS: Simethicone 80 MG TAB.CHEW PO (19:57)
[2024-09-16] MEDS: guaiFENesin LA 600 MG TAB.ER.12H PO (19:57)
[2024-09-16] MEDS: Ibuprofen 600 MG TABLET PO (19:58)
[2024-09-16 20:41] LABS: Glucose, Whole Blood 157 mg/dL (60-115)
[2024-09-17] VITALS (7 sets, daily range): BP systolic 115–140; BP diastolic 66–100; PULSE 85–115; RESP 16–18; TEMP 36–37.2; O2SAT 82–99
--- NOTE | 2024-09-17 | ECG_ITS ---
Test Reason : chest pain Blood Pressure : / mmHG Vent. Rate : 087 BPM Atrial Rate : 087 BPM P-R Int : 146 ms QRS Dur : 076 ms QT Int : 364 ms P-R-T Axes : 055 072 054 degrees QTc Int : 438 ms Poor data quality, interpretation may be adversely affected Normal sinus rhythm Normal ECG When compared with ECG of 15-SEP-2024 12:01, T wave amplitude has increased in Anterolateral leads Referred By: Toya Gandara Electronically Signed By:Cyrus Landa
[2024-09-17] MEDS: Nicotine Polacrilex Lozenge 2 MG LOZENGE BUCCAL ×6 (00:48→16:28)
[2024-09-17] MEDS: 0.9 % Sodium Chloride Flush 3 ML SYRINGE IVFLUSH ×3 (01:38→16:27)
[2024-09-17] MEDS: Omeprazole 20 MG CAPSULE.DR PO (05:47)
[2024-09-17 06:50] LABS: MANUAL DIFF FLAG NO
[2024-09-17 06:56] LABS: Basophils Percent Auto 0.3 % (0-2); Eosinophils Absolute Auto 0.2 X10*3/uL (0.0-0.4); Eosinophils Percent Auto 1.9 % (0-4); Hematocrit 40.1 % (37.0-47.0); Hemoglobin 12.7 g/dl (12.0-16.0); Lymphocytes Absolute Auto 2.1 X10*3/uL (1.2-4.9); Lymphocytes Percent Auto 21.2 % (20-40); Mean Corpuscular HGB Conc 31.7 g/dl (31.0-35.0); Mean Corpuscular Hemoglobin 28.7 pg (27.0-33.0); Mean Corpuscular Volume 90.5 fL (80.0-98.0); Mean Platelet Volume 10.6 fL (9.4-12.3); Monocytes Absolute Auto 0.6 X10*3/uL (0.1-1.2); Monocytes Percent Auto 5.9 % (2-11); Neutrophils Absolute Auto 6.8 x10*3/uL (2.0-8.3); Neutrophils Percent Auto 69.7 % (45-73); Platelet Count 186 X10*3/uL (160-400); Red Blood Count 4.43 X10*6/uL (4.20-5.50); Red Cell Distribution Width 13.6 % (11.0-16.0); White Blood Count 9.8 X10*3/uL (4.8-10.8)
[2024-09-17 07:17] LABS: Anion Gap 11 (12-20); Blood Urea Nitrogen 14 mg/dL (9-16); Calcium 8.9 mg/dL (8.4-10.2); Carbon Dioxide 28 mmol/L (22-29); Chloride 104 mmol/L (96-108); Estimated Glomerular Filt Rate > 60; Glucose Random 140 mg/dL (60-115); Potassium 3.8 mmol/L (3.3-5.1); Sodium 139 mmol/L (135-145)
[2024-09-17 07:29] LABS: Glucose, Whole Blood 148 mg/dL (60-115)
[2024-09-17] MEDS: Nicotine 14 MG PATCH.TD24 TRANSDERMA (09:06)
[2024-09-17] MEDS: predniSONE 20 MG TABLET 40 MG PO (09:07)
[2024-09-17] MEDS: DULoxetine HCl 60 MG CAPSULE.DR PO (09:07)
[2024-09-17] MEDS: Acetaminophen 325 MG TABLET 650 MG PO (09:07)
[2024-09-17] MEDS: Famotidine 20 MG TABLET PO (09:08)
[2024-09-17] MEDS: Dextroamphetamine/Amphetamine XR 10 MG CAP.ER.24H 20 MG PO (09:08)
[2024-09-17] MEDS: Topiramate 100 MG TABLET PO (09:08)
[2024-09-17] MEDS: Folic Acid 1 MG TABLET PO (09:08)
[2024-09-17] MEDS: cloNIDine HCL 0.1 MG TABLET PO ×2 (09:08→13:43)
[2024-09-17] MEDS: lamoTRIgine 100 MG TABLET PO (09:08)
[2024-09-17] MEDS: Cholecalciferol (Vitamin D3) 25 MCG TABLET 50 MCG PO (09:08)
[2024-09-17] MEDS: acetaZOLAMIDE sodium 500 MG VIAL 250 MG IVPUSH (09:09)
[2024-09-17] MEDS: Multivitamin TABLET 1 TAB PO (09:09)
[2024-09-17] MEDS: Buprenorphine/Naloxone 8/2 mg FILM 1 FILM BUCCAL ×2 (09:09→13:44)
[2024-09-17 11:40] LABS: Glucose, Whole Blood 171 mg/dL (60-115)
[2024-09-17] MEDS: Insulin Lispro 100 UNIT/ML 3 ML VIAL SUBCUT (11:49)
--- NOTE | 2024-09-17 12:03 | P.PNIM_ITS ---
Subjective Subjective Date of Service: 09/17/24 Interval History: wheezing/rhonchi improving less dyspneic Ru will no longer take [facility] so RT setting up oxygen all over again Review of Systems Review of Systems: Yes all other systems are reviewed and are negative Physical Exam 2 Vital Signs: Vital Signs: Last Vital Signs Temp 98.9 F 09/17/24 11:22 Pulse 95 09/17/24 11:22 Resp 16 09/17/24 11:22 BP 139/100 H 09/17/24 11:22 Pulse Ox 99 09/17/24 11:22 O2 Del Method Nasal Cannula 09/17/24 11:22 O2 Flow Rate 2 09/17/24 11:22 BMI result Body Mass Index 43.1 Gen: in no acute distress HEENT: sclera anicteric, moist mucus membranes Neck: supple Lungs: clear to auscultation bilaterally Heart: diffuse inspiratory rhonchi + expiratory wheezes Abd: soft, non-tender, non-distended, obese Ext: bilateral 1+ leg edema Skin: warm/well-perfused Neuro: alert and oriented x3, no focal findings Psych: appropriate affect Objective Data Active Medications Acetaminophen (Acetaminophen 325 Mg Tablet) 650 mg PO Q6H PRN PRN Reason: Pain, Mild (Pain Scale 1-3), fever or headache Last Admin: 09/17/24 09:07 Dose: 650 mg Documented By: MACIEL Acetazolamide (Acetazolamide Sodium 500 Mg Vial) 250 mg IVPUSH BID [facility] Last Admin: 09/17/24 09:09 Dose: 250 mg Documented By: MACIEL Albuterol Sulfate (Albuterol Sulfate 90 Mcg 8 Gm Inhaler) 2 puff INHALE Q4H PRN PRN Reason: Shortness Of Breath Albuterol/Ipratropium (Albuterol/Iprat 2.5/0.5mg 3 Ml Ampul.Neb) 3 ml INHALE Q4H PRN PRN Reason: Shortness of Breath/Wheezing Amphetamine/Dextroamphetamine (Amphetamine Mixed Salts 10 Mg Tablet) 10 mg PO DAILY@1400 [facility] Last Admin: 09/16/24 13:16 Dose: 10 mg Documented By: MACIEL Amphetamine/Dextroamphetamine (Dextroamphetamine/Amphetamine Xr 10 Mg Cap.Er.24h) 20 mg PO DAILY@0730 [facility] Last Admin: 09/17/24 09:08 Dose: 20 mg Documented By: MACIEL Buprenorphine/Naloxone (Buprenorphine/Naloxone 8/2 Mg Film) 1 film BUCCAL TID@729, [facility] Last Admin: 09/17/24 09:09 Dose: 1 film Documented By: MACIEL Calcium Carbonate (Calcium Carbonate 750 Mg Tab.Chew) 750 mg PO Q4H PRN PRN Reason: Heartburn Cariprazine (Cariprazine Hcl 3 Mg Capsule) 3 mg PO BEDTIME@1999 [facility] Last Admin: 09/16/24 19:56 Dose: 3 mg Documented By: AMBER Clonidine HCl (Clonidine Hcl 0.1 Mg Tablet) 0.1 mg PO TID@729,1399,1999 [facility]; Protocol Last Admin: 09/17/24 09:08 Dose: 0.1 mg Documented By: MACIEL Duloxetine HCl (Duloxetine Hcl 60 Mg Capsule.Dr) 60 mg PO DAILY@729 [facility] Last Admin: 09/17/24 09:07 Dose: 60 mg Documented By: MACIEL Enoxaparin Sodium (Enoxaparin Sodium 40 Mg/0.4 Ml Syringe) 40 mg SUBCUT Q24H [facility] Last Admin: 09/16/24 15:39 Dose: 40 mg Documented By: MACIEL Famotidine (Famotidine 20 Mg Tablet) 20 mg PO BID@ [facility] Last Admin: 09/17/24 09:08 Dose: 20 mg Documented By: MACIEL Folic Acid (Folic Acid 1 Mg Tablet) 1 mg PO DAILY@729 [facility] Last Admin: 09/17/24 09:08 Dose: 1 mg Documented By: MACIEL Glucose (Glucose Gel 15 Gm Gel..Gram.) 15 gm PO Q15M PRN; Protocol PRN Reason: per Hypoglycemia Standing Ord. Guaifenesin (Guaifenesin La 600 Mg Tab.Er.12h) 600 mg PO BID PRN PRN Reason: congestion Last Admin: 09/16/24 19:57 Dose: 600 mg Documented By: AMBER Dextrose (D10) 250 mls @ 750 mls/hr IV Q15M PRN; Protocol PRN Reason: per Hypoglycemia Standing Ord. Ibuprofen (Ibuprofen 600 Mg Tablet) 600 mg PO Q6H PRN PRN Reason: Pain, Moderate(Pain Scale 4-6) Last Admin: 09/16/24 19:58 Dose: 600 mg Documented By: AMBER Insulin Human Lispro (Insulin Lispro 100 Unit/Ml 3 Ml Vial) 0 unit SUBCUT QIDACHS [facility]; Protocol Last Admin: 09/17/24 11:49 Dose: 2 unit Documented By: MACIEL Lamotrigine (Lamotrigine 100 Mg Tablet) 100 mg PO DAILY@729 [facility] Last Admin: 09/17/24 09:08 Dose: 100 mg Documented By: MACIEL Lorazepam (Lorazepam 1 Mg Tablet) 1 mg PO BEDTIME PRN PRN Reason: anxiety/restlessness Last Admin: 09/16/24 22:47 Dose: 1 mg Documented By: AMBER Magnesium Hydroxide (Milk Of Magnesia 30 Ml Oral.Susp) 30 ml PO DAILY PRN PRN Reason: Constipation Melatonin (Melatonin 3 Mg Tablet) 6 mg PO BEDTIME PRN PRN Reason: Insomnia Multivitamins/Vitamin C (Multivitamin Tablet) 1 tab PO DAILY@729 [facility] Last Admin: 09/17/24 09:09 Dose: 1 tab Documented By: MACIEL Nicotine (Nicotine 14 Mg Patch.Td24) 14 mg TRANSDERMA DAILY [facility] Last Admin: 09/17/24 09:06 Dose: 14 mg Documented By: MACIEL Nicotine Polacrilex (Nicotine Polacrilex Lozenge 2 Mg Lozenge) 2 mg BUCCAL Q2H PRN PRN Reason: Nicotine Cravings Last Admin: 09/17/24 11:49 Dose: 2 mg Documented By: MACIEL Nicotine Polacrilex (Nicotine Polacrilex 2 Mg Gum) 2 mg BUCCAL Q2H PRN PRN Reason: Nicotine Cravings Omeprazole (Omeprazole 20 Mg Capsule.Dr) 20 mg PO DAILY@629 [facility] Last Admin: 09/17/24 05:47 Dose: 20 mg Documented By: AMBER Ondansetron HCl (Ondansetron Hcl 4 Mg/2 Ml Vial) 4 mg IVPUSH Q8H PRN PRN Reason: Nausea and Vomiting Prednisone (Prednisone 20 Mg Tablet) 40 mg PO DAILY [facility] Last Admin: 09/17/24 09:07 Dose: 40 mg Documented By: MACIEL Simethicone (Simethicone 80 Mg Tab.Chew) 80 mg PO QIDWMHS PRN PRN Reason: gas relief Last Admin: 09/16/24 19:57 Dose: 80 mg Documented By: AMBER Sodium Chloride (0.9 % Sodium Chloride Flush 3 Ml Syringe) 3 ml IVFLUSH QSHIFT [facility] Last Admin: 09/17/24 09:06 Dose: 3 ml Documented By: MACIEL Topiramate (Topiramate 100 Mg Tablet) 100 mg PO BID@ [facility] Last Admin: 09/17/24 09:08 Dose: 100 mg Documented By: MACIEL Vitamin D (Cholecalciferol (Vitamin D3) 25 Mcg Tablet) 50 mcg PO DAILY@729 [facility] Last Admin: 09/17/24 09:08 Dose: 50 mcg Documented By: MACIEL Labs 09/17/24 06:34 09/17/24 06:34 Labs: Laboratory Results - last 24 hr 09/16/24 09/17/24 09/17/24 20:35 06:34 07:23 MCV 90.5 MCH 28.7 MCHC 31.7 RDW 13.6 Plt Count 186 MPV 10.6 Immature Gran % (Auto) 1.0 H Neut % (Auto) 69.7 Lymph % (Auto) 21.2 [place] % (Auto) 5.9 Eos % (Auto) 1.9 Baso % (Auto) 0.3 Lymph # (Auto) 2.1 [place] # (Auto) 0.6 Eos # (Auto) 0.2 Baso # (Auto) 0.0 Abs Immat Gran (auto) 0.10 H Absolute Neuts (auto) 6.8 Absolute Nucleated RBC 0.000 Nucleated RBC % (auto) 0.0 Anion Gap 11 L Estim Creat Clear Calc 100.0 Estimated GFR > 60 POC Glucose 157 H 148 H Random Glucose 140 H Calcium 8.9 09/17/24 11:27 MCV MCH MCHC RDW Plt Count MPV Immature Gran % (Auto) Neut % (Auto) Lymph % (Auto) [place] % (Auto) Eos % (Auto) Baso % (Auto) Lymph # (Auto) [place] # (Auto) Eos # (Auto) Baso # (Auto) Abs Immat Gran (auto) Absolute Neuts (auto) Absolute Nucleated RBC Nucleated RBC % (auto) Anion Gap Estim Creat Clear Calc Estimated GFR POC Glucose 171 H Random Glucose Calcium Assessment and Plan (1) COPD (chronic obstructive pulmonary disease): Status: Acute Plan d3 for 49yo F with COPD on home O2, substance abuse on Suboxone, fibromyalgia, prediabetes presenting with dyspnea + edema, found to have enterovirus/rhinovirus; briefly on BiPAP in ED acute/chronic hypercapenic respiratory failure - Pulm consulted, will stop acetazolamide now, outpt sleep study - has to recertify O2 as [facility] no longer takes [facility] COPD exacerbation due to rhinovirus - continue prednisone, nebs - positive for Strep A but no symptoms of sore throat [tested because of multiple positive contacts] leg edema - BNP normal, TTE pending fibromyalgia mood disorder - Psych consult re: multiple sedating medications [on cyclobenzaprine, clonidine, duloxetine, hydroxyzine, quetiapine, cariprazine, topiramate] morbid obesity - diet/exercise counseling substance abuse disorder - continue Suboxone VTE prophylaxis - enoxaparin dispo - eventual return to nursing home In my clinical judgment, the patient requires continued inpatient hospitalization for the following reasons: recertifying O2 Total time managing care of this patient today: 35 minutes. Quality Stroke Does the patient have a stroke diagnosis?: No VTE Prior VTE?: No VTE Risk Level:: Medical - moderate - high VTE Device Contraindication: N/A - Device Ordered VTE Drug Contraindication: N/A - Med Ordered
[2024-09-17] MEDS: Amphetamine Mixed Salts 10 MG TABLET PO (13:44)
--- NOTE | 2024-09-17 15:20 | MHC.CM.PN ---
Per RT, Patient's new O2 set up through [facility] should be set up at [facility] around 4:15 today. CM has left a detailed message for [facility] @ [phone] and awaits a return call to coordinate the final dc plan. CM awaits a return call.
--- NOTE | 2024-09-17 16:00 | MHC.CM.PN ---
Per RT, Patient was able to reach staff at [facility], who will provide transportation back there, today at 4:30PM.
--- NOTE | 2024-09-17 16:09 | PM.DS ---
DS: Providers Provider Date of Service: 09/17/24 Date of admission: 09/15/24 16:02 Date of discharge: 09/17/24 Primary care physician: Karen Macedo APRN Consults: 09/15/24 15:29 Consult to Pulmonology Stat Consulting Provider: [facility] [place] Pulmonology Services Reason for consultation: acute on chronic hypercapnic RF, COPD exacerbation, on BiPAP Has provider been notified: No DS: Diagnosis Discharge Diagnosis (1) COPD exacerbation: Status: Acute (2) Obesity hypoventilation syndrome: Status: Acute (3) Acute on chronic respiratory failure with hypoxia and hypercapnia: Status: Acute (4) Rhinovirus infection: Status: Acute DS: Summary Hospital Course Hospital Course: From the history and physical by the admitting hospitalist, AMI Hoff, 09/15/24: Patient is a 49-year-old female with a past medical history significant for COPD on O2 at home p.r.n., ALEKS, substance use on Suboxone, fibromyalgia, and prediabetes who reported to the emergency department today due to worsening shortness of breath and dyspnea with exertion as well as bilateral lower extremity edema x2 days. She reports a productive cough with yellow sputum and subjective fevers at home, none measured. She reported that she was also feeling confused lately. She has had the fever, cough, and body aches reportedly for weeks with worsening dyspnea. No sore throat but has been exposed to somebody recently with strep throat. She is also having sharp generalized abdominal pains rating them a 7/10 with movement. She denies diarrhea, constipation, hematochezia, nausea or vomiting. She does have ulcerative colitis reports no medications for this as well as acid reflux and has been taking famotidine without improvement. 49yo F with COPD on home O2, substance abuse on Suboxone, fibromyalgia, prediabetes, and morbid obesity presenting with dyspnea + edema, found to have hypercarbia and briefly placed on BiPAP in the ED. She was admitted to the telemetry unit and ultimately diagnosed with COPD exacerbaion due to enterovirus/rhinovirus. She was kept on her home O2 of 2L [recertified as [employer] no longer takes CCA]. She was given several doses of acetazolamide. She was treated with methylprednisolone, then prednisone. She was discharged on 3 more days of prednisone. She will need an outpatient sleep study to see if she qualifies for nocturnal CPAP or BiPAP. Ultimately not felt to have CHF. Echocardiogram 09/16/24: - Normal left ventricular size and systolic function. There is mildly increased left ventricular wall thickness. The visually estimated ejection fraction is between 60-65%. There is no evidence of regional wall motion abnormalities. Diastolic function is normal for age. - Normal right ventricular cavity size and systolic function. - The left atrium is mildly dilated. - Moderately elevated right atrial pressure. Tested positive for Group A strep but without symptoms of sore throat, felt to be colonized rather than infected, so not treated. She was discharged back to her detention. Time Attestation Discharge Coordination Time (in mins): 45 Quality: Safe Use of Opioids Does Pt have an Active Cancer Diagnosis on the Problem List?: No Quality: Stroke Does the patient have a stroke diagnosis?: No Physical Exam Vital Signs: Vital Signs: Last Vital Signs Temp 98.6 F 09/17/24 15:24 Pulse 115 H 09/17/24 15:24 Resp 18 09/17/24 15:24 BP 115/74 09/17/24 15:24 Pulse Ox 94 09/17/24 15:24 O2 Del Method Nasal Cannula 09/17/24 15:24 O2 Flow Rate 3 09/17/24 15:24 BMI result Body Mass Index 43.1 Gen: in no acute distress HEENT: sclera anicteric, moist mucus membranes Neck: supple Lungs: clear to auscultation bilaterally Heartt: soft expiratory wheeze at bases bialterally Abd: soft, non-tender, non-distended, obese Ext: bilateral 1+ leg edema Skin: warm/well-perfused Neuro: alert and oriented x3, no focal findings Psych: appropriate affect DS: Data Data Completed and Pending Completed studies during hospitalization [Text1]: Laboratory Results WBC 9.8 X10*3/uL (4.8-10.8) 09/17/24 06:34 RBC 4.43 X10*6/uL (4.20-5.50) 09/17/24 06:34 Hgb 12.7 g/dl (12.0-16.0) 09/17/24 06:34 Hct 40.1 % (37.0-47.0) 09/17/24 06:34 MCV 90.5 fL (80.0-98.0) 09/17/24 06:34 MCH 28.7 pg (27.0-33.0) 09/17/24 06:34 MCHC 31.7 g/dl (31.0-35.0) 09/17/24 06:34 RDW 13.6 % (11.0-16.0) 09/17/24 06:34 Plt Count 186 X10*3/uL (160-400) 09/17/24 06:34 MPV 10.6 fL (9.4-12.3) 09/17/24 06:34 Immature Gran % (Auto) 1.0 % (0.0-0.4) H 09/17/24 06:34 Neut % (Auto) 69.7 % (45-73) 09/17/24 06:34 Lymph % (Auto) 21.2 % (20-40) 09/17/24 06:34 Woods % (Auto) 5.9 % (2-11) 09/17/24 06:34 Eos % (Auto) 1.9 % (0-4) 09/17/24 06:34 Baso % (Auto) 0.3 % (0-2) 09/17/24 06:34 Lymph # (Auto) 2.1 X10*3/uL (1.2-4.9) 09/17/24 06:34 Woods # (Auto) 0.6 X10*3/uL (0.1-1.2) 09/17/24 06:34 Eos # (Auto) 0.2 X10*3/uL (0.0-0.4) 09/17/24 06:34 Baso # (Auto) 0.0 X10*3/uL (0.0-0.2) 09/17/24 06:34 Abs Immat Gran (auto) 0.10 X10*3/uL (0.00-0.03) H 09/17/24 06:34 Absolute Neuts (auto) 6.8 x10*3/uL (2.0-8.3) 09/17/24 06:34 Absolute Nucleated RBC 0.000 X10*3/uL (0.0-0.012) 09/17/24 06:34 Nucleated RBC % (auto) 0.0 /100WBC (0.0-0.2) 09/17/24 06:34 D-Dimer High Sensitivty < 150 NG/ML 09/15/24 13:01 VBG pH 7.31 (7.32-7.43) L 09/16/24 07:38 VBG pCO2 65 mmHg 09/16/24 07:38 VBG pO2 38 mmHg 09/16/24 07:38 VBG HCO3 33 mmol/L (22-26) H 09/16/24 07:38 VBG O2 Saturation 56.0 % 09/16/24 07:38 VBG Base Excess 5.2 mmol/L 09/16/24 07:38 Sodium 139 mmol/L (135-145) 09/17/24 06:34 Potassium 3.8 mmol/L (3.3-5.1) 09/17/24 06:34 Chloride 104 mmol/L (96-108) 09/17/24 06:34 Carbon Dioxide 28 mmol/L (22-29) 09/17/24 06:34 Anion Gap 11 (12-20) L 09/17/24 06:34 BUN 14 mg/dL (9-16) 09/17/24 06:34 Creatinine 0.83 mg/dL (0.5-1.4) 09/17/24 06:34 Estim Creat Clear Calc 100.0 09/17/24 06:34 Estimated GFR > 60 09/17/24 06:34 POC Glucose 171 mg/dL (60-115) H 09/17/24 11:27 Random Glucose 140 mg/dL (60-115) H 09/17/24 06:34 Estimat Average Glucose 123 mg/dL 09/15/24 15:45 Hemoglobin A1c % 5.9 % (<6.0) 09/15/24 15:45 Calcium 8.9 mg/dL (8.4-10.2) 09/17/24 06:34 Total Bilirubin 0.2 mg/dL (0.0-1.0) 09/15/24 11:39 AST 24 U/L (5-31) 09/15/24 11:39 ALT 18 U/L (0-31) 09/15/24 11:39 Alkaline Phosphatase 84 U/L (39-117) 09/15/24 11:39 Ammonia 48 umol/L (13-55) 09/15/24 16:06 Total Creatine Kinase 146 U/L (26-140) H 09/15/24 11:39 Troponin I High Sens < 2.7 ng/L (<3.5-17.0) 09/15/24 11:39 C-Reactive Protein 0.50 mg/dL (< or = 0.50) 09/15/24 11:39 B-Natriuretic Peptide < 10 pg/mL (<100) 09/15/24 11:39 Total Protein 6.1 g/dL (6.5-8.0) L 09/15/24 11:39 Albumin 3.7 g/dL (3.5-5.0) 09/15/24 15:45 TSH 0.91 uIU/mL (0.32-4.0) 09/15/24 15:45 Beta HCG, Quant < 2 mIU/mL 09/15/24 11:39 Urine Color Yellow 09/15/24 19:07 Urine Appearance Clear 09/15/24 19:07 Urine pH 6.0 (5.0-9.0) 09/15/24 19:07 Ur Specific [place] <= 1.005 (1.005-1.025) 09/15/24 19:07 Urine Protein Negative mg/dL (Neg-Trace) 09/15/24 19:07 Urine Glucose (UA) Negative mg/dL (Negative) 09/15/24 19:07 Urine Ketones Negative mg/dL (Negative) 09/15/24 19:07 Urine Blood Small (1+) (Negative) H 09/15/24 19:07 Urine Nitrite Negative (Negative) 09/15/24 19:07 Ur Leukocyte Esterase Negative (Negative) 09/15/24 19:07 Urine RBC 3-5 /HPF (0-2) H 09/15/24 19:07 Urine WBC 0-5 /HPF (0-5) 09/15/24 19:07 Ur Squamous Epith Cells 0-2 /HPF (0-2) 09/15/24 19:07 Urine Bacteria None Seen (None Seen) 09/15/24 19:07 Hyaline Casts 0-2 /LPF (0-2) 09/15/24 19:07 Urine Opiates Screen Not Detected (Not Detect) 09/15/24 19:07 Ur Buprenorphine Scrn Positive ng/mL (Not Detect) H 09/15/24 19:07 Ur Oxycodone Screen Not Detected ng/mL (Not Detect) 09/15/24 19:07 Urine Methadone Screen Not Detected ng/mL (Not Detect) 09/15/24 19:07 Urine Fentanyl Screen Not Detected (Not Detect) 09/15/24 19:07 Ur Barbiturates Screen Not Detected (Not Detect) 09/15/24 19:07 Ur Phencyclidine Scrn Not Detected (Not Detect) 09/15/24 19:07 Ur Amphetamines Screen Not Detected (Not Detect) 09/15/24 19:07 U Benzodiazepines Scrn Not Detected (Not Detect) 09/15/24 19:07 Urine Cocaine Screen Not Detected (Not Detect) 09/15/24 19:07 U Marijuana (THC) Screen Not Detected (Not Detect) 09/15/24 19:07 Respiratory Panel Wall See Note 09/15/24 16:06 Adenovirus (Rapid PCR) Not Detected (Not Detect.) 09/15/24 16:06 B.pert (TEM-PCR) Not Detected (Not Detect.) 09/15/24 16:06 B.parapertussis DNA PCR Not Detected (Not Detect.) 09/15/24 16:06 C. pneumoniae DNA (PCR) Not Detected (Not Detect.) 09/15/24 16:06 Coronavirus OC43 (PCR) Not Detected (Not Detect.) 09/15/24 16:06 Coronavirus HKU1 (PCR) Not Detected (Not Detect.) 09/15/24 16:06 Coronavirus 229E (PCR) Not Detected (Not Detect.) 09/15/24 16:06 Coronavirus NL63 (PCR) Not Detected (Not Detect.) 09/15/24 16:06 Human Metapneumovir PCR Not Detected (Not Detect.) 09/15/24 16:06 Influenza A (RT-PCR) Not Detected (Not Detect.) 09/15/24 16:06 Influenza Type A (PCR) NEGATIVE (Negative) 09/15/24 11:39 Influenza B (RT-PCR) Not Detected (Not Detect.) 09/15/24 16:06 Influenza Type B (PCR) NEGATIVE (Negative) 09/15/24 11:39 M. pneumoniae (PCR) Not Detected (Not Detect.) 09/15/24 16:06 Parainfluenza 1 (PCR) Not Detected (Not Detect.) 09/15/24 16:06 Parainfluenza 2 (PCR) Not Detected (Not Detect.) 09/15/24 16:06 Parainfluenza 3 (PCR) Not Detected (Not Detect.) 09/15/24 16:06 Parainfluenza 4 (PCR) Not Detected (Not Detect.) 09/15/24 16:06 RSV (PCR) Not Detected (Not Detect.) 09/15/24 16:06 RSV RNA Qual (PCR) NEGATIVE (Negative) 09/15/24 11:39 Entero/Rhino (PCR) Detected (Not Detect.) A 09/15/24 16:06 SARS-CoV-2 RNA (RT-PCR) Not Detected (Not Detect.) 09/15/24 16:06 S. pyogenes GrpA SANA Positive (Negative) A 09/15/24 11:39 Impressions Chest X-Ray 09/15/24 11:28 IMPRESSION: No active disease given upright portable AP technique. Electronically signed by: Silvestre Frances MD 09/15/2024 01:20 PM EDT Discharge Plan Discharge Anticipated Discharge Date/Time: 09/17/24 11:50 Patient Disposition: Home, Self-Care Discharge Diagnosis: COPD exacerbation due to rhinovirus obesity hypoventilation syndrome Referrals: [facility] [Provider Group] - 1 Week Physician,Nancy J [Physician] - 1 Week Discharge Medications: New prednisone 20 mg Tablet 40 mg PO DAILY Qty: 6 0RF Continued acetaminophen 325 mg tablet 650 mg PO Q6H PRN (Reason: Headache/Pain Mild Scale (1-3)) nicotine (polacrilex) 2 mg Gum 2 mg BUCCAL Q2H PRN (Reason: Nicotine Cravings) melatonin 10 mg capsule 10 mg PO BEDTIME PRN (Reason: sleep) Qty: 30 0RF hydroxyzine HCl 25 mg Tablet 25 mg PO Q6H PRN (Reason: Anxiety) 15 Days Qty: 60 1RF guaifenesin [Mucinex] 600 mg Tablet Extended Release 12hr 600 mg PO BID PRN (Reason: congestion) 30 Days Qty: 60 0RF Combivent Respimat 20-100 mcg/actuation mist 1 puff INHALATION QID PRN (Reason: Shortness Of Breath Or Wheezing) 30 Days Qty: 4 0RF ipratropium-albuterol 0.5 mg-3 mg(2.5 mg base)/3 mL Solution For Nebulization 3 ml inhalation Q4H PRN (Reason: wheeze, sob) 30 Days Qty: 90 1RF ibuprofen 600 mg Tablet 600 mg PO Q6H PRN (Reason: Pain, Moderate(Pain Scale 4-6)) Qty: 0 0RF ondansetron 4 mg Tablet,Disintegrating 4 mg translingual Q6H PRN (Reason: Nausea) 30 Days Qty: 30 1RF simethicone [Gas Relief (simethicone)] 80 mg Tablet,Chewable 80 mg PO QIDWMHS PRN (Reason: gas relief) 30 Days Qty: 90 1RF pantoprazole 40 mg tablet,delayed release (DR/EC) 40 mg PO DAILY@0630 lorazepam 1 mg tablet 1 mg PO DAILY PRN (Reason: Anxiety) fluticasone propionate 50 mcg/actuation spray,suspension 2 spray intranasal DAILY PRN (Reason: Allergies) cholecalciferol (vitamin D3) 50 mcg (2,000 unit) capsule 50 mcg PO DAILY@07 Breztri Aerosphere 160-9-4.8 mcg/actuation HFA aerosol inhaler 2 inh inhalation DAILY@729 dextroamphetamine-amphetamine 10 mg tablet 1 tab PO DAILY@1399 dextroamphetamine-amphetamine 20 mg capsule,extended release 24hr 1 cap PO DAILY@729 clonidine HCl 0.1 mg tablet 0.1 mg PO TID@729,1399,1999 Protocol: Hold for SBP< HOLD for SBP < : 90 famotidine 20 mg tablet 20 mg PO BID@729,1999 albuterol sulfate 90 mcg/actuation HFA aerosol inhaler 2 puff INHALATION Q4H PRN (Reason: Shortness Of Breath) cyclobenzaprine 5 mg tablet 5 mg PO TID@729,1399,1999 PRN (Reason: Muscle Spasm) buprenorphine-naloxone [Suboxone] 8-2 mg film 1 film BUCCAL TID@729,1399,1999 Vraylar 3 mg capsule 3 mg PO BEDTIME@1999 multivitamin [Daily-Jesusita] Tablet 1 tab PO DAILY@729 topiramate 100 mg tablet 100 mg PO BID@729,1999 metformin 500 mg tablet extended release 24 hr 500 mg PO DAILY@729 lamotrigine [Lamictal] 100 mg tablet 100 mg PO DAILY@729 Rx Instructions: START 06/25/24 duloxetine 20 mg capsule,delayed release(DR/EC) 40 mg PO DAILY@729 duloxetine 60 mg capsule,delayed release(DR/EC) 60 mg PO DAILY@0730 nicotine 14 mg/24 hr Patch 24 Hour 1 patch TRANSDERMAL DAILY folic acid 1 mg tablet 1 mg PO DAILY@07 Discharge Orders: Discharge Order (Routine); Ordered 09/17/24 Ordered By: Cely Perea Diet: Advance to usual diet Activity on Discharge: As tolerated Stand Alone Forms: Patient Portal Discharge page Print Language: [place]ralt[place] Care Plan Goals: pulmonary health Health Concerns: COPD exacerbation due to rhinovirus obesity hypoventilation syndrome Plan of Treatment: prednisone 40 mg daily x 3 days continue oxygen 2L via [place] outpatient sleep study Please follow up with your primary care doctor within 1 week. Return to the hospital if you experience recurrent or worsening symptoms. Assessment: See Discharge Summary.
[2024-09-17 16:27] LABS: Glucose, Whole Blood 150 mg/dL (60-115)
[2024-09-17] MEDS: Enoxaparin Sodium 40 MG/0.4 ML SYRINGE SUBCUT (16:27)
== END 2024-09-17 17:11 | disposition home or self-care (01) | DRG 190 ==
LOC: HO.ED 15:10 → HO.EDOVER 16:13 → HO.IMC 19:21
PROVIDERS: Hospitalist; Admitting Provider Physician Assistant; Emergency Provider Emergency Medicine; PCP Registered Nurse; Visit Provider Family Medicine
DX: J44.1 Chronic obstructive pulmonary disease with (acute) exacerbation (principal); J96.22 Acute and chronic respiratory failure with hypercapnia; Z68.41 Body mass index [BMI] 40.0-44.9, adult; F11.20 Opioid dependence, uncomplicated; E66.2 Morbid (severe) obesity with alveolar hypoventilation; B97.10 Unspecified enterovirus as the cause of diseases classified elsewhere; B97.89 Other viral agents as the cause of diseases classified elsewhere; Z99.81 Dependence on supplemental oxygen; M79.7 Fibromyalgia; R73.03 Prediabetes; Z79.84 Long term (current) use of oral hypoglycemic drugs; Z79.899 Other long term (current) drug therapy
CPT/HCPCS: 0241U; 36415; 71045; 80048; 80053; 80307; 81001; 82040; 82140; 82550; 82803; 82947; 83036; 83880; 84443; 84484; 84702; 85025; 85379; 86140; 87633; 87651; 93005; 93306; 94640; 97162; 99285; J1120; J1650; J1940; J2919; Q9957

== ENCOUNTER → 2024-09-15 11:28 | Outpatient (BNV) | payer OTHER, SELFPAY | PROVIDERS: Admitting Provider Physician Assistant; Emergency Provider Emergency Medicine; Visit Provider Internal Medicine Cardiovascular Disease | DX: R00.0 Tachycardia, unspecified (principal) | CPT/HCPCS: 93010 ==

== ENCOUNTER 2024-09-15 16:02 | Outpatient (BNV) | payer OTHER, SELFPAY | END 2024-09-16 07:00 | PROVIDERS: Admitting Provider Physician Assistant; Emergency Provider Emergency Medicine; PCP Registered Nurse; Visit Provider Internal Medicine Cardiovascular Disease | DX: I50.810 Right heart failure, unspecified (principal) | CPT/HCPCS: 93306 ==

== ENCOUNTER 2024-09-15 16:02 | Outpatient (BNV) | payer OTHER, SELFPAY | END 2024-09-17 00:47 | PROVIDERS: Admitting Provider Physician Assistant; Emergency Provider Emergency Medicine; PCP Registered Nurse; Visit Provider Internal Medicine Cardiovascular Disease | DX: R07.9 Chest pain, unspecified (principal) | CPT/HCPCS: 93010 ==

== ENCOUNTER → 2024-09-15 16:02 | Outpatient (BNV) | payer OTHER, SELFPAY | PROVIDERS: Admitting Provider Physician Assistant; Emergency Provider Emergency Medicine; Visit Provider Internal Medicine Pulmonary Disease | DX: J96.22 Acute and chronic respiratory failure with hypercapnia (principal); R60.0 Localized edema; E66.2 Morbid (severe) obesity with alveolar hypoventilation | CPT/HCPCS: 99232 ==

== ENCOUNTER → 2024-09-15 16:02 | Outpatient (BNV) | payer OTHER, SELFPAY | PROVIDERS: Admitting Provider Physician Assistant; Emergency Provider Emergency Medicine; Visit Provider Physician Assistant | DX: J44.1 Chronic obstructive pulmonary disease with (acute) exacerbation (principal); E66.2 Morbid (severe) obesity with alveolar hypoventilation; J96.21 Acute and chronic respiratory failure with hypoxia; J96.22 Acute and chronic respiratory failure with hypercapnia; B34.8 Other viral infections of unspecified site; J44.9 Chronic obstructive pulmonary disease, unspecified | CPT/HCPCS: 99222; 99232; 99239; 99499 ==

== ENCOUNTER 2024-09-25 18:44 | Emergency (ER) | payer OTHER, SELFPAY ==
--- NOTE | ~2024-09-25 | XR_ITS ---
EXAMINATION: XR CHEST CLINICAL INFORMATION: Shortness of breath, cough COMPARISON: 09/15/2024 TECHNIQUE: 2 views of the chest were obtained. FINDINGS: Cardiomediastinal silhouette is stable. There is bronchial wall thickening. Some streaky right basilar opacities. No pleural effusion or pneumothorax. No acute osseous abnormalities. XR/XR chest 2V IMPRESSION: Bronchial wall thickening suggesting small airways disease. Streaky right basilar opacities may represent atelectasis versus developing infiltrate. Electronically signed by: Harrison Steven MD 09/25/2024 08:08 PM EDT
[2024-09-25 19:02] VITALS: BP 118/78; PULSE 131; O2SAT 96
[2024-09-25 19:06] VITALS: BP 112/78; PULSE 113; RESP 20; TEMP 36.8; O2SAT 96; BMI 44.6
[2024-09-25 19:43] LABS: MANUAL DIFF FLAG NO
[2024-09-25 19:46] LABS: Basophils Absolute Auto 0.1 X10*3/uL (0.0-0.2); Basophils Percent Auto 0.6 % (0-2); Eosinophils Absolute Auto 0.6 X10*3/uL (0.0-0.4); Eosinophils Percent Auto 6.9 % (0-4); Hemoglobin 12.9 g/dl (12.0-16.0); Imm Gran Abs Auto 0.09 X10*3/uL (0.00-0.03); Lymphocytes Absolute Auto 2.5 X10*3/uL (1.2-4.9); Lymphocytes Percent Auto 28.8 % (20-40); Mean Corpuscular HGB Conc 32.3 g/dl (31.0-35.0); Mean Corpuscular Hemoglobin 28.5 pg (27.0-33.0); Mean Corpuscular Volume 88.3 fL (80.0-98.0); Mean Platelet Volume 10.2 fL (9.4-12.3); Monocytes Absolute Auto 0.6 X10*3/uL (0.1-1.2); Monocytes Percent Auto 7.2 % (2-11); Neutrophils Absolute Auto 4.9 x10*3/uL (2.0-8.3); Neutrophils Percent Auto 55.5 % (45-73); Platelet Count 180 X10*3/uL (160-400); Red Blood Count 4.53 X10*6/uL (4.20-5.50); Red Cell Distribution Width 13.5 % (11.0-16.0); White Blood Count 8.8 X10*3/uL (4.8-10.8)
[2024-09-25 20:02] LABS: Alanine Aminotransferase 25 U/L (0-31); Albumin Level 3.7 g/dL (3.5-5.0); Alkaline Phosphatase 81 U/L (39-117); Anion Gap 14 (12-20); Aspartate Amino Transferase 26 U/L (5-31); Bilirubin Total 0.2 mg/dL (0.0-1.0); Blood Urea Nitrogen 11 mg/dL (9-16); Carbon Dioxide 29 mmol/L (22-29); Chloride 102 mmol/L (96-108); Estimated Glomerular Filt Rate > 60; Glucose Random 181 mg/dL (60-115); Magnesium 1.7 mg/dL (1.6-2.6); Potassium 3.3 mmol/L (3.3-5.1); Sodium 142 mmol/L (135-145); Total Protein 6.5 g/dL (6.5-8.0)
[2024-09-25 20:04] LABS: Lactic Acid 2.1 mmol/L (0.5-2.0)
[2024-09-25] MEDS: Albuterol Sulfate 2.5 MG, Albuterol/Iprat 2.5/0.5MG 3 ML 3 ML INHALE (20:05)
[2024-09-25 20:06] VITALS: PULSE 107; RESP 20; O2SAT 93
[2024-09-25] MEDS: cefTRIAXone sodium 2 GM VIAL IVPUSH (20:21)
[2024-09-25] MEDS: Doxycycline Hyclate 100 MG in 0.9 % Sodium Chloride 250 ML 166.67 MG IV (20:31)
[2024-09-25 21:03] VITALS: TEMP 36.9
[2024-09-25] MEDS: Albuterol Sulfate 2.5 MG, Albuterol Sulfate (0.083%) 2.5 MG 5 MG INHALE (21:25)
[2024-09-25 21:27] VITALS: PULSE 103; RESP 13; O2SAT 93
[2024-09-25 21:40] LABS: Reflex Lactate? Lactic Acid Added
[2024-09-25 22:27] VITALS: BP 120/62; PULSE 107; RESP 16; TEMP 36.7; O2SAT 94
[2024-09-25] MEDS: predniSONE 20 MG TABLET 40 MG PO (23:35)
--- NOTE | 2024-09-26 00:15 | ED.SOB ---
HPI - SOB/Dyspnea General Chief Complaint: Dyspnea Stated Complaint: SOB X 2 DAYS Time Seen by Provider: 09/25/24 19:11 Source: patient Limitations: no limitations History of Present Illness ED Provider: Bella wong PA-C HPI Narrative: 49-year-old female with a history of asthma/COPD on 2 L nasal cannula at baseline, morbid obesity, diabetes, schizoaffective disorder, polysubstance abuse, presents from a rehab facility with worsening cough and cold symptoms x2 days. Patient was recently admitted for COPD exacerbation, she was discharged on September 17. Over the past 2 days, patient's symptoms have progressed. Denies objective fevers. Associated worsening cough and worsening wheezing. Denies nausea, vomiting, diarrhea. Related Data Home Medications ?Medication ?Instructions ?Recorded ?Confirmed acetaminophen 325 mg tablet 650 mg PO Q6H PRN Headache/Pain 06/25/24 09/15/24 Mild Scale (1-3) nicotine (polacrilex) 2 mg gum 2 mg buccal Q2H PRN Nicotine 06/25/24 09/15/24 Cravings albuterol sulfate 90 mcg/actuation 2 puff inhalation Q4H PRN 09/15/24 09/15/24 aerosol inhaler Shortness Of Breath budesonide 160 mcg-glycopyr 9 2 inh inhalation DAILY@72909/15/24 09/15/24 mcg-formot 4.8 mcg/actuation HFA inhaler (Breztri Aerosphere) buprenorphine 8 mg-naloxone 2 mg 1 film buccal TID@0730,1399,199909/15/24 09/15/24 sublingual film (Suboxone) cariprazine 3 mg capsule (Vraylar) 3 mg PO BEDTIME@199909/15/24 09/15/24 cholecalciferol (vitamin D3) 50 50 mcg PO DAILY@0730 09/15/24 09/15/24 mcg (2,000 unit) capsule clonidine HCl 0.1 mg tablet 0.1 mg PO TID@0730,1399,199909/15/24 09/15/24 cyclobenzaprine 5 mg tablet 5 mg PO TID@0730,1399,1999 PRN 09/15/24 09/15/24 Muscle Spasm dextroamphetamine-amphetamine 10 1 tab PO DAILY@139909/15/24 09/15/24 mg tablet dextroamphetamine-amphetamine ER 1 cap PO DAILY@72909/15/24 09/15/24 20 mg 24hr capsule,extend release duloxetine 20 mg capsule,delayed 40 mg PO DAILY@72909/15/24 09/15/24 release duloxetine 60 mg capsule,delayed 60 mg PO DAILY@72909/15/24 09/15/24 release famotidine 20 mg tablet 20 mg PO BID@09/15/24 09/15/24 fluticasone propionate 50 2 spray intranasal DAILY PRN 09/15/24 09/15/24 mcg/actuation nasal Allergies spray,suspension folic acid 1 mg tablet 1 mg PO DAILY@72909/15/24 09/15/24 lamotrigine 100 mg tablet 100 mg PO DAILY@72909/15/24 09/15/24 (Lamictal) lorazepam 1 mg tablet 1 mg PO DAILY PRN Anxiety 09/15/24 09/15/24 metformin 500 mg tablet,extended 500 mg PO DAILY@72909/15/24 09/15/24 release 24 hr multivitamin (Daily-Jesusita tablet) 1 tab PO DAILY@72909/15/24 09/15/24 nicotine 14 mg/24 hr daily 1 patch transdermal DAILY 09/15/24 09/15/24 transdermal patch pantoprazole 40 mg tablet,delayed 40 mg PO DAILY@62909/15/24 09/15/24 release topiramate 100 mg tablet 100 mg PO BID@09/15/24 09/15/24 Previous Rx's ?Medication ?Instructions ?Recorded ibuprofen 600 mg tablet 600 mg PO Q6H PRN Pain, 06/05/24 Moderate(Pain Scale 4-6) #0 tabs ipratropium 0.5 mg-albuterol 3 mg 3 ml inhalation Q4H PRN wheeze, 06/05/24 (2.5 mg base)/3 mL nebulization sob 30 days #90 mL soln ondansetron 4 mg disintegrating 4 mg translingual Q6H PRN Nausea 06/05/24 tablet 30 days #30 tabs simethicone 80 mg chewable tablet 80 mg PO QIDWMHS PRN gas relief 30 06/05/24 (Gas Relief (simethicone)) days #90 tabs guaifenesin 600 mg tablet, 600 mg PO BID PRN congestion 30 07/07/24 extended release 12 hr (Mucinex) days #60 tabs hydroxyzine HCl 25 mg tablet 25 mg PO Q6H PRN Anxiety 15 days 07/07/24 #60 tabs ipratropium 20 mcg-albuterol 100 1 puff inhalation QID PRN 07/07/24 mcg/actuation mist for inhalation Shortness Of Breath Or Wheezing 30 (Combivent Respimat) days #4 grams melatonin 10 mg capsule 10 mg PO BEDTIME PRN sleep #30 caps 07/07/24 prednisone 20 mg tablet 40 mg (2 x 20 mg) PO DAILY #6 tabs 09/17/24 amoxicillin 875 mg-potassium 1 tab PO Q12H #20 tabs 09/26/24 clavulanate 125 mg tablet doxycycline hyclate 100 mg capsule 100 mg PO BID #20 caps 09/26/24 prednisone 20 mg tablet 40 mg (2 x 20 mg) PO DAILY #8 tabs 09/26/24 Allergies Allergy/AdvReac Type Severity Reaction Status Date / Time Sulfa (Sulfonamide Allergy Severe Difficulty Verified 09/25/24 19:09 Antibiotics) Breathing Review of Systems Review of Systems: Yes all other systems are reviewed and are negative Constitutional: Constitutional: Denies fatigue and Denies fever(s) Cardiovascular: Cardiovascular: Denies chest pain and Reports dyspnea Respiratory: Respiratory: Reports cough, Reports dyspnea and Reports wheezing Gastrointestinal: Gastrointestinal: Denies diarrhea, Denies nausea and Denies vomiting Endocrine: Endocrine: Denies fatigue Allergic/Immunologic: Allergic/Immunologic: Reports wheezing PMFSH Past Medical History Attestation statement: The following information was validated with the patient. Medical History (Updated 09/26/24 @ 00:21 by AMI Luciano) History of seizure Abdominal hernia Ulcerative colitis Black lung disease Hepatitis C delivery delivered Bunion History of COVID-19 Pneumonia Hx of respiratory failure Sleep apnea Type II diabetes mellitus Thyroid nodule Fibromyalgia COPD (chronic obstructive pulmonary disease) Surgical History Hx of cholecystectomy History of tubal ligation Social History Social History Household Members: None Household Members Other:: Pt currently residing at the [facility] Housing: Other Housing Other:: Half way house Do you presently have visiting nurse or other home services: No Alcohol intake: current Alcohol intake frequency: a few times a week Patient Tobacco Use Status: Never used Tobacco Tobacco use type: Cigarette Cigarettes Per Day: 6 e-Cigarette/Vaping Use: Never Used Second Hand Smoke Exposure: No Substance Use Type: Crack/Cocaine Advance Directives: Yes Advance Directives on File: Yes Advance Directives Date on File: 09/18/24 Do you have a plan to hurt others: No Plan service: No Sexual orientation: Straight/Heterosexual Physical Exam Vital Signs: Vital Signs: Last Vital Signs Temp 98.0 F 09/25/24 22:27 Pulse 107 H 09/25/24 22:27 Resp 16 09/25/24 22:27 BP 120/62 09/25/24 22:27 Pulse Ox 94 09/25/24 22:27 O2 Del Method Nasal Cannula 09/25/24 22:27 O2 Flow Rate 2 09/25/24 22:27 Oxygen Flow Rate 2 09/25/24 19:06 BMI result Body Mass Index 44.6 Const: Other: Awake, appears older than stated age Orientation/consciousness: patient oriented x3 Resp: Other: Slightly tachypneic, diffuse expiratory wheezes on exam with rhonchi Cardio: Other: Normal peripheral perfusion Skin: Other: Warm dry no rash Neuro: General: patient oriented x3, no focal motor deficits and CN's II-XI intact bilaterally Psych: Other: Cooperative, flat affect Course Reevaluation(s) Reevaluation #1: The patient was ambulated after having 2 updrafts, she maintained her oxygen appropriately, she does not have a new oxygen requirement Medications Administered Discontinued Medications Generic Name Dose Route Start Last Admin Trade Name Freq PRN Reason Stop Dose Admin Albuterol Sulfate 2.5 mg/ 5 mg 09/25/24 21:23 09/25/24 21:25 Albuterol Sulfate 2.5 mg INHALE 09/25/24 21:24 5 mg ONCE ONE Administration Ceftriaxone Sodium 2 gm 09/25/24 20:03 09/25/24 20:21 Ceftriaxone Sodium 2 Gm Vial IVPUSH 09/25/24 20:04 2 gm ONCE ONE Administration Albuterol Sulfate 2.5 mg/ 0 mg 09/25/24 20:00 09/25/24 20:05 Albuterol/Ipratropium 3 ml INHALE 09/25/24 20:01 3.5 dose ONCE ONE Administration Doxycycline Hyclate 100 mg/ 250 mls @ 166.67 mls/hr 09/25/24 20:03 09/25/24 22:57 Sodium Chloride IV 09/25/24 21:32 Infused ONCE ONE Infusion Prednisone 40 mg 09/25/24 23:21 09/25/24 23:35 Prednisone 20 Mg Tablet PO 09/25/24 23:22 40 mg ONCE ONE Administration Medical Decision Making Medical Decision Making MDM Narrative: 49-year-old female with a history of asthma/COPD on 2 L nasal cannula at baseline, morbid obesity, diabetes, schizoaffective disorder, polysubstance abuse, presents from a rehab facility with worsening cough and cold symptoms x2 days. Patient was recently admitted for COPD exacerbation, she was discharged on September 17. Over the past 2 days, patient's symptoms have progressed. Denies objective fevers. Associated worsening cough and worsening wheezing. Denies nausea, vomiting, diarrhea. Problem: COPD/asthma, oxygen requirement, obesity, diabetes, psychiatric illness, substance abuse History: Per patient I have considered the following differential diagnoses: Viral syndrome, pneumonia, bronchitis, COPD/asthma exacerbation, sepsis Plan: When patient was seen on the 15 of September, she was found to be positive for rhino virus/ enterovirus. Her symptoms have progressed, we will give additional meds for COPD exacerbation, including additional steroid and an updraft. Patient is mildly tachycardic, with stable blood pressures, is afebrile, given concurrent COPD exacerbation, I need to consider sepsis per our protocol. We will give weight based IV fluid, 30 mL/kilogram, obtain blood cultures and a lactic. I am concerned she could be developing a subsequent pneumonia, we will start treatment with doxycycline and ceftriaxone IV. Adding on an expanded respiratory panel, she could have picked up another virus in the community. I have independently reviewed the following tests: Labs: No leukocytosis, not anemic, no electrolyte abnormality, lactate 2.1, will repeat... Second lactate 1, RO panel pending Chest x-ray: XR/XR chest 2V IMPRESSION: Bronchial wall thickening suggesting small airways disease. Streaky right basilar opacities may represent atelectasis versus developing infiltrate. Electronically signed by: Harrison Steven MD 09/25/2024 08:08 PM EDT RP Lab Data 09/25/24 19:35 09/25/24 19:35 Labs: Lab Results 09/25/24 09/25/24 Range/Units 19:35 21:37 WBC 8.8 (4.8-10.8) X10*3/uL RBC 4.53 (4.20-5.50) X10*6/uL Hgb 12.9 (12.0-16.0) g/dl Hct 40.0 (37.0-47.0) % MCV 88.3 (80.0-98.0) fL MCH 28.5 (27.0-33.0) pg MCHC 32.3 (31.0-35.0) g/dl RDW 13.5 (11.0-16.0) % Plt Count 180 (160-400) X10*3/uL MPV 10.2 (9.4-12.3) fL Immature Gran % (Auto) 1.0 H (0.0-0.4) % Neut % (Auto) 55.5 (45-73) % Lymph % (Auto) 28.8 (20-40) % Allen % (Auto) 7.2 (2-11) % Eos % (Auto) 6.9 H (0-4) % Baso % (Auto) 0.6 (0-2) % Lymph # (Auto) 2.5 (1.2-4.9) X10*3/uL Allen # (Auto) 0.6 (0.1-1.2) X10*3/uL Eos # (Auto) 0.6 H (0.0-0.4) X10*3/uL Baso # (Auto) 0.1 (0.0-0.2) X10*3/uL Abs Immat Gran (auto) 0.09 H (0.00-0.03) X10*3/uL Absolute Neuts (auto) 4.9 (2.0-8.3) x10*3/uL Absolute Nucleated RBC 0.000 (0.0-0.012) X10*3/uL Nucleated RBC % (auto) 0.0 (0.0-0.2) /100WBC Sodium 142 (135-145) mmol/L Potassium 3.3 (3.3-5.1) mmol/L Chloride 102 (96-108) mmol/L Carbon Dioxide 29 (22-29) mmol/L Anion Gap 14 (12-20) BUN 11 (9-16) mg/dL Creatinine 0.83 (0.5-1.4) mg/dL Estim Creat Clear Calc 102.0 Estimated GFR > 60 Random Glucose 181 H (60-115) mg/dL Lactic Acid 2.1 H* 1.0 (0.5-2.0) mmol/L Calcium 9.0 (8.4-10.2) mg/dL Magnesium 1.7 (1.6-2.6) mg/dL Total Bilirubin 0.2 (0.0-1.0) mg/dL AST 26 (5-31) U/L ALT 25 (0-31) U/L Alkaline Phosphatase 81 (39-117) U/L Total Protein 6.5 (6.5-8.0) g/dL Albumin 3.7 (3.5-5.0) g/dL Discharge Plan Discharge Clinical Impression: Pneumonia, COPD exacerbation Patient Disposition: Home, Self-Care Instructions: COPD (Chronic Obstructive Pulmonary Disease) (ED), Community Acquired Pneumonia (ED) Additional Instructions: It appears you are developing an early pneumonia, see home care instructions. Take both antibiotics as directed. You are being treated with Augmentin and doxycycline. I am placing you on an additional course of steroid for concurrent COPD exacerbation. Use your home nebulizing treatments as directed, take the steroid as directed, you do not require additional medication until tomorrow morning. You need to follow up with your primary care provider within 5-7 days. Prescriptions: New doxycycline hyclate 100 mg capsule 100 mg PO BID Qty: 20 0RF amoxicillin-pot clavulanate 875-125 mg tablet 1 tab PO Q12H Qty: 20 0RF prednisone 20 mg tablet 40 mg PO DAILY Qty: 8 0RF No Action acetaminophen 325 mg tablet 650 mg PO Q6H PRN (Reason: Headache/Pain Mild Scale (1-3)) nicotine (polacrilex) 2 mg Gum 2 mg BUCCAL Q2H PRN (Reason: Nicotine Cravings) melatonin 10 mg capsule 10 mg PO BEDTIME PRN (Reason: sleep) Qty: 30 0RF hydroxyzine HCl 25 mg Tablet 25 mg PO Q6H PRN (Reason: Anxiety) 15 Days Qty: 60 1RF guaifenesin [Mucinex] 600 mg Tablet Extended Release 12hr 600 mg PO BID PRN (Reason: congestion) 30 Days Qty: 60 0RF Combivent Respimat 20-100 mcg/actuation mist 1 puff INHALATION QID PRN (Reason: Shortness Of Breath Or Wheezing) 30 Days Qty: 4 0RF ipratropium-albuterol 0.5 mg-3 mg(2.5 mg base)/3 mL Solution For Nebulization 3 ml inhalation Q4H PRN (Reason: wheeze, sob) 30 Days Qty: 90 1RF ibuprofen 600 mg Tablet 600 mg PO Q6H PRN (Reason: Pain, Moderate(Pain Scale 4-6)) Qty: 0 0RF ondansetron 4 mg Tablet,Disintegrating 4 mg translingual Q6H PRN (Reason: Nausea) 30 Days Qty: 30 1RF simethicone [Gas Relief (simethicone)] 80 mg Tablet,Chewable 80 mg PO QIDWMHS PRN (Reason: gas relief) 30 Days Qty: 90 1RF pantoprazole 40 mg tablet,delayed release (DR/EC) 40 mg PO DAILY@0630 lorazepam 1 mg tablet 1 mg PO DAILY PRN (Reason: Anxiety) fluticasone propionate 50 mcg/actuation spray,suspension 2 spray intranasal DAILY PRN (Reason: Allergies) cholecalciferol (vitamin D3) 50 mcg (2,000 unit) capsule 50 mcg PO DAILY@0730 Avery Aerosphere 160-9-4.8 mcg/actuation HFA aerosol inhaler 2 inh inhalation DAILY@0730 dextroamphetamine-amphetamine 10 mg tablet 1 tab PO DAILY@1400 dextroamphetamine-amphetamine 20 mg capsule,extended release 24hr 1 cap PO DAILY@0730 clonidine HCl 0.1 mg tablet 0.1 mg PO TID@0730,1400,1999 Protocol: Hold for SBP< HOLD for SBP < : 90 famotidine 20 mg tablet 20 mg PO BID@729,1999 albuterol sulfate 90 mcg/actuation HFA aerosol inhaler 2 puff INHALATION Q4H PRN (Reason: Shortness Of Breath) cyclobenzaprine 5 mg tablet 5 mg PO TID@729,1399,1999 PRN (Reason: Muscle Spasm) buprenorphine-naloxone [Suboxone] 8-2 mg film 1 film BUCCAL TID@729, Vraylar 3 mg capsule 3 mg PO BEDTIME@1999 multivitamin [Daily-Jesusita] Tablet 1 tab PO DAILY@729 topiramate 100 mg tablet 100 mg PO BID@ metformin 500 mg tablet extended release 24 hr 500 mg PO DAILY@729 lamotrigine [Lamictal] 100 mg tablet 100 mg PO DAILY@729 Rx Instructions: START 06/25/24 duloxetine 20 mg capsule,delayed release(DR/EC) 40 mg PO DAILY@729 duloxetine 60 mg capsule,delayed release(DR/EC) 60 mg PO DAILY@729 nicotine 14 mg/24 hr Patch 24 Hour 1 patch TRANSDERMAL DAILY folic acid 1 mg tablet 1 mg PO DAILY@729 prednisone 20 mg Tablet 40 mg PO DAILY Qty: 6 0RF Print Language: Sammarinese
[2024-09-26 04:00] VITALS: BP 128/67; PULSE 110; RESP 18; TEMP 36.8; O2SAT 97
--- NOTE | 2024-09-26 05:50 | PC.NURSE ---
This RN has tried calling pts living facility per the phone number on the face sheet provided as well as the number on their website for the [place] location with no answer to inform them pt is discharged and to see if they can facilitate a ride home for her. 2 voicemails were left, one on each phone. Per the facility website the facility is staffed 17/06. Because pt is dependent on 2L nasal cannula and her personal O2 tank is at her facility we will facilitate an ambulance ride back to the patients facility this morning.
[2024-09-26 07:40] VITALS: BP 128/67; PULSE 110; RESP 18; TEMP 36.8; O2SAT 97
[2024-09-26 10:04] LABS: Adenovirus PCR Not Detected (Not Detect.); Bordetella parapertussis PCR Not Detected (Not Detect.); Bordetella pertussis PCR Not Detected (Not Detect.); Chlamydia pneumoniae PCR Not Detected (Not Detect.); Coronavirus 229E PCR Not Detected (Not Detect.); Coronavirus HKU1 PCR Not Detected (Not Detect.); Coronavirus NL63 PCR Not Detected (Not Detect.); Coronavirus OC43 PCR Not Detected (Not Detect.); Human metapneumovirus PCR Not Detected (Not Detect.); Influenza A PCR Not Detected (Not Detect.); Influenza B PCR Not Detected (Not Detect.); Mycoplasma pneumoniae PCR Not Detected (Not Detect.); Parainfluenza 1 PCR Not Detected (Not Detect.); Parainfluenza 2 PCR Not Detected (Not Detect.); Parainfluenza 3 PCR Not Detected (Not Detect.); Parainfluenza 4 PCR Not Detected (Not Detect.); RSV PCR Not Detected (Not Detect.); Rhino/Enterovirus PCR Not Detected (Not Detect.)
[2024-09-26 10:18] LABS: SARS-CoV-2 PCR Not Detected (Not Detect.)
== END 2024-09-26 07:40 | disposition home or self-care (01) ==
PROVIDERS: Physician Assistant Medical; Emergency Provider Emergency Medicine
DX: J18.9 Pneumonia, unspecified organism (principal); J44.1 Chronic obstructive pulmonary disease with (acute) exacerbation; R06.02 Shortness of breath; R05.9 Cough, unspecified; D81.9 Combined immunodeficiency, unspecified; F17.210 Nicotine dependence, cigarettes, uncomplicated; Z99.81 Dependence on supplemental oxygen; Z79.899 Other long term (current) drug therapy
CPT/HCPCS: 36415; 71046; 80053; 83605; 83735; 85025; 87040; 87633; 94640; 96365; 96366; 96375; 99285; J0696

== ENCOUNTER 2024-10-12 09:07 | Inpatient (IN) | payer OTHER, SELFPAY ==
[2024-10-12] VITALS (16 sets, daily range): BP systolic 88–117; BP diastolic 46–70; PULSE 91–120; RESP 11–23; TEMP 36.1–36.9; O2SAT 88–97; BMI 49.1
--- NOTE | ~2024-10-12 | XR_ITS ---
EXAMINATION: XR CHEST CLINICAL INFORMATION: Shortness of breath, cough R/O pneumonia COMPARISON: X-ray dated September 25, 2024 TECHNIQUE: Frontal view of the chest was obtained. FINDINGS: Bilateral pulmonary reticular pattern. No pleural effusion. No pneumothorax. No hyperinflation. Cardiomediastinal silhouette size is normal. The osseous structures are intact. The axial skeleton is not fully evaluated due to patient's body habitus. XR/XR chest 1V IMPRESSION: Acute inflammatory versus infectious process should be considered in the correct clinical settings. Electronically signed by: Talha Wiggins MD 10/12/2024 11:40 AM [facility]
--- NOTE | 2024-10-12 09:47 | ED.SOB ---
HPI - SOB/Dyspnea General Chief Complaint: Dyspnea Stated Complaint: sob,dizzy,pna 3 w ago,low bp 89/49,on duoneb per e Time Seen by Provider: 10/12/24 09:16 Source: patient Mode of arrival: EMS Limitations: no limitations History of Present Illness ED Provider: Dr. Tarun Mccormick HPI Narrative: 49-year-old female with past medical history of COPD on home O2, substance abuse on Suboxone, fibromyalgia, prediabetes, and morbid obesity presenting to emergency department complaining of shortness of breath, dyspnea on exertion productive cough x2 weeks. The patient was admitted to [facility] from 08/2022 until 09/17/2024 secondary to hypercarbia from a COPD exacerbation secondary to rhino virus and she was treated with BiPAP with improvement of her symptoms. She was treated with the acetazolamide Solu-Medrol and then prednisone. She was discharged home on 3 days of prednisone. Patient had an echocardiogram which revealed no significant wall motion abnormalities with an EF of 60-65%. She states that since completing her course of prednisone she was not been feeling well. She states that her last 2 weeks she has been feeling short of breath and having significant dyspnea on exertion. Patient was had a cough which is productive yellow sputum with no blood in the sputum. She was also noticed increased lower extremity swelling and redness to both lower extremities that are symmetric. She states she was also having pain in her lower extremities. She had subjective fever and chills. She denied chest pain. She complained of myalgias and arthralgias. The patient is on oxygen and she states she has had to increase her oxygen from 3 L to 4 liters/minute secondary to shortness of breath with exertion. Related Data Home Medications ?Medication ?Instructions ?Recorded ?Confirmed acetaminophen 325 mg tablet 650 mg PO Q6H PRN Headache/Pain 06/25/24 09/15/24 Mild Scale (1-3) nicotine (polacrilex) 2 mg gum 2 mg buccal Q2H PRN Nicotine 06/25/24 09/15/24 Cravings albuterol sulfate 90 mcg/actuation 2 puff inhalation Q4H PRN 09/15/24 09/15/24 aerosol inhaler Shortness Of Breath budesonide 160 mcg-glycopyr 9 2 inh inhalation DAILY@0730 09/15/24 09/15/24 mcg-formot 4.8 mcg/actuation HFA inhaler (Breztri Aerosphere) buprenorphine 8 mg-naloxone 2 mg 1 film buccal TID@07,1399,199909/15/24 09/15/24 sublingual film (Suboxone) cariprazine 3 mg capsule (Vraylar) 3 mg PO BEDTIME@199909/15/24 09/15/24 cholecalciferol (vitamin D3) 50 50 mcg PO DAILY@72909/15/24 09/15/24 mcg (2,000 unit) capsule clonidine HCl 0.1 mg tablet 0.1 mg PO TID@07,1399,199909/15/24 09/15/24 cyclobenzaprine 5 mg tablet 5 mg PO TID@729,1399,1999 PRN 09/15/24 09/15/24 Muscle Spasm dextroamphetamine-amphetamine 10 1 tab PO DAILY@139909/15/24 09/15/24 mg tablet dextroamphetamine-amphetamine ER 1 cap PO DAILY@72909/15/24 09/15/24 20 mg 24hr capsule,extend release duloxetine 20 mg capsule,delayed 40 mg PO DAILY@72909/15/24 09/15/24 release duloxetine 60 mg capsule,delayed 60 mg PO DAILY@72909/15/24 09/15/24 release famotidine 20 mg tablet 20 mg PO BID@09/15/24 09/15/24 fluticasone propionate 50 2 spray intranasal DAILY PRN 09/15/24 09/15/24 mcg/actuation nasal Allergies spray,suspension folic acid 1 mg tablet 1 mg PO DAILY@72909/15/24 09/15/24 lamotrigine 100 mg tablet 100 mg PO DAILY@72909/15/24 09/15/24 (Lamictal) lorazepam 1 mg tablet 1 mg PO DAILY PRN Anxiety 09/15/24 09/15/24 metformin 500 mg tablet,extended 500 mg PO DAILY@72909/15/24 09/15/24 release 24 hr multivitamin (Daily-Jesusita tablet) 1 tab PO DAILY@72909/15/24 09/15/24 nicotine 14 mg/24 hr daily 1 patch transdermal DAILY 09/15/24 09/15/24 transdermal patch pantoprazole 40 mg tablet,delayed 40 mg PO DAILY@0630 09/15/24 09/15/24 release topiramate 100 mg tablet 100 mg PO BID@07,199909/15/24 09/15/24 Previous Rx's ?Medication ?Instructions ?Recorded ibuprofen 600 mg tablet 600 mg PO Q6H PRN Pain, 06/05/24 Moderate(Pain Scale 4-6) #0 tabs ipratropium 0.5 mg-albuterol 3 mg 3 ml inhalation Q4H PRN wheeze, 06/05/24 (2.5 mg base)/3 mL nebulization sob 30 days #90 mL soln ondansetron 4 mg disintegrating 4 mg translingual Q6H PRN Nausea 06/05/24 tablet 30 days #30 tabs simethicone 80 mg chewable tablet 80 mg PO QIDWMHS PRN gas relief 30 06/05/24 (Gas Relief (simethicone)) days #90 tabs guaifenesin 600 mg tablet, 600 mg PO BID PRN congestion 30 07/07/24 extended release 12 hr (Mucinex) days #60 tabs hydroxyzine HCl 25 mg tablet 25 mg PO Q6H PRN Anxiety 15 days 07/07/24 #60 tabs ipratropium 20 mcg-albuterol 100 1 puff inhalation QID PRN 07/07/24 mcg/actuation mist for inhalation Shortness Of Breath Or Wheezing 30 (Combivent Respimat) days #4 grams melatonin 10 mg capsule 10 mg PO BEDTIME PRN sleep #30 caps 07/07/24 prednisone 20 mg tablet 40 mg (2 x 20 mg) PO DAILY #6 tabs 09/17/24 amoxicillin 875 mg-potassium 1 tab PO Q12H #20 tabs 09/26/24 clavulanate 125 mg tablet doxycycline hyclate 100 mg capsule 100 mg PO BID #20 caps 09/26/24 prednisone 20 mg tablet 40 mg (2 x 20 mg) PO DAILY #8 tabs 09/26/24 Allergies Allergy/AdvReac Type Severity Reaction Status Date / Time Sulfa (Sulfonamide Allergy Severe Difficulty Verified 10/12/24 09:18 Antibiotics) Breathing Review of Systems Review of Systems: Yes all other systems are reviewed and are negative [facility] Past Medical History [facility] Narrative: Social history: She lives in his [facility]. She smokes 1/2 pack of cigarettes per day times 20 years. She continues to smoke at least a half a pack a day. She denies alcohol and drug use. Medical History (Updated 10/12/24 @ 16:37 by Tarun Mccormick MD) History of seizure Abdominal hernia Ulcerative colitis Black lung disease Hepatitis C delivery delivered Bunion History of COVID-19 Pneumonia Hx of respiratory failure Sleep apnea Type II diabetes mellitus Thyroid nodule Fibromyalgia COPD (chronic obstructive pulmonary disease) Surgical History Hx of cholecystectomy History of tubal ligation Social History Social History Household Members: None Household Members Other:: Pt currently residing at the [facility] Housing: Other Housing Other:: Half way house Do you presently have visiting nurse or other home services: No Alcohol intake: current Alcohol intake frequency: a few times a week Patient Tobacco Use Status: Never used Tobacco Tobacco use type: Cigarette Cigarettes Per Day: 6 e-Cigarette/Vaping Use: Never Used Second Hand Smoke Exposure: No Substance Use Type: Crack/Cocaine Advance Directives: Yes Advance Directives on File: Yes Advance Directives Date on File: 09/18/24 Do you have a plan to hurt others: No Plan service: No Sexual orientation: Straight/Heterosexual Physical Exam Vital Signs: Vital Signs: Last Vital Signs Temp 97.9 F 10/12/24 15:46 Pulse 93 10/12/24 15:46 Resp 14 10/12/24 15:46 BP 99/58 L 10/12/24 15:46 Pulse Ox 92 10/12/24 15:46 O2 Del Method Nasal Cannula 10/12/24 15:46 O2 Flow Rate 2 10/12/24 15:46 FiO2 25 10/12/24 15:33 BMI result Body Mass Index 49.1 Vital signs were normal, she initially had a systolic blood pressure of 80 during transport. Exam: General: Awake, alert , appears dyspneic and tachypneic, answers questions appropriately. Weight was 121.8 kg, elevated BMI 49.1 kg per m2 Head: Normocephalic, atraumatic EENT: PERRL, Lids normal, sclera normal, conjunctiva normal, nose normal , ears normal, throat without erythema or exudates Neck: Supple, no adenopathy Lung: breath sounds symmetric, diffuse wheezing with diffuse rhonchi with no rales Chest: symmetric movement, nontender Heart: regular rate and rhythm, normal S1, S2 no murmurs or rubs Abdomen: soft, non-tender, nondistended, normal bowel sounds Back: no vertebral tenderness, no CVAT Extremities: 1+ pitting edema bilaterally symmetric with symmetric circumferential erythema which is not warm to the touch consistent with chronic dermatitis Neuro: Awake, alert, oriented, normal speech, cranial nerves intact, moves all extremities symmetrically Psych: Pleasant, cooperative Medications Administered Discontinued Medications Generic Name Dose Route Start Last Admin Trade Name Freq PRN Reason Stop Dose Admin Ceftriaxone Sodium 1 gm 10/12/24 09:48 10/12/24 10:16 Ceftriaxone Sodium 1 Gm Vial IVPUSH 10/12/24 09:49 1 gm ONCE ONE Administration Albuterol Sulfate 2.5 mg/ 0 mg 10/12/24 10:03 10/12/24 10:11 Albuterol/Ipratropium 3 ml INHALE 10/12/24 10:04 5 dose ONCE ONE Administration Sodium Chloride 1,503 mls @ 1,503 mls/hr 10/12/24 09:48 10/12/24 11:43 Ns IV 10/12/24 10:47 Infused .Q1H STA Infusion Azithromycin 500 mg/ Sodium 250 mls @ 125 mls/hr 10/12/24 09:48 10/12/24 12:46 Chloride IV 10/12/24 11:47 Infused ONCE ONE Infusion Methylprednisolone Sodium Succinate 125 mg 10/12/24 09:48 10/12/24 10:14 Methylprednisolone Sod Succ 125 Mg/2 Ml Vial IVPUSH 10/12/24 09:49 125 mg ONCE ONE Administration Medical Decision Making Medical Decision Making MDM Narrative: 49-year-old female with past medical history of COPD on home O2, substance abuse on Suboxone, fibromyalgia, prediabetes, and morbid obesity presenting to emergency department complaining of shortness of breath, dyspnea on exertion productive cough x2 weeks since being discharged from [facility] on 08/2024 when she was treated for COPD exacerbation with hypercarbia caused by coronavirus. Patient completed a 3 day course of prednisone and she states that since being off this medication her symptoms have gotten worse. She complained of a productive cough, shortness of breath, dyspnea on exertion, myalgias, arthralgias increased swelling in her lower extremities. Initial vital signs revealed blood pressure of 99/66, elevated heart rate 120, elevated respiratory rate of 22 O2 saturation was 92% on 2 L which she wears chronically. Physical examination did reveal diffuse wheezing, rhonchi and no rales on her lung exam. She also has symmetric pitting edema to her lower extremities with erythema that is consistent with a chronic dermatitis. 10:03 Differential diagnosis: ?Includes but is not limited to chronic lung disease exacerbation, hypercarbia, pneumonia, cellulitis, electrolyte abnormalities, anemia Course: 10:03 I saw the patient shortly after she presented to the emergency department and given her report hypotension by paramedics , your elevated respiratory rate in her elevated heart rate, I did make her a sepsis protocol. Patient was treated with a bronchodilator protocol -albuterol 7.5 mg and ipratropium 2.5 mg nebulized, Solu-Medrol 125 mg IV and normal saline 30 milligrams/kilogram based on her ideal body weight since she was obese and has an elevated BMI of 49.1. She was also ordered to get ceftriaxone 1 g IV and azithromycin 500 mg IV for community-acquired pneumonia. 10:59 Given her hypercarbia she was placed on BiPAP 15/5 with an FiO2 of 25%. The patient will be kept on BiPAP for 2 hours after which time, I will repeat a VBG to see if her pCO2 is improved. Chest x-ray was concerning for right lower lobe infiltrate. 16:18 Patient's blood pressure improved after receiving the 30 cc/kilogram bolus. The patient's repeat VBG did not reveal significant improvement, therefore consulted the photographic platemaker, Dr. Payne anterior evaluated the patient in the emergency department. He felt that she no longer needed BiPAP and this was discontinued. The patient is now on 3 L per minute oxygen via nasal cannula and O2 saturations are 92%. The patient's presentation was discussed over tiger text with the covering hospitalist, Dr. Segundo and the patient will be admitted to the hospitalist service for further management Admission/Observation Consideration of admission/observation: Escalation of care including admission/observation considered (Yes) Consult Healthcare Provider Management of the patient was discussed with: Hospitalist (Dr. Segundo) and Pharmacy Intake Technician (Distribution Center Manager, Dr. Payne) Lab Data [facility] Lab Attestation statement: I reviewed the patient's lab results. My independent interpretation of the patient's laboratory evaluation is as follows: CBC was normal. Bicarb elevated 31. Glucose elevated 134. Anion gap normal. AST elevated 39. Venous blood gas pH 7.26, CO2 67, bicarb 31-this is consistent with hypercarbia in his most likely caused by your COPD exacerbation. 10/12/24 10:07 10/12/24 10:07 Labs: Lab Results 10/12/24 10/12/24 10/12/24 Range/Units 10:06 10:07 10:15 WBC 6.8 (4.8-10.8) X10*3/uL RBC 4.39 (4.20-5.50) X10*6/uL Hgb 12.5 (12.0-16.0) g/dl Hct 39.8 (37.0-47.0) % MCV 90.7 (80.0-98.0) fL MCH 28.5 (27.0-33.0) pg MCHC 31.4 (31.0-35.0) g/dl RDW 13.3 (11.0-16.0) % Plt Count 155 L (160-400) X10*3/uL MPV 10.8 (9.4-12.3) fL Immature Gran % (Auto) 0.9 H (0.0-0.4) % Neut % (Auto) 56.3 (45-73) % Lymph % (Auto) 27.9 (20-40) % [place] % (Auto) 7.4 (2-11) % Eos % (Auto) 6.8 H (0-4) % Baso % (Auto) 0.7 (0-2) % Lymph # (Auto) 1.9 (1.2-4.9) X10*3/uL [place] # (Auto) 0.5 (0.1-1.2) X10*3/uL Eos # (Auto) 0.5 H (0.0-0.4) X10*3/uL Baso # (Auto) 0.1 (0.0-0.2) X10*3/uL Abs Immat Gran (auto) 0.06 H (0.00-0.03) X10*3/uL Absolute Neuts (auto) 3.8 (2.0-8.3) x10*3/uL Absolute Nucleated RBC 0.000 (0.0-0.012) X10*3/uL Nucleated RBC % (auto) 0.0 (0.0-0.2) /100WBC APTT 34.6 (26.0-36.8) SEC VBG pH (7.32-7.43) VBG pCO2 mmHg VBG pO2 mmHg VBG HCO3 (22-26) mmol/L VBG O2 Saturation % VBG Base Excess mmol/L Sodium 141 (135-145) mmol/L Potassium 4.6 D (3.3-5.1) mmol/L Chloride 106 (96-108) mmol/L Carbon Dioxide 31 H (22-29) mmol/L Anion Gap 9 L (12-20) BUN 12 (9-16) mg/dL Creatinine 0.91 (0.5-1.4) mg/dL Estim Creat Clear Calc 95.0 Estimated GFR > 60 Random Glucose 134 H (60-115) mg/dL Lactic Acid 1.2 (0.5-2.0) mmol/L Calcium 8.5 (8.4-10.2) mg/dL Magnesium 1.8 (1.6-2.6) mg/dL Total Bilirubin 0.2 (0.0-1.0) mg/dL AST 39 H (5-31) U/L ALT 22 (0-31) U/L Alkaline Phosphatase 72 (39-117) U/L Troponin I High Sens < 2.7 (<3.5-17.0) ng/L Total Protein 6.7 (6.5-8.0) g/dL Albumin 3.7 (3.5-5.0) g/dL Lipase 22 (8-78) U/L Influenza Type A (PCR) (Negative) Influenza Type B (PCR) (Negative) RSV RNA Qual (PCR) (Negative) SARS-CoV-2 RNA (RT-PCR) (Negative) 10/12/24 10/12/24 10/12/24 Range/Units 10:24 10:42 13:22 WBC (4.8-10.8) X10*3/uL RBC (4.20-5.50) X10*6/uL Hgb (12.0-16.0) g/dl Hct (37.0-47.0) % MCV (80.0-98.0) fL MCH (27.0-33.0) pg MCHC (31.0-35.0) g/dl RDW (11.0-16.0) % Plt Count (160-400) X10*3/uL MPV (9.4-12.3) fL Immature Gran % (Auto) (0.0-0.4) % Neut % (Auto) (45-73) % Lymph % (Auto) (20-40) % [place] % (Auto) (2-11) % Eos % (Auto) (0-4) % Baso % (Auto) (0-2) % Lymph # (Auto) (1.2-4.9) X10*3/uL [place] # (Auto) (0.1-1.2) X10*3/uL Eos # (Auto) (0.0-0.4) X10*3/uL Baso # (Auto) (0.0-0.2) X10*3/uL Abs Immat Gran (auto) (0.00-0.03) X10*3/uL Absolute Neuts (auto) (2.0-8.3) x10*3/uL Absolute Nucleated RBC (0.0-0.012) X10*3/uL Nucleated RBC % (auto) (0.0-0.2) /100WBC APTT (26.0-36.8) SEC VBG pH 7.26 L 7.24 L (7.32-7.43) VBG pCO2 67 62 mmHg VBG pO2 67 74 mmHg VBG HCO3 31 H 27 H (22-26) mmol/L VBG O2 Saturation 93.0 95.0 % VBG Base Excess 2.4 -0.9 mmol/L Sodium (135-145) mmol/L Potassium (3.3-5.1) mmol/L Chloride (96-108) mmol/L Carbon Dioxide (22-29) mmol/L Anion Gap (12-20) BUN (9-16) mg/dL Creatinine (0.5-1.4) mg/dL Estim Creat Clear Calc Estimated GFR Random Glucose (60-115) mg/dL Lactic Acid (0.5-2.0) mmol/L Calcium (8.4-10.2) mg/dL Magnesium (1.6-2.6) mg/dL Total Bilirubin (0.0-1.0) mg/dL AST (5-31) U/L ALT (0-31) U/L Alkaline Phosphatase (39-117) U/L Troponin I High Sens (<3.5-17.0) ng/L Total Protein (6.5-8.0) g/dL Albumin (3.5-5.0) g/dL Lipase (8-78) U/L Influenza Type A (PCR) NEGATIVE (Negative) Influenza Type B (PCR) NEGATIVE (Negative) RSV RNA Qual (PCR) NEGATIVE (Negative) SARS-CoV-2 RNA (RT-PCR) NEGATIVE (Negative) Independent Interpretation I performed an independent interpretation of an: EKG and Plain X-Ray Interpretation: My independent interpretation of the patient's two view chest x-ray is as follows: Right lower lobe infiltrate My independent interpretation patient's 12 EKG done at 10:27 hours is as follows: Sinus tachycardia with a rate of 101, normal [place] interval, QRS duration QTC interval, no ST segment elevation, no ST segment depression, no significant T-wave abnormalities, no PACs, no PVCs Radiology Impression Discussion of test interpretation with radiology: I have reviewed the radiologist's reading. Radiologist Impression: XR chest 2V IMPRESSION: Bronchial wall thickening suggesting small airways disease. Streaky right basilar opacities may represent atelectasis versus developing infiltrate. Electronically signed by: Harrison Steven MD 09/25/2024 08:08 PM EDT Dictated By: Harrison Steven MD Independent Historian Clinical information obtained from an independent historian. History obtained from or confirmed by: EMS External Record Review External record reviewed: Inpatient record Chronic Conditions Patient?s care impacted by: Other (COPD) Critical Care Time Critical Care Time Critical Care Time: Yes Total Critical Care Time: 75 Attestation: Critical Care: The patient was critically ill with a high probability of imminent or life threatening deterioration. I spent greater than 30 minutes of discontinuous time evaluating the patient,delivering critical care at the bedside, discussing and evaluating pertinent data with consultants. Critical care time does not include time spent performing separately billable procedures or teaching. Total time spent performing critical care was 75 minutes. Discharge Plan Discharge Clinical Impression: Pneumonia, Chronic lung disease Prescriptions: No Action acetaminophen 325 mg tablet 650 mg PO Q6H PRN (Reason: Headache/Pain Mild Scale (1-3)) nicotine (polacrilex) 2 mg Gum 2 mg BUCCAL Q2H PRN (Reason: Nicotine Cravings) melatonin 10 mg capsule 10 mg PO BEDTIME PRN (Reason: sleep) Qty: 30 0RF hydroxyzine HCl 25 mg Tablet 25 mg PO Q6H PRN (Reason: Anxiety) 15 Days Qty: 60 1RF guaifenesin [Mucinex] 600 mg Tablet Extended Release 12hr 600 mg PO BID PRN (Reason: congestion) 30 Days Qty: 60 0RF Combivent Respimat 20-100 mcg/actuation mist 1 puff INHALATION QID PRN (Reason: Shortness Of Breath Or Wheezing) 30 Days Qty: 4 0RF ipratropium-albuterol 0.5 mg-3 mg(2.5 mg base)/3 mL Solution For Nebulization 3 ml inhalation Q4H PRN (Reason: wheeze, sob) 30 Days Qty: 90 1RF ibuprofen 600 mg Tablet 600 mg PO Q6H PRN (Reason: Pain, Moderate(Pain Scale 4-6)) Qty: 0 0RF ondansetron 4 mg Tablet,Disintegrating 4 mg translingual Q6H PRN (Reason: Nausea) 30 Days Qty: 30 1RF simethicone [Gas Relief (simethicone)] 80 mg Tablet,Chewable 80 mg PO QIDWMHS PRN (Reason: gas relief) 30 Days Qty: 90 1RF pantoprazole 40 mg tablet,delayed release (DR/EC) 40 mg PO DAILY@0630 lorazepam 1 mg tablet 1 mg PO DAILY PRN (Reason: Anxiety) fluticasone propionate 50 mcg/actuation spray,suspension 2 spray intranasal DAILY PRN (Reason: Allergies) cholecalciferol (vitamin D3) 50 mcg (2,000 unit) capsule 50 mcg PO DAILY@0730 Breztri Aerosphere 160-9-4.8 mcg/actuation HFA aerosol inhaler 2 inh inhalation DAILY@0730 dextroamphetamine-amphetamine 10 mg tablet 1 tab PO DAILY@1400 dextroamphetamine-amphetamine 20 mg capsule,extended release 24hr 1 cap PO DAILY@729 clonidine HCl 0.1 mg tablet 0.1 mg PO TID@729, Protocol: Hold for SBP< HOLD for SBP < : 90 famotidine 20 mg tablet 20 mg PO BID@729,1999 albuterol sulfate 90 mcg/actuation HFA aerosol inhaler 2 puff INHALATION Q4H PRN (Reason: Shortness Of Breath) cyclobenzaprine 5 mg tablet 5 mg PO TID@729,1399,1999 PRN (Reason: Muscle Spasm) buprenorphine-naloxone [Suboxone] 8-2 mg film 1 film BUCCAL TID@729,1399,1999 Vraylar 3 mg capsule 3 mg PO BEDTIME@1999 multivitamin [Daily-Jesusita] Tablet 1 tab PO DAILY@729 topiramate 100 mg tablet 100 mg PO BID@729,1999 metformin 500 mg tablet extended release 24 hr 500 mg PO DAILY@729 lamotrigine [Lamictal] 100 mg tablet 100 mg PO DAILY@729 Rx Instructions: START 06/25/24 duloxetine 20 mg capsule,delayed release(DR/EC) 40 mg PO DAILY@729 duloxetine 60 mg capsule,delayed release(DR/EC) 60 mg PO DAILY@729 nicotine 14 mg/24 hr Patch 24 Hour 1 patch TRANSDERMAL DAILY folic acid 1 mg tablet 1 mg PO DAILY@729 prednisone 20 mg Tablet 40 mg PO DAILY Qty: 6 0RF doxycycline hyclate 100 mg capsule 100 mg PO BID Qty: 20 0RF amoxicillin-pot clavulanate 875-125 mg tablet 1 tab PO Q12H Qty: 20 0RF prednisone 20 mg tablet 40 mg PO DAILY Qty: 8 0RF Print Language: Welsh
--- NOTE | 2024-10-12 09:49 | ECG_ITS ---
Test Reason : TACHY/DYSPNEA Blood Pressure : / mmHG Vent. Rate : 101 BPM Atrial Rate : 101 BPM P-R Int : 160 ms QRS Dur : 078 ms QT Int : 354 ms P-R-T Axes : 063 071 042 degrees QTc Int : 459 ms Sinus tachycardia Otherwise normal ECG When compared with ECG of 17-SEP-2024 00:47, No significant change was found Referred By: Tarun Mccormick Electronically Signed By:NYDIA DELEON MD
[2024-10-12] MEDS: Albuterol Sulfate 2.5 MG, Albuterol/Iprat 2.5/0.5MG 3 ML 3 ML INHALE (10:11)
[2024-10-12 10:12] LABS: MANUAL DIFF FLAG NO
[2024-10-12] MEDS: methylPREDNISolone Sod Succ 125 MG/2 ML VIAL IVPUSH (10:14)
[2024-10-12] MEDS: cefTRIAXone sodium 1 GM VIAL IVPUSH (10:16)
[2024-10-12 10:19] LABS: Basophils Absolute Auto 0.1 X10*3/uL (0.0-0.2); Basophils Percent Auto 0.7 % (0-2); Eosinophils Absolute Auto 0.5 X10*3/uL (0.0-0.4); Eosinophils Percent Auto 6.8 % (0-4); Hematocrit 39.8 % (37.0-47.0); Hemoglobin 12.5 g/dl (12.0-16.0); Imm Gran Abs Auto 0.06 X10*3/uL (0.00-0.03); Imm Gran Pct Auto 0.9 % (0.0-0.4); Lymphocytes Absolute Auto 1.9 X10*3/uL (1.2-4.9); Lymphocytes Percent Auto 27.9 % (20-40); Mean Corpuscular HGB Conc 31.4 g/dl (31.0-35.0); Mean Corpuscular Hemoglobin 28.5 pg (27.0-33.0); Mean Corpuscular Volume 90.7 fL (80.0-98.0); Mean Platelet Volume 10.8 fL (9.4-12.3); Monocytes Absolute Auto 0.5 X10*3/uL (0.1-1.2); Monocytes Percent Auto 7.4 % (2-11); Neutrophils Absolute Auto 3.8 x10*3/uL (2.0-8.3); Neutrophils Percent Auto 56.3 % (45-73); Platelet Count 155 X10*3/uL (160-400); Red Blood Count 4.39 X10*6/uL (4.20-5.50); Red Cell Distribution Width 13.3 % (11.0-16.0); White Blood Count 6.8 X10*3/uL (4.8-10.8)
[2024-10-12 10:28] LABS: VBG Base Excess 2.4 mmol/L; VBG HCO3 31 mmol/L (22-26); VBG pCO2 67 mmHg; VBG pH 7.26 (7.32-7.43); VBG pO2 67 mmHg
[2024-10-12 10:29] LABS: Venous Blood Gas Refer to POC result
[2024-10-12 10:34] LABS: Partial Thromboplastin Time 34.6 SEC (26.0-36.8)
[2024-10-12 10:34] LABS: Lactic Acid 1.2 mmol/L (0.5-2.0)
[2024-10-12 10:39] LABS: Alanine Aminotransferase 22 U/L (0-31); Albumin Level 3.7 g/dL (3.5-5.0); Alkaline Phosphatase 72 U/L (39-117); Anion Gap 9 (12-20); Aspartate Amino Transferase 39 U/L (5-31); Bilirubin Total 0.2 mg/dL (0.0-1.0); Blood Urea Nitrogen 12 mg/dL (9-16); Calcium 8.5 mg/dL (8.4-10.2); Carbon Dioxide 31 mmol/L (22-29); Chloride 106 mmol/L (96-108); Estimated Glomerular Filt Rate > 60; Glucose Random 134 mg/dL (60-115); Lipase 22 U/L (8-78); Magnesium 1.8 mg/dL (1.6-2.6); Potassium 4.6 mmol/L (3.3-5.1); Sodium 141 mmol/L (135-145); Total Protein 6.7 g/dL (6.5-8.0)
[2024-10-12] MEDS: Azithromycin 500 MG in 0.9 % Sodium Chloride 250 ML 125 MG IV (10:44)
[2024-10-12 10:45] LABS: Troponin-I High Sensitivity < 2.7 ng/L (<3.5-17.0)
[2024-10-12 11:35] LABS: Influenza A PCR NEGATIVE (Negative); Influenza B PCR NEGATIVE (Negative); Resp Syncy Virus RNA Qual PCR NEGATIVE (Negative); SARS COV2 PCR INHOUSE NEGATIVE (Negative)
--- NOTE | 2024-10-12 12:37 | PC.NURSE ---
senior mainframe programmer analyst kevin ledezma ([phone]) requested a call for when patient is d/c from [facility] for discharge planning
[2024-10-12 13:23] LABS: Venous Blood Gas Refer to POC result
[2024-10-12 13:26] LABS: VBG Base Excess -0.9 mmol/L; VBG HCO3 27 mmol/L (22-26); VBG pCO2 62 mmHg; VBG pH 7.24 (7.32-7.43); VBG pO2 74 mmHg
--- NOTE | 2024-10-12 17:58 | PM.IMHP ---
History of Present Illness Date of Service: 10/12/24 Attending physician on admission: George Segundo Chief Complaint: sob 49y/o F with pmhx COPD on home O2, substance abuse on Suboxone, fibromyalgia, prediabetes, and morbid obesity came with c/o shortness of breath, dyspnea on exertion productive cough x2 weeks( has recent admission-[facility] from 08/2022 until 09/17/2024 secondary to hypercarbia from a COPD exacerbation secondary to rhino virus and she was treated with BiPAP , acetazolamide Solu-Medrol and echo: no significant wall motion abnormalities with an EF of 60-65%-she went home with prednisone ). Afterwards last 2 weeks she has been feeling short of breath and having significant dyspnea on exertion, cough which is productive yellow sputum with no blood in the sputum, has had to increase her oxygen from 3 L to 4 liters/minute secondary to shortness of breath with exertion. She was also noticed increased lower extremity swelling and redness to both lower extremities that are symmetric, pain, has subjective fever and chills and myalgias and arthralgias. She denied chest pain. cxr:Acute inflammatory versus infectious process should be considered in the correct clinical settings. in ed received : bipap breifly for 2 hrs( 7.) ,lactic acid normal ,given ceftriaxone/azithromycin,also 30cc/bolus,solumedrol,ekg sinus tachycardia. as per Ed documenatation-Patient is seen by Dr. Payne who felt that the patient was at her baseline and recommended removing BiPAP. Patient appears well with a O2 saturation of 92% on 3 L of oxygen via nasal cannula. . Review of Systems Review of Systems: as above. Yes all other systems are reviewed and are negative [facility] Medical History History of seizure Abdominal hernia Ulcerative colitis Black lung disease Hepatitis C delivery delivered Bunion History of COVID-19 Pneumonia Hx of respiratory failure Sleep apnea Type II diabetes mellitus Thyroid nodule Fibromyalgia COPD (chronic obstructive pulmonary disease) Surgical History Hx of cholecystectomy History of tubal ligation Social History Household Members: None Household Members Other:: Pt currently residing at the [facility] Housing: Other Housing Other:: Half way house Do you presently have visiting nurse or other home services: No Alcohol intake: current Alcohol intake frequency: a few times a week Patient Tobacco Use Status: Never used Tobacco Tobacco use type: Cigarette Cigarettes Per Day: 6 e-Cigarette/Vaping Use: Never Used Second Hand Smoke Exposure: No Substance Use Type: Crack/Cocaine Advance Directives: Yes Advance Directives on File: Yes Advance Directives Date on File: 09/18/24 Do you have a plan to hurt others: No Plan service: No Sexual orientation: Straight/Heterosexual Meds Allergies Allergy/AdvReac Type Severity Reaction Status Date / Time Sulfa (Sulfonamide Allergy Severe Difficulty Verified 10/12/24 09:18 Antibiotics) Breathing Active Medications: Current Medications Acetaminophen (Acetaminophen 325 Mg Tablet) 650 mg PO Q6H PRN PRN Reason: Pain, Mild (Pain Scale 1-3), fever or headache Albuterol/Ipratropium (Albuterol/Iprat 2.5/0.5mg 3 Ml Ampul.Neb) 3 ml INHALE Q4H DULCE Albuterol/Ipratropium (Albuterol/Iprat 2.5/0.5mg 3 Ml Ampul.Neb) 3 ml INHALE Q3H PRN PRN Reason: sob Calcium Carbonate (Calcium Carbonate 750 Mg Tab.Chew) 750 mg PO Q4H PRN PRN Reason: Heartburn Ceftriaxone Sodium (Ceftriaxone Sodium 1 Gm Vial) 1 gm IVPUSH Q24H DULCE Enoxaparin Sodium (Enoxaparin Sodium 40 Mg/0.4 Ml Syringe) 40 mg SUBCUT Q24H DULCE Azithromycin 500 mg/ Sodium (Chloride) 250 mls @ 125 mls/hr IV Q24H DULCE Magnesium Hydroxide (Milk Of Magnesia 30 Ml Oral.Susp) 30 ml PO DAILY PRN PRN Reason: Constipation Melatonin (Melatonin 3 Mg Tablet) 6 mg PO BEDTIME PRN PRN Reason: Insomnia Methylprednisolone Sodium Succinate (Methylprednisolone Sod Succ 40 Mg/Ml Vial) 40 mg IVPUSH BID DULCE Sodium Chloride (0.9 % Sodium Chloride Flush 3 Ml Syringe) 3 ml IVFLUSH QSHIFT [facility] Home Medications ?Medication ?Instructions ?Recorded ?Confirmed ?Last Taken ?Type acetaminophen 325 mg tablet 650 mg PO Q6H PRN Headache/Pain 06/25/24 09/15/24 Unknown History Mild Scale (1-3) nicotine (polacrilex) 2 mg gum 2 mg buccal Q2H PRN Nicotine 06/25/24 09/15/24 Unknown History Cravings albuterol sulfate 90 mcg/actuation 2 puff inhalation Q4H PRN 09/15/24 09/15/24 Unknown History aerosol inhaler Shortness Of Breath budesonide 160 mcg-glycopyr 9 2 inh inhalation DAILY@72909/15/24 09/15/24 Unknown History mcg-formot 4.8 mcg/actuation HFA inhaler (Breztri Aerosphere) buprenorphine 8 mg-naloxone 2 mg 1 film buccal TID@0730,1399,199909/15/24 09/15/24 09/15/24 07:30 History sublingual film (Suboxone) cariprazine 3 mg capsule (Vraylar) 3 mg PO BEDTIME@199909/15/24 09/15/24 09/14/24 20:00 History cholecalciferol (vitamin D3) 50 50 mcg PO DAILY@72909/15/24 09/15/24 09/15/24 07:30 History mcg (2,000 unit) capsule clonidine HCl 0.1 mg tablet 0.1 mg PO TID@0730,1399,199909/15/24 09/15/24 09/15/24 07:30 History cyclobenzaprine 5 mg tablet 5 mg PO TID@0730,1399,1999 PRN 09/15/24 09/15/24 09/15/24 07:30 History Muscle Spasm dextroamphetamine-amphetamine 10 1 tab PO DAILY@139909/15/24 09/15/24 09/14/24 14:00 History mg tablet dextroamphetamine-amphetamine ER 1 cap PO DAILY@72909/15/24 09/15/24 09/15/24 07:30 History 20 mg 24hr capsule,extend release duloxetine 20 mg capsule,delayed 40 mg PO DAILY@72909/15/24 09/15/24 09/15/24 07:30 History release duloxetine 60 mg capsule,delayed 60 mg PO DAILY@72909/15/24 09/15/24 09/15/24 07:30 History release famotidine 20 mg tablet 20 mg PO BID@09/15/24 09/15/24 09/15/24 07:30 History fluticasone propionate 50 2 spray intranasal DAILY PRN 09/15/24 09/15/24 Unknown History mcg/actuation nasal Allergies spray,suspension folic acid 1 mg tablet 1 mg PO DAILY@72909/15/24 09/15/24 09/15/24 07:35 History lamotrigine 100 mg tablet 100 mg PO DAILY@72909/15/24 09/15/24 09/15/24 07:30 History (Lamictal) lorazepam 1 mg tablet 1 mg PO DAILY PRN Anxiety 09/15/24 09/15/24 Unknown History metformin 500 mg tablet,extended 500 mg PO DAILY@72909/15/24 09/15/24 09/15/24 07:30 History release 24 hr multivitamin (Daily-Jesusita tablet) 1 tab PO DAILY@72909/15/24 09/15/24 09/15/24 07:30 History nicotine 14 mg/24 hr daily 1 patch transdermal DAILY 09/15/24 09/15/24 09/14/24 History transdermal patch pantoprazole 40 mg tablet,delayed 40 mg PO DAILY@62909/15/24 09/15/24 09/15/24 07:30 History release topiramate 100 mg tablet 100 mg PO BID@09/15/24 09/15/24 09/15/24 07:30 History methylphenidate HCl 10 mg tablet 10 mg PO BID 10/12/24 Unknown History quetiapine 200 mg tablet 200 mg PO BEDTIME 10/12/24 Unknown History quetiapine 25 mg tablet 25 mg PO 10/12/24 Unknown History Physical Exam Vital Signs and Narrative: Vital Signs: Last Vital Signs Temp 97.6 F 10/12/24 17:11 Pulse 93 10/12/24 17:11 Resp 12 10/12/24 17:11 BP 96/70 10/12/24 17:11 Pulse Ox 93 10/12/24 17:11 O2 Del Method Nasal Cannula 10/12/24 17:11 O2 Flow Rate 2 10/12/24 17:11 FiO2 25 10/12/24 15:33 BMI result Body Mass Index 49.1 Appearance: Alert.? Oriented X3, sob little improving cvs: rrr, [id number] . res: air entry diminshed ,has wheezing b/l abd: no rebound or guarding ,nt, bs present. ext pulses present , no cyanosis . neuro: axo3 , nonfocal. Results Labs 10/12/24 10:07 10/12/24 10:07 Labs: Laboratory Results - last 24 hr 10/12/24 10/12/24 10/12/24 10:06 10:07 10:15 MCV 90.7 MCH 28.5 MCHC 31.4 RDW 13.3 Plt Count 155 L MPV 10.8 Immature Gran % (Auto) 0.9 H Neut % (Auto) 56.3 Lymph % (Auto) 27.9 [place] % (Auto) 7.4 Eos % (Auto) 6.8 H Baso % (Auto) 0.7 Lymph # (Auto) 1.9 [place] # (Auto) 0.5 Eos # (Auto) 0.5 H Baso # (Auto) 0.1 Abs Immat Gran (auto) 0.06 H Absolute Neuts (auto) 3.8 Absolute Nucleated RBC 0.000 Nucleated RBC % (auto) 0.0 APTT 34.6 VBG pH VBG pCO2 VBG pO2 VBG HCO3 VBG O2 Saturation VBG Base Excess Anion Gap 9 L Estim Creat Clear Calc 95.0 Estimated GFR > 60 Random Glucose 134 H Lactic Acid 1.2 Calcium 8.5 Magnesium 1.8 Total Bilirubin 0.2 AST 39 H ALT 22 Alkaline Phosphatase 72 Troponin I High Sens < 2.7 Total Protein 6.7 Albumin 3.7 Lipase 22 Influenza Type A (PCR) Influenza Type B (PCR) RSV RNA Qual (PCR) SARS-CoV-2 RNA (RT-PCR) 10/12/24 10/12/24 10/12/24 10:24 10:42 13:22 MCV MCH MCHC RDW Plt Count MPV Immature Gran % (Auto) Neut % (Auto) Lymph % (Auto) [place] % (Auto) Eos % (Auto) Baso % (Auto) Lymph # (Auto) [place] # (Auto) Eos # (Auto) Baso # (Auto) Abs Immat Gran (auto) Absolute Neuts (auto) Absolute Nucleated RBC Nucleated RBC % (auto) APTT VBG pH 7.26 L 7.24 L VBG pCO2 67 62 VBG pO2 67 74 VBG HCO3 31 H 27 H VBG O2 Saturation 93.0 95.0 VBG Base Excess 2.4 -0.9 Anion Gap Estim Creat Clear Calc Estimated GFR Random Glucose Lactic Acid Calcium Magnesium Total Bilirubin AST ALT Alkaline Phosphatase Troponin I High Sens Total Protein Albumin Lipase Influenza Type A (PCR) NEGATIVE Influenza Type B (PCR) NEGATIVE RSV RNA Qual (PCR) NEGATIVE SARS-CoV-2 RNA (RT-PCR) NEGATIVE Imaging Radiologist's Impressions: Impressions Chest X-Ray 10/12/24 10:24 IMPRESSION: Acute inflammatory versus infectious process should be considered in the correct clinical settings. Electronically signed by: Talha Wiggins MD 10/12/2024 11:40 AM [facility] Assessment and Plan (1) Pneumonia: Qualifiers: Laterality: bilateral Lung location: unspecified part of lung Pneumonia type: due to unspecified organism Qualified Code(s): J18.9 - Pneumonia, unspecified organism Status: Acute (2) Acute on chronic respiratory failure with hypoxia and hypercapnia: Status: Acute Plan 49yo F with COPD on home O2, substance abuse on Suboxone, fibromyalgia, prediabetes presenting with sob . acute on chronic hypercapenic respiratory failure and sepsis due to copd execerbation/pneumonia: Lactic acid own normal, blood cultures sent, patient received briefly BiPAP. Tachypnea ,bodelrine bp added res panel. plan: repeat vbg Continue nebs, steroids, antibiotics, received 30 cc/bolus Pulm consulted. leg edema:? chronic bnp and echo was fine during last admsision. leg elevation, compression devices. need med reconcillion: fibromyalgia mood disorder multiple sedating medications [on cyclobenzaprine, clonidine, duloxetine, hydroxyzine, quetiapine, cariprazine, topiramate]??-once reconcilled , will review. morbid obesity - diet/exercise counseling substance abuse disorder - continue Suboxone once med reconcillation done. VTE prophylaxis - enoxaparin Patient would benefit from in-hospital stay for at least 2 midnights: Due to acute hypoxemic/hypercarbic respiratory failure in the setting of COPD/pneumonia need I oxygen IV antibiotics, steroids, close monitoring of respiratory status. If patient condition worsen further we will consider re-evaluation by ICU. As assessment and plan coordination time spent 70 minute. Patient is full code. Above management discussed with the patient she understand and in agreement with the above plan. Quality Stroke Does the patient have a stroke diagnosis?: No VTE Prior VTE?: No VTE Risk Level:: Medical - moderate - high VTE Device Contraindication: N/A - Device Ordered VTE Drug Contraindication: N/A - Med Ordered
[2024-10-12 19:30] LABS: VBG Base Excess 0.3 mmol/L; VBG HCO3 26 mmol/L (22-26); VBG pCO2 50 mmHg; VBG pH 7.32 (7.32-7.43); VBG pO2 68 mmHg
[2024-10-12 19:31] LABS: Venous Blood Gas Refer to POC result
--- NOTE | 2024-10-12 19:54 | PHA.MEDREC ---
Addendum entered by Karla Mcgee RPh 10/12/24 20:32: [facility] REVIEWED Original Note: Pharmacy Consult ? Medication Reconciliation Pharmacy has completed the medication reconciliation. Spoke with patient and she was able to confirm medictions with me. Patient confirmed she is taking the Suboxone 8-2mg films one film TID@0730,1400,2000 and claims she took one today. She confirmed she is taking the Methylphenidate 10mg tabs and states she is taking2 tabs in the morning @0730 and 1 tablet @1400. She confirmed she took her medications this morning @0730.
[2024-10-12] MEDS: Albuterol/Iprat 2.5/0.5MG 3 ML AMPUL.NEB INHALE (20:25)
[2024-10-12] MEDS: methylPREDNISolone Sod Succ 40 MG/ML VIAL IVPUSH (21:49)
[2024-10-12] MEDS: Nicotine 14 MG PATCH.TD24 TRANSDERMA (22:20)
[2024-10-12] MEDS: Buprenorphine/Naloxone 4/1 mg FILM 1 FILM SUBLINGUAL (22:21)
[2024-10-13] VITALS (16 sets, daily range): BP systolic 100–140; BP diastolic 52–74; PULSE 66–107; RESP 11–19; TEMP 36.5–37.1; O2SAT 92–100
[2024-10-13] MEDS: Albuterol/Iprat 2.5/0.5MG 3 ML AMPUL.NEB INHALE ×7 (00:22→23:11)
--- NOTE | 2024-10-13 04:22 | PC.NURSE ---
pt resting comfortably on stretcher, wearing baseline 3L O2 via NC. Pt on color television console monitor, waiting for bed assignment up on floor. call puga within reach, plan of care ongoing.
--- NOTE | 2024-10-13 05:00 | PC.NURSE ---
pt assisted up to bedside commode. urine sample obtained and sent to lab. 600cc urine output
[2024-10-13 05:03] LABS: Appearance Urine Clear; Color Urine Yellow; Glucose Urine UA Negative (Negative); Leukocyte Esterase Urine Negative (Negative); Nitrite Urine Negative (Negative); Specific Gravity - Urine 1.025 (1.005-1.025); Urine Blood Negative (Negative); Urine Ketones Negative (Negative); Urine Protein Trace mg/dL (Neg-Trace)
[2024-10-13] MEDS: Nicotine Polacrilex Lozenge 2 MG LOZENGE BUCCAL ×7 (06:18→23:13)
[2024-10-13] MEDS: acetaZOLAMIDE 250 MG TABLET PO (08:23)
[2024-10-13] MEDS: methylPREDNISolone Sod Succ 40 MG/ML VIAL IVPUSH (08:23)
[2024-10-13] MEDS: 0.9 % Sodium Chloride Flush 3 ML SYRINGE IVFLUSH ×2 (08:28→17:45)
[2024-10-13] MEDS: DULoxetine HCl 60 MG CAPSULE.DR PO (09:28)
[2024-10-13] MEDS: Cholecalciferol (Vitamin D3) 25 MCG TABLET 50 MCG PO (09:28)
[2024-10-13] MEDS: lamoTRIgine 100 MG TABLET PO (09:29)
[2024-10-13] MEDS: Folic Acid 1 MG TABLET PO (09:29)
[2024-10-13] MEDS: cefTRIAXone sodium 1 GM VIAL IVPUSH (09:29)
[2024-10-13] MEDS: Multivitamin TABLET 1 TAB PO (09:29)
[2024-10-13] MEDS: Nicotine 14 MG PATCH.TD24 TRANSDERMA (09:29)
[2024-10-13] MEDS: DULoxetine HCl 20 MG CAPSULE.DR 40 MG PO (09:29)
[2024-10-13] MEDS: Methylphenidate HCl 10 MG TABLET 20 MG PO (09:33)
[2024-10-13] MEDS: Buprenorphine/Naloxone 8/2 mg FILM 1 FILM BUCCAL ×3 (10:17→21:04)
[2024-10-13] MEDS: Azithromycin 500 MG in 0.9 % Sodium Chloride 250 ML 125 MG IV (11:06)
[2024-10-13 11:14] LABS: Adenovirus PCR Not Detected (Not Detect.); Bordetella parapertussis PCR Not Detected (Not Detect.); Bordetella pertussis PCR Not Detected (Not Detect.); Chlamydia pneumoniae PCR Not Detected (Not Detect.); Coronavirus 229E PCR Not Detected (Not Detect.); Coronavirus HKU1 PCR Not Detected (Not Detect.); Coronavirus NL63 PCR Not Detected (Not Detect.); Coronavirus OC43 PCR Not Detected (Not Detect.); Human metapneumovirus PCR Not Detected (Not Detect.); Influenza A PCR Not Detected (Not Detect.); Influenza B PCR Not Detected (Not Detect.); Mycoplasma pneumoniae PCR Not Detected (Not Detect.); Parainfluenza 1 PCR Not Detected (Not Detect.); Parainfluenza 2 PCR Not Detected (Not Detect.); Parainfluenza 3 PCR Not Detected (Not Detect.); Parainfluenza 4 PCR Not Detected (Not Detect.); RSV PCR Not Detected (Not Detect.); Rhino/Enterovirus PCR Not Detected (Not Detect.)
[2024-10-13 11:18] LABS: SARS-CoV-2 PCR Not Detected (Not Detect.)
--- NOTE | 2024-10-13 12:26 | PM.CNPUL ---
History of Present Illness History of Present Illness Consult date: 10/13/24 Chief complaint: acute hypoxic respiratory failure/copd/pneumonia Narrative: This is an inpatient pulmonary consultation. The patient is a 49-year-old lady, active 30 pack-year smoker with underlying ALEKS/obesity hypoventilation syndrome, possible COPD recently discharged on supplemental oxygen, also substance abuse on Suboxone being admitted for worsening dyspnea and lower extremity edema for several days. On initial ER evaluation patient with acute on chronic hypercapnia with a pH of 7.24. She was briefly placed on BiPAP, but has been titrated off. She is now closer to her baseline. She still has significant chest congestion wheezing coughing. She does live in a setting with a lot of people therefore exposed to significant sick contacts. Her respiratory viral panel was negative although her chest x-ray does demonstrate some atypical airspace disease and significant chest congestion. She does continue to use her oxygen. The patient was supposed to have a sleep study somewhere [place] but she was not able to make the appointment because of her illness. If her condition improves and if we can do a sleep study as an inpatient we can consider that. Review of Systems Review of Systems: Yes all other systems are reviewed and are negative Constitutional: Constitutional: Denies fatigue and Denies fever(s) Cardiovascular: Cardiovascular: Denies chest pain and Reports dyspnea Respiratory: Respiratory: Reports change in phlegm color, Reports chest congestion, Reports cough, Reports dyspnea and Reports wheezing Gastrointestinal: Gastrointestinal: Denies diarrhea, Denies nausea and Denies vomiting Endocrine: Endocrine: Denies fatigue Allergic/Immunologic: Allergic/Immunologic: Reports wheezing PMFSH Past Medical History Medical History (Updated 10/13/24 @ 12:30 by Pawan Kothari MD) ALEKS (obstructive sleep apnea) History of seizure Abdominal hernia Ulcerative colitis Black lung disease Hepatitis C delivery delivered Bunion History of COVID-19 Pneumonia Hx of respiratory failure Sleep apnea Type II diabetes mellitus Thyroid nodule Fibromyalgia COPD (chronic obstructive pulmonary disease) Surgical History Surgical History Hx of cholecystectomy History of tubal ligation Social History Social History Household Members: None Household Members Other:: Pt currently residing at the [facility] Housing: Other Housing Other:: Half way house Do you presently have visiting nurse or other home services: No Alcohol intake: current Alcohol intake frequency: a few times a week Patient Tobacco Use Status: Never used Tobacco Tobacco use type: Cigarette Cigarettes Per Day: 6 e-Cigarette/Vaping Use: Never Used Second Hand Smoke Exposure: No Substance Use Type: Crack/Cocaine Advance Directives: Yes Advance Directives on File: Yes Advance Directives Date on File: 09/18/24 Do you have a plan to hurt others: No Plan Nutrition Risks: No Nutritional Risk service: No Sexual orientation: Straight/Heterosexual Meds Allergies Allergy/AdvReac Type Severity Reaction Status Date / Time Sulfa (Sulfonamide Allergy Severe Difficulty Verified 10/12/24 09:18 Antibiotics) Breathing Active Medications: Current Medications Acetaminophen (Acetaminophen 325 Mg Tablet) 650 mg PO Q6H PRN PRN Reason: Pain, Mild (Pain Scale 1-3), fever or headache Albuterol Sulfate (Albuterol Sulfate 90 Mcg 8 Gm Inhaler) 2 puff INHALE Q4H PRN PRN Reason: Shortness Of Breath Albuterol/Ipratropium (Albuterol/Iprat 2.5/0.5mg 3 Ml Ampul.Neb) 3 ml INHALE Q3H PRN PRN Reason: sob Albuterol/Ipratropium (Albuterol/Iprat 2.5/0.5mg 3 Ml Ampul.Neb) 3 ml INHALE RQ4H [facility] Last Admin: 10/13/24 11:22 Dose: 3 ml Buprenorphine/Naloxone (Buprenorphine/Naloxone 8/2 Mg Film) 1 film BUCCAL TID@0730,1399,1999 [facility] Last Admin: 10/13/24 10:17 Dose: 1 film Calcium Carbonate (Calcium Carbonate 750 Mg Tab.Chew) 750 mg PO Q4H PRN PRN Reason: Heartburn Cariprazine (Cariprazine Hcl 3 Mg Capsule) 3 mg PO BEDTIME@1999 [facility] Ceftriaxone Sodium (Ceftriaxone Sodium 1 Gm Vial) 1 gm IVPUSH Q24H [facility] Last Admin: 10/13/24 09:29 Dose: 1 gm Clonidine HCl (Clonidine Hcl 0.1 Mg Tablet) 0.1 mg PO TID@0730,1400,1999 [facility]; Protocol Cyclobenzaprine HCl (Cyclobenzaprine Hcl 5 Mg Tablet) 5 mg PO TID@0730,1400,1999 PRN PRN Reason: Muscle Spasm Duloxetine HCl (Duloxetine Hcl 20 Mg Capsule.Dr) 40 mg PO DAILY@729 [facility] Last Admin: 10/13/24 09:29 Dose: 40 mg Duloxetine HCl (Duloxetine Hcl 60 Mg Capsule.Dr) 60 mg PO DAILY@729 [facility] Last Admin: 10/13/24 09:28 Dose: 60 mg Enoxaparin Sodium (Enoxaparin Sodium 40 Mg/0.4 Ml Syringe) 40 mg SUBCUT Q24H [facility] Last Admin: 10/12/24 18:44 Dose: Not Given Famotidine (Famotidine 20 Mg Tablet) 20 mg PO BID@ [facility] Folic Acid (Folic Acid 1 Mg Tablet) 1 mg PO DAILY@729 [facility] Last Admin: 10/13/24 09:29 Dose: 1 mg Guaifenesin (Guaifenesin La 600 Mg Tab.Er.12h) 600 mg PO BID PRN PRN Reason: congestion Hydroxyzine HCl (Hydroxyzine Hcl 25 Mg Tablet) 25 mg PO Q6H PRN PRN Reason: Anxiety Azithromycin 500 mg/ Sodium (Chloride) 250 mls @ 125 mls/hr IV Q24H [facility] Last Admin: 10/13/24 11:06 Dose: 125 mls/hr Ibuprofen (Ibuprofen 600 Mg Tablet) 600 mg PO TID PRN PRN Reason: Pain, Moderate(Pain Scale 4-6) Lamotrigine (Lamotrigine 100 Mg Tablet) 100 mg PO DAILY@729 [facility] Last Admin: 10/13/24 09:29 Dose: 100 mg Lorazepam (Lorazepam 1 Mg Tablet) 1 mg PO BEDTIME PRN PRN Reason: Anxiety Magnesium Hydroxide (Milk Of Magnesia 30 Ml Oral.Susp) 30 ml PO DAILY PRN PRN Reason: Constipation Melatonin (Melatonin 3 Mg Tablet) 6 mg PO BEDTIME PRN PRN Reason: Insomnia Methylphenidate HCl (Methylphenidate Hcl 10 Mg Tablet) 10 mg PO DAILY@1400 [facility] Methylphenidate HCl (Methylphenidate Hcl 10 Mg Tablet) 20 mg PO DAILY@729 [facility] Last Admin: 10/13/24 09:33 Dose: 20 mg Methylprednisolone Sodium Succinate (Methylprednisolone Sod Succ 40 Mg/Ml Vial) 60 mg IVPUSH Q8H [facility] Multivitamins/Vitamin C (Multivitamin Tablet) 1 tab PO DAILY@729 [facility] Last Admin: 10/13/24 09:29 Dose: 1 tab Nicotine (Nicotine 14 Mg Patch.Td24) 14 mg TRANSDERMA DAILY [facility] Last Admin: 10/13/24 09:29 Dose: 14 mg Nicotine Polacrilex (Nicotine Polacrilex Lozenge 2 Mg Lozenge) 2 mg BUCCAL Q2H PRN PRN Reason: Nicotine Cravings Last Admin: 10/13/24 12:01 Dose: 2 mg Nicotine Polacrilex (Nicotine Polacrilex 2 Mg Gum) 2 mg BUCCAL Q2H PRN PRN Reason: Nicotine Cravings Omeprazole (Omeprazole 20 Mg Capsule.Dr) 20 mg PO BID@0730,1630 [facility] Ondansetron HCl (Ondansetron Odt 4 Mg Tab.Rapdis) 4 mg TRANSLINGU Q6H PRN PRN Reason: Nausea Simethicone (Simethicone 80 Mg Tab.Chew) 80 mg PO QIDWMHS PRN PRN Reason: gas relief Sodium Chloride (0.9 % Sodium Chloride Flush 3 Ml Syringe) 3 ml IVFLUSH QSHIFT [facility] Last Admin: 10/13/24 08:28 Dose: 3 ml Topiramate (Topiramate 100 Mg Tablet) 100 mg PO BID@729,1999 [facility] Vitamin D (Cholecalciferol (Vitamin D3) 25 Mcg Tablet) 50 mcg PO DAILY@729 [facility] Last Admin: 10/13/24 09:28 Dose: 50 mcg Home Medications ?Medication ?Instructions ?Recorded ?Confirmed ?Last Taken ?Type acetaminophen 325 mg tablet 650 mg PO Q6H PRN Headache/Pain 06/25/24 10/12/24 Unknown History Mild Scale (1-3) nicotine (polacrilex) 2 mg gum 2 mg buccal Q2H PRN Nicotine 06/25/24 10/12/24 Unknown History Cravings albuterol sulfate 90 mcg/actuation 2 puff inhalation Q4H PRN 09/15/24 10/12/24 Unknown History aerosol inhaler Shortness Of Breath budesonide 160 mcg-glycopyr 9 2 inh inhalation DAILY@72909/15/24 10/12/24 10/12/24 07:30 History mcg-formot 4.8 mcg/actuation HFA inhaler (Breztri Aerosphere) buprenorphine 8 mg-naloxone 2 mg 1 film buccal TID@0730,1399,199909/15/24 10/12/24 10/12/24 07:30 History sublingual film (Suboxone) cariprazine 3 mg capsule (Vraylar) 3 mg PO BEDTIME@199909/15/24 10/12/24 10/12/24 07:30 History cholecalciferol (vitamin D3) 50 50 mcg PO DAILY@72909/15/24 10/12/24 10/12/24 07:30 History mcg (2,000 unit) capsule clonidine HCl 0.1 mg tablet 0.1 mg PO TID@729,09/15/24 10/12/24 10/12/24 07:30 History cyclobenzaprine 5 mg tablet 5 mg PO TID@729, PRN 09/15/24 10/12/24 09/15/24 07:30 History Muscle Spasm duloxetine 20 mg capsule,delayed 40 mg PO DAILY@72909/15/24 10/12/24 10/12/24 07:30 History release duloxetine 60 mg capsule,delayed 60 mg PO DAILY@72909/15/24 10/12/24 10/12/24 07:30 History release famotidine 20 mg tablet 20 mg PO BID@09/15/24 10/12/24 10/12/24 07:30 History fluticasone propionate 50 2 spray intranasal BID PRN 09/15/24 10/12/24 Unknown History mcg/actuation nasal Allergies spray,suspension folic acid 1 mg tablet 1 mg PO DAILY@72909/15/24 10/12/24 10/12/24 07:30 History lamotrigine 100 mg tablet 100 mg PO DAILY@72909/15/24 10/12/24 10/12/24 07:30 History (Lamictal) lorazepam 1 mg tablet 1 mg PO BEDTIME PRN Anxiety 09/15/24 10/12/24 Unknown History metformin 500 mg tablet,extended 500 mg PO DAILY@72909/15/24 10/12/24 10/12/24 07:30 History release 24 hr multivitamin (Daily-Jesusita tablet) 1 tab PO DAILY@72909/15/24 10/12/24 10/12/24 07:30 History nicotine 14 mg/24 hr daily 1 patch transdermal DAILY 09/15/24 10/12/24 09/14/24 History transdermal patch pantoprazole 40 mg tablet,delayed 40 mg PO BID@0730,1630 09/15/24 10/12/24 10/12/24 07:30 History release topiramate 100 mg tablet 100 mg PO BID@0730,2000 09/15/24 10/12/24 10/12/24 07:30 History ibuprofen 600 mg tablet 600 mg PO TID PRN Pain, 10/12/24 10/12/24 Unknown History Moderate(Pain Scale 4-6) methylphenidate HCl 10 mg tablet 10 mg PO DAILY@1400 10/12/24 10/12/24 10/11/24 History methylphenidate HCl 10 mg tablet 20 mg PO DAILY@0730 10/12/24 10/12/24 10/12/24 07:30 History Physical Exam Vital Signs: Vital Signs: Last Vital Signs Temp 98.2 F 10/13/24 12:00 Pulse 66 10/13/24 12:00 Resp 15 10/13/24 12:00 BP 110/56 L 10/13/24 12:00 Pulse Ox 98 10/13/24 12:00 O2 Del Method Room Air 10/13/24 12:00 O2 Flow Rate 2.5 10/13/24 08:33 FiO2 25 10/12/24 15:33 BMI result Body Mass Index 49.1 Const: General: no acute distress and alert Nutritional Appearance: obese Orientation/consciousness: Other orientation findings ( oriented) HEENT: Head: Yes atraumatic Eyes: General: appearance normal, both eyes and all related structures Sclerae: sclerae normal EOM: EOMs intact bilaterally Neck: Neck: Yes supple Lymphatic: no lymphadenopathy noted Chest: Chest palpation & inspection: normal inspection of the chest Resp: Effort & Inspection: normal respiratory effort and prolonged expiratory phase Auscultation: rhonchi, wheezes and diminished lung sounds Cardio: Heart sounds: S1 normal heart sound present, S2 normal heart sound present, no gallops, no murmurs and no rubs Skin: General skin exam: other ( warm) Extrem: General: No clubbing, No cyanosis and No edema Results Laboratory Findings 10/12/24 10:07 10/12/24 10:07 Abnormal lab findings: Abnormal Labs 10/12/24 10/12/24 10/12/24 10:07 10:24 13:22 Plt Count 155 L Immature Gran % (Auto) 0.9 H Eos % (Auto) 6.8 H Eos # (Auto) 0.5 H Abs Immat Gran (auto) 0.06 H VBG pH 7.26 L 7.24 L VBG HCO3 31 H 27 H Carbon Dioxide 31 H Anion Gap 9 L Random Glucose 134 H AST 39 H Microbiology: Microbiology 10/12/24 10:15 Blood - Venous Blood Culture - Preliminary No growth after 24 hours. 10/12/24 10:06 Blood - Venous Blood Culture - Preliminary No growth after 24 hours. Assessment and Plan (1) Pneumonia: Qualifiers: Laterality: bilateral Lung location: unspecified part of lung Pneumonia type: due to unspecified organism Qualified Code(s): J18.9 - Pneumonia, unspecified organism Status: Acute (2) Acute on chronic respiratory failure with hypoxia and hypercapnia: Status: Acute (3) Acute respiratory failure with hypercapnia: Status: Acute (4) COPD exacerbation: Status: Acute (5) ALEKS (obstructive sleep apnea): Status: Acute Plan Continue Solu-Medrol 60 mg Q 8 continue respiratory therapy Continue antibiotics, azithromycin and ceftriaxone Nasal cannula oxygen to maintain a pulse ox between 92-96% Would benefit from an in-lab sleep studies specially with her hyperventilation syndrome. However, if need be we can also consider home sleep study inpatient which will provide some information although limited. She does have a microfilm machine operator in [place] that has been trying to arrange a sleep study for her. Procedures Date of Service Date of Service: 10/13/24
--- NOTE | 2024-10-13 12:40 | MHC.CM.PN ---
IMM 10/13/24, Pt. is currently living at [facility], supportive living for people in recovery. She has a home that she will return to after that, where she lives with her . HCP is on file and confirmed: Bora Lopez, PCP is confirmed: Karen Bennett. Pt does not have home health services, for DME, she has O2 from [employer]. Transport home at DC is from [facility]. DCP: home, self care, CM to follow for DC needs.
--- NOTE | 2024-10-13 13:58 | P.PNIM_ITS ---
Subjective Subjective Date of Service: 10/13/24 Interval History: copd Review of Systems sob seems somewhat improving has sob with little activity has cough dry Physical Exam 2 Vital Signs: Vital Signs: Last Vital Signs Temp 98.2 F 10/13/24 12:00 Pulse 66 10/13/24 12:00 Resp 15 10/13/24 12:00 BP 110/56 L 10/13/24 12:00 Pulse Ox 98 10/13/24 12:00 O2 Del Method Room Air 10/13/24 12:00 O2 Flow Rate 2.5 10/13/24 08:33 FiO2 25 10/12/24 15:33 BMI result Body Mass Index 49.1 Appearance: Alert.? Oriented X3, sob little improving cvs: rrr, [id number] . res: air entry diminshed ,has wheezing b/l abd: no rebound or guarding ,nt, bs present. ext pulses present , no cyanosis . neuro: axo3 , nonfocal. Objective Data Active Medications Acetaminophen (Acetaminophen 325 Mg Tablet) 650 mg PO Q6H PRN PRN Reason: Pain, Mild (Pain Scale 1-3), fever or headache Albuterol Sulfate (Albuterol Sulfate 90 Mcg 8 Gm Inhaler) 2 puff INHALE Q4H PRN PRN Reason: Shortness Of Breath Albuterol/Ipratropium (Albuterol/Iprat 2.5/0.5mg 3 Ml Ampul.Neb) 3 ml INHALE Q3H PRN PRN Reason: sob Albuterol/Ipratropium (Albuterol/Iprat 2.5/0.5mg 3 Ml Ampul.Neb) 3 ml INHALE RQ4H [facility] Last Admin: 10/13/24 11:22 Dose: 3 ml Documented By: KEYLA Buprenorphine/Naloxone (Buprenorphine/Naloxone 8/2 Mg Film) 1 film BUCCAL TID@0730,1400,2000 [facility] Last Admin: 10/13/24 10:17 Dose: 1 film Documented By: JALEN Calcium Carbonate (Calcium Carbonate 750 Mg Tab.Chew) 750 mg PO Q4H PRN PRN Reason: Heartburn Cariprazine (Cariprazine Hcl 3 Mg Capsule) 3 mg PO BEDTIME@1999 [facility] Ceftriaxone Sodium (Ceftriaxone Sodium 1 Gm Vial) 1 gm IVPUSH Q24H [facility] Last Admin: 10/13/24 09:29 Dose: 1 gm Documented By: JALEN Clonidine HCl (Clonidine Hcl 0.1 Mg Tablet) 0.1 mg PO TID@729,1399,1999 [facility]; Protocol Cyclobenzaprine HCl (Cyclobenzaprine Hcl 5 Mg Tablet) 5 mg PO TID@729,1399,1999 PRN PRN Reason: Muscle Spasm Duloxetine HCl (Duloxetine Hcl 20 Mg Capsule.Dr) 40 mg PO DAILY@729 [facility] Last Admin: 10/13/24 09:29 Dose: 40 mg Documented By: JALEN Duloxetine HCl (Duloxetine Hcl 60 Mg Capsule.Dr) 60 mg PO DAILY@729 [facility] Last Admin: 10/13/24 09:28 Dose: 60 mg Documented By: JALEN Enoxaparin Sodium (Enoxaparin Sodium 40 Mg/0.4 Ml Syringe) 40 mg SUBCUT Q24H [facility] Last Admin: 10/12/24 18:44 Dose: Not Given Documented By: TARUN Non-Admin Reason: Patient Refused Famotidine (Famotidine 20 Mg Tablet) 20 mg PO BID@ [facility] Folic Acid (Folic Acid 1 Mg Tablet) 1 mg PO DAILY@729 [facility] Last Admin: 10/13/24 09:29 Dose: 1 mg Documented By: JALEN Guaifenesin (Guaifenesin La 600 Mg Tab.Er.12h) 600 mg PO BID PRN PRN Reason: congestion Hydroxyzine HCl (Hydroxyzine Hcl 25 Mg Tablet) 25 mg PO Q6H PRN PRN Reason: Anxiety Azithromycin 500 mg/ Sodium (Chloride) 250 mls @ 125 mls/hr IV Q24H [facility] Last Infusion: 10/13/24 13:47 Dose: Infused Documented By: JALEN Ibuprofen (Ibuprofen 600 Mg Tablet) 600 mg PO TID PRN PRN Reason: Pain, Moderate(Pain Scale 4-6) Lamotrigine (Lamotrigine 100 Mg Tablet) 100 mg PO DAILY@729 [facility] Last Admin: 10/13/24 09:29 Dose: 100 mg Documented By: JALEN Lorazepam (Lorazepam 1 Mg Tablet) 1 mg PO BEDTIME PRN PRN Reason: Anxiety Magnesium Hydroxide (Milk Of Magnesia 30 Ml Oral.Susp) 30 ml PO DAILY PRN PRN Reason: Constipation Melatonin (Melatonin 3 Mg Tablet) 6 mg PO BEDTIME PRN PRN Reason: Insomnia Methylphenidate HCl (Methylphenidate Hcl 10 Mg Tablet) 10 mg PO DAILY@1400 [facility] Methylphenidate HCl (Methylphenidate Hcl 10 Mg Tablet) 20 mg PO DAILY@0730 [facility] Last Admin: 10/13/24 09:33 Dose: 20 mg Documented By: JALEN Methylprednisolone Sodium Succinate (Methylprednisolone Sod Succ 40 Mg/Ml Vial) 60 mg IVPUSH Q8H [facility] Multivitamins/Vitamin C (Multivitamin Tablet) 1 tab PO DAILY@729 [facility] Last Admin: 10/13/24 09:29 Dose: 1 tab Documented By: JALEN Nicotine (Nicotine 14 Mg Patch.Td24) 14 mg TRANSDERMA DAILY [facility] Last Admin: 10/13/24 09:29 Dose: 14 mg Documented By: JALEN Nicotine Polacrilex (Nicotine Polacrilex Lozenge 2 Mg Lozenge) 2 mg BUCCAL Q2H PRN PRN Reason: Nicotine Cravings Last Admin: 10/13/24 12:01 Dose: 2 mg Documented By: JALEN Nicotine Polacrilex (Nicotine Polacrilex 2 Mg Gum) 2 mg BUCCAL Q2H PRN PRN Reason: Nicotine Cravings Omeprazole (Omeprazole 20 Mg Capsule.Dr) 20 mg PO BID@0730,1630 [facility] Ondansetron HCl (Ondansetron Odt 4 Mg Tab.Rapdis) 4 mg TRANSLINGU Q6H PRN PRN Reason: Nausea Simethicone (Simethicone 80 Mg Tab.Chew) 80 mg PO QIDWMHS PRN PRN Reason: gas relief Sodium Chloride (0.9 % Sodium Chloride Flush 3 Ml Syringe) 3 ml IVFLUSH QSHIFT [facility] Last Admin: 10/13/24 08:28 Dose: 3 ml Documented By: JALEN Topiramate (Topiramate 100 Mg Tablet) 100 mg PO BID@0730,1999 [facility] Vitamin D (Cholecalciferol (Vitamin D3) 25 Mcg Tablet) 50 mcg PO DAILY@07 [facility] Last Admin: 10/13/24 09:28 Dose: 50 mcg Documented By: JALEN Labs 10/12/24 10:07 10/12/24 10:07 Labs: Laboratory Results - last 24 hr 10/12/24 10/12/24 10/13/24 17:44 19:25 04:57 VBG pH 7.32 VBG pCO2 50 VBG pO2 68 VBG HCO3 26 VBG O2 Saturation 94.0 VBG Base Excess 0.3 Urine Color Yellow Urine Appearance Clear Urine pH 7.0 Ur Specific [place] 1.025 Urine Protein Trace Urine Glucose (UA) Negative Urine Ketones Negative Urine Blood Negative Urine Nitrite Negative Ur Leukocyte Esterase Negative Respiratory Panel Wall See Note Adenovirus (Rapid PCR) Not Detected B.pert (TEM-PCR) Not Detected B.parapertussis DNA PCR Not Detected C. pneumoniae DNA (PCR) Not Detected Coronavirus OC43 (PCR) Not Detected Coronavirus HKU1 (PCR) Not Detected Coronavirus 229E (PCR) Not Detected Coronavirus NL63 (PCR) Not Detected Human Metapneumovir PCR Not Detected Influenza A (RT-PCR) Not Detected Influenza B (RT-PCR) Not Detected M. pneumoniae (PCR) Not Detected Parainfluenza 1 (PCR) Not Detected Parainfluenza 2 (PCR) Not Detected Parainfluenza 3 (PCR) Not Detected Parainfluenza 4 (PCR) Not Detected RSV (PCR) Not Detected Entero/Rhino (PCR) Not Detected SARS-CoV-2 RNA (RT-PCR) Not Detected Microbiology Microbiology Results: Microbiology 10/12/24 10:15 Blood Culture - Preliminary Blood - Venous No growth after 24 hours. 10/12/24 10:06 Blood Culture - Preliminary Blood - Venous No growth after 24 hours. Assessment and Plan (1) COPD (chronic obstructive pulmonary disease): Status: Acute Plan 49yo F with COPD on home O2, substance abuse on Suboxone, fibromyalgia, prediabetes presenting with sob . acute on chronic hypercapenic respiratory failure and sepsis due to copd execerbation/pneumonia: Lactic acid own normal, blood cultures sent, patient received briefly BiPAP. tachypnea resolved. res panel-negative plan: Continue nebs, steroids-solumedrol 60 mg q6h, antibiotics Pulm consulted-continue above,added sleep study . leg edema:? chronic bnp and echo was fine during last admsision(please see last admission note/dc summary). leg elevation, compression devices. fibromyalgia mood disorder multiple sedating medications [on cyclobenzaprine, clonidine, duloxetine, hydroxyzine, methylphenidate,caprizine , topiramate]. morbid obesity - diet/exercise counseling substance abuse disorder - continue Suboxone. VTE prophylaxis - enoxaparin ongoing need: Due to acute hypoxemic/hypercarbic respiratory failure in the setting of COPD/pneumonia need oxygen IV antibiotics, steroids, close monitoring of respiratory status. Total time managing care of this patient today: 35 minutes. Quality Stroke Does the patient have a stroke diagnosis?: No VTE Prior VTE?: No VTE Risk Level:: Medical - moderate - high VTE Device Contraindication: N/A - Device Ordered VTE Drug Contraindication: N/A - Med Ordered
[2024-10-13] MEDS: Methylphenidate HCl 10 MG TABLET PO ×2 (14:02→14:09)
[2024-10-13 14:19] LABS: Glucose, Whole Blood 164 mg/dL (60-115)
[2024-10-13] MEDS: cloNIDine HCL 0.1 MG TABLET PO ×2 (14:19→21:04)
[2024-10-13] MEDS: methylPREDNISolone Sod Succ 40 MG/ML VIAL 60 MG IVPUSH ×2 (15:57→23:06)
[2024-10-13] MEDS: Omeprazole 20 MG CAPSULE.DR PO (15:58)
--- NOTE | 2024-10-13 16:11 | PC.NURSE ---
Provider notified of elevated HR
--- NOTE | 2024-10-13 20:25 | PC.NURSE ---
Attempt to pull medication for 1999. Meds not showing up in the pyxis at this time, awaiting verification from pharmacy.
[2024-10-13] MEDS: Cariprazine HCl 3 MG CAPSULE PO (20:56)
[2024-10-13] MEDS: Famotidine 20 MG TABLET PO (21:04)
[2024-10-13] MEDS: Topiramate 100 MG TABLET PO (21:04)
[2024-10-13] MEDS: LORazepam 1 MG TABLET PO (21:45)
[2024-10-14] VITALS (12 sets, daily range): BP systolic 123–140; BP diastolic 70–88; PULSE 93–123; RESP 16–20; TEMP 36.4–37.3; O2SAT 92–96; BMI 48.1
[2024-10-14] MEDS: 0.9 % Sodium Chloride Flush 3 ML SYRINGE IVFLUSH ×4 (01:02→20:22)
[2024-10-14] MEDS: Nicotine Polacrilex Lozenge 2 MG LOZENGE BUCCAL ×5 (05:32→20:11)
[2024-10-14 07:00] LABS: Hemoglobin 11.4 g/dl (12.0-16.0); Mean Corpuscular HGB Conc 31.7 g/dl (31.0-35.0); Mean Corpuscular Hemoglobin 28.4 pg (27.0-33.0); Mean Corpuscular Volume 89.6 fL (80.0-98.0); Mean Platelet Volume 10.7 fL (9.4-12.3); Platelet Count 163 X10*3/uL (160-400); Red Blood Count 4.02 X10*6/uL (4.20-5.50); Red Cell Distribution Width 13.6 % (11.0-16.0); White Blood Count 9.9 X10*3/uL (4.8-10.8)
[2024-10-14 07:22] LABS: Anion Gap 11 (12-20); Blood Urea Nitrogen 14 mg/dL (9-16); Carbon Dioxide 24 mmol/L (22-29); Chloride 109 mmol/L (96-108); Creatinine Clr Calc Pharmacy 118.7; Estimated Glomerular Filt Rate > 60; Glucose Random 209 mg/dL (60-115); Potassium 4.1 mmol/L (3.3-5.1); Sodium 140 mmol/L (135-145)
[2024-10-14] MEDS: Albuterol/Iprat 2.5/0.5MG 3 ML AMPUL.NEB INHALE ×3 (07:32→18:50)
[2024-10-14] MEDS: lamoTRIgine 100 MG TABLET PO (08:32)
[2024-10-14] MEDS: Folic Acid 1 MG TABLET PO (08:32)
[2024-10-14] MEDS: Omeprazole 20 MG CAPSULE.DR PO ×2 (08:32→17:24)
[2024-10-14] MEDS: Cholecalciferol (Vitamin D3) 25 MCG TABLET 50 MCG PO (08:32)
[2024-10-14] MEDS: DULoxetine HCl 20 MG CAPSULE.DR 40 MG PO (08:32)
[2024-10-14] MEDS: Multivitamin TABLET 1 TAB PO (08:32)
[2024-10-14] MEDS: DULoxetine HCl 60 MG CAPSULE.DR PO (08:32)
[2024-10-14] MEDS: Nicotine 14 MG PATCH.TD24 TRANSDERMA (08:33)
[2024-10-14] MEDS: Buprenorphine/Naloxone 8/2 mg FILM 1 FILM BUCCAL ×3 (08:33→20:12)
[2024-10-14 08:47] LABS: Procalcitonin 0.02 ng/mL
[2024-10-14] MEDS: Famotidine 20 MG TABLET PO ×2 (08:59→20:22)
[2024-10-14] MEDS: Topiramate 100 MG TABLET PO ×2 (08:59→20:15)
[2024-10-14] MEDS: cloNIDine HCL 0.1 MG TABLET PO ×3 (08:59→20:22)
[2024-10-14] MEDS: methylPREDNISolone Sod Succ 40 MG/ML VIAL 60 MG IVPUSH (09:00)
[2024-10-14] MEDS: Methylphenidate HCl 10 MG TABLET 20 MG PO (09:52)
[2024-10-14] MEDS: cefTRIAXone sodium 1 GM VIAL IVPUSH (10:52)
[2024-10-14] MEDS: Azithromycin 500 MG in 0.9 % Sodium Chloride 250 ML 125 MG IV (10:57)
--- NOTE | 2024-10-14 12:05 | MHC.CM.PN ---
EMR REVIEWED, PT W/ARF/COPD/PNA REMAINS ON IV SOLU-MEDROL, DUAL IV ABX PRN DUONEB TX'S AND SUPPLEMENTAL O2, PLAN CONT'S FOR PT TO RETURN TO [facility], AMANDA RECEIVED MESSAGE FROM MARIBEL AT [facility] [phone], CM TO MEET W/PT AND RETURN CALL, CM WILL CONT TO FOLLOW DC NEEDS.
[2024-10-14] MEDS: Simethicone 80 MG TAB.CHEW PO (14:04)
[2024-10-14] MEDS: Methylphenidate HCl 10 MG TABLET PO (14:04)
[2024-10-14] MEDS: Milk of Magnesia 30 ML ORAL.SUSP PO (14:04)
--- NOTE | 2024-10-14 14:23 | MHC.CM.PN ---
PT RECEIVED CALL BACK FROM MARIBEL FROM [facility] AND REPORTED PT WILL LIKELY NOT BE ABLE TO RETURN D/T LEVEL OF RESPIRATORY/MEDICAL ISSUES AND THEY ARE A RECOVERY HOME AND DON'T HAVE STAFF WHO CAN PROPER;Y ASSESS PT, THEY WERE REQUESTING PULMONARY REHAB HOWEVER P.T. DID NOT RECOMMEND SERVICES/STR, DP UNCERTAIN AT THIS TIME.
--- NOTE | 2024-10-14 14:32 | P.PNIM_ITS ---
Subjective Subjective Date of Service: 10/14/24 Interval History: c/o dyspnea + wheezing fox with exertion Review of Systems Review of Systems: Yes all other systems are reviewed and are negative Physical Exam 2 Vital Signs: Vital Signs: Last Vital Signs Temp 98.3 F 10/14/24 11:14 Pulse 107 H 10/14/24 11:25 Resp 20 10/14/24 11:25 BP 124/75 10/14/24 14:10 Pulse Ox 95 10/14/24 11:14 O2 Del Method Nasal Cannula 10/14/24 11:14 O2 Flow Rate 3 10/14/24 11:14 FiO2 25 10/12/24 15:33 BMI result Body Mass Index 48.1 Gen: in no acute distress HEENT: sclera anicteric, moist mucus membranes Neck: supple Lungs: diffuse exp wheezing Heart: regular rate and rhythm, no murmurs Abd: soft, non-tender, non-distended, obese Ext: no edema Skin: warm/well-perfused Neuro: alert and oriented x3, no focal findings Psych: appropriate affect Objective Data Active Medications Acetaminophen (Acetaminophen 325 Mg Tablet) 650 mg PO Q6H PRN PRN Reason: Pain, Mild (Pain Scale 1-3), fever or headache Albuterol Sulfate (Albuterol Sulfate 90 Mcg 8 Gm Inhaler) 2 puff INHALE Q4H PRN PRN Reason: Shortness Of Breath Albuterol/Ipratropium (Albuterol/Iprat 2.5/0.5mg 3 Ml Ampul.Neb) 3 ml INHALE Q3H PRN PRN Reason: sob Albuterol/Ipratropium (Albuterol/Iprat 2.5/0.5mg 3 Ml Ampul.Neb) 3 ml INHALE RQ4H [facility] Last Admin: 10/14/24 11:23 Dose: 3 ml Documented By: JAMES Buprenorphine/Naloxone (Buprenorphine/Naloxone 8/2 Mg Film) 1 film BUCCAL TID@0730,1400,1999 [facility] Last Admin: 10/14/24 14:04 Dose: 1 film Documented By: MACIEL Calcium Carbonate (Calcium Carbonate 750 Mg Tab.Chew) 750 mg PO Q4H PRN PRN Reason: Heartburn Cariprazine (Cariprazine Hcl 3 Mg Capsule) 3 mg PO BEDTIME@1999 [facility] Last Admin: 10/13/24 20:56 Dose: 3 mg Documented By: ADEN Ceftriaxone Sodium (Ceftriaxone Sodium 1 Gm Vial) 1 gm IVPUSH Q24H [facility] Last Admin: 10/14/24 10:52 Dose: 1 gm Documented By: RAYMOND Clonidine HCl (Clonidine Hcl 0.1 Mg Tablet) 0.1 mg PO TID@0730,1399,1999 [facility]; Protocol Last Admin: 10/14/24 14:10 Dose: 0.1 mg Documented By: MACIEL Cyclobenzaprine HCl (Cyclobenzaprine Hcl 5 Mg Tablet) 5 mg PO TID@0730,1399,1999 PRN PRN Reason: Muscle Spasm Duloxetine HCl (Duloxetine Hcl 20 Mg Capsule.Dr) 40 mg PO DAILY@729 [facility] Last Admin: 10/14/24 08:32 Dose: 40 mg Documented By: RAYMOND Duloxetine HCl (Duloxetine Hcl 60 Mg Capsule.) 60 mg PO DAILY@729 [facility] Last Admin: 10/14/24 08:32 Dose: 60 mg Documented By: RAYMOND Enoxaparin Sodium (Enoxaparin Sodium 40 Mg/0.4 Ml Syringe) 40 mg SUBCUT Q24H [facility] Last Admin: 10/13/24 18:30 Dose: Not Given Documented By: JALEN Non-Admin Reason: Patient Refused Famotidine (Famotidine 20 Mg Tablet) 20 mg PO BID@729,1999 [facility] Last Admin: 10/14/24 08:59 Dose: 20 mg Documented By: RAYMOND Folic Acid (Folic Acid 1 Mg Tablet) 1 mg PO DAILY@729 [facility] Last Admin: 10/14/24 08:32 Dose: 1 mg Documented By: RAYMOND Guaifenesin (Guaifenesin La 600 Mg Tab.Er.12h) 600 mg PO BID PRN PRN Reason: congestion Hydroxyzine HCl (Hydroxyzine Hcl 25 Mg Tablet) 25 mg PO Q6H PRN PRN Reason: Anxiety Azithromycin 500 mg/ Sodium (Chloride) 250 mls @ 125 mls/hr IV Q24H [facility] Last Infusion: 10/14/24 13:54 Dose: Infused Documented By: MACIEL Ibuprofen (Ibuprofen 600 Mg Tablet) 600 mg PO TID PRN PRN Reason: Pain, Moderate(Pain Scale 4-6) Lamotrigine (Lamotrigine 100 Mg Tablet) 100 mg PO DAILY@0730 [facility] Last Admin: 10/14/24 08:32 Dose: 100 mg Documented By: RAYMOND Lorazepam (Lorazepam 1 Mg Tablet) 1 mg PO BEDTIME PRN PRN Reason: Anxiety Last Admin: 10/13/24 21:45 Dose: 1 mg Documented By: KYREE Magnesium Hydroxide (Milk Of Magnesia 30 Ml Oral.Susp) 30 ml PO DAILY PRN PRN Reason: Constipation Last Admin: 10/14/24 14:04 Dose: 30 ml Documented By: MACIEL Melatonin (Melatonin 3 Mg Tablet) 6 mg PO BEDTIME PRN PRN Reason: Insomnia Methylphenidate HCl (Methylphenidate Hcl 10 Mg Tablet) 10 mg PO DAILY@1400 [facility] Last Admin: 10/14/24 14:04 Dose: 10 mg Documented By: MACIEL Methylphenidate HCl (Methylphenidate Hcl 10 Mg Tablet) 20 mg PO DAILY@0730 [facility] Last Admin: 10/14/24 09:52 Dose: 20 mg Documented By: RAYMOND Methylprednisolone Sodium Succinate (Methylprednisolone Sod Succ 40 Mg/Ml Vial) 60 mg IVPUSH Q8H [facility] Last Admin: 10/14/24 09:00 Dose: 60 mg Documented By: RAYMOND Multivitamins/Vitamin C (Multivitamin Tablet) 1 tab PO DAILY@0730 [facility] Last Admin: 10/14/24 08:32 Dose: 1 tab Documented By: RAYMOND Nicotine (Nicotine 14 Mg Patch.Td24) 14 mg TRANSDERMA DAILY [facility] Last Admin: 10/14/24 08:33 Dose: 14 mg Documented By: RAYMOND Nicotine Polacrilex (Nicotine Polacrilex Lozenge 2 Mg Lozenge) 2 mg BUCCAL Q2H PRN PRN Reason: Nicotine Cravings Last Admin: 10/14/24 14:11 Dose: 2 mg Documented By: MACIEL Nicotine Polacrilex (Nicotine Polacrilex 2 Mg Gum) 2 mg BUCCAL Q2H PRN PRN Reason: Nicotine Cravings Omeprazole (Omeprazole 20 Mg Capsule.Dr) 20 mg PO BID@0730,1630 [facility] Last Admin: 10/14/24 08:32 Dose: 20 mg Documented By: RAYMOND Ondansetron HCl (Ondansetron Odt 4 Mg Tab.Rapdis) 4 mg TRANSLINGU Q6H PRN PRN Reason: Nausea Simethicone (Simethicone 80 Mg Tab.Chew) 80 mg PO QIDWMHS PRN PRN Reason: gas relief Last Admin: 10/14/24 14:04 Dose: 80 mg Documented By: MACIEL Sodium Chloride (0.9 % Sodium Chloride Flush 3 Ml Syringe) 3 ml IVFLUSH QSHIFT [facility] Last Admin: 10/14/24 09:00 Dose: 3 ml Documented By: RAYMOND Topiramate (Topiramate 100 Mg Tablet) 100 mg PO BID@ [facility] Last Admin: 10/14/24 08:59 Dose: 100 mg Documented By: RAYMOND Vitamin D (Cholecalciferol (Vitamin D3) 25 Mcg Tablet) 50 mcg PO DAILY@729 [facility] Last Admin: 10/14/24 08:32 Dose: 50 mcg Documented By: RAYMOND Labs 10/14/24 06:42 10/14/24 06:42 Labs: Laboratory Results - last 24 hr 10/14/24 06:42 MCV 89.6 MCH 28.4 MCHC 31.7 RDW 13.6 Plt Count 163 MPV 10.7 Absolute Nucleated RBC 0.000 Nucleated RBC % (auto) 0.0 Anion Gap 11 L Estim Creat Clear Calc 118.7 Estimated GFR > 60 Random Glucose 209 H Calcium 9.0 Procalcitonin 0.02 Microbiology Microbiology Results: Microbiology 10/12/24 10:15 Blood Culture - Preliminary Blood - Venous No growth after 48 hours. 10/12/24 10:06 Blood Culture - Preliminary Blood - Venous No growth after 48 hours. Assessment and Plan (1) COPD (chronic obstructive pulmonary disease): Status: Acute Plan d3 for 49yo F with morbid obesity, COPD on home O2, OUD on Suboxone, fibromyalgia, prediabetes presenting with dyspnea, admitted for acute/chronic hypercapneic/hypoxic resp failure + sepsis due to COPD/pneumonia briefly on BiPAP in ED acute/chronic hypercapneic/hypoxic resp failure due to COPD exacerbation - continue IV steroids, nebs - Pulm consulted, sleep study ordered pneumonia - continue ceftriaxone + azithromcyin 10/13-, trend PCT peripheral edema - leg elevation, compression devices FM mood disorder - continue clonidine, cyclobenzaprine, duloxetine, hydroxyzyine, cariprazine, topiramate, lamotrigine ADHD - continue methylphenidate morbid obesity - diet/exercise counseling OUD - Suboxone VTE prophylaxis - enoxaparin dispo - eventual home In my clinical judgment, the patient requires continued inpatient hospitalization for the following reasons: resp failure Total time managing care of this patient today: 35 minutes. Quality Stroke Does the patient have a stroke diagnosis?: No VTE Prior VTE?: No VTE Risk Level:: Medical - moderate - high VTE Device Contraindication: N/A - Device Ordered VTE Drug Contraindication: N/A - Med Ordered
[2024-10-14] MEDS: Enoxaparin Sodium 40 MG/0.4 ML SYRINGE SUBCUT (17:24)
[2024-10-14] MEDS: methylPREDNISolone Sod Succ 40 MG/ML VIAL IVPUSH (20:11)
[2024-10-14] MEDS: Cariprazine HCl 3 MG CAPSULE PO (20:12)
[2024-10-14] MEDS: LORazepam 1 MG TABLET PO (20:14)
[2024-10-14] MEDS: Melatonin 3 MG TABLET 6 MG PO (20:15)
[2024-10-15] VITALS (7 sets, daily range): BP systolic 119–144; BP diastolic 75–94; PULSE 87–119; RESP 12–18; TEMP 36–36.7; O2SAT 91–97
[2024-10-15] MEDS: Nicotine Polacrilex Lozenge 2 MG LOZENGE BUCCAL ×8 (00:11→22:00)
[2024-10-15] MEDS: Albuterol/Iprat 2.5/0.5MG 3 ML AMPUL.NEB INHALE ×2 (07:46→23:48)
[2024-10-15] MEDS: Buprenorphine/Naloxone 8/2 mg FILM 1 FILM BUCCAL ×3 (07:53→20:01)
[2024-10-15] MEDS: Multivitamin TABLET 1 TAB PO (07:53)
[2024-10-15] MEDS: DULoxetine HCl 60 MG CAPSULE.DR PO (07:53)
[2024-10-15] MEDS: Nicotine 14 MG PATCH.TD24 TRANSDERMA (07:53)
[2024-10-15] MEDS: Folic Acid 1 MG TABLET PO (07:53)
[2024-10-15] MEDS: DULoxetine HCl 20 MG CAPSULE.DR 40 MG PO (07:53)
[2024-10-15] MEDS: methylPREDNISolone Sod Succ 40 MG/ML VIAL IVPUSH ×2 (07:53→20:05)
[2024-10-15] MEDS: Methylphenidate HCl 10 MG TABLET 20 MG PO (07:53)
[2024-10-15] MEDS: Cholecalciferol (Vitamin D3) 25 MCG TABLET 50 MCG PO (07:54)
[2024-10-15] MEDS: Omeprazole 20 MG CAPSULE.DR PO ×2 (07:54→16:16)
[2024-10-15] MEDS: lamoTRIgine 100 MG TABLET PO (07:54)
[2024-10-15] MEDS: Famotidine 20 MG TABLET PO ×2 (07:58→20:08)
[2024-10-15] MEDS: cloNIDine HCL 0.1 MG TABLET PO ×3 (07:58→20:02)
[2024-10-15] MEDS: Topiramate 100 MG TABLET PO ×2 (08:09→20:02)
[2024-10-15] MEDS: 0.9 % Sodium Chloride Flush 3 ML SYRINGE IVFLUSH ×3 (08:10→20:05)
[2024-10-15] MEDS: cefTRIAXone sodium 1 GM VIAL IVPUSH (10:32)
[2024-10-15] MEDS: Azithromycin 500 MG in 0.9 % Sodium Chloride 250 ML 125 MG IV (10:32)
--- NOTE | 2024-10-15 10:49 | P.PNIM_ITS ---
Subjective Subjective Date of Service: 10/15/24 Interval History: still wheezing + dyspneic fox with exertion Review of Systems Review of Systems: Yes all other systems are reviewed and are negative Physical Exam 2 Vital Signs: Vital Signs: Last Vital Signs Temp 97.6 F 10/15/24 07:44 Pulse 95 10/15/24 07:47 Resp 18 10/15/24 07:47 BP 119/75 10/15/24 07:44 Pulse Ox 96 10/15/24 07:44 O2 Del Method Nasal Cannula 10/15/24 07:44 O2 Flow Rate 3 10/15/24 07:44 FiO2 25 10/12/24 15:33 BMI result Body Mass Index 48.1 Gen: in no acute distress HEENT: sclera anicteric, moist mucus membranes Neck: supple Lungs: diffuse exp wheezing Heart: regular rate and rhythm, no murmurs Abd: soft, non-tender, non-distended, obese Ext: no edema Skin: warm/well-perfused Neuro: alert and oriented x3, no focal findings Psych: appropriate affect Objective Data Active Medications Acetaminophen (Acetaminophen 325 Mg Tablet) 650 mg PO Q6H PRN PRN Reason: Pain, Mild (Pain Scale 1-3), fever or headache Albuterol Sulfate (Albuterol Sulfate 90 Mcg 8 Gm Inhaler) 2 puff INHALE Q4H PRN PRN Reason: Shortness Of Breath Albuterol/Ipratropium (Albuterol/Iprat 2.5/0.5mg 3 Ml Ampul.Neb) 3 ml INHALE Q3H PRN PRN Reason: sob Albuterol/Ipratropium (Albuterol/Iprat 2.5/0.5mg 3 Ml Ampul.Neb) 3 ml INHALE RQ4H [facility] Last Admin: 10/15/24 07:46 Dose: 3 ml Documented By: JAMES Buprenorphine/Naloxone (Buprenorphine/Naloxone 8/2 Mg Film) 1 film BUCCAL TID@0730,1399,1999 [facility] Last Admin: 10/15/24 07:53 Dose: 1 film Documented By: CÉSAR Calcium Carbonate (Calcium Carbonate 750 Mg Tab.Chew) 750 mg PO Q4H PRN PRN Reason: Heartburn Cariprazine (Cariprazine Hcl 3 Mg Capsule) 3 mg PO BEDTIME@1999 [facility] Last Admin: 10/14/24 20:12 Dose: 3 mg Documented By: SHERITA Ceftriaxone Sodium (Ceftriaxone Sodium 1 Gm Vial) 1 gm IVPUSH Q24H [facility] Last Admin: 10/15/24 10:32 Dose: 1 gm Documented By: CÉSAR Clonidine HCl (Clonidine Hcl 0.1 Mg Tablet) 0.1 mg PO TID@0730,1399,1999 [facility]; Protocol Last Admin: 10/15/24 07:58 Dose: 0.1 mg Documented By: CÉSAR Cyclobenzaprine HCl (Cyclobenzaprine Hcl 5 Mg Tablet) 5 mg PO TID@0730,1399,1999 PRN PRN Reason: Muscle Spasm Duloxetine HCl (Duloxetine Hcl 20 Mg Capsule.) 40 mg PO DAILY@729 [facility] Last Admin: 10/15/24 07:53 Dose: 40 mg Documented By: CÉSAR Duloxetine HCl (Duloxetine Hcl 60 Mg Capsule.) 60 mg PO DAILY@729 [facility] Last Admin: 10/15/24 07:53 Dose: 60 mg Documented By: CÉSAR Enoxaparin Sodium (Enoxaparin Sodium 40 Mg/0.4 Ml Syringe) 40 mg SUBCUT Q24H [facility] Last Admin: 10/14/24 17:24 Dose: 40 mg Documented By: MACIEL Famotidine (Famotidine 20 Mg Tablet) 20 mg PO BID@ [facility] Last Admin: 10/15/24 07:58 Dose: 20 mg Documented By: CÉSAR Folic Acid (Folic Acid 1 Mg Tablet) 1 mg PO DAILY@729 [facility] Last Admin: 10/15/24 07:53 Dose: 1 mg Documented By: CÉSAR Guaifenesin (Guaifenesin La 600 Mg Tab.Er.12h) 600 mg PO BID PRN PRN Reason: congestion Hydroxyzine HCl (Hydroxyzine Hcl 25 Mg Tablet) 25 mg PO Q6H PRN PRN Reason: Anxiety Azithromycin 500 mg/ Sodium (Chloride) 250 mls @ 125 mls/hr IV Q24H [facility] Last Admin: 10/15/24 10:32 Dose: 125 mls/hr Documented By: CÉSAR Ibuprofen (Ibuprofen 600 Mg Tablet) 600 mg PO TID PRN PRN Reason: Pain, Moderate(Pain Scale 4-6) Lamotrigine (Lamotrigine 100 Mg Tablet) 100 mg PO DAILY@0730 [facility] Last Admin: 10/15/24 07:54 Dose: 100 mg Documented By: CÉSAR Lorazepam (Lorazepam 1 Mg Tablet) 1 mg PO BEDTIME PRN PRN Reason: Anxiety Last Admin: 10/14/24 20:14 Dose: 1 mg Documented By: SHERITA Magnesium Hydroxide (Milk Of Magnesia 30 Ml Oral.Susp) 30 ml PO DAILY PRN PRN Reason: Constipation Last Admin: 10/14/24 14:04 Dose: 30 ml Documented By: MACIEL Melatonin (Melatonin 3 Mg Tablet) 6 mg PO BEDTIME PRN PRN Reason: Insomnia Last Admin: 10/14/24 20:15 Dose: 6 mg Documented By: SHERITA Methylphenidate HCl (Methylphenidate Hcl 10 Mg Tablet) 10 mg PO DAILY@1400 [facility] Last Admin: 10/14/24 14:04 Dose: 10 mg Documented By: MACIEL Methylphenidate HCl (Methylphenidate Hcl 10 Mg Tablet) 20 mg PO DAILY@0730 [facility] Last Admin: 10/15/24 07:53 Dose: 20 mg Documented By: CÉSAR Methylprednisolone Sodium Succinate (Methylprednisolone Sod Succ 40 Mg/Ml Vial) 40 mg IVPUSH Q12H [facility] Last Admin: 10/15/24 07:53 Dose: 40 mg Documented By: CÉSAR Multivitamins/Vitamin C (Multivitamin Tablet) 1 tab PO DAILY@0730 [facility] Last Admin: 10/15/24 07:53 Dose: 1 tab Documented By: CÉSAR Nicotine (Nicotine 14 Mg Patch.Td24) 14 mg TRANSDERMA DAILY [facility] Last Admin: 10/15/24 07:53 Dose: 14 mg Documented By: CÉSAR Nicotine Polacrilex (Nicotine Polacrilex Lozenge 2 Mg Lozenge) 2 mg BUCCAL Q2H PRN PRN Reason: Nicotine Cravings Last Admin: 10/15/24 10:43 Dose: 2 mg Documented By: CÉSAR Nicotine Polacrilex (Nicotine Polacrilex 2 Mg Gum) 2 mg BUCCAL Q2H PRN PRN Reason: Nicotine Cravings Omeprazole (Omeprazole 20 Mg Capsule.) 20 mg PO BID@0730,1630 [facility] Last Admin: 10/15/24 07:54 Dose: 20 mg Documented By: CÉSAR Ondansetron HCl (Ondansetron Odt 4 Mg Tab.Rapdis) 4 mg TRANSLINGU Q6H PRN PRN Reason: Nausea Simethicone (Simethicone 80 Mg Tab.Chew) 80 mg PO QIDWMHS PRN PRN Reason: gas relief Last Admin: 10/14/24 14:04 Dose: 80 mg Documented By: MACIEL Sodium Chloride (0.9 % Sodium Chloride Flush 3 Ml Syringe) 3 ml IVFLUSH QSHIFT [facility] Last Admin: 10/15/24 08:10 Dose: 3 ml Documented By: CÉSAR Topiramate (Topiramate 100 Mg Tablet) 100 mg PO BID@ [facility] Last Admin: 10/15/24 08:09 Dose: 100 mg Documented By: CÉSAR Vitamin D (Cholecalciferol (Vitamin D3) 25 Mcg Tablet) 50 mcg PO DAILY@729 [facility] Last Admin: 10/15/24 07:54 Dose: 50 mcg Documented By: CÉSAR Labs 10/14/24 06:42 10/14/24 06:42 Microbiology Microbiology Results: Microbiology 10/12/24 10:15 Blood Culture - Preliminary Blood - Venous No growth after 48 hours. 10/12/24 10:06 Blood Culture - Preliminary Blood - Venous No growth after 48 hours. Assessment and Plan (1) COPD (chronic obstructive pulmonary disease): Status: Acute Plan 43 for 49yo F with morbid obesity, COPD on home O2, OUD on Suboxone, fibromyalgia, prediabetes presenting with dyspnea, admitted for acute/chronic hypercapneic/hypoxic resp failure + sepsis due to COPD/pneumonia briefly on BiPAP in ED acute/chronic hypercapneic/hypoxic resp failure due to COPD exacerbation - continue IV steroids, nebs - Pulm consulted, sleep study ordered and to f/u as outpt pneumonia - continue ceftriaxone + azithromcyin 10/13-, BCx neg, PCT low peripheral edema - leg elevation, compression devices FM mood disorder - continue clonidine, cyclobenzaprine, duloxetine, hydroxyzyine, cariprazine, topiramate, lamotrigine ADHD - continue methylphenidate morbid obesity - diet/exercise counseling OUD - Suboxone VTE prophylaxis - enoxaparin dispo - eventual return to intermediate In my clinical judgment, the patient requires continued inpatient hospitalization for the following reasons: resp failure Total time managing care of this patient today: 35 minutes. Quality Stroke Does the patient have a stroke diagnosis?: No VTE Prior VTE?: No VTE Risk Level:: Medical - moderate - high VTE Device Contraindication: N/A - Device Ordered VTE Drug Contraindication: N/A - Med Ordered
--- NOTE | 2024-10-15 11:26 | MHC.CM.PN ---
EMR REVIEWED, CM MET W/PT TO DISCUSS DISPO CM RECEIVED CALL FROM RIGOBERTO AHUMADA REGARDING PT NOT BEING ABLE TO RETURN, PT TEARFUL AND REPORTS SHE IS NOT ALLOWED TO RETURN HOME PER DCF UNTIL SHE GRADUATES FROM PROGRAM, PT CALLED RIGOBERTO AHUMADA AND PT/CM SPOKE TO BUGGY LADLE TENDER WHO REPORTS FAR THE PROGRAM IS CONCERNED PT HAS DONE WELL AND CAN GRADUATE EARLY, HE WILL CALL PT'S DCF WORKER CANDIDO [phone] AND CM WILL FOLLOW UP W/CANDIDO LATER TODAY, CM WILL CONT TO FOLLOW DC NEEDS.
[2024-10-15] MEDS: Methylphenidate HCl 10 MG TABLET PO (13:54)
[2024-10-15] MEDS: Enoxaparin Sodium 40 MG/0.4 ML SYRINGE SUBCUT (17:41)
[2024-10-15] MEDS: Cariprazine HCl 3 MG CAPSULE PO (20:02)
[2024-10-15] MEDS: hydrOXYzine HCL 25 MG TABLET PO (20:03)
[2024-10-15] MEDS: LORazepam 1 MG TABLET PO (20:03)
[2024-10-15] MEDS: guaiFENesin LA 600 MG TAB.ER.12H PO (20:04)
[2024-10-15] MEDS: Ibuprofen 600 MG TABLET PO (20:04)
[2024-10-16] VITALS (9 sets, daily range): BP systolic 119–147; BP diastolic 70–94; PULSE 92–112; RESP 16–21; TEMP 36–36.4; O2SAT 94–98
[2024-10-16] MEDS: Nicotine Polacrilex Lozenge 2 MG LOZENGE BUCCAL ×8 (00:05→22:49)
[2024-10-16] MEDS: Albuterol/Iprat 2.5/0.5MG 3 ML AMPUL.NEB INHALE ×3 (07:31→16:17)
[2024-10-16] MEDS: Omeprazole 20 MG CAPSULE.DR PO ×2 (08:31→15:40)
[2024-10-16] MEDS: DULoxetine HCl 20 MG CAPSULE.DR 40 MG PO (08:31)
[2024-10-16] MEDS: DULoxetine HCl 60 MG CAPSULE.DR PO (08:31)
[2024-10-16] MEDS: lamoTRIgine 100 MG TABLET PO (08:31)
[2024-10-16] MEDS: Folic Acid 1 MG TABLET PO (08:31)
[2024-10-16] MEDS: Methylphenidate HCl 10 MG TABLET 20 MG PO (08:31)
[2024-10-16] MEDS: Multivitamin TABLET 1 TAB PO (08:31)
[2024-10-16] MEDS: Cholecalciferol (Vitamin D3) 25 MCG TABLET 50 MCG PO (08:31)
[2024-10-16] MEDS: 0.9 % Sodium Chloride Flush 3 ML SYRINGE IVFLUSH ×3 (08:32→21:39)
[2024-10-16] MEDS: Nicotine 14 MG PATCH.TD24 TRANSDERMA (08:32)
[2024-10-16] MEDS: Ibuprofen 600 MG TABLET PO (08:36)
[2024-10-16] MEDS: Topiramate 100 MG TABLET PO ×2 (08:36→21:37)
[2024-10-16] MEDS: cloNIDine HCL 0.1 MG TABLET PO ×3 (08:36→21:37)
[2024-10-16] MEDS: Buprenorphine/Naloxone 8/2 mg FILM 1 FILM BUCCAL ×3 (08:37→21:37)
[2024-10-16] MEDS: methylPREDNISolone Sod Succ 40 MG/ML VIAL IVPUSH ×2 (08:38→21:38)
[2024-10-16] MEDS: Famotidine 20 MG TABLET PO ×2 (08:58→21:37)
[2024-10-16] MEDS: Azithromycin 500 MG in 0.9 % Sodium Chloride 250 ML 125 MG IV (11:01)
[2024-10-16] MEDS: cefTRIAXone sodium 1 GM VIAL IVPUSH (11:01)
--- NOTE | 2024-10-16 11:32 | MHC.CM.PN ---
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 Original Note: Cm attempted to contact pt's [facility] worker Jayshree [phone] two more times, no answer and detailed message left w/request for call back however cm also contacted the covering splicing supervisor Que at [facility] and she reports she will call Jayshree and Que or Jayshree will be contacting CM. Per hospitalist pt will likely be cleared for dc by tomorrow, cm will cont to follow.
--- NOTE | 2024-10-16 12:28 | HO.PM.IMPN ---
Subjective Subjective Date of Service: 10/16/24 Interval History: dyspnea gradually improving; still wheezing Review of Systems Review of Systems: Yes all other systems are reviewed and are negative Physical Exam Vital Signs: Vital Signs: Last Vital Signs Temp 97.2 F 10/16/24 11:05 Pulse 112 H 10/16/24 11:22 Resp 16 10/16/24 11:22 BP 127/71 10/16/24 11:05 Pulse Ox 96 10/16/24 11:05 O2 Del Method Nasal Cannula 10/16/24 11:05 O2 Flow Rate 3 10/16/24 11:05 FiO2 25 10/12/24 15:33 BMI result Body Mass Index 48.1 Gen: in no acute distress HEENT: sclera anicteric, moist mucus membranes Neck: supple Lungs: scattered exp wheezing Heart: regular rate and rhythm, no murmurs Abd: soft, non-tender, non-distended, obese Ext: no edema Skin: warm/well-perfused Neuro: alert and oriented x3, no focal findings Psych: appropriate affect Objective Data Active Medications Acetaminophen (Acetaminophen 325 Mg Tablet) 650 mg PO Q6H PRN PRN Reason: Pain, Mild (Pain Scale 1-3), fever or headache Albuterol Sulfate (Albuterol Sulfate 90 Mcg 8 Gm Inhaler) 2 puff INHALE Q4H PRN PRN Reason: Shortness Of Breath Albuterol/Ipratropium (Albuterol/Iprat 2.5/0.5mg 3 Ml Ampul.Neb) 3 ml INHALE Q3H PRN PRN Reason: sob Albuterol/Ipratropium (Albuterol/Iprat 2.5/0.5mg 3 Ml Ampul.Neb) 3 ml INHALE RQ4H [facility] Last Admin: 10/16/24 11:20 Dose: 3 ml Documented By: KEYLA Buprenorphine/Naloxone (Buprenorphine/Naloxone 8/2 Mg Film) 1 film BUCCAL TID@0730,1400,1999 [facility] Last Admin: 10/16/24 08:37 Dose: 1 film Documented By: HUY Calcium Carbonate (Calcium Carbonate 750 Mg Tab.Chew) 750 mg PO Q4H PRN PRN Reason: Heartburn Cariprazine (Cariprazine Hcl 3 Mg Capsule) 3 mg PO BEDTIME@1999 [facility] Last Admin: 10/15/24 20:02 Dose: 3 mg Documented By: AMBER Ceftriaxone Sodium (Ceftriaxone Sodium 1 Gm Vial) 1 gm IVPUSH Q24H [facility] Last Admin: 10/16/24 11:01 Dose: 1 gm Documented By: HUY Clonidine HCl (Clonidine Hcl 0.1 Mg Tablet) 0.1 mg PO TID@0730,1399,1999 [facility]; Protocol Last Admin: 10/16/24 08:36 Dose: 0.1 mg Documented By: HUY Cyclobenzaprine HCl (Cyclobenzaprine Hcl 5 Mg Tablet) 5 mg PO TID@0730,1399,1999 PRN PRN Reason: Muscle Spasm Duloxetine HCl (Duloxetine Hcl 20 Mg Capsule.Dr) 40 mg PO DAILY@729 [facility] Last Admin: 10/16/24 08:31 Dose: 40 mg Documented By: HUY Duloxetine HCl (Duloxetine Hcl 60 Mg Capsule.Dr) 60 mg PO DAILY@729 [facility] Last Admin: 10/16/24 08:31 Dose: 60 mg Documented By: HUY Enoxaparin Sodium (Enoxaparin Sodium 40 Mg/0.4 Ml Syringe) 40 mg SUBCUT Q24H [facility] Last Admin: 10/15/24 17:41 Dose: 40 mg Documented By: DOBROGia Famotidine (Famotidine 20 Mg Tablet) 20 mg PO BID@729,1999 [facility] Last Admin: 10/16/24 08:58 Dose: 20 mg Documented By: HUY Folic Acid (Folic Acid 1 Mg Tablet) 1 mg PO DAILY@729 [facility] Last Admin: 10/16/24 08:31 Dose: 1 mg Documented By: HUY Guaifenesin (Guaifenesin La 600 Mg Tab.Er.12h) 600 mg PO BID PRN PRN Reason: congestion Last Admin: 10/15/24 20:04 Dose: 600 mg Documented By: AMBER Hydroxyzine HCl (Hydroxyzine Hcl 25 Mg Tablet) 25 mg PO Q6H PRN PRN Reason: Anxiety Last Admin: 10/15/24 20:03 Dose: 25 mg Documented By: AMBER Azithromycin 500 mg/ Sodium (Chloride) 250 mls @ 125 mls/hr IV Q24H [facility] Last Admin: 10/16/24 11:01 Dose: 125 mls/hr Documented By: HUY Ibuprofen (Ibuprofen 600 Mg Tablet) 600 mg PO TID PRN PRN Reason: Pain, Moderate(Pain Scale 4-6) Last Admin: 10/16/24 08:36 Dose: 600 mg Documented By: HUY Lamotrigine (Lamotrigine 100 Mg Tablet) 100 mg PO DAILY@0730 [facility] Last Admin: 10/16/24 08:31 Dose: 100 mg Documented By: HUY Lorazepam (Lorazepam 1 Mg Tablet) 1 mg PO BEDTIME PRN PRN Reason: Anxiety Last Admin: 10/15/24 20:03 Dose: 1 mg Documented By: AMBER Magnesium Hydroxide (Milk Of Magnesia 30 Ml Oral.Susp) 30 ml PO DAILY PRN PRN Reason: Constipation Last Admin: 10/14/24 14:04 Dose: 30 ml Documented By: MACIEL Melatonin (Melatonin 3 Mg Tablet) 6 mg PO BEDTIME PRN PRN Reason: Insomnia Last Admin: 10/14/24 20:15 Dose: 6 mg Documented By: SHERITA Methylphenidate HCl (Methylphenidate Hcl 10 Mg Tablet) 20 mg PO DAILY@0730 [facility] Last Admin: 10/16/24 08:31 Dose: 20 mg Documented By: HUY Methylphenidate HCl (Methylphenidate Hcl 10 Mg Tablet) 10 mg PO DAILY@1400 [facility] Last Admin: 10/15/24 13:54 Dose: 10 mg Documented By: CÉSAR Methylprednisolone Sodium Succinate (Methylprednisolone Sod Succ 40 Mg/Ml Vial) 40 mg IVPUSH Q12H [facility] Last Admin: 10/16/24 08:38 Dose: 40 mg Documented By: HUY Multivitamins/Vitamin C (Multivitamin Tablet) 1 tab PO DAILY@0730 [facility] Last Admin: 10/16/24 08:31 Dose: 1 tab Documented By: HUY Nicotine (Nicotine 14 Mg Patch.Td24) 14 mg TRANSDERMA DAILY [facility] Last Admin: 10/16/24 08:32 Dose: 14 mg Documented By: HUY Nicotine Polacrilex (Nicotine Polacrilex Lozenge 2 Mg Lozenge) 2 mg BUCCAL Q2H PRN PRN Reason: Nicotine Cravings Last Admin: 10/16/24 11:10 Dose: 2 mg Documented By: HO.GOODMA Nicotine Polacrilex (Nicotine Polacrilex 2 Mg Gum) 2 mg BUCCAL Q2H PRN PRN Reason: Nicotine Cravings Omeprazole (Omeprazole 20 Mg Capsule.Dr) 20 mg PO BID@0730,1630 [facility] Last Admin: 10/16/24 08:31 Dose: 20 mg Documented By: HUY Ondansetron HCl (Ondansetron Odt 4 Mg Tab.Rapdis) 4 mg TRANSLINGU Q6H PRN PRN Reason: Nausea Simethicone (Simethicone 80 Mg Tab.Chew) 80 mg PO QIDWMHS PRN PRN Reason: gas relief Last Admin: 10/14/24 14:04 Dose: 80 mg Documented By: MACIEL Sodium Chloride (0.9 % Sodium Chloride Flush 3 Ml Syringe) 3 ml IVFLUSH QSHIFT [facility] Last Admin: 10/16/24 08:32 Dose: 3 ml Documented By: HUY Topiramate (Topiramate 100 Mg Tablet) 100 mg PO BID@ [facility] Last Admin: 10/16/24 08:36 Dose: 100 mg Documented By: HUY Vitamin D (Cholecalciferol (Vitamin D3) 25 Mcg Tablet) 50 mcg PO DAILY@729 [facility] Last Admin: 10/16/24 08:31 Dose: 50 mcg Documented By: HUY Labs 10/14/24 06:42 10/14/24 06:42 Assessment and Plan (1) COPD (chronic obstructive pulmonary disease): Status: Acute Plan d5 for 49yo F with morbid obesity, COPD on home O2, OUD on Suboxone, fibromyalgia, prediabetes presenting with dyspnea, admitted for acute/chronic hypercapneic/hypoxic resp failure + sepsis due to COPD/pneumonia briefly on BiPAP in ED acute/chronic hypercapneic/hypoxic resp failure due to COPD exacerbation - continue IV steroids, nebs - Pulm consulted, sleep study ordered and to f/u as outpt pneumonia - continue ceftriaxone + azithromycin 10/13-, BCx neg, PCT low peripheral edema - leg elevation, compression devices FM mood disorder - continue clonidine, cyclobenzaprine, duloxetine, hydroxyzyine, cariprazine, topiramate, lamotrigine ADHD - continue methylphenidate morbid obesity - diet/exercise counseling OUD - Suboxone VTE prophylaxis - enoxaparin dispo - senior care will not take her back, CM to check with DCF whether she completed her program at the senior care and can return home In my clinical judgment, the patient requires continued inpatient hospitalization for the following reasons: resp failure, placement Total time managing care of this patient today: 35 minutes. Quality Stroke Does the patient have a stroke diagnosis?: No VTE Prior VTE?: No VTE Risk Level:: Medical - moderate - high VTE Device Contraindication: N/A - Device Ordered VTE Drug Contraindication: N/A - Med Ordered
[2024-10-16] MEDS: Methylphenidate HCl 10 MG TABLET PO (13:05)
[2024-10-16] MEDS: hydrOXYzine HCL 25 MG TABLET PO (15:40)
[2024-10-16] MEDS: Enoxaparin Sodium 40 MG/0.4 ML SYRINGE SUBCUT (18:05)
[2024-10-16] MEDS: LORazepam 1 MG TABLET PO (21:37)
[2024-10-16] MEDS: guaiFENesin LA 600 MG TAB.ER.12H PO (21:37)
[2024-10-16] MEDS: Cariprazine HCl 3 MG CAPSULE PO (21:38)
[2024-10-17] VITALS (9 sets, daily range): BP systolic 110–137; BP diastolic 56–81; PULSE 87–117; RESP 16–20; TEMP 35.9–36.3; O2SAT 93–98
[2024-10-17] MEDS: Nicotine Polacrilex Lozenge 2 MG LOZENGE BUCCAL ×5 (02:01→19:24)
[2024-10-17] MEDS: Albuterol/Iprat 2.5/0.5MG 3 ML AMPUL.NEB INHALE ×3 (07:54→15:06)
[2024-10-17] MEDS: Nicotine 14 MG PATCH.TD24 TRANSDERMA (09:00)
[2024-10-17] MEDS: cloNIDine HCL 0.1 MG TABLET PO ×3 (09:39→21:28)
[2024-10-17] MEDS: Buprenorphine/Naloxone 8/2 mg FILM 1 FILM BUCCAL ×3 (09:39→21:28)
[2024-10-17] MEDS: methylPREDNISolone Sod Succ 40 MG/ML VIAL IVPUSH ×2 (09:39→21:28)
[2024-10-17] MEDS: Folic Acid 1 MG TABLET PO (09:40)
[2024-10-17] MEDS: Cholecalciferol (Vitamin D3) 25 MCG TABLET 50 MCG PO (09:40)
[2024-10-17] MEDS: Methylphenidate HCl 10 MG TABLET 20 MG PO (09:40)
[2024-10-17] MEDS: cefTRIAXone sodium 1 GM VIAL IVPUSH (09:40)
[2024-10-17] MEDS: lamoTRIgine 100 MG TABLET PO (09:40)
[2024-10-17] MEDS: Omeprazole 20 MG CAPSULE.DR PO ×2 (09:40→17:02)
[2024-10-17] MEDS: DULoxetine HCl 20 MG CAPSULE.DR 40 MG PO (09:40)
[2024-10-17] MEDS: Ibuprofen 600 MG TABLET PO (09:40)
[2024-10-17] MEDS: Famotidine 20 MG TABLET PO ×2 (09:41→21:35)
[2024-10-17] MEDS: Multivitamin TABLET 1 TAB PO (09:41)
[2024-10-17] MEDS: 0.9 % Sodium Chloride Flush 3 ML SYRINGE IVFLUSH ×3 (09:41→21:29)
[2024-10-17] MEDS: Topiramate 100 MG TABLET PO ×2 (09:41→21:35)
[2024-10-17] MEDS: DULoxetine HCl 60 MG CAPSULE.DR PO (09:41)
--- NOTE | 2024-10-17 09:41 | HO.PM.IMPN ---
Subjective Subjective Date of Service: 10/17/24 Interval History: wheezing dyspnea improved Review of Systems Review of Systems: Yes all other systems are reviewed and are negative Physical Exam Vital Signs: Vital Signs: Last Vital Signs Temp 97.2 F 10/17/24 07:21 Pulse 91 10/17/24 07:56 Resp 16 10/17/24 07:56 BP 119/65 10/17/24 07:21 Pulse Ox 94 10/17/24 07:21 O2 Del Method Nasal Cannula 10/17/24 07:21 O2 Flow Rate 2 10/17/24 07:21 FiO2 25 10/12/24 15:33 BMI result Body Mass Index 48.1 Gen: in no acute distress HEENT: sclera anicteric, moist mucus membranes Neck: supple Lungs: scattered exp wheezing Heart: regular rate and rhythm, no murmurs Abd: soft, non-tender, non-distended, obese Ext: no edema Skin: warm/well-perfused Neuro: alert and oriented x3, no focal findings Psych: appropriate affect Objective Data Active Medications Acetaminophen (Acetaminophen 325 Mg Tablet) 650 mg PO Q6H PRN PRN Reason: Pain, Mild (Pain Scale 1-3), fever or headache Albuterol Sulfate (Albuterol Sulfate 90 Mcg 8 Gm Inhaler) 2 puff INHALE Q4H PRN PRN Reason: Shortness Of Breath Albuterol/Ipratropium (Albuterol/Iprat 2.5/0.5mg 3 Ml Ampul.Neb) 3 ml INHALE Q3H PRN PRN Reason: sob Albuterol/Ipratropium (Albuterol/Iprat 2.5/0.5mg 3 Ml Ampul.Neb) 3 ml INHALE RQ4H [facility] Last Admin: 10/17/24 07:54 Dose: 3 ml Documented By: KEYLA Buprenorphine/Naloxone (Buprenorphine/Naloxone 8/2 Mg Film) 1 film BUCCAL TID@0730,1400,1999 [facility] Last Admin: 10/16/24 21:37 Dose: 1 film Documented By: LIZZETTE Calcium Carbonate (Calcium Carbonate 750 Mg Tab.Chew) 750 mg PO Q4H PRN PRN Reason: Heartburn Cariprazine (Cariprazine Hcl 3 Mg Capsule) 3 mg PO BEDTIME@1999 [facility] Last Admin: 10/16/24 21:38 Dose: 3 mg Documented By: LIZZETTE Ceftriaxone Sodium (Ceftriaxone Sodium 1 Gm Vial) 1 gm IVPUSH Q24H [facility] Last Admin: 10/16/24 11:01 Dose: 1 gm Documented By: HUY Clonidine HCl (Clonidine Hcl 0.1 Mg Tablet) 0.1 mg PO TID@0730,1399,1999 [facility]; Protocol Last Admin: 10/16/24 21:37 Dose: 0.1 mg Documented By: LIZZETTE Cyclobenzaprine HCl (Cyclobenzaprine Hcl 5 Mg Tablet) 5 mg PO TID@0730,1399,1999 PRN PRN Reason: Muscle Spasm Duloxetine HCl (Duloxetine Hcl 20 Mg Capsule.) 40 mg PO DAILY@729 [facility] Last Admin: 10/16/24 08:31 Dose: 40 mg Documented By: HUY Duloxetine HCl (Duloxetine Hcl 60 Mg Capsule.) 60 mg PO DAILY@729 [facility] Last Admin: 10/16/24 08:31 Dose: 60 mg Documented By: HUY Enoxaparin Sodium (Enoxaparin Sodium 40 Mg/0.4 Ml Syringe) 40 mg SUBCUT Q24H [facility] Last Admin: 10/16/24 18:05 Dose: 40 mg Documented By: JOHN Famotidine (Famotidine 20 Mg Tablet) 20 mg PO BID@729,1999 [facility] Last Admin: 10/16/24 21:37 Dose: 20 mg Documented By: LIZZETTE Folic Acid (Folic Acid 1 Mg Tablet) 1 mg PO DAILY@729 [facility] Last Admin: 10/16/24 08:31 Dose: 1 mg Documented By: HUY Guaifenesin (Guaifenesin La 600 Mg Tab.Er.12h) 600 mg PO BID PRN PRN Reason: congestion Last Admin: 10/16/24 21:37 Dose: 600 mg Documented By: LIZZETTE Hydroxyzine HCl (Hydroxyzine Hcl 25 Mg Tablet) 25 mg PO Q6H PRN PRN Reason: Anxiety Last Admin: 10/16/24 15:40 Dose: 25 mg Documented By: JAE Azithromycin 500 mg/ Sodium (Chloride) 250 mls @ 125 mls/hr IV Q24H [facility] Last Infusion: 10/16/24 13:09 Dose: Infused Documented By: HUY Ibuprofen (Ibuprofen 600 Mg Tablet) 600 mg PO TID PRN PRN Reason: Pain, Moderate(Pain Scale 4-6) Last Admin: 10/16/24 08:36 Dose: 600 mg Documented By: HUY Lamotrigine (Lamotrigine 100 Mg Tablet) 100 mg PO DAILY@0730 [facility] Last Admin: 10/16/24 08:31 Dose: 100 mg Documented By: HUY Lorazepam (Lorazepam 1 Mg Tablet) 1 mg PO BEDTIME PRN PRN Reason: Anxiety Last Admin: 10/16/24 21:37 Dose: 1 mg Documented By: LIZZETTE Magnesium Hydroxide (Milk Of Magnesia 30 Ml Oral.Susp) 30 ml PO DAILY PRN PRN Reason: Constipation Last Admin: 10/14/24 14:04 Dose: 30 ml Documented By: MACIEL Melatonin (Melatonin 3 Mg Tablet) 6 mg PO BEDTIME PRN PRN Reason: Insomnia Last Admin: 10/14/24 20:15 Dose: 6 mg Documented By: SHERITA Methylphenidate HCl (Methylphenidate Hcl 10 Mg Tablet) 20 mg PO DAILY@0730 [facility] Last Admin: 10/16/24 08:31 Dose: 20 mg Documented By: HUY Methylphenidate HCl (Methylphenidate Hcl 10 Mg Tablet) 10 mg PO DAILY@1400 [facility] Last Admin: 10/16/24 13:05 Dose: 10 mg Documented By: HUY Methylprednisolone Sodium Succinate (Methylprednisolone Sod Succ 40 Mg/Ml Vial) 40 mg IVPUSH Q12H [facility] Last Admin: 10/16/24 21:38 Dose: 40 mg Documented By: LIZZETTE Multivitamins/Vitamin C (Multivitamin Tablet) 1 tab PO DAILY@0730 [facility] Last Admin: 10/16/24 08:31 Dose: 1 tab Documented By: HUY Nicotine (Nicotine 14 Mg Patch.Td24) 14 mg TRANSDERMA DAILY [facility] Last Admin: 10/17/24 09:00 Dose: 14 mg Documented By: JAYANT Nicotine Polacrilex (Nicotine Polacrilex Lozenge 2 Mg Lozenge) 2 mg BUCCAL Q2H PRN PRN Reason: Nicotine Cravings Last Admin: 10/17/24 02:01 Dose: 2 mg Documented By: CLAUDY Nicotine Polacrilex (Nicotine Polacrilex 2 Mg Gum) 2 mg BUCCAL Q2H PRN PRN Reason: Nicotine Cravings Omeprazole (Omeprazole 20 Mg Capsule.) 20 mg PO BID@0730,1630 [facility] Last Admin: 10/16/24 15:40 Dose: 20 mg Documented By: JAE Ondansetron HCl (Ondansetron Odt 4 Mg Tab.Rapdis) 4 mg TRANSLINGU Q6H PRN PRN Reason: Nausea Simethicone (Simethicone 80 Mg Tab.Chew) 80 mg PO QIDWMHS PRN PRN Reason: gas relief Last Admin: 10/14/24 14:04 Dose: 80 mg Documented By: MACIEL Sodium Chloride (0.9 % Sodium Chloride Flush 3 Ml Syringe) 3 ml IVFLUSH QSHIFT [facility] Last Admin: 10/16/24 21:39 Dose: 3 ml Documented By: LIZZETTE Topiramate (Topiramate 100 Mg Tablet) 100 mg PO BID@07,1999 [facility] Last Admin: 10/16/24 21:37 Dose: 100 mg Documented By: LIZZETTE Vitamin D (Cholecalciferol (Vitamin D3) 25 Mcg Tablet) 50 mcg PO DAILY@0730 [facility] Last Admin: 10/16/24 08:31 Dose: 50 mcg Documented By: HUY Labs 10/14/24 06:42 10/14/24 06:42 Assessment and Plan (1) COPD (chronic obstructive pulmonary disease): Status: Acute Plan d6 for 49yo F with morbid obesity, COPD on home O2, OUD on Suboxone, fibromyalgia, prediabetes presenting with dyspnea, admitted for acute/chronic hypercapneic/hypoxic resp failure + sepsis due to COPD/pneumonia briefly on BiPAP in ED acute/chronic hypercapneic/hypoxic resp failure due to COPD exacerbation - change IV to PO steroids, conitnue nebs - Pulm consulted, sleep study ordered and to f/u as outpt pneumonia - ceftriaxone 10/13-10/17 and change to cefuroxime 10/17- - azithromycin 10/13-, change to PO - BCx neg, PCT low peripheral edema - leg elevation, compression devices FM mood disorder - continue clonidine, cyclobenzaprine, duloxetine, hydroxyzyine, cariprazine, topiramate, lamotrigine ADHD - continue methylphenidate morbid obesity - diet/exercise counseling OUD - Suboxone VTE prophylaxis - enoxaparin dispo - awaiting letter from [facility] certifying she completed her program in order for DCF to clear her returning home In my clinical judgment, the patient requires continued inpatient hospitalization for the following reasons: placement Total time managing care of this patient today: 35 minutes. Quality Stroke Does the patient have a stroke diagnosis?: No VTE Prior VTE?: No VTE Risk Level:: Medical - moderate - high VTE Device Contraindication: N/A - Device Ordered VTE Drug Contraindication: N/A - Med Ordered
[2024-10-17] MEDS: Azithromycin 250 MG TABLET PO (10:41)
[2024-10-17] MEDS: cefuroxime axetiL 500 MG TABLET PO ×2 (10:41→21:29)
[2024-10-17] MEDS: Methylphenidate HCl 10 MG TABLET PO (13:00)
[2024-10-17] MEDS: Enoxaparin Sodium 40 MG/0.4 ML SYRINGE SUBCUT (17:02)
--- NOTE | 2024-10-17 17:25 | ECG_ITS ---
Test Reason : Chest Pain Blood Pressure : / mmHG Vent. Rate : 105 BPM Atrial Rate : 105 BPM P-R Int : 142 ms QRS Dur : 082 ms QT Int : 330 ms P-R-T Axes : 061 068 045 degrees QTc Int : 436 ms Sinus tachycardia Otherwise normal ECG When compared with ECG of 12-OCT-2024 10:27, No significant change was found Referred By: Cely Perea Electronically Signed By:NYDIA DELEON MD
[2024-10-17] MEDS: Cariprazine HCl 3 MG CAPSULE PO (21:29)
[2024-10-17] MEDS: Melatonin 3 MG TABLET 6 MG PO (21:35)
[2024-10-18] VITALS (10 sets, daily range): BP systolic 119–145; BP diastolic 68–75; PULSE 75–116; RESP 12–20; TEMP 36–37.6; O2SAT 92–98
[2024-10-18] MEDS: Nicotine Polacrilex Lozenge 2 MG LOZENGE BUCCAL ×8 (00:30→21:59)
[2024-10-18] MEDS: guaiFENesin LA 600 MG TAB.ER.12H PO ×2 (03:55→17:20)
[2024-10-18] MEDS: Albuterol/Iprat 2.5/0.5MG 3 ML AMPUL.NEB INHALE ×3 (07:43→15:07)
[2024-10-18] MEDS: DULoxetine HCl 20 MG CAPSULE.DR 40 MG PO (08:53)
[2024-10-18] MEDS: Methylphenidate HCl 10 MG TABLET 20 MG PO (08:53)
[2024-10-18] MEDS: Multivitamin TABLET 1 TAB PO (08:53)
[2024-10-18] MEDS: DULoxetine HCl 60 MG CAPSULE.DR PO (08:53)
[2024-10-18] MEDS: cefuroxime axetiL 500 MG TABLET PO ×2 (08:53→22:01)
[2024-10-18] MEDS: Cholecalciferol (Vitamin D3) 25 MCG TABLET 50 MCG PO (08:54)
[2024-10-18] MEDS: Nicotine 14 MG PATCH.TD24 TRANSDERMA (08:54)
[2024-10-18] MEDS: Omeprazole 20 MG CAPSULE.DR PO ×2 (08:54→17:20)
[2024-10-18] MEDS: Folic Acid 1 MG TABLET PO (08:54)
[2024-10-18] MEDS: lamoTRIgine 100 MG TABLET PO (08:54)
[2024-10-18] MEDS: 0.9 % Sodium Chloride Flush 3 ML SYRINGE IVFLUSH (08:55)
[2024-10-18] MEDS: methylPREDNISolone Sod Succ 40 MG/ML VIAL IVPUSH (08:55)
[2024-10-18] MEDS: Topiramate 100 MG TABLET PO ×2 (08:58→22:01)
[2024-10-18] MEDS: cloNIDine HCL 0.1 MG TABLET PO ×3 (08:58→22:00)
[2024-10-18] MEDS: Buprenorphine/Naloxone 8/2 mg FILM 1 FILM BUCCAL ×3 (08:59→22:01)
[2024-10-18] MEDS: Famotidine 20 MG TABLET PO ×2 (08:59→22:00)
--- NOTE | 2024-10-18 09:21 | HO.PM.IMPN ---
Subjective Subjective Date of Service: 10/18/24 Interval History: some chest soreness with coughing/palpation wheezing improved dyspnea improved Review of Systems Review of Systems: Yes all other systems are reviewed and are negative Physical Exam Vital Signs: Vital Signs: Last Vital Signs Temp 97.1 F 10/18/24 08:00 Pulse 99 10/18/24 08:00 Resp 20 10/18/24 08:00 BP 138/70 10/18/24 08:00 Pulse Ox 96 10/18/24 08:00 O2 Del Method Nasal Cannula 10/18/24 08:00 O2 Flow Rate 2.5 10/18/24 08:00 FiO2 25 10/12/24 15:33 BMI result Body Mass Index 48.1 en: in no acute distress HEENT: sclera anicteric, moist mucus membranes Neck: supple Lungs: scattered rhonchi and wheezes Heart: regular rate and rhythm, no murmurs Abd: soft, non-tender, non-distended, obese Ext: no edema Skin: warm/well-perfused Neuro: alert and oriented x3, no focal findings Psych: appropriate affect Objective Data Active Medications Acetaminophen (Acetaminophen 325 Mg Tablet) 650 mg PO Q6H PRN PRN Reason: Pain, Mild (Pain Scale 1-3), fever or headache Albuterol Sulfate (Albuterol Sulfate 90 Mcg 8 Gm Inhaler) 2 puff INHALE Q4H PRN PRN Reason: Shortness Of Breath Albuterol/Ipratropium (Albuterol/Iprat 2.5/0.5mg 3 Ml Ampul.Neb) 3 ml INHALE Q3H PRN PRN Reason: sob Albuterol/Ipratropium (Albuterol/Iprat 2.5/0.5mg 3 Ml Ampul.Neb) 3 ml INHALE RQ4H [facility] Last Admin: 10/18/24 07:43 Dose: 3 ml Documented By: KEYLA Azithromycin (Azithromycin 250 Mg Tablet) 250 mg PO Q24H [facility] Last Admin: 10/17/24 10:41 Dose: 250 mg Documented By: JAYANT Buprenorphine/Naloxone (Buprenorphine/Naloxone 8/2 Mg Film) 1 film BUCCAL TID@0730,1400,2000 [facility] Last Admin: 10/18/24 08:59 Dose: 1 film Documented By: MIRTHA Calcium Carbonate (Calcium Carbonate 750 Mg Tab.Chew) 750 mg PO Q4H PRN PRN Reason: Heartburn Cariprazine (Cariprazine Hcl 3 Mg Capsule) 3 mg PO BEDTIME@1999 [facility] Last Admin: 10/17/24 21:29 Dose: 3 mg Documented By: MERARY Cefuroxime Axetil (Cefuroxime Axetil 500 Mg Tablet) 500 mg PO Q12H [facility] Last Admin: 10/18/24 08:53 Dose: 500 mg Documented By: MIRTHA Clonidine HCl (Clonidine Hcl 0.1 Mg Tablet) 0.1 mg PO TID@729, [facility]; Protocol Last Admin: 10/18/24 08:58 Dose: 0.1 mg Documented By: MIRTHA Cyclobenzaprine HCl (Cyclobenzaprine Hcl 5 Mg Tablet) 5 mg PO TID@729,1399,1999 PRN PRN Reason: Muscle Spasm Duloxetine HCl (Duloxetine Hcl 20 Mg Capsule.) 40 mg PO DAILY@729 [facility] Last Admin: 10/18/24 08:53 Dose: 40 mg Documented By: MIRTHA Duloxetine HCl (Duloxetine Hcl 60 Mg Capsule.) 60 mg PO DAILY@729 [facility] Last Admin: 10/18/24 08:53 Dose: 60 mg Documented By: MIRTHA Enoxaparin Sodium (Enoxaparin Sodium 40 Mg/0.4 Ml Syringe) 40 mg SUBCUT Q24H [facility] Last Admin: 10/17/24 17:02 Dose: 40 mg Documented By: JAYANT Famotidine (Famotidine 20 Mg Tablet) 20 mg PO BID@ [facility] Last Admin: 10/18/24 08:59 Dose: 20 mg Documented By: MIRTHA Folic Acid (Folic Acid 1 Mg Tablet) 1 mg PO DAILY@729 [facility] Last Admin: 10/18/24 08:54 Dose: 1 mg Documented By: MIRTHA Guaifenesin (Guaifenesin La 600 Mg Tab.Er.12h) 600 mg PO BID PRN PRN Reason: congestion Last Admin: 10/18/24 03:55 Dose: 600 mg Documented By: MERARY Hydroxyzine HCl (Hydroxyzine Hcl 25 Mg Tablet) 25 mg PO Q6H PRN PRN Reason: Anxiety Last Admin: 10/16/24 15:40 Dose: 25 mg Documented By: JAE Ibuprofen (Ibuprofen 600 Mg Tablet) 600 mg PO TID PRN PRN Reason: Pain, Moderate(Pain Scale 4-6) Last Admin: 10/17/24 09:40 Dose: 600 mg Documented By: JAYANT Lamotrigine (Lamotrigine 100 Mg Tablet) 100 mg PO DAILY@0730 [facility] Last Admin: 10/18/24 08:54 Dose: 100 mg Documented By: MIRTHA Magnesium Hydroxide (Milk Of Magnesia 30 Ml Oral.Susp) 30 ml PO DAILY PRN PRN Reason: Constipation Last Admin: 10/14/24 14:04 Dose: 30 ml Documented By: MACIEL Melatonin (Melatonin 3 Mg Tablet) 6 mg PO BEDTIME PRN PRN Reason: Insomnia Last Admin: 10/17/24 21:35 Dose: 6 mg Documented By: MERARY Methylphenidate HCl (Methylphenidate Hcl 10 Mg Tablet) 20 mg PO DAILY@0730 [facility] Last Admin: 10/18/24 08:53 Dose: 20 mg Documented By: MIRTHA Methylphenidate HCl (Methylphenidate Hcl 10 Mg Tablet) 10 mg PO DAILY@1400 [facility] Last Admin: 10/17/24 13:00 Dose: 10 mg Documented By: YVONNE Multivitamins/Vitamin C (Multivitamin Tablet) 1 tab PO DAILY@0730 [facility] Last Admin: 10/18/24 08:53 Dose: 1 tab Documented By: MIRTHA Nicotine (Nicotine 14 Mg Patch.Td24) 14 mg TRANSDERMA DAILY [facility] Last Admin: 10/18/24 08:54 Dose: 14 mg Documented By: MIRTHA Nicotine Polacrilex (Nicotine Polacrilex Lozenge 2 Mg Lozenge) 2 mg BUCCAL Q2H PRN PRN Reason: Nicotine Cravings Last Admin: 10/18/24 08:58 Dose: 2 mg Documented By: MIRTHA Nicotine Polacrilex (Nicotine Polacrilex 2 Mg Gum) 2 mg BUCCAL Q2H PRN PRN Reason: Nicotine Cravings Omeprazole (Omeprazole 20 Mg Capsule.) 20 mg PO BID@0730,1630 [facility] Last Admin: 10/18/24 08:54 Dose: 20 mg Documented By: MIRTHA Ondansetron HCl (Ondansetron Odt 4 Mg Tab.Rapdis) 4 mg TRANSLINGU Q6H PRN PRN Reason: Nausea Simethicone (Simethicone 80 Mg Tab.Chew) 80 mg PO QIDWMHS PRN PRN Reason: gas relief Last Admin: 10/14/24 14:04 Dose: 80 mg Documented By: MACIEL Sodium Chloride (0.9 % Sodium Chloride Flush 3 Ml Syringe) 3 ml IVFLUSH QSHIFT [facility] Last Admin: 10/18/24 08:55 Dose: 3 ml Documented By: MIRTHA Topiramate (Topiramate 100 Mg Tablet) 100 mg PO BID@ [facility] Last Admin: 10/18/24 08:58 Dose: 100 mg Documented By: MIRTHA Vitamin D (Cholecalciferol (Vitamin D3) 25 Mcg Tablet) 50 mcg PO DAILY@729 [facility] Last Admin: 10/18/24 08:54 Dose: 50 mcg Documented By: MIRTHA Labs 10/14/24 06:42 10/14/24 06:42 Microbiology Microbiology Results: Microbiology 10/12/24 10:15 Blood Culture - Final Blood - Venous No growth after 5 days. 10/12/24 10:06 Blood Culture - Final Blood - Venous No growth after 5 days. Assessment and Plan (1) COPD (chronic obstructive pulmonary disease): Status: Acute Plan d7 for 49yo F with morbid obesity, COPD on home O2, OUD on Suboxone, fibromyalgia, prediabetes presenting with dyspnea, admitted for acute/chronic hypercapneic/hypoxic resp failure + sepsis due to COPD/pneumonia briefly on BiPAP in ED acute/chronic hypercapneic/hypoxic resp failure due to COPD exacerbation - changed IV to PO steroids, continue nebs - Pulm consulted, sleep study ordered and to f/u as outpt pneumonia - ceftriaxone 10/13-10/17 and changed to cefuroxime 10/17 to continue until 10/20 - azithromycin 10/13-, changed to PO 10/17 and to continue until 10/20 - BCx neg, PCT low peripheral edema - leg elevation, compression devices FM mood disorder - continue clonidine, cyclobenzaprine, duloxetine, hydroxyzyine, cariprazine, topiramate, lamotrigine ADHD - continue methylphenidate morbid obesity - diet/exercise counseling OUD - Suboxone VTE prophylaxis - enoxaparin dispo - awaiting letter from [facility] certifying she completed her program in order for DCF to clear her returning home In my clinical judgment, the patient requires continued inpatient hospitalization for the following reasons: placement Total time managing care of this patient today: 35 minutes. Quality Stroke Does the patient have a stroke diagnosis?: No VTE Prior VTE?: No VTE Risk Level:: Medical - moderate - high VTE Device Contraindication: N/A - Device Ordered VTE Drug Contraindication: N/A - Med Ordered
[2024-10-18] MEDS: Azithromycin 250 MG TABLET PO (11:40)
[2024-10-18] MEDS: Methylphenidate HCl 10 MG TABLET PO (14:05)
[2024-10-18] MEDS: Enoxaparin Sodium 40 MG/0.4 ML SYRINGE SUBCUT (17:20)
[2024-10-18] MEDS: Cariprazine HCl 3 MG CAPSULE PO (22:00)
[2024-10-18] MEDS: hydrOXYzine HCL 25 MG TABLET PO (22:01)
[2024-10-18] MEDS: LORazepam 1 MG TABLET PO (22:15)
[2024-10-18] MEDS: Ibuprofen 600 MG TABLET PO (22:15)
[2024-10-19 03:24] VITALS: BP 110/75; PULSE 95; RESP 18; TEMP 36.1; O2SAT 96
[2024-10-19 07:15] VITALS: BP 141/80; PULSE 101; RESP 18; TEMP 36; O2SAT 98
[2024-10-19] MEDS: Nicotine 14 MG PATCH.TD24 TRANSDERMA (07:44)
[2024-10-19] MEDS: DULoxetine HCl 60 MG CAPSULE.DR PO (07:45)
[2024-10-19] MEDS: Omeprazole 20 MG CAPSULE.DR PO (07:45)
[2024-10-19] MEDS: Folic Acid 1 MG TABLET PO (07:45)
[2024-10-19] MEDS: Buprenorphine/Naloxone 8/2 mg FILM 1 FILM BUCCAL (07:46)
[2024-10-19] MEDS: predniSONE 20 MG TABLET 40 MG PO (07:46)
[2024-10-19] MEDS: Multivitamin TABLET 1 TAB PO (07:46)
[2024-10-19] MEDS: Cholecalciferol (Vitamin D3) 25 MCG TABLET 50 MCG PO (07:46)
[2024-10-19] MEDS: Methylphenidate HCl 10 MG TABLET 20 MG PO (07:46)
[2024-10-19] MEDS: DULoxetine HCl 20 MG CAPSULE.DR 40 MG PO (07:46)
[2024-10-19] MEDS: lamoTRIgine 100 MG TABLET PO (07:46)
[2024-10-19] MEDS: Nicotine Polacrilex Lozenge 2 MG LOZENGE BUCCAL (07:50)
[2024-10-19] MEDS: Topiramate 100 MG TABLET PO (07:50)
[2024-10-19 07:51] VITALS: BP 141/80
[2024-10-19] MEDS: cloNIDine HCL 0.1 MG TABLET PO (07:51)
[2024-10-19] MEDS: Famotidine 20 MG TABLET PO (07:51)
[2024-10-19 07:59] VITALS: PULSE 100; RESP 18; O2SAT 98
[2024-10-19] MEDS: Albuterol/Iprat 2.5/0.5MG 3 ML AMPUL.NEB INHALE ×2 (07:59→11:43)
--- NOTE | 2024-10-19 09:18 | P.DS_ITS ---
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 DS: Diagnosis Discharge Diagnosis (1) COPD exacerbation: Status: Acute (2) Acute on chronic respiratory failure with hypoxia and hypercapnia: Status: Acute (3) Pneumonia: Status: Acute (4) Morbid obesity: Status: Acute (5) ALEKS (obstructive sleep apnea): Status: Acute (6) Sepsis: Status: Acute DS: Summary Hospital Course Hospital Course: From the history and physical by the admitting hospitalist, Nate Segundo, 10/12/24: 49y/o F with pmhx COPD on home O2, substance abuse on Suboxone, fibromyalgia, prediabetes, and morbid obesity came with c/o shortness of breath, dyspnea on exertion productive cough x2 weeks( has recent [place] 08/2022 until 09/17/2024 secondary to hypercarbia from a COPD exacerbation secondary to rhino virus and she was treated with BiPAP , acetazolamide Solu-Medrol and echo: no significant wall motion abnormalities with an EF of 60-65%-she went home with prednisone ). Afterwards last 2 weeks she has been feeling short of breath and having significant dyspnea on exertion, cough which is productive yellow sputum with no blood in the sputum, has had to increase her oxygen from 3 L to 4 liters/minute secondary to shortness of breath with exertion. She was also noticed increased lower extremity swelling and redness to both lower extremities that are symmetric, pain, has subjective fever and chills and myalgias and arthralgias. She denied chest pain. cxr:Acute inflammatory versus infectious process should be considered in the correct clinical settings. in ed received : bipap breifly for 2 hrs( 7.24/62/74) ,lactic acid normal ,given ceftriaxone/azithromycin,also 30cc/bolus,solumedrol,ekg sinus tachycardia. as per Ed documenatation-Patient is seen by Dr. Payne who felt that the patient was at her baseline and recommended removing BiPAP. Patient appears well with a O2 saturation of 92% on 3 L of oxygen via nasal cannula. 49yo F with morbid obesity, COPD on home O2, OUD on Suboxone, fibromyalgia, and prediabetes presenting with dyspnea and admitted for acute/chronic hypercapneic/ hypoxic resp failure + sepsis due to COPD/pneumonia, briefly on BiPAP in ED then admitted to the telemetry unit. She was treated with IV, then PO steroids and nebulized bronchodilators. Pulmonology was consulted and a sleep study completed; results to be followed up as an outpatient. For pneumonia, she was treated with ceftriaxone transitioned to cefuroxime, then azithromycin. She completed 7 days of antibiotics in the hospital. [facility]. Time Attestation Discharge Coordination Time (in mins): 35 Quality: Safe Use of Opioids Does Pt have an Active Cancer Diagnosis on the Problem List?: No Quality: Stroke Does the patient have a stroke diagnosis?: No Physical Exam Vital Signs: Vital Signs: Last Vital Signs Temp 96.8 F 10/19/24 07:15 Pulse 100 10/19/24 07:59 Resp 18 10/19/24 07:59 BP 141/80 H 10/19/24 07:51 Pulse Ox 98 10/19/24 07:15 O2 Del Method Nasal Cannula 10/19/24 07:15 O2 Flow Rate 3 10/19/24 07:15 FiO2 25 10/12/24 15:33 BMI result Body Mass Index 48.1 Gen: in no acute distress HEENT: sclera anicteric, moist mucus membranes Neck: supple Lungs: diminished Heart: regular rate and rhythm, no murmurs Abd: soft, non-tender, non-distended, obese Ext: no edema Skin: warm/well-perfused Neuro: alert and oriented x3, no focal findings Psych: appropriate affect DS: Data Data Completed and Pending Completed studies during hospitalization [Text1]: Laboratory Results WBC 9.9 X10*3/uL (4.8-10.8) 10/14/24 06:42 RBC 4.02 X10*6/uL (4.20-5.50) L 10/14/24 06:42 Hgb 11.4 g/dl (12.0-16.0) L 10/14/24 06:42 Hct 36.0 % (37.0-47.0) L 10/14/24 06:42 MCV 89.6 fL (80.0-98.0) 10/14/24 06:42 MCH 28.4 pg (27.0-33.0) 10/14/24 06:42 MCHC 31.7 g/dl (31.0-35.0) 10/14/24 06:42 RDW 13.6 % (11.0-16.0) 10/14/24 06:42 Plt Count 163 X10*3/uL (160-400) 10/14/24 06:42 MPV 10.7 fL (9.4-12.3) 10/14/24 06:42 Immature Gran % (Auto) 0.9 % (0.0-0.4) H 10/12/24 10:07 Neut % (Auto) 56.3 % (45-73) 10/12/24 10:07 Lymph % (Auto) 27.9 % (20-40) 10/12/24 10:07 Cecil % (Auto) 7.4 % (2-11) 10/12/24 10:07 Eos % (Auto) 6.8 % (0-4) H 10/12/24 10:07 Baso % (Auto) 0.7 % (0-2) 10/12/24 10:07 Lymph # (Auto) 1.9 X10*3/uL (1.2-4.9) 10/12/24 10:07 Cecil # (Auto) 0.5 X10*3/uL (0.1-1.2) 10/12/24 10:07 Eos # (Auto) 0.5 X10*3/uL (0.0-0.4) H 10/12/24 10:07 Baso # (Auto) 0.1 X10*3/uL (0.0-0.2) 10/12/24 10:07 Abs Immat Gran (auto) 0.06 X10*3/uL (0.00-0.03) H 10/12/24 10:07 Absolute Neuts (auto) 3.8 x10*3/uL (2.0-8.3) 10/12/24 10:07 Absolute Nucleated RBC 0.000 X10*3/uL (0.0-0.012) 10/14/24 06:42 Nucleated RBC % (auto) 0.0 /100WBC (0.0-0.2) 10/14/24 06:42 APTT 34.6 SEC (26.0-36.8) 10/12/24 10:15 VBG pH 7.32 (7.32-7.43) 10/12/24 19:25 VBG pCO2 50 mmHg 10/12/24 19:25 VBG pO2 68 mmHg 10/12/24 19:25 VBG HCO3 26 mmol/L (22-26) 10/12/24 19:25 VBG O2 Saturation 94.0 % 10/12/24 19:25 VBG Base Excess 0.3 mmol/L 10/12/24 19:25 Sodium 140 mmol/L (135-145) 10/14/24 06:42 Potassium 4.1 mmol/L (3.3-5.1) 10/14/24 06:42 Chloride 109 mmol/L (96-108) H 10/14/24 06:42 Carbon Dioxide 24 mmol/L (22-29) 10/14/24 06:42 Anion Gap 11 (12-20) L 10/14/24 06:42 BUN 14 mg/dL (9-16) 10/14/24 06:42 Creatinine 0.72 mg/dL (0.5-1.4) 10/14/24 06:42 Estim Creat Clear Calc 118.7 10/14/24 06:42 Estimated GFR > 60 10/14/24 06:42 POC Glucose 164 mg/dL (60-115) H 10/13/24 14:07 Random Glucose 209 mg/dL (60-115) H 10/14/24 06:42 Lactic Acid 1.2 mmol/L (0.5-2.0) 10/12/24 10:06 Calcium 9.0 mg/dL (8.4-10.2) 10/14/24 06:42 Magnesium 1.8 mg/dL (1.6-2.6) 10/12/24 10:07 Total Bilirubin 0.2 mg/dL (0.0-1.0) 10/12/24 10:07 AST 39 U/L (5-31) H 10/12/24 10:07 ALT 22 U/L (0-31) 10/12/24 10:07 Alkaline Phosphatase 72 U/L (39-117) 10/12/24 10:07 Troponin I High Sens < 2.7 ng/L (<3.5-17.0) 10/12/24 10:06 Total Protein 6.7 g/dL (6.5-8.0) 10/12/24 10:07 Albumin 3.7 g/dL (3.5-5.0) 10/12/24 10:07 Lipase 22 U/L (8-78) 10/12/24 10:07 Procalcitonin 0.02 ng/mL 10/14/24 06:42 Urine Color Yellow 10/13/24 04:57 Urine Appearance Clear 10/13/24 04:57 Urine pH 7.0 (5.0-9.0) 10/13/24 04:57 Ur Specific [place] 1.025 (1.005-1.025) 10/13/24 04:57 Urine Protein Trace mg/dL (Neg-Trace) 10/13/24 04:57 Urine Glucose (UA) Negative mg/dL (Negative) 10/13/24 04:57 Urine Ketones Negative mg/dL (Negative) 10/13/24 04:57 Urine Blood Negative (Negative) 10/13/24 04:57 Urine Nitrite Negative (Negative) 10/13/24 04:57 Ur Leukocyte Esterase Negative (Negative) 10/13/24 04:57 Respiratory Panel Wall See Note 10/12/24 17:44 Adenovirus (Rapid PCR) Not Detected (Not Detect.) 10/12/24 17:44 B.pert (TEM-PCR) Not Detected (Not Detect.) 10/12/24 17:44 B.parapertussis DNA PCR Not Detected (Not Detect.) 10/12/24 17:44 C. pneumoniae DNA (PCR) Not Detected (Not Detect.) 10/12/24 17:44 Coronavirus OC43 (PCR) Not Detected (Not Detect.) 10/12/24 17:44 Coronavirus HKU1 (PCR) Not Detected (Not Detect.) 10/12/24 17:44 Coronavirus 229E (PCR) Not Detected (Not Detect.) 10/12/24 17:44 Coronavirus NL63 (PCR) Not Detected (Not Detect.) 10/12/24 17:44 Human Metapneumovir PCR Not Detected (Not Detect.) 10/12/24 17:44 Influenza A (RT-PCR) Not Detected (Not Detect.) 10/12/24 17:44 Influenza Type A (PCR) NEGATIVE (Negative) 10/12/24 10:42 Influenza B (RT-PCR) Not Detected (Not Detect.) 10/12/24 17:44 Influenza Type B (PCR) NEGATIVE (Negative) 10/12/24 10:42 M. pneumoniae (PCR) Not Detected (Not Detect.) 10/12/24 17:44 Parainfluenza 1 (PCR) Not Detected (Not Detect.) 10/12/24 17:44 Parainfluenza 2 (PCR) Not Detected (Not Detect.) 10/12/24 17:44 Parainfluenza 3 (PCR) Not Detected (Not Detect.) 10/12/24 17:44 Parainfluenza 4 (PCR) Not Detected (Not Detect.) 10/12/24 17:44 RSV (PCR) Not Detected (Not Detect.) 10/12/24 17:44 RSV RNA Qual (PCR) NEGATIVE (Negative) 10/12/24 10:42 Entero/Rhino (PCR) Not Detected (Not Detect.) 10/12/24 17:44 SARS-CoV-2 RNA (RT-PCR) Not Detected (Not Detect.) 10/12/24 17:44 Impressions Chest X-Ray 10/12/24 10:24 IMPRESSION: Acute inflammatory versus infectious process should be considered in the correct clinical settings. Electronically signed by: Talha Wiggins MD 10/12/2024 11:40 AM [facility] [place], [place] Discharge Plan Discharge Anticipated Discharge Date/Time: 10/19/24 09:11 Patient Disposition: Home, Self-Care Discharge Diagnosis: COPD exacerbation, pneumonia, ALEKS Referrals: Karen Macedo APRN [Primary Care Provider] - 1 Week Discharge Medications: New prednisone 10 mg tablet See Rx Instructions .ROUTE .COMPLEX Qty: 20 0RF Rx Instructions: 40 mg daily x 2 days then 30 mg daily x 2 days then 20 mg daily x 2 days then 10 mg daily x 2 days Continued acetaminophen 325 mg tablet 650 mg PO Q6H PRN (Reason: Headache/Pain Mild Scale (1-3)) nicotine (polacrilex) 2 mg Gum 2 mg BUCCAL Q2H PRN (Reason: Nicotine Cravings) melatonin 10 mg capsule 10 mg PO BEDTIME PRN (Reason: sleep) Qty: 30 0RF hydroxyzine HCl 25 mg Tablet 25 mg PO Q6H PRN (Reason: Anxiety) 15 Days Qty: 60 1RF guaifenesin [Mucinex] 600 mg Tablet Extended Release 12hr 600 mg PO BID PRN (Reason: congestion) 30 Days Qty: 60 0RF Combivent Respimat 20-100 mcg/actuation mist 1 puff INHALATION QID PRN (Reason: Shortness Of Breath Or Wheezing) 30 Days Qty: 4 0RF ipratropium-albuterol 0.5 mg-3 mg(2.5 mg base)/3 mL Solution For Nebulization 3 ml inhalation Q4H PRN (Reason: wheeze, sob) 30 Days Qty: 90 1RF ondansetron 4 mg Tablet,Disintegrating 4 mg translingual Q6H PRN (Reason: Nausea) 30 Days Qty: 30 1RF simethicone [Gas Relief (simethicone)] 80 mg Tablet,Chewable 80 mg PO QIDWMHS PRN (Reason: gas relief) 30 Days Qty: 90 1RF methylphenidate HCl 10 mg tablet 10 mg PO DAILY@1400 methylphenidate HCl 10 mg tablet 20 mg PO DAILY@0730 ibuprofen 600 mg tablet 600 mg PO TID PRN (Reason: Pain, Moderate(Pain Scale 4-6)) pantoprazole 40 mg tablet,delayed release (DR/EC) 40 mg PO BID@0730,1630 lorazepam 1 mg tablet 1 mg PO BEDTIME PRN (Reason: Anxiety) fluticasone propionate 50 mcg/actuation spray,suspension 2 spray intranasal BID PRN (Reason: Allergies) cholecalciferol (vitamin D3) 50 mcg (2,000 unit) capsule 50 mcg PO DAILY@0730 Dennytri Aerosphere 160-9-4.8 mcg/actuation HFA aerosol inhaler 2 inh inhalation DAILY@0730 clonidine HCl 0.1 mg tablet 0.1 mg PO TID@0730,1400,2000 Protocol: Hold for SBP< HOLD for SBP < : 90 famotidine 20 mg tablet 20 mg PO BID@729,1999 albuterol sulfate 90 mcg/actuation HFA aerosol inhaler 2 puff INHALATION Q4H PRN (Reason: Shortness Of Breath) cyclobenzaprine 5 mg tablet 5 mg PO TID@729,1399,1999 PRN (Reason: Muscle Spasm) buprenorphine-naloxone [Suboxone] 8-2 mg film 1 film BUCCAL TID@729, Vraylar 3 mg capsule 3 mg PO BEDTIME@1999 multivitamin [Daily-Jesusita] Tablet 1 tab PO DAILY@729 topiramate 100 mg tablet 100 mg PO BID@729,1999 metformin 500 mg tablet extended release 24 hr 500 mg PO DAILY@729 lamotrigine [Lamictal] 100 mg tablet 100 mg PO DAILY@729 Rx Instructions: START 06/25/24 duloxetine 20 mg capsule,delayed release(DR/EC) 40 mg PO DAILY@729 duloxetine 60 mg capsule,delayed release(DR/EC) 60 mg PO DAILY@729 nicotine 14 mg/24 hr Patch 24 Hour 1 patch TRANSDERMAL DAILY folic acid 1 mg tablet 1 mg PO DAILY@729 Discharge Orders: Discharge Order (Routine); Ordered 10/19/24 Ordered By: Cely Perea Diet: Advance to usual diet Activity on Discharge: As tolerated Stand Alone Forms: Patient Portal Discharge page Print Language: Taiwanese Care Plan Goals: respiratory health Health Concerns: COPD exacerbation, pneumonia, ALEKS Plan of Treatment: prednisone: 40 mg daily x 2 days then 30 mg daily x 2 days then 20 mg daily x 2 days then 10 mg daily x 2 days follow up with PCP for results of sleep study quit smoking 3L oxygen Please follow up with your primary care doctor within 1 week. Return to the hospital if you experience recurrent or worsening symptoms. Assessment: See Discharge Summary.
[2024-10-19] MEDS: cefuroxime axetiL 500 MG TABLET PO (09:52)
--- NOTE | 2024-10-19 10:28 | MHC.CM.PN ---
PT MEDICALLY CLEARED FOR DC BACK TO [facility] WHERE SHE WILL SPEND THE NIGHT AND GRADUATE FROM [employer]GRAM TOMORROW, PT REPORTS THEN DCF WILL LET HER RETURN HOME, [employer]ITION SUPERVISOR/DIRECTOR JAYSHREE FOR TRANSPORT
--- NOTE | 2024-10-19 10:41 | MHC.RECOVSUP ---
pt was excited to share the news she got the greenlight to go home after an overnight and graduation from [facility]. Will be staying in contact with her sponsor, will go to AA meetings online and virtually. She has discovered she enjoys working with jazmyn and building art out of paper for hobbies. Upon suggestion she filled out a request for a debt recovery officer which was emailed to Tho Canales at [facility].
[2024-10-19] MEDS: Azithromycin 250 MG TABLET PO (11:04)
[2024-10-19 11:43] VITALS: PULSE 115; RESP 19; O2SAT 98
== END 2024-10-19 12:00 | disposition home or self-care (01) | DRG 871 ==
LOC: HO.ED 12:11 → HO.EDOVER 18:13 → HO.IMC 10-13 19:12
PROVIDERS: Physician Assistant; Physician Assistant Medical; Admitting Provider Internal Medicine; Emergency Provider Emergency Medicine Emergency Medical Services; PCP Registered Nurse; Visit Provider Family Medicine
DX: A41.9 Sepsis, unspecified organism (principal); J18.9 Pneumonia, unspecified organism; J96.22 Acute and chronic respiratory failure with hypercapnia; J96.21 Acute and chronic respiratory failure with hypoxia; J44.0 Chronic obstructive pulmonary disease with (acute) lower respiratory infection; J44.1 Chronic obstructive pulmonary disease with (acute) exacerbation; F11.20 Opioid dependence, uncomplicated; Z68.42 Body mass index [BMI] 45.0-49.9, adult; E66.2 Morbid (severe) obesity with alveolar hypoventilation; F90.9 Attention-deficit hyperactivity disorder, unspecified type; M79.7 Fibromyalgia; R73.03 Prediabetes; Z99.81 Dependence on supplemental oxygen; F17.210 Nicotine dependence, cigarettes, uncomplicated; Z71.6 Tobacco abuse counseling; Z20.822 Contact with and (suspected) exposure to COVID-19; Z79.84 Long term (current) use of oral hypoglycemic drugs; Z79.899 Other long term (current) drug therapy
CPT/HCPCS: 0241U; 36415; 71045; 80048; 80053; 81003; 82803; 82947; 83605; 83690; 83735; 84145; 84484; 85025; 85027; 85730; 87040; 87633; 93005; 94640; 97161; 99285; J0456; J0696; J1650; J2919

== ENCOUNTER → 2024-10-12 09:49 | Outpatient (BNV) | payer OTHER, SELFPAY | PROVIDERS: Emergency Provider Emergency Medicine Emergency Medical Services; PCP Registered Nurse; Visit Provider Radiology Diagnostic Radiology | DX: R06.02 Shortness of breath (principal) | CPT/HCPCS: 71045 ==

== ENCOUNTER → 2024-10-12 09:49 | Outpatient (BNV) | payer OTHER, SELFPAY | PROVIDERS: Emergency Provider Emergency Medicine Emergency Medical Services; PCP Registered Nurse; Visit Provider Internal Medicine Cardiovascular Disease | DX: R00.0 Tachycardia, unspecified (principal) | CPT/HCPCS: 93010 ==

== ENCOUNTER 2024-10-12 17:40 | Outpatient (BNV) | payer OTHER, SELFPAY | END 2024-10-17 17:25 | PROVIDERS: Admitting Provider Internal Medicine; Emergency Provider Emergency Medicine Emergency Medical Services; PCP Registered Nurse; Visit Provider Internal Medicine Cardiovascular Disease | DX: R00.0 Tachycardia, unspecified (principal) | CPT/HCPCS: 93010 ==

== ENCOUNTER → 2024-10-12 17:40 | Outpatient (BNV) | payer OTHER, SELFPAY | PROVIDERS: Admitting Provider Internal Medicine; Emergency Provider Emergency Medicine Emergency Medical Services; PCP Registered Nurse; Visit Provider Internal Medicine | DX: A41.9 Sepsis, unspecified organism (principal); J44.1 Chronic obstructive pulmonary disease with (acute) exacerbation; J96.21 Acute and chronic respiratory failure with hypoxia; J96.22 Acute and chronic respiratory failure with hypercapnia; J18.9 Pneumonia, unspecified organism; E66.01 Morbid (severe) obesity due to excess calories; G47.33 Obstructive sleep apnea (adult) (pediatric) | CPT/HCPCS: 99223; 99232; 99239 ==

== ENCOUNTER → 2024-10-12 17:40 | Outpatient (BNV) | payer OTHER, SELFPAY | PROVIDERS: Admitting Provider Internal Medicine; Emergency Provider Emergency Medicine Emergency Medical Services; PCP Registered Nurse; Visit Provider Hospitalist | DX: J18.9 Pneumonia, unspecified organism (principal); J96.21 Acute and chronic respiratory failure with hypoxia; J96.22 Acute and chronic respiratory failure with hypercapnia; J96.02 Acute respiratory failure with hypercapnia; J44.1 Chronic obstructive pulmonary disease with (acute) exacerbation; G47.33 Obstructive sleep apnea (adult) (pediatric) | CPT/HCPCS: 99223 ==